=== PATIENT | female | born 1975 | race Caucasian/White ===

== ENCOUNTER 2016-11-06 20:19 | Emergency (ER) | payer OTHER ==
[~2016-11-06] VITALS: Ht 142.2 cm; Wt 77.1 kg
[~2016-11-06 20:19] MED LIST: ACETAMINOPHEN-H1 TA2 PO; ALBUTEROL0.09 MG/A2 IH; AMBIEN5 MG PO; ASPIRIN ADULT L81 M1 PO; ATIVAN1 MG PO; AUGMENTIN 875 M1 TAB PO; B12,B-12,B 12500 MC1 PO; BUPROPION HCL100 MG PO; BUSPIRONE15 MG PO; CARAFATE1 G1 PO; CELEBREX100 MG PO; CIPROFLOXACIN500 MG PO; COLCHICINE0.6 M1 PO; COMBIVENT1 ARO IH; COMPAZINE10 MG PO; COMPAZINE5 M3 PO; CYMBALTA20 M1 PO; CYMBALTA60 MG PO; DOCUSATE SOD100 MG PO; DOXYCYCLINE100 M3 PO; FLAGYL500 MG PO; GEMFIBROZIL600 MG PO; HYDROCODONE BIT1 T11 PO; IMDUR SA60 M1 PO; ISOSORBIDE MONO30 MG PO; LEVAQUIN750 M1 PO; LOMOTIL 0.025 M1 TA1 PO; LOPRESSOR25 MG PO; MOTRIN800 MG PO; NAPROSYN500 MG PO; OMNICEF300 MG PO; PREDNICOT20 MG PO; PRILOSEC20 M1 PO; PROTONIX40 MG PO; PROVERA5 MG PO; PROZAC20 MG PO; RANEXA500 M1 PO; ROBITUSSIN AC 110 ML PO; SEROQUEL25 MG PO; SINGULAIR10 M1 PO; VIBRAMYCIN100 MG PO; ZITHROMAX Z PA250 MG PO; ZOFRAN4 MG PO
[2016-11-06 20:56] LABS: BASO # 0.1 10*3/uL (0.0-0.1); EOS # 0.4 10*3/uL (0.0-0.4); EOS % 3.6 % (1.0-4.0); HEMATOCRIT 40.3 % (37.0-47.0); HEMOGLOBIN 13.4 g/dl (12.0-16.0); IG # 0.1 10*3/uL (0.0-0.1); LYMPH # 4.7 10*3/uL (1.3-4.4); LYMPH % 39.1 % (27.0-41.0); MEAN CELL VOLUME 99.3 fl (81.0-99.0); MEAN CORPUSCULAR HGB CONC 33.3 g/dl (33.0-37.0); MEAN PLATELET VOLUME 9.1 fl (9.6-12.3); MONO # 1.1 10*3/uL (0.1-1.0); MONO % 9.4 % (3.0-9.0); NEUT # 5.6 10*3/uL (2.3-7.9); NEUT % 46.4 % (47.0-73.0); PLATELET COUNT AUTOMATED 374 10*3/uL (130-400); RED BLOOD COUNT 4.06 10*6/uL (4.10-5.10); RED CELL DISTRI WIDTH 13.2 % (0-14.5); WHITE BLOOD COUNT 12.1 10*3/uL (4.8-10.8)
[2016-11-06 21:10] LABS: ALBUMIN 3.5 gm/dl (3.1-4.5); ALKALINE PHOSPHATASE 75 U/L (45-117); BILIRUBIN, TOTAL 0.2 mg/dl (0.2-1.0); BUN 7 mg/dl (7-24); CARBON DIOXIDE 26 mmol/L (21-32); CHLORIDE 107 mmol/L (98-107); EST GLOM FILT AFRICAN AMERICAN > 60 ml/min; GLUCOSE 122 mg/dL (65-99); POTASSIUM 3.8 mmol/L (3.5-5.1); SGOT/AST 10 IU/L (3-35); SGPT/ALT 21 U/L (12-78); SODIUM 143 mmol/L (136-145); TOTAL PROTEIN 6.9 gm/dL (6.4-8.2)
[2016-11-06 21:10] LABS: BILIRUBIN NEGATIVE (NEGATIVE); BLOOD 2+ (NEGATIVE); CLARITY SL CLOUDY (CLEAR); COLOR YELLOW (YELLOW); GLUCOSE NEGATIVE (NEGATIVE); KETONE TRACE (NEGATIVE); LEUKO ESTERASE NEGATIVE (NEGATIVE); NITRITE NEGATIVE (NEGATIVE); PH 6.5 (5.0-9.0); PROTEIN NEGATIVE (NEGATIVE); SPECIFIC GRAVITY 1.015 (1.005-1.030)
[2016-11-06 21:28] LABS: BACTERIA 4+; RBC 21-30 rbc/hpf (0-2); URINE REFLEX COMMENT YES (NO)
[2016-11-06] MEDS ORDERED: ANUSOL-HC25 MG R (21:36)
[2016-11-11] MEDS ORDERED: ATIVAN1 MG PO (01:11)
[2016-12-15] MEDS ORDERED: PANTOPRAZOLE SO40 MG PO (16:05)
[2016-12-15] MEDS ORDERED: PROZAC20 MG PO (16:05)
[2016-12-15] MEDS ORDERED: METOPROLOL SUCC50 M2 PO (16:05)
[2016-12-15] MEDS ORDERED: ATIVAN1 MG PO (16:06)
[2016-12-15] MEDS ORDERED: AMBIEN5 MG PO (16:06)
== END 2016-11-06 21:48 | disposition home or self-care (01) ==
LOC: ED 20:19
PROVIDERS: Nurse Practitioner Family
DX: K64.9 Unspecified hemorrhoids (principal); F17.200 Nicotine dependence, unspecified, uncomplicated; Z98.51 Tubal ligation status; Z79.82 Long term (current) use of aspirin; Z88.6 Allergy status to analgesic agent; Z87.19 Personal history of other diseases of the digestive system

== ENCOUNTER 2016-11-18 17:35 | Emergency (ER) | payer OTHER ==
[~2016-11-18] VITALS: Ht 142.2 cm; Wt 77.1 kg
[~2016-11-18 17:35] MED LIST changes: +ANUSOL-HC25 MG R
[2016-11-18] MEDS ORDERED: ISOSORBIDE MONO30 MG PO (18:00)
[2016-11-18] MEDS ORDERED: Carafate1 GM/10 ML PO (18:01)
[2016-11-18] MEDS ORDERED: MOVANTIK25 MG PO (18:01)
[2016-11-18 18:19] LABS: BASO # 0.1 10*3/uL (0.0-0.1); BASO % 1.1 % (0.0-1.0); EOS # 0.3 10*3/uL (0.0-0.4); HEMATOCRIT 41.6 % (37.0-47.0); HEMOGLOBIN 13.8 g/dl (12.0-16.0); LYMPH # 3.6 10*3/uL (1.3-4.4); LYMPH % 34.3 % (27.0-41.0); MEAN CELL VOLUME 98.1 fl (81.0-99.0); MEAN CORPUSCULAR HGB 32.5 pg (27.0-31.0); MEAN CORPUSCULAR HGB CONC 33.2 g/dl (33.0-37.0); MONO # 1.1 10*3/uL (0.1-1.0); MONO % 10.4 % (3.0-9.0); NEUT # 5.3 10*3/uL (2.3-7.9); NEUT % 50.8 % (47.0-73.0); PLATELET COUNT AUTOMATED 318 10*3/uL (130-400); RED BLOOD COUNT 4.24 10*6/uL (4.10-5.10); RED CELL DISTRI WIDTH 12.7 % (0-14.5); WHITE BLOOD COUNT 10.5 10*3/uL (4.8-10.8)
[2016-11-18 18:30] LABS: INTERNATIONAL NORM RATIO 0.9 (2.0-3.5); PROTHROMBIN TIME 9.9 SECONDS (9.0-12.4)
[2016-11-18 18:44] LABS: ALBUMIN 3.6 gm/dl (3.1-4.5); ALKALINE PHOSPHATASE 73 U/L (45-117); BILIRUBIN, TOTAL 0.2 mg/dl (0.2-1.0); BUN 8 mg/dl (7-24); CARBON DIOXIDE 28 mmol/L (21-32); CHLORIDE 106 mmol/L (98-107); EST GLOM FILT AFRICAN AMERICAN > 60 ml/min; GLUCOSE 81 mg/dL (65-99); LDH 171 U/L (84-246); MAGNESIUM 2.2 mg/dL (1.5-2.1); POTASSIUM 3.8 mmol/L (3.5-5.1); SGOT/AST 8 IU/L (3-35); SGPT/ALT 13 U/L (12-78); SODIUM 141 mmol/L (136-145); TOTAL PROTEIN 6.9 gm/dL (6.4-8.2); TROPONIN I < 0.015 ng/ml (<0.5)
[2016-12-15] MEDS ORDERED: PANTOPRAZOLE SO40 MG PO (16:05)
[2016-12-15] MEDS ORDERED: PROZAC20 MG PO (16:05)
[2016-12-15] MEDS ORDERED: METOPROLOL SUCC50 M2 PO (16:05)
[2016-12-15] MEDS ORDERED: AMBIEN5 MG PO (16:06)
[2016-12-15] MEDS ORDERED: ATIVAN1 MG PO (16:06)
== END 2016-11-18 19:37 | disposition home or self-care (01) ==
LOC: ED 17:35
PROVIDERS: Registered Nurse
DX: R07.9 Chest pain, unspecified (principal); F17.200 Nicotine dependence, unspecified, uncomplicated; F41.9 Anxiety disorder, unspecified; I25.10 Atherosclerotic heart disease of native coronary artery without angina pectoris; Z79.82 Long term (current) use of aspirin; Z88.5 Allergy status to narcotic agent; Z88.6 Allergy status to analgesic agent

== ENCOUNTER 2017-02-28 19:20 | Emergency (ER) | payer OTHER ==
[~2017-02-28] VITALS: Ht 142.2 cm; Wt 75.3 kg
[~2017-02-28 19:20] MED LIST changes: +Carafate1 GM/10 ML PO; +METOPROLOL SUCC50 M2 PO; +MOVANTIK25 MG PO; +PANTOPRAZOLE SO40 MG PO
[2017-02-28] MEDS ORDERED: ATIVAN0.5 MG PO (19:30)
[2017-02-28] MEDS ORDERED: TOPROL XL50 M1 PO (19:30)
[2017-02-28] MEDS ORDERED: PROTONIX40 MG PO (19:30)
[2017-02-28] MEDS ORDERED: CITALOPRAM HYDR20 MG PO (19:31)
[2017-02-28] MEDS ORDERED: DICLOFENAC SOD75 MG PO (19:31)
[2017-02-28] MEDS ORDERED: PROVENTIL0.09 MG/A1 INH (19:31)
[2017-02-28 20:31] LABS: BASO # 0.1 10*3/uL (0.0-0.1); BASO % 1.2 % (0.0-1.0); EOS # 0.7 10*3/uL (0.0-0.4); EOS % 6.1 % (1.0-4.0); HEMATOCRIT 38.2 % (37.0-47.0); HEMOGLOBIN 12.6 g/dl (12.0-16.0); IG # 0.1 10*3/uL (0.0-0.1); LYMPH # 2.6 10*3/uL (1.3-4.4); LYMPH % 22.6 % (27.0-41.0); MEAN CELL VOLUME 100.3 fl (81.0-99.0); MEAN CORPUSCULAR HGB 33.1 pg (27.0-31.0); MEAN PLATELET VOLUME 8.5 fl (9.6-12.3); MONO # 1.1 10*3/uL (0.1-1.0); MONO % 9.9 % (3.0-9.0); NEUT # 6.8 10*3/uL (2.3-7.9); PLATELET COUNT AUTOMATED 313 10*3/uL (130-400); RED BLOOD COUNT 3.81 10*6/uL (4.10-5.10); WHITE BLOOD COUNT 11.5 10*3/uL (4.8-10.8)
[2017-02-28 20:47] LABS: ALBUMIN 3.2 gm/dl (3.1-4.5); ALKALINE PHOSPHATASE 75 U/L (45-117); BILIRUBIN, TOTAL 0.2 mg/dl (0.2-1.0); BUN 11 mg/dl (7-24); CARBON DIOXIDE 31 mmol/L (21-32); CHLORIDE 104 mmol/L (98-107); EST GLOM FILT AFRICAN AMERICAN > 60 ml/min; GLUCOSE 96 mg/dL (65-99); POTASSIUM 3.8 mmol/L (3.5-5.1); SGOT/AST 27 IU/L (3-35); SGPT/ALT 15 U/L (12-78); SODIUM 143 mmol/L (136-145); TOTAL PROTEIN 6.4 gm/dL (6.4-8.2)
[2017-02-28] MEDS ORDERED: ROBITUSSIN AC 110 ML PO (20:57)
[2017-02-28] MEDS ORDERED: PREDNISONE20 M1 PO (20:57)
[2017-02-28] MEDS ORDERED: OMNICEF300 MG PO (20:57)
== END 2017-02-28 21:00 | disposition home or self-care (01) ==
LOC: ED 19:20
PROVIDERS: Nurse Practitioner Family
DX: J20.9 Acute bronchitis, unspecified (principal); F41.9 Anxiety disorder, unspecified; F17.200 Nicotine dependence, unspecified, uncomplicated; F32.9 Major depressive disorder, single episode, unspecified; E78.5 Hyperlipidemia, unspecified; M79.7 Fibromyalgia; K21.9 Gastro-esophageal reflux disease without esophagitis; Z95.5 Presence of coronary angioplasty implant and graft; I25.10 Atherosclerotic heart disease of native coronary artery without angina pectoris; Z88.5 Allergy status to narcotic agent; Z88.6 Allergy status to analgesic agent

== ENCOUNTER 2017-03-05 13:55 | Inpatient (IN) | payer OTHER ==
[~2017-03-05] VITALS: Ht 142.2 cm; Wt 78.1 kg
[~2017-03-05 13:55] MED LIST changes: +ATIVAN0.5 MG PO; +CITALOPRAM HYDR20 MG PO; +DICLOFENAC SOD75 MG PO; +PREDNISONE20 M1 PO; +PROVENTIL0.09 MG/A1 INH; +TOPROL XL50 M1 PO
[2017-03-05 14:01] VITALS: BP 105/66
[2017-03-05 14:41] LABS: HEMATOCRIT 42.8 % (37.0-47.0); HEMOGLOBIN 14.6 g/dl (12.0-16.0); MEAN CELL VOLUME 98.2 fl (81.0-99.0); MEAN CORPUSCULAR HGB 33.5 pg (27.0-31.0); MEAN CORPUSCULAR HGB CONC 34.1 g/dl (33.0-37.0); MEAN PLATELET VOLUME 8.7 fl (9.6-12.3); PLATELET COUNT AUTOMATED 435 10*3/uL (130-400); RED BLOOD COUNT 4.36 10*6/uL (4.10-5.10); RED CELL DISTRI WIDTH 14.1 % (0-14.5)
[2017-03-05 14:44] LABS: BILIRUBIN 1+ (NEGATIVE); BLOOD 2+ (NEGATIVE); CLARITY SL CLOUDY (CLEAR); COLOR YELLOW (YELLOW); GLUCOSE NEGATIVE (NEGATIVE); KETONE TRACE (NEGATIVE); LEUKO ESTERASE TRACE (NEGATIVE); NITRITE NEGATIVE (NEGATIVE); PH 6.5 (5.0-9.0); PROTEIN TRACE (NEGATIVE); SPECIFIC GRAVITY 1.015 (1.005-1.030)
[2017-03-05 14:51] LABS: BACTERIA 1+; EPITHELIAL CELLS 16-20; RBC 16-20 rbc/hpf (0-2); URINE REFLEX COMMENT YES (NO)
[2017-03-05 14:55] LABS: ALBUMIN 3.4 gm/dl (3.1-4.5); ALKALINE PHOSPHATASE 67 U/L (45-117); BILIRUBIN, TOTAL 0.3 mg/dl (0.2-1.0); BUN 18 mg/dl (7-24); CARBON DIOXIDE 26 mmol/L (21-32); CHLORIDE 104 mmol/L (98-107); EST GLOM FILT AFRICAN AMERICAN > 60 ml/min; GLUCOSE 113 mg/dL (65-99); POTASSIUM 4.2 mmol/L (3.5-5.1); SGOT/AST 25 IU/L (3-35); SGPT/ALT 19 U/L (12-78); SODIUM 139 mmol/L (136-145)
[2017-03-05 14:57] LABS: C-REACTIVE PROTEIN < 0.29 MG/DL (0-0.3)
[2017-03-05 14:59] LABS: BASOPHIL # 0.2 10*3/uL (0-0.1); BASOPHILS 1 % (0-1); EOSINOPHIL # 0.2 10*3/uL (0-0.4); EOSINOPHILS 1 % (1-4); LYMPHOCYTE # 3.2 10*3/uL (1.3-4.4); METAMYELOCYTES 2 % (0-0); MONOCYTE # 1.7 10*3/uL (0.1-1.0); NEUTROPHIL # 15.3 10*3/uL (2.3-7.9); NEUTROPHILS 73 % (47-73); TOTAL CELLS COUNTED 100 #CELLS
[2017-03-05 15:00] LABS: PLATELET SUFFICIENCY NORMAL (NORMAL)
[2017-03-05] MEDS ORDERED: CIPRO250 MG PO (16:38)
[2017-03-05] MEDS ORDERED: FLAGYL500 MG PO (16:38)
[2017-03-05] MEDS ORDERED: NORCO 5-325 TA1 EACH PO (16:38)
[2017-03-06] VITALS (7 sets, daily range): BP systolic 112–130; BP diastolic 58–88
[2017-03-06 06:29] LABS: HEMATOCRIT 38.9 % (37.0-47.0); HEMOGLOBIN 12.8 g/dl (12.0-16.0); MEAN CORPUSCULAR HGB 33.6 pg (27.0-31.0); MEAN CORPUSCULAR HGB CONC 32.9 g/dl (33.0-37.0); MEAN PLATELET VOLUME 8.7 fl (9.6-12.3); PLATELET COUNT AUTOMATED 383 10*3/uL (130-400); RED BLOOD COUNT 3.81 10*6/uL (4.10-5.10); RED CELL DISTRI WIDTH 14.4 % (0-14.5); WHITE BLOOD COUNT 18.9 10*3/uL (4.8-10.8)
[2017-03-06 06:31] LABS: MEAN CELL VOLUME 102.1 fl (81.0-99.0)
[2017-03-06 06:33] LABS: BUN 18 mg/dl (7-24); CARBON DIOXIDE 28 mmol/L (21-32); CHLORIDE 107 mmol/L (98-107); EST GLOM FILT AFRICAN AMERICAN > 60 ml/min; GLUCOSE 97 mg/dL (65-99); POTASSIUM 3.5 mmol/L (3.5-5.1); SODIUM 141 mmol/L (136-145)
[2017-03-06 07:11] LABS: EOSINOPHIL # 0.4 10*3/uL (0-0.4); EOSINOPHILS 2 % (1-4); LYMPHOCYTE # 5.3 10*3/uL (1.3-4.4); METAMYELOCYTES 2 % (0-0); MONOCYTE # 1.7 10*3/uL (0.1-1.0); NEUTROPHIL # 11.2 10*3/uL (2.3-7.9); NEUTROPHILS 59 % (47-73); PLATELET SUFFICIENCY NORMAL (NORMAL); POLYCHROMASIA SLIGHT; TOTAL CELLS COUNTED 100 #CELLS
[2017-03-07] VITALS: BP 122/53
[2017-03-07 06:37] LABS: HEMATOCRIT 35.9 % (37.0-47.0); HEMOGLOBIN 11.9 g/dl (12.0-16.0); MEAN CELL VOLUME 100.3 fl (81.0-99.0); MEAN CORPUSCULAR HGB 33.2 pg (27.0-31.0); MEAN CORPUSCULAR HGB CONC 33.1 g/dl (33.0-37.0); MEAN PLATELET VOLUME 8.9 fl (9.6-12.3); PLATELET COUNT AUTOMATED 351 10*3/uL (130-400); RED BLOOD COUNT 3.58 10*6/uL (4.10-5.10); RED CELL DISTRI WIDTH 14.5 % (0-14.5); WHITE BLOOD COUNT 18.8 10*3/uL (4.8-10.8)
[2017-03-07 07:35] LABS: ATYPICAL LYMPHS 1 % (0-0); LYMPHOCYTE # 1.9 10*3/uL (1.3-4.4); MYELOCYTES 1 % (0-0); NEUTROPHIL # 16.7 10*3/uL (2.3-7.9); NEUTROPHILS 89 % (47-73); PLATELET SUFFICIENCY NORMAL (NORMAL); TOTAL CELLS COUNTED 100 #CELLS
[2017-03-07 08:00] VITALS: BP 114/50
[2017-03-07 12:00] VITALS: BP 144/78
[2017-03-07 16:00] VITALS: BP 126/68
[2017-03-07 20:00] VITALS: BP 121/56
[2017-03-08] VITALS: BP 133/71
[2017-03-08 06:30] LABS: HEMATOCRIT 36.6 % (37.0-47.0); HEMOGLOBIN 11.9 g/dl (12.0-16.0); MEAN CORPUSCULAR HGB 32.5 pg (27.0-31.0); MEAN CORPUSCULAR HGB CONC 32.5 g/dl (33.0-37.0); MEAN PLATELET VOLUME 8.8 fl (9.6-12.3); PLATELET COUNT AUTOMATED 358 10*3/uL (130-400); RED BLOOD COUNT 3.66 10*6/uL (4.10-5.10); RED CELL DISTRI WIDTH 15.2 % (0-14.5); WHITE BLOOD COUNT 15.1 10*3/uL (4.8-10.8)
[2017-03-08 07:29] LABS: LYMPHOCYTE # 2.1 10*3/uL (1.3-4.4); METAMYELOCYTES 1 % (0-0); MONOCYTE # 0.6 10*3/uL (0.1-1.0); NEUTROPHIL # 12.2 10*3/uL (2.3-7.9); NEUTROPHILS 81 % (47-73); PLATELET SUFFICIENCY NORMAL (NORMAL); TOTAL CELLS COUNTED 100 #CELLS
[2017-03-08 08:00] VITALS: BP 114/53
[2017-03-08] MEDS ORDERED: PREDNISONE10 MG PO (11:19)
[2017-03-08] MEDS ORDERED: LEVAQUIN500 M2 PO (11:19)
== END 2017-03-08 12:01 | disposition home or self-care (01) | DRG 872 ==
LOC: ED 13:55 → EDHOLD 03-06 00:22 → 5E 03-06 00:22
PROVIDERS: Family Medicine; Internal Medicine; Internal Medicine Hospice and Palliative Medicine; Nurse Practitioner Family
DX: A41.9 Sepsis, unspecified organism (principal); E44.0 Moderate protein-calorie malnutrition; J44.0 Chronic obstructive pulmonary disease with (acute) lower respiratory infection; K57.92 Diverticulitis of intestine, part unspecified, without perforation or abscess without bleeding; J44.1 Chronic obstructive pulmonary disease with (acute) exacerbation; E66.01 Morbid (severe) obesity due to excess calories; D47.3 Essential (hemorrhagic) thrombocythemia; Z71.6 Tobacco abuse counseling; R31.9 Hematuria, unspecified; D35.00 Benign neoplasm of unspecified adrenal gland; F41.9 Anxiety disorder, unspecified; F32.9 Major depressive disorder, single episode, unspecified; E78.5 Hyperlipidemia, unspecified; K21.9 Gastro-esophageal reflux disease without esophagitis; M79.7 Fibromyalgia; D75.89 Other specified diseases of blood and blood-forming organs; I10 Essential (primary) hypertension; F17.210 Nicotine dependence, cigarettes, uncomplicated; Z82.49 Family history of ischemic heart disease and other diseases of the circulatory system; Z79.899 Other long term (current) drug therapy; Z68.38 Body mass index [BMI] 38.0-38.9, adult; J20.9 Acute bronchitis, unspecified

== ENCOUNTER 2017-03-11 16:24 | Emergency (ER) | payer OTHER ==
[~2017-03-11] VITALS: Ht 142.2 cm; Wt 74.8 kg
--- NOTE | ~2017-03-11 | EKG ---
[place], [place] ELECTROCARDIOGRAM REPORT NAME: DANIEL EVANGELISTA UNIT #: [id number] ROOM: DOCTOR: PAOLA GALLARDO MD BIRTHDATE: [birth year] DOS: 03/11/2017 TIME: 19:08 p.m. Sinus tachycardia at rate 138. Left atrial enlargement. Nonspecific ST and T-wave changes. Abnormal electrocardiogram. PAOLA GALLARDO MD CM:EKGRPT:ELECTROCARDIOGRAM REPORT 13 00 PAOLA GALLARDO MD
[~2017-03-11 16:24] MED LIST changes: +CIPRO250 MG PO; +LEVAQUIN500 M2 PO; +NORCO 5-325 TA1 EACH PO; +PREDNISONE10 MG PO
[2017-03-11 17:25] LABS: HEMATOCRIT 41.2 % (37.0-47.0); HEMOGLOBIN 13.8 g/dl (12.0-16.0); MEAN CELL VOLUME 101.2 fl (81.0-99.0); MEAN CORPUSCULAR HGB 33.9 pg (27.0-31.0); MEAN CORPUSCULAR HGB CONC 33.5 g/dl (33.0-37.0); MEAN PLATELET VOLUME 8.8 fl (9.6-12.3); PLATELET COUNT AUTOMATED 471 10*3/uL (130-400); RED BLOOD COUNT 4.07 10*6/uL (4.10-5.10); WHITE BLOOD COUNT 22.5 10*3/uL (4.8-10.8)
[2017-03-11 17:42] LABS: ALKALINE PHOSPHATASE 64 U/L (45-117); BILIRUBIN, TOTAL 0.2 mg/dl (0.2-1.0); BUN 15 mg/dl (7-24); CARBON DIOXIDE 28 mmol/L (21-32); CHLORIDE 104 mmol/L (98-107); EST GLOM FILT AFRICAN AMERICAN > 60 ml/min; GLUCOSE 109 mg/dL (65-99); SGOT/AST 10 IU/L (3-35); SGPT/ALT 23 U/L (12-78); SODIUM 137 mmol/L (136-145); TOTAL PROTEIN 6.6 gm/dL (6.4-8.2)
[2017-03-11 17:43] LABS: EOSINOPHIL # 0.2 10*3/uL (0-0.4); EOSINOPHILS 1 % (1-4); LYMPHOCYTE # 3.6 10*3/uL (1.3-4.4); MONOCYTE # 0.7 10*3/uL (0.1-1.0); NEUTROPHILS 80 % (47-73); TOTAL CELLS COUNTED 100 #CELLS
[2017-03-11 17:44] LABS: PLATELET SUFFICIENCY HIGH (NORMAL)
[2017-03-11 19:02] LABS: BILIRUBIN NEGATIVE (NEGATIVE); BLOOD TRACE-INTACT (NEGATIVE); CLARITY CLEAR (CLEAR); COLOR YELLOW (YELLOW); GLUCOSE NEGATIVE (NEGATIVE); KETONE NEGATIVE (NEGATIVE); LEUKO ESTERASE NEGATIVE (NEGATIVE); NITRITE NEGATIVE (NEGATIVE); PH 6.5 (5.0-9.0); PROTEIN NEGATIVE (NEGATIVE); SPECIFIC GRAVITY <= 1.005 (1.005-1.030); UROBILINOGEN 0.2 E.U./dl (0.2-1.0)
[2017-03-11 19:34] LABS: BACTERIA TRACE; EPITHELIAL CELLS 25-30; URINE REFLEX COMMENT NO (NO); WBC 0-2 wbc/hpf (0-5)
== END 2017-03-11 22:53 | disposition short-term general hospital (02) ==
LOC: ED 16:24
PROVIDERS: Nurse Practitioner Family
DX: R56.9 Unspecified convulsions (principal); R10.9 Unspecified abdominal pain; D72.829 Elevated white blood cell count, unspecified; I10 Essential (primary) hypertension; F41.9 Anxiety disorder, unspecified; F32.9 Major depressive disorder, single episode, unspecified; J44.9 Chronic obstructive pulmonary disease, unspecified; K21.9 Gastro-esophageal reflux disease without esophagitis; F17.200 Nicotine dependence, unspecified, uncomplicated; Z88.6 Allergy status to analgesic agent; Z79.899 Other long term (current) drug therapy

== ENCOUNTER 2017-03-20 16:54 | Emergency (ER) | payer OTHER ==
[~2017-03-20] VITALS: Ht 142.2 cm; Wt 74.8 kg
[2017-03-20 17:43] LABS: BASO # 0.1 10*3/uL (0.0-0.1); BASO % 0.9 % (0.0-1.0); EOS # 0.6 10*3/uL (0.0-0.4); EOS % 4.3 % (1.0-4.0); HEMATOCRIT 41.8 % (37.0-47.0); IG # 0.1 10*3/uL (0.0-0.1); LYMPH # 4.1 10*3/uL (1.3-4.4); LYMPH % 31.9 % (27.0-41.0); MEAN CELL VOLUME 100.7 fl (81.0-99.0); MEAN CORPUSCULAR HGB 33.7 pg (27.0-31.0); MEAN CORPUSCULAR HGB CONC 33.5 g/dl (33.0-37.0); MEAN PLATELET VOLUME 8.9 fl (9.6-12.3); MONO # 1.2 10*3/uL (0.1-1.0); MONO % 9.6 % (3.0-9.0); NEUT # 6.8 10*3/uL (2.3-7.9); NEUT % 52.6 % (47.0-73.0); PLATELET COUNT AUTOMATED 372 10*3/uL (130-400); RED BLOOD COUNT 4.15 10*6/uL (4.10-5.10); WHITE BLOOD COUNT 12.9 10*3/uL (4.8-10.8)
[2017-03-20 17:49] LABS: BILIRUBIN NEGATIVE (NEGATIVE); BLOOD 1+ (NEGATIVE); CLARITY SL CLOUDY (CLEAR); COLOR YELLOW (YELLOW); GLUCOSE NEGATIVE (NEGATIVE); KETONE NEGATIVE (NEGATIVE); LEUKO ESTERASE NEGATIVE (NEGATIVE); NITRITE NEGATIVE (NEGATIVE); PH 6.5 (5.0-9.0); PROTEIN NEGATIVE (NEGATIVE); SPECIFIC GRAVITY <= 1.005 (1.005-1.030); UROBILINOGEN 0.2 E.U./dl (0.2-1.0)
[2017-03-20 17:56] LABS: BACTERIA TRACE; EPITHELIAL CELLS 55-60; URINE REFLEX COMMENT YES (NO); WBC 0-2 wbc/hpf (0-5)
[2017-03-20 17:58] LABS: URINE AMPHETAMINES < 1000 (1000ng/ml); URINE BARBITURATES < 200 (200ng/ml); URINE COCAINE < 300 (300ng/ml)
[2017-03-20 18:04] LABS: ALBUMIN 3.3 gm/dl (3.1-4.5); ALKALINE PHOSPHATASE 68 U/L (45-117); BILIRUBIN, TOTAL 0.3 mg/dl (0.2-1.0); BUN 12 mg/dl (7-24); CARBON DIOXIDE 27 mmol/L (21-32); CHLORIDE 106 mmol/L (98-107); EST GLOM FILT AFRICAN AMERICAN > 60 ml/min; GLUCOSE 84 mg/dL (65-99); MAGNESIUM 1.9 mg/dL (1.5-2.1); POTASSIUM 4.2 mmol/L (3.5-5.1); SGOT/AST 12 IU/L (3-35); SGPT/ALT 18 U/L (12-78); SODIUM 137 mmol/L (136-145); TOTAL PROTEIN 7.2 gm/dL (6.4-8.2)
[2017-03-20 18:06] LABS: TROPONIN I < 0.015 ng/ml (<0.045)
[2017-03-20] MEDS ORDERED: KEPPRA500 MG PO (18:41)
[2017-03-21] MEDS ORDERED: MAPAP500 MG PO (21:42)
== END 2017-03-20 19:05 | disposition home or self-care (01) ==
LOC: ED 16:54
PROVIDERS: Nurse Practitioner Family
DX: R56.9 Unspecified convulsions (principal); R03.0 Elevated blood-pressure reading, without diagnosis of hypertension; F17.200 Nicotine dependence, unspecified, uncomplicated; I10 Essential (primary) hypertension; M79.7 Fibromyalgia; E78.5 Hyperlipidemia, unspecified; K21.9 Gastro-esophageal reflux disease without esophagitis; F41.9 Anxiety disorder, unspecified; F32.9 Major depressive disorder, single episode, unspecified; Z88.6 Allergy status to analgesic agent; Z88.5 Allergy status to narcotic agent; Z91.041 Radiographic dye allergy status; Z79.899 Other long term (current) drug therapy

== ENCOUNTER 2017-03-21 19:14 | Emergency (ER) | payer OTHER ==
[~2017-03-21] VITALS: Ht 142.2 cm; Wt 77.1 kg
[~2017-03-21 19:14] MED LIST changes: +KEPPRA500 MG PO
[2017-03-21 20:05] LABS: BASO # 0.1 10*3/uL (0.0-0.1); EOS # 0.6 10*3/uL (0.0-0.4); EOS % 5.1 % (1.0-4.0); HEMATOCRIT 42.7 % (37.0-47.0); HEMOGLOBIN 14.3 g/dl (12.0-16.0); IG # 0.1 10*3/uL (0.0-0.1); LYMPH # 3.9 10*3/uL (1.3-4.4); LYMPH % 32.8 % (27.0-41.0); MEAN CELL VOLUME 100.5 fl (81.0-99.0); MEAN CORPUSCULAR HGB 33.6 pg (27.0-31.0); MEAN CORPUSCULAR HGB CONC 33.5 g/dl (33.0-37.0); MEAN PLATELET VOLUME 8.8 fl (9.6-12.3); MONO # 0.9 10*3/uL (0.1-1.0); MONO % 7.4 % (3.0-9.0); NEUT # 6.3 10*3/uL (2.3-7.9); NEUT % 52.9 % (47.0-73.0); PLATELET COUNT AUTOMATED 361 10*3/uL (130-400); RED BLOOD COUNT 4.25 10*6/uL (4.10-5.10); WHITE BLOOD COUNT 11.9 10*3/uL (4.8-10.8)
[2017-03-21 20:18] LABS: BUN 10 mg/dl (7-24); CARBON DIOXIDE 26 mmol/L (21-32); CHLORIDE 105 mmol/L (98-107); EST GLOM FILT AFRICAN AMERICAN > 60 ml/min; GLUCOSE 93 mg/dL (65-99); POTASSIUM 4.1 mmol/L (3.5-5.1); SODIUM 139 mmol/L (136-145)
[2017-03-21 21:09] LABS: BILIRUBIN NEGATIVE (NEGATIVE); BLOOD TRACE-INTACT (NEGATIVE); CLARITY SL CLOUDY (CLEAR); COLOR YELLOW (YELLOW); GLUCOSE NEGATIVE (NEGATIVE); KETONE NEGATIVE (NEGATIVE); LEUKO ESTERASE NEGATIVE (NEGATIVE); NITRITE NEGATIVE (NEGATIVE); PROTEIN NEGATIVE (NEGATIVE); SPECIFIC GRAVITY <= 1.005 (1.005-1.030); UROBILINOGEN 0.2 E.U./dl (0.2-1.0)
[2017-03-21 21:15] LABS: URINE AMPHETAMINES < 1000 (1000ng/ml); URINE BARBITURATES > 200 (200ng/ml); URINE COCAINE < 300 (300ng/ml)
[2017-03-21 21:19] LABS: BACTERIA 2+; URINE REFLEX COMMENT YES (NO); WBC 0-2 wbc/hpf (0-5)
[2017-03-21] MEDS ORDERED: MAPAP500 MG PO (21:42)
== END 2017-03-21 21:40 | disposition home or self-care (01) ==
LOC: ED 19:14
PROVIDERS: Emergency Medicine Emergency Medical Services
DX: G40.909 Epilepsy, unspecified, not intractable, without status epilepticus (principal); F17.200 Nicotine dependence, unspecified, uncomplicated; F41.9 Anxiety disorder, unspecified; F32.9 Major depressive disorder, single episode, unspecified; E78.5 Hyperlipidemia, unspecified; M79.7 Fibromyalgia; K21.9 Gastro-esophageal reflux disease without esophagitis; Z88.5 Allergy status to narcotic agent; Z88.6 Allergy status to analgesic agent; Z91.041 Radiographic dye allergy status; Z79.899 Other long term (current) drug therapy; Z95.5 Presence of coronary angioplasty implant and graft

== ENCOUNTER 2017-05-30 20:14 | Inpatient (IN) | payer OTHER ==
[~2017-05-30] VITALS: Ht 142.2 cm; Wt 78.1 kg
--- NOTE | ~2017-05-30 | CON ---
[place], [place] REPORT OF CONSULTATION NAME: DANIEL EVANGELISTA UNIT #: [id number] ROOM: 515 DOCTOR: DEMETRIS MYERS MD BIRTHDATE: [birth year] DOS: 05/31/2017 HISTORY OF PRESENT ILLNESS: A 41-year-old female well known to me with a history of heavy tobacco abuse who had a heart catheterization by me before, had mild disease of the proximal LAD, had a repeat cardiac catheterization, showed complete patency of the vessel. The patient got admitted with midsternal chest discomfort. The patient denied taking any medication for her symptoms. No acute EKG changes, suggestion of myocardial injury or infarction. The patient reports that 1 month ago she was sent to [place], [place] after having a series of seizures. She was told that the seizures were due to stress. The patient had an IV contrast CT scan and from the contrast problem, she had an allergic reaction. As mentioned in September, I did a heart catheterization, basically showed spasm without any significant coronary artery disease. 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 PAST SURGICAL HISTORY: EGD, cardiac catheterization. SOCIAL HISTORY: Denies any alcohol, but heavy tobacco abuse for about 20 years. FAMILY HISTORY: Positive for coronary artery disease. ALLERGIES: TO IVP DYE AND NONSTEROIDALS. HOME MEDICATIONS: Metoprolol, pantoprazole, and lorazepam. REVIEW OF SYSTEMS: CONSTITUTIONAL: No fever, no chills. HEENT: No visual disturbances or hearing problems. CARDIOVASCULAR: As described in the HPI. GASTROINTESTINAL: No nausea, no vomiting. GENITOURINARY: No dysuria. NEUROLOGIC: Stable. All other review of systems are negative. PHYSICAL EXAMINATION: GENERAL: The patient is alert and oriented x 3. HEENT: Unremarkable. NECK: Supple, no JVD, no thyromegaly, no lymphadenopathy. LUNGS: Clear. HEART: Heart sounds are regular. No murmur, no rub. ABDOMEN: Soft, nontender. NEUROLOGICAL: Stable. LABORATORY DATA: Electrolytes are normal. CBC normal. Troponins are all negative. Hemoglobin and hematocrit within normal limits. EKG sinus rhythm with nonspecific ST-T changes. CT scan of the abdomen showed no acute process. [place], [place] REPORT OF CONSULTATION NAME: DANIEL EVANGELISTA UNIT #: [id number] ROOM: [facility] DOCTOR: DEMETRIS MYERS MD BIRTHDATE: [birth year] IMPRESSION: Atypical chest discomfort, leukocytosis, tobacco abuse, dyslipidemia, fibromyalgia, depression. RECOMMENDATIONS: Continue with the present care. Agree with getting cardiac enzymes and serial enzymes. As I did a heart catheterization twice already and have no reason to do any cardiac workup, if needed, I add a very small dose of isosorbide 15 mg daily for the coronary spasm because of heavy tobacco abuse and small vessel disease and I will follow up. Thank you for this interesting consultation. DEMETRIS MYERS MD CM:CONSTR:REPORT OF CONSULTATION 0711 05/31/17 0751 interface
--- NOTE | ~2017-05-30 | EKG ---
[place], [place] ELECTROCARDIOGRAM REPORT NAME: DANIEL EVANGELISTA UNIT #: [id number] ROOM: [facility] DOCTOR: DEMETRIS MYERS MD BIRTHDATE: [birth year] DOS: 05/30/2017 TIME: 20:24:53 Normal sinus rhythm, normal axis, normal intervals with nonspecific ST-T changes. DEMETRIS MYERS MD CM:EKGRPT:ELECTROCARDIOGRAM REPORT 1427 1455 DEMETRIS MYERS MD
[~2017-05-30 20:14] MED LIST changes: +MAPAP500 MG PO
[2017-05-30 20:20] VITALS: BP 141/77
[2017-05-30 20:28] LABS: BASO # 0.1 10*3/uL (0.0-0.1); BASO % 0.6 % (0.0-1.0); EOS # 0.4 10*3/uL (0.0-0.4); EOS % 2.5 % (1.0-4.0); HEMATOCRIT 41.9 % (37.0-47.0); IG # 0.1 10*3/uL (0.0-0.1); LYMPH # 4.8 10*3/uL (1.3-4.4); LYMPH % 29.1 % (27.0-41.0); MEAN CORPUSCULAR HGB 33.4 pg (27.0-31.0); MEAN CORPUSCULAR HGB CONC 33.4 g/dl (33.0-37.0); MEAN PLATELET VOLUME 8.9 fl (9.6-12.3); MONO # 1.2 10*3/uL (0.1-1.0); MONO % 7.5 % (3.0-9.0); NEUT # 9.8 10*3/uL (2.3-7.9); NEUT % 59.5 % (47.0-73.0); PLATELET COUNT AUTOMATED 347 10*3/uL (130-400); RED BLOOD COUNT 4.19 10*6/uL (4.10-5.10); RED CELL DISTRI WIDTH 12.7 % (0-14.5); WHITE BLOOD COUNT 16.5 10*3/uL (4.8-10.8)
[2017-05-30 20:39] LABS: INTERNATIONAL NORM RATIO 0.9 (2.0-3.5); PROTHROMBIN TIME 9.7 SECONDS (9.0-12.4)
[2017-05-30 20:47] LABS: ALBUMIN 3.1 gm/dl (3.1-4.5); ALKALINE PHOSPHATASE 66 U/L (45-117); BILIRUBIN, TOTAL 0.2 mg/dl (0.2-1.0); BUN 15 mg/dl (7-24); CARBON DIOXIDE 24 mmol/L (21-32); CHLORIDE 107 mmol/L (98-107); EST GLOM FILT AFRICAN AMERICAN > 60 ml/min; GLUCOSE 91 mg/dL (65-99); POTASSIUM 3.8 mmol/L (3.5-5.1); SGOT/AST 11 IU/L (3-35); SGPT/ALT 14 U/L (12-78); SODIUM 137 mmol/L (136-145); TOTAL PROTEIN 6.8 gm/dL (6.4-8.2)
[2017-05-30 20:51] LABS: TROPONIN I < 0.015 ng/ml (<0.045)
[2017-05-30 23:43] LABS: BILIRUBIN NEGATIVE (NEGATIVE); BLOOD 1+ (NEGATIVE); CLARITY SL CLOUDY (CLEAR); COLOR YELLOW (YELLOW); GLUCOSE NEGATIVE (NEGATIVE); KETONE NEGATIVE (NEGATIVE); LEUKO ESTERASE NEGATIVE (NEGATIVE); NITRITE NEGATIVE (NEGATIVE); PH 5.5 (5.0-9.0); PROTEIN NEGATIVE (NEGATIVE); SPECIFIC GRAVITY <= 1.005 (1.005-1.030); UROBILINOGEN 0.2 E.U./dl (0.2-1.0)
[2017-05-30 23:51] LABS: BACTERIA 2+; RBC 0-2 rbc/hpf (0-2); WBC 0-2 wbc/hpf (0-5)
[2017-05-30 23:53] LABS: URINE AMPHETAMINES < 1000 (1000ng/ml); URINE BARBITURATES < 200 (200ng/ml); URINE COCAINE < 300 (300ng/ml)
[2017-05-31 00:10] VITALS: BP 108/52
[2017-05-31 00:15] VITALS: BP 108/52
[2017-05-31 07:27] LABS: BASO # 0.1 10*3/uL (0.0-0.1); EOS # 0.3 10*3/uL (0.0-0.4); EOS % 3.1 % (1.0-4.0); HEMATOCRIT 38.4 % (37.0-47.0); HEMOGLOBIN 12.4 g/dl (12.0-16.0); IG # 0.1 10*3/uL (0.0-0.1); LYMPH # 3.7 10*3/uL (1.3-4.4); LYMPH % 35.3 % (27.0-41.0); MEAN CELL VOLUME 101.3 fl (81.0-99.0); MEAN CORPUSCULAR HGB 32.7 pg (27.0-31.0); MEAN CORPUSCULAR HGB CONC 32.3 g/dl (33.0-37.0); MEAN PLATELET VOLUME 9.4 fl (9.6-12.3); MONO # 0.9 10*3/uL (0.1-1.0); MONO % 8.3 % (3.0-9.0); NEUT # 5.3 10*3/uL (2.3-7.9); NEUT % 51.5 % (47.0-73.0); PLATELET COUNT AUTOMATED 297 10*3/uL (130-400); RED BLOOD COUNT 3.79 10*6/uL (4.10-5.10); RED CELL DISTRI WIDTH 12.7 % (0-14.5); WHITE BLOOD COUNT 10.4 10*3/uL (4.8-10.8)
[2017-05-31 08:00] VITALS: BP 92/44
[2017-05-31 08:05] LABS: BUN 12 mg/dl (7-24); CARBON DIOXIDE 27 mmol/L (21-32); CHLORIDE 109 mmol/L (98-107); CHOLESTEROL 179 mg/dL (<200); EST GLOM FILT AFRICAN AMERICAN > 60 ml/min; FREE T4 0.98 ng/dl (0.76-1.46); GLUCOSE 93 mg/dL (65-99); HDL CHOLESTEROL 29 mg/dl (40-60); PHOSPHOROUS 3.2 mg/dL (2.5-4.9); POTASSIUM 3.7 mmol/L (3.5-5.1); SODIUM 142 mmol/L (136-145); TRIGLYCERIDES 465 mg/dl (<150)
[2017-05-31 08:28] LABS: FOLIC ACID 9.67 ng/mL (>5.38); VITAMIN D, 25-HYDROXY 12.6 ng/mL (30-100)
[2017-05-31 08:44] LABS: HEMOGLOBIN A1c 5.6 % (4.8-5.6)
[2017-05-31] MEDS ORDERED: IMDUR SA30 MG PO (15:09)
== END 2017-05-31 15:51 | disposition home or self-care (01) | DRG 313 ==
LOC: ED 20:14 → EDHOLD 23:13 → 5E 23:13
PROVIDERS: Emergency Medicine Emergency Medical Services; Internal Medicine Hospice and Palliative Medicine
DX: R07.89 Other chest pain (principal); E44.0 Moderate protein-calorie malnutrition; R65.10 Systemic inflammatory response syndrome (SIRS) of non-infectious origin without acute organ dysfunction; E66.09 Other obesity due to excess calories; F32.9 Major depressive disorder, single episode, unspecified; G40.909 Epilepsy, unspecified, not intractable, without status epilepticus; K21.9 Gastro-esophageal reflux disease without esophagitis; F17.210 Nicotine dependence, cigarettes, uncomplicated; D72.829 Elevated white blood cell count, unspecified; R31.29 Other microscopic hematuria; E78.5 Hyperlipidemia, unspecified; M79.7 Fibromyalgia; D75.89 Other specified diseases of blood and blood-forming organs; F41.1 Generalized anxiety disorder; J44.9 Chronic obstructive pulmonary disease, unspecified; Z88.8 Allergy status to other drugs, medicaments and biological substances; Z88.6 Allergy status to analgesic agent; Z91.041 Radiographic dye allergy status; Z79.899 Other long term (current) drug therapy; Z79.51 Long term (current) use of inhaled steroids; Z98.51 Tubal ligation status; Z71.6 Tobacco abuse counseling; Z82.49 Family history of ischemic heart disease and other diseases of the circulatory system; Z68.32 Body mass index [BMI] 32.0-32.9, adult

== ENCOUNTER 2017-07-06 16:28 | Emergency (ER) | payer OTHER ==
[~2017-07-06] VITALS: Ht 142.2 cm; Wt 78.0 kg
[~2017-07-06 16:28] MED LIST changes: +IMDUR SA30 MG PO
[2017-07-06 16:46] LABS: BASO # 0.1 10*3/uL (0.0-0.1); BASO % 1.1 % (0.0-1.0); EOS # 0.4 10*3/uL (0.0-0.4); EOS % 2.8 % (1.0-4.0); HEMATOCRIT 42.8 % (37.0-47.0); HEMOGLOBIN 14.7 g/dl (12.0-16.0); LYMPH # 4.2 10*3/uL (1.3-4.4); LYMPH % 32.9 % (27.0-41.0); MEAN CELL VOLUME 97.9 fl (81.0-99.0); MEAN CORPUSCULAR HGB 33.6 pg (27.0-31.0); MEAN CORPUSCULAR HGB CONC 34.3 g/dl (33.0-37.0); MEAN PLATELET VOLUME 9.3 fl (9.6-12.3); MONO # 1.1 10*3/uL (0.1-1.0); MONO % 8.5 % (3.0-9.0); NEUT # 6.9 10*3/uL (2.3-7.9); PLATELET COUNT AUTOMATED 332 10*3/uL (130-400); RED BLOOD COUNT 4.37 10*6/uL (4.10-5.10); RED CELL DISTRI WIDTH 12.5 % (0-14.5); WHITE BLOOD COUNT 12.8 10*3/uL (4.8-10.8)
[2017-07-06 16:54] LABS: ACT PARTIAL THROMBO TIME 26.6 SECONDS (20.8-31.5)
[2017-07-06 17:02] LABS: ALBUMIN 3.3 gm/dl (3.1-4.5); ALKALINE PHOSPHATASE 77 U/L (45-117); BUN 10 mg/dl (7-24); CHLORIDE 104 mmol/L (98-107); CREATININE 0.91 mg/dL (0.55-1.02); POTASSIUM 3.9 mmol/L (3.5-5.1); SGOT/AST 12 IU/L (3-35); SGPT/ALT 14 U/L (12-78); SODIUM 136 mmol/L (136-145); TOTAL PROTEIN 6.9 gm/dL (6.4-8.2)
[2017-07-06 17:04] LABS: TROPONIN I < 0.015 ng/ml (<0.045)
== END 2017-07-06 19:26 | disposition home or self-care (01) ==
LOC: ED 16:28
PROVIDERS: Emergency Medicine
DX: R07.89 Other chest pain (principal); F17.200 Nicotine dependence, unspecified, uncomplicated; Z88.6 Allergy status to analgesic agent; Z91.041 Radiographic dye allergy status; Z79.899 Other long term (current) drug therapy

== ENCOUNTER 2017-07-21 18:42 | Inpatient (IN) | payer OTHER ==
[~2017-07-21] VITALS: Ht 142.2 cm; Wt 78.7 kg
[2017-07-21 19:21] VITALS: BP 110/57
[2017-07-21 19:23] LABS: BASO # 0.2 10*3/uL (0.0-0.1); BASO % 1.3 % (0.0-1.0); EOS # 0.4 10*3/uL (0.0-0.4); EOS % 3.2 % (1.0-4.0); HEMATOCRIT 40.7 % (37.0-47.0); HEMOGLOBIN 13.8 g/dl (12.0-16.0); LYMPH # 4.4 10*3/uL (1.3-4.4); LYMPH % 36.2 % (27.0-41.0); MEAN CELL VOLUME 97.8 fl (81.0-99.0); MEAN CORPUSCULAR HGB 33.2 pg (27.0-31.0); MEAN CORPUSCULAR HGB CONC 33.9 g/dl (33.0-37.0); MONO # 0.9 10*3/uL (0.1-1.0); MONO % 7.6 % (3.0-9.0); NEUT # 6.2 10*3/uL (2.3-7.9); PLATELET COUNT AUTOMATED 323 10*3/uL (130-400); RED BLOOD COUNT 4.16 10*6/uL (4.10-5.10); RED CELL DISTRI WIDTH 12.4 % (0-14.5); WHITE BLOOD COUNT 12.2 10*3/uL (4.8-10.8)
[2017-07-21 19:33] LABS: ACT PARTIAL THROMBO TIME 26.1 SECONDS (20.8-31.5); INTERNATIONAL NORM RATIO 0.9 (2.0-3.5)
[2017-07-21 19:40] LABS: ALBUMIN 3.1 gm/dl (3.1-4.5); ALKALINE PHOSPHATASE 77 U/L (45-117); BUN 15 mg/dl (7-24); CHLORIDE 106 mmol/L (98-107); CREATININE 0.96 mg/dL (0.55-1.02); POTASSIUM 3.6 mmol/L (3.5-5.1); SGOT/AST 10 IU/L (3-35); SGPT/ALT 15 U/L (12-78); SODIUM 138 mmol/L (136-145); TOTAL PROTEIN 6.6 gm/dL (6.4-8.2)
[2017-07-21 19:45] LABS: TROPONIN I < 0.015 ng/ml (<0.045)
[2017-07-21 20:09] VITALS: BP 110/60
[2017-07-21 20:26] VITALS: BP 116/49
--- NOTE | 2017-07-21 21:16 | NUR ---
NO RELIEF FROM PAIN AFTER NITRO ADMIN. PT REQUESING ADDITIONAL PAIN MED. DR. CARDENAS AWARE.
[2017-07-21 22:12] VITALS: BP 115/54
--- NOTE | 2017-07-21 22:22 | NUR ---
PATIENT REQUESTING PAIN MEDS RATES PAIN AT 10/10 PT GIVEN 2MG OF MORPHINE SULFATE IV SLOW PUSH, PT ALERT AND ORIENTED X 3, VITALS STABLE PULSE OX 96% RA
[2017-07-21 22:37] VITALS: BP 118/55
[2017-07-22] VITALS (9 sets, daily range): BP systolic 75–107; BP diastolic 32–70
--- NOTE | 2017-07-22 01:07 | NUR ---
PATIENT SLEEPING IN BED NO SIGNS OF DISTRESS, RESP EASY, RAILS UP X 2 CALL TEMPLE IN REACH, BED IN LOWEST POSITION
--- NOTE | 2017-07-22 02:28 | NUR ---
PATIENT REQUESTED PAIN MED PT WITH PRN EVERY 4HOURS MORPHINE SULFATE / MEDICATION WITHHELD DUE TO LOW B/P
--- NOTE | 2017-07-22 04:07 | NUR ---
PATIENT SLEEPING, RESP EASY, NSR ON MONITOR
[2017-07-22 04:18] LABS: BASO # 0.1 10*3/uL (0.0-0.1); BASO % 1.4 % (0.0-1.0); EOS # 0.4 10*3/uL (0.0-0.4); EOS % 4.1 % (1.0-4.0); HEMATOCRIT 39.5 % (37.0-47.0); HEMOGLOBIN 13.3 g/dl (12.0-16.0); LYMPH # 4.3 10*3/uL (1.3-4.4); LYMPH % 42.6 % (27.0-41.0); MEAN CORPUSCULAR HGB CONC 33.7 g/dl (33.0-37.0); MEAN PLATELET VOLUME 8.9 fl (9.6-12.3); MONO # 0.8 10*3/uL (0.1-1.0); MONO % 8.3 % (3.0-9.0); NEUT # 4.4 10*3/uL (2.3-7.9); NEUT % 42.9 % (47.0-73.0); PLATELET COUNT AUTOMATED 284 10*3/uL (130-400); RED BLOOD COUNT 4.03 10*6/uL (4.10-5.10); RED CELL DISTRI WIDTH 12.4 % (0-14.5); WHITE BLOOD COUNT 10.2 10*3/uL (4.8-10.8)
[2017-07-22 04:33] LABS: ALBUMIN 2.9 gm/dl (3.1-4.5); ALKALINE PHOSPHATASE 65 U/L (45-117); BUN 11 mg/dl (7-24); CHLORIDE 107 mmol/L (98-107); CHOLESTEROL 246 mg/dL (<200); CREATININE 0.88 mg/dL (0.55-1.02); HDL CHOLESTEROL 30 mg/dl (40-60); MAGNESIUM 2.1 mg/dL (1.5-2.1); PHOSPHOROUS 3.1 mg/dL (2.5-4.9); POTASSIUM 3.6 mmol/L (3.5-5.1); SGOT/AST 5 IU/L (3-35); SGPT/ALT 13 U/L (12-78); SODIUM 140 mmol/L (136-145); TRIGLYCERIDES 403 mg/dl (<150)
[2017-07-22 04:34] LABS: FREE T4 1.14 ng/dl (0.76-1.46)
--- NOTE | 2017-07-22 05:01 | NUR ---
DR. MONDRAGON, RESIDENT ON NOTIFIED OF BLOOD PRESSURE 78/32. HE WILL PUT ORDERS IN.
--- NOTE | 2017-07-22 05:27 | NUR ---
DR. MONDRAGON CALLED REGARDING BLOOD PRESSURE BEING LOW CURRENT PRESSURE 75/34. HE SPOKE WITH DR. RUSHING AND WANTS TO CONTINUE TO MONITOR PATIENT. NO NEW ORDERS.
--- NOTE | 2017-07-22 05:42 | NUR ---
PT RESTING COMFORTABLY IN BED.PT EASILY AROUSED.PT DENIES ANY DIZZINESS,SOB OR CHEST PAIN AT THIS TIME.PT REPORTS HER BLOOD PRESSURE TYPICALLY IS SYSTOLIC 80'S WITH DIASTOLIC 40-30'S.PT DENIES ANY NEEDS AT THIS TIME.
--- NOTE | 2017-07-22 06:05 | NUR ---
DR. CARDENAS NOTIFIED OF MANUAL BLOOD PRESSURE. NEW ORDER RECEIVED FOR NORMAL SALINE IV BOLUS AND TO REMOVE HER NITRO PATCH.
--- NOTE | 2017-07-22 07:49 | NUR ---
PATIENT REPORT TAKEN. PATIENT COMPLAINS OF CHEST PAIN DESPITE MEDICATIONS EARLIER. PATIENT DENIES SOB, DIZZINESS, AND IS ALERT AND ORIENTED. VITALS STABLE. NO NEEDS AT THIS TIME
--- NOTE | 2017-07-22 09:00 | NUR ---
Tennis Net Maker in to talk to patient. Patient states lives at home with boyfriend. There are few steps in the home. Physician: simón garsia Pharmacy: [facility] Home health services: none Patient's level of ADLs: INDEPENDENT Patient has working utilities: all working DME: none Follow-up physician's appointment after d/c: will be made by hospitalist nurse director upon discharge Does patient want to access PORTAL?: no Discharge plan discussed with patient, patient lives at home with boyfriend, she is independent in adls and ambulation, patient states she will be going back home with able and denies any home needs. ADRIANA VILLALOBOS
--- NOTE | 2017-07-22 09:12 | NUR ---
A 41, admitted to , under the services of MIKAYLA Silva DO with a diagnosis of CHEST PAIN. Chief complaint is CHEST PAIN. Patient arrived via stretcher from ER. Monitor applied. Initial assessment completed. Vital signs taken and recorded. MIKAYLA SILVA DO notified of admission to the unit. Orders received. See assessment for past medical history, medications and allergies. Patient and/or family oriented to unit. [address] visitation policy reviewed. Clothing/patient valuable form completed. NATHAN RILEY
--- NOTE | 2017-07-22 09:45 | NUR ---
SPOKE WITH DR MYERS.
[2017-07-22] MEDS ORDERED: ABILIFY5 MG PO (09:47)
[2017-07-22] MEDS ORDERED: VISTARIL25 MG PO (09:48)
[2017-07-22] MEDS ORDERED: ISOSORBIDE MONO10 MG PO (09:48)
--- NOTE | 2017-07-22 10:17 | NUR ---
MEDS VERIFIED WITH PHARMACY
--- NOTE | 2017-07-22 10:25 | NUR ---
PATIENT MEDICATED WITH PO NORCO FOR PAIN IN HER CHEST RATED 10/10
[2017-07-22] MEDS ORDERED: LIPITOR40 MG PO (10:55)
[2017-07-22] MEDS ORDERED: VITAMIN D5000 UNIT PO (10:56)
--- NOTE | 2017-07-22 11:38 | NUR ---
WENT OVER D/C INSTRUCTIONS. REMOVED IV WITH CATHETER INTACT AND BLEEDING CONTROLLED. PATIENT AMBULATED TO THE EXIT WITHOUT DIFFICULTY. PATIENT IS D/C HOME.
== END 2017-07-22 11:38 | disposition home or self-care (01) | DRG 391 ==
LOC: ED 18:42 → 4E 20:13 → EDHOLD 20:13 → 4E 07-22 08:09
PROVIDERS: Hospitalist; Student in an Organized Health Care Education/Training Program; ADMIT Internal Medicine
DX: K21.9 Gastro-esophageal reflux disease without esophagitis (principal); J18.9 Pneumonia, unspecified organism; E44.0 Moderate protein-calorie malnutrition; F33.9 Major depressive disorder, recurrent, unspecified; J44.9 Chronic obstructive pulmonary disease, unspecified; I25.10 Atherosclerotic heart disease of native coronary artery without angina pectoris; I10 Essential (primary) hypertension; E66.09 Other obesity due to excess calories; M79.7 Fibromyalgia; F41.1 Generalized anxiety disorder; D72.829 Elevated white blood cell count, unspecified; R74.8 Abnormal levels of other serum enzymes; E78.2 Mixed hyperlipidemia; R07.89 Other chest pain; G40.909 Epilepsy, unspecified, not intractable, without status epilepticus; F17.210 Nicotine dependence, cigarettes, uncomplicated; Z88.8 Allergy status to other drugs, medicaments and biological substances; Z98.51 Tubal ligation status; Z91.041 Radiographic dye allergy status; Z79.899 Other long term (current) drug therapy; Z82.49 Family history of ischemic heart disease and other diseases of the circulatory system; Z81.8 Family history of other mental and behavioral disorders; Z83.6 Family history of other diseases of the respiratory system; Z68.38 Body mass index [BMI] 38.0-38.9, adult

== ENCOUNTER 2017-07-30 18:13 | Emergency (ER) | payer OTHER ==
[~2017-07-30] VITALS: Ht 142.2 cm; Wt 77.1 kg
[~2017-07-30 18:13] MED LIST changes: +ABILIFY5 MG PO; +ISOSORBIDE MONO10 MG PO; +LIPITOR40 MG PO; +VISTARIL25 MG PO; +VITAMIN D5000 UNIT PO
[2017-07-30 18:34] LABS: HEMATOCRIT 42.8 % (37.0-47.0); HEMOGLOBIN 14.5 g/dl (12.0-16.0); MEAN CELL VOLUME 96.8 fl (81.0-99.0); MEAN CORPUSCULAR HGB 32.8 pg (27.0-31.0); MEAN CORPUSCULAR HGB CONC 33.9 g/dl (33.0-37.0); MEAN PLATELET VOLUME 9.1 fl (9.6-12.3); PLATELET COUNT AUTOMATED 309 10*3/uL (130-400); RED BLOOD COUNT 4.42 10*6/uL (4.10-5.10); RED CELL DISTRI WIDTH 12.5 % (0-14.5); WHITE BLOOD COUNT 15.5 10*3/uL (4.8-10.8)
[2017-07-30 18:42] LABS: ACT PARTIAL THROMBO TIME 25.5 SECONDS (20.8-31.5); INTERNATIONAL NORM RATIO 0.9 (2.0-3.5)
[2017-07-30 18:49] LABS: ALBUMIN 3.2 gm/dl (3.1-4.5); ALKALINE PHOSPHATASE 80 U/L (45-117); BUN 11 mg/dl (7-24); CHLORIDE 105 mmol/L (98-107); CREATININE 1.03 mg/dL (0.55-1.02); POTASSIUM 4.1 mmol/L (3.5-5.1); SGOT/AST 11 IU/L (3-35); SGPT/ALT 14 U/L (12-78); SODIUM 136 mmol/L (136-145); TOTAL PROTEIN 7.1 gm/dL (6.4-8.2)
[2017-07-30 18:52] LABS: TROPONIN I < 0.015 ng/ml (<0.045)
[2017-07-30 18:54] LABS: TOTAL CELLS COUNTED 100 #CELLS
[2017-07-30 18:55] LABS: PLATELET SUFFICIENCY NORMAL (NORMAL); POLYCHROMASIA SLIGHT
== END 2017-07-30 22:49 | disposition home or self-care (01) ==
LOC: ED 18:13
PROVIDERS: Emergency Medicine
DX: R07.89 Other chest pain (principal); F17.200 Nicotine dependence, unspecified, uncomplicated; Z98.51 Tubal ligation status; Z79.899 Other long term (current) drug therapy; Z91.041 Radiographic dye allergy status; Z88.6 Allergy status to analgesic agent

== ENCOUNTER 2017-08-03 09:52 | Inpatient (IN) | payer OTHER ==
[2017-08-03] VITALS (8 sets, daily range): BP systolic 91–134; BP diastolic 51–85
[~2017-08-03] VITALS: Ht 142.2 cm; Wt 78.0 kg
--- NOTE | ~2017-08-03 | CON ---
[place], [place] REPORT OF CONSULTATION NAME: DANIEL EVANGELISTA UNIT #: [id number] ROOM: 511 DOCTOR: DEMETRIS MYERS MD BIRTHDATE: [birth year] DOS: HISTORY OF PRESENT ILLNESS: The patient is a 41-year-old female who appears to have significant depression and anxiety problems with multiple admissions in the hospital. The patient already had 2 heart catheterizations. The initial catheterization showed mild disease of the ostial LAD. She was readmitted. We repeated cardiac catheterization. This was completely normal. The proximal spasm was completely gone. The patient has been admitted multiple times, appears to have pain medication dependent habits. She did have left-sided precordial chest discomfort. The patient was supposed to follow up as an outpatient, but she got re-admitted. EKG showed no acute abnormality. PAST MEDICAL HISTORY: Significant for atypical chest discomfort, depression, coronary spasm, fibromyalgia, hyperlipidemia, heavy tobacco abuse and noncompliance. PAST SURGICAL HISTORY: History of EGD and colonoscopy and GI problems. SOCIAL HISTORY: Continues to smoke. Denies any alcohol abuse. FAMILY HISTORY: Positive for coronary artery disease. ALLERGIES: IVP DYE AND NONSTEROIDALS. HOME MEDICATIONS: Include Protonix, metoprolol, atorvastatin, Abilify and Lipitor. REVIEW OF SYSTEMS: CONSTITUTIONAL: No fever, no chills. HEENT: No visual disturbances or hearing problems. CARDIOVASCULAR: As per HPI. GASTROINTESTINAL: No nausea, no vomiting. GENITOURINARY: No dysuria. NEUROLOGIC: No syncope. PHYSICAL EXAMINATION: GENERAL: The patient is alert, oriented x 3. HEENT: Unremarkable. VITAL SIGNS: Blood pressure today is 120/60. NECK: Supple. No JVD. LUNGS: Clear. HEART: Sounds are regular. NEUROLOGIC: Stable. LABORATORY DATA: Sodium 138, potassium 3.8, BUN and creatinine within normal limits. Liver functions normal. Troponins are negative. Chest x-ray is normal. EKG, sinus rhythm. IMPRESSION: Atypical chest discomfort, fibromyalgia, dyslipidemia, history of coronary spasm, essential hypertension, tobacco abuse, COPD and depression. [place], [place] REPORT OF CONSULTATION NAME: DANIEL EVANGELISTA UNIT #: [id number] ROOM: 511 DOCTOR: DEMETRIS MYERS MD BIRTHDATE: [birth year] RECOMMENDATIONS: Continue the present medications. No history of myocardial infarction in the past and multiple hospital admissions. Add nitrates to the current regimen to relieve the spasm. Monitor the heart rate and blood pressure and we will follow up. DEMETRIS MYERS MD CM:CONSTR:REPORT OF CONSULTATION 0619 08/04/17 2140 interface
[2017-08-03 10:25] LABS: BASO # 0.1 10*3/uL (0.0-0.1); BASO % 0.8 % (0.0-1.0); EOS # 0.4 10*3/uL (0.0-0.4); EOS % 2.5 % (1.0-4.0); HEMATOCRIT 42.5 % (37.0-47.0); HEMOGLOBIN 14.6 g/dl (12.0-16.0); LYMPH # 4.3 10*3/uL (1.3-4.4); LYMPH % 29.7 % (27.0-41.0); MEAN CELL VOLUME 96.4 fl (81.0-99.0); MEAN CORPUSCULAR HGB 33.1 pg (27.0-31.0); MEAN CORPUSCULAR HGB CONC 34.4 g/dl (33.0-37.0); MONO % 7.1 % (3.0-9.0); NEUT # 8.5 10*3/uL (2.3-7.9); PLATELET COUNT AUTOMATED 319 10*3/uL (130-400); RED BLOOD COUNT 4.41 10*6/uL (4.10-5.10); RED CELL DISTRI WIDTH 12.4 % (0-14.5); WHITE BLOOD COUNT 14.4 10*3/uL (4.8-10.8)
[2017-08-03 10:33] LABS: ACT PARTIAL THROMBO TIME 25.5 SECONDS (20.8-31.5)
[2017-08-03 10:40] LABS: ALBUMIN 3.3 gm/dl (3.1-4.5); ALKALINE PHOSPHATASE 81 U/L (45-117); BUN 9 mg/dl (7-24); CHLORIDE 105 mmol/L (98-107); CREATININE 0.93 mg/dL (0.55-1.02); LIPASE 376 U/L (73-393); POTASSIUM 3.8 mmol/L (3.5-5.1); SGOT/AST 10 IU/L (3-35); SGPT/ALT 14 U/L (12-78); SODIUM 138 mmol/L (136-145); TOTAL PROTEIN 7.1 gm/dL (6.4-8.2)
[2017-08-03 10:52] LABS: BETA-HCG, QUANT < 1.0 mIU/mL (1-3); TROPONIN I < 0.015 ng/ml (<0.045)
--- NOTE | 2017-08-03 11:01 | NUR ---
PATIENT REQUESTING MEDICATION FOR PAIN AT THIS TIME. DR DAVILA NOTIFIED.
--- NOTE | 2017-08-03 11:20 | NUR ---
DR DAVILA NOTIFIED OF PATIENTS BP MORPHINE HELD.
--- NOTE | 2017-08-03 11:32 | NUR ---
PATIENT MEDICATED FOR PAIN AT THIS TIME; PATIENT HAS CP 06/09. NON RADIATING. SIDE RAILS UP X2, CALL LIGHT IN PLACE. PT INSTRUCTED NOT TO GET UP WITHOUT ASSISTANCE.
--- NOTE | 2017-08-03 11:58 | NUR ---
THE MED REC WAS GONE OVER AT THIS TIME WITH THE PATIENT.
--- NOTE | 2017-08-03 12:25 | NUR ---
A 41, admitted to , under the services of MIKAYLA Silva DO with a diagnosis of CHEST PAIN TO R/O MS. Chief complaint is CHEST PAIN. Patient arrived via cart with RN from ER. Monitor applied. Initial assessment completed. Vital signs taken and recorded. MIKAYLA SILVA DO notified of admission to the unit. Orders received. See assessment for past medical history, medications and allergies. Patient and/or family oriented to unit. [facility] visitation policy reviewed. Clothing/patient valuable form completed. RITA GONZALEZ
[2017-08-03] MEDS ORDERED: METOPROLOL TART50 M1 PO (12:33)
--- NOTE | 2017-08-03 12:40 | NUR ---
MED REC COMPLETED WITH PT AND HOME MEDS AT BEDSIDE. PT TOOK MEDS HOME.
--- NOTE | 2017-08-03 14:13 | NUR ---
NORCO 5/325 MG GIVEN FOR C/O GENERALIZED PAIN, 04/09.
--- NOTE | 2017-08-03 14:52 | NUR ---
SPOKE TO Marline ESPITIA CNP.ASKED FOR ORDER FOR FLU VACCINE.
--- NOTE | 2017-08-03 15:42 | NUR ---
MORPHINE 1 MG GIVEN FOR C/O GENERALIZED PAIN,08/09. PT ALSO STATES AT THIS TIME THAT NORCO IS INEFFECTIVE FOR HER.
--- NOTE | 2017-08-03 20:18 | NUR ---
PT. RESTING IN BED; APPEARS TO BE IN NO DISTRESS. C/O CHEST PAIN & PAIN IN LEFT ARM RATING IT A 10/10. MEDICATED WITH MS SLOW IV PUSH PER M.D. ORDERS & PT'S REQUEST.
[2017-08-04] VITALS: BP 104/57
--- NOTE | 2017-08-04 | NUR ---
APPEARS TO BE SLEEPING; MS GIVEN EARLIER APPARENTLY EFFECTIVE. CALL LIGHT WITHIN REACH.
[2017-08-04 06:46] LABS: BASO # 0.1 10*3/uL (0.0-0.1); EOS # 0.4 10*3/uL (0.0-0.4); EOS % 3.7 % (1.0-4.0); HEMATOCRIT 39.7 % (37.0-47.0); HEMOGLOBIN 13.6 g/dl (12.0-16.0); LYMPH # 3.6 10*3/uL (1.3-4.4); LYMPH % 33.6 % (27.0-41.0); MEAN CELL VOLUME 98.8 fl (81.0-99.0); MEAN CORPUSCULAR HGB 33.8 pg (27.0-31.0); MEAN CORPUSCULAR HGB CONC 34.3 g/dl (33.0-37.0); MONO # 0.9 10*3/uL (0.1-1.0); MONO % 8.5 % (3.0-9.0); NEUT # 5.7 10*3/uL (2.3-7.9); NEUT % 52.5 % (47.0-73.0); PLATELET COUNT AUTOMATED 282 10*3/uL (130-400); RED BLOOD COUNT 4.02 10*6/uL (4.10-5.10); RED CELL DISTRI WIDTH 12.6 % (0-14.5); WHITE BLOOD COUNT 10.8 10*3/uL (4.8-10.8)
[2017-08-04 07:28] LABS: BUN 14 mg/dl (7-24); CHLORIDE 107 mmol/L (98-107); HDL CHOLESTEROL 32 mg/dl (40-60); MAGNESIUM 1.8 mg/dL (1.5-2.1); POTASSIUM 3.7 mmol/L (3.5-5.1); SODIUM 141 mmol/L (136-145)
[2017-08-04 07:36] LABS: ALKALINE PHOSPHATASE 67 U/L (45-117); CHOLESTEROL 101 mg/dL (<200); CREATININE 0.85 mg/dL (0.55-1.02); FREE T4 1.06 ng/dl (0.76-1.46); LDL CHOLESTEROL 31 mg/dL (9-159); PHOSPHOROUS 3.4 mg/dL (2.5-4.9); SGOT/AST 10 IU/L (3-35); SGPT/ALT 12 U/L (12-78); TOTAL PROTEIN 6.1 gm/dL (6.4-8.2); TRIGLYCERIDES 192 mg/dl (<150); VLDL CHOLESTEROL 38 mg/dL (6-40)
[2017-08-04 08:00] VITALS: BP 97/52
--- NOTE | 2017-08-04 08:09 | NUR ---
GIVEN NORCO FOR COMPLAINTS OF 10/10 SHARP BACK AND CHEST PAIN WILL REASSESS IN 30 MIN.
[2017-08-04 08:42] LABS: VITAMIN D, 25-HYDROXY 25.7 ng/mL (30-100)
[2017-08-04] MEDS ORDERED: LOPRESSOR25 MG PO (10:07)
[2017-08-04] MEDS ORDERED: IMDUR SA30 MG PO (10:08)
--- NOTE | 2017-08-04 11:20 | NUR ---
Discharge instructions reviewed with patient/family. Patient receptive and verbalizes understanding. Follow-up care arranged. Written instructions given to patient/family. EMILY CHUN
--- NOTE | 2017-08-04 11:25 | NUR ---
PT LEFT VIA AMBULATORY IN CARE OF HER . LEFT WITH BELONGINGS, DC INSTRUCTIONS AND PRESCRIPTIONS.
== END 2017-08-04 11:32 | disposition home or self-care (01) | DRG 281 ==
LOC: ED 09:52 → 5E 11:48 → EDHOLD 11:48 → 5E 12:09
PROVIDERS: Emergency Medicine; Registered Nurse; ADMIT Internal Medicine
DX: I21.9 Acute myocardial infarction, unspecified (principal); R65.10 Systemic inflammatory response syndrome (SIRS) of non-infectious origin without acute organ dysfunction; M79.7 Fibromyalgia; E78.5 Hyperlipidemia, unspecified; K21.9 Gastro-esophageal reflux disease without esophagitis; D75.89 Other specified diseases of blood and blood-forming organs; I10 Essential (primary) hypertension; E66.09 Other obesity due to excess calories; J44.9 Chronic obstructive pulmonary disease, unspecified; R07.89 Other chest pain; F17.210 Nicotine dependence, cigarettes, uncomplicated; F32.9 Major depressive disorder, single episode, unspecified; F41.9 Anxiety disorder, unspecified; I48.91 Unspecified atrial fibrillation; Z91.14 Patient's other noncompliance with medication regimen; Z91.041 Radiographic dye allergy status; Z88.6 Allergy status to analgesic agent; Z88.8 Allergy status to other drugs, medicaments and biological substances; Z79.899 Other long term (current) drug therapy; Z98.51 Tubal ligation status; Z82.0 Family history of epilepsy and other diseases of the nervous system; Z83.6 Family history of other diseases of the respiratory system; Z82.49 Family history of ischemic heart disease and other diseases of the circulatory system; Z71.6 Tobacco abuse counseling; Z68.38 Body mass index [BMI] 38.0-38.9, adult

== ENCOUNTER 2017-08-31 18:14 | Emergency (ER) | payer OTHER ==
[~2017-08-31 18:14] MED LIST changes: +METOPROLOL TART50 M1 PO
[2017-08-31 18:33] LABS: BASO # 0.1 10*3/uL (0.0-0.1); EOS # 0.7 10*3/uL (0.0-0.4); EOS % 5.5 % (1.0-4.0); HEMATOCRIT 40.7 % (37.0-47.0); HEMOGLOBIN 13.9 g/dl (12.0-16.0); LYMPH # 4.6 10*3/uL (1.3-4.4); LYMPH % 36.1 % (27.0-41.0); MEAN CELL VOLUME 96.9 fl (81.0-99.0); MEAN CORPUSCULAR HGB 33.1 pg (27.0-31.0); MEAN CORPUSCULAR HGB CONC 34.2 g/dl (33.0-37.0); MEAN PLATELET VOLUME 8.9 fl (9.6-12.3); MONO # 1.1 10*3/uL (0.1-1.0); MONO % 8.3 % (3.0-9.0); NEUT # 6.2 10*3/uL (2.3-7.9); NEUT % 48.6 % (47.0-73.0); PLATELET COUNT AUTOMATED 330 10*3/uL (130-400); RED CELL DISTRI WIDTH 12.3 % (0-14.5); WHITE BLOOD COUNT 12.8 10*3/uL (4.8-10.8)
[2017-08-31 18:51] LABS: ACT PARTIAL THROMBO TIME 24.3 SECONDS (20.8-31.5); INTERNATIONAL NORM RATIO 0.9 (2.0-3.5)
[2017-08-31 18:57] LABS: ALBUMIN 3.2 gm/dl (3.1-4.5); ALKALINE PHOSPHATASE 88 U/L (45-117); BUN 13 mg/dl (7-24); CHLORIDE 108 mmol/L (98-107); CREATININE 0.87 mg/dL (0.55-1.02); POTASSIUM 3.8 mmol/L (3.5-5.1); SGOT/AST 11 IU/L (3-35); SGPT/ALT 23 U/L (12-78); SODIUM 141 mmol/L (136-145); TOTAL PROTEIN 6.7 gm/dL (6.4-8.2)
[2017-08-31 18:59] LABS: TROPONIN I < 0.015 ng/ml (<0.045)
== END 2017-08-31 20:15 | disposition home or self-care (01) ==
LOC: ED 18:14
PROVIDERS: Emergency Medicine
DX: R07.9 Chest pain, unspecified (principal); J44.9 Chronic obstructive pulmonary disease, unspecified; I10 Essential (primary) hypertension; M79.7 Fibromyalgia; K21.9 Gastro-esophageal reflux disease without esophagitis; E66.9 Obesity, unspecified; G40.909 Epilepsy, unspecified, not intractable, without status epilepticus; E78.2 Mixed hyperlipidemia; F17.210 Nicotine dependence, cigarettes, uncomplicated; Z98.51 Tubal ligation status; Z91.041 Radiographic dye allergy status; Z88.6 Allergy status to analgesic agent

== ENCOUNTER 2017-09-09 18:04 | Emergency (ER) | payer OTHER ==
[~2017-09-09] VITALS: Ht 142.2 cm; Wt 79.8 kg
[2017-09-09 18:27] LABS: BASO # 0.1 10*3/uL (0.0-0.1); BASO % 0.8 % (0.0-1.0); EOS # 0.5 10*3/uL (0.0-0.4); EOS % 3.5 % (1.0-4.0); HEMOGLOBIN 14.3 g/dl (12.0-16.0); LYMPH # 4.6 10*3/uL (1.3-4.4); LYMPH % 31.1 % (27.0-41.0); MEAN CELL VOLUME 96.3 fl (81.0-99.0); MEAN CORPUSCULAR HGB 32.8 pg (27.0-31.0); MEAN PLATELET VOLUME 8.8 fl (9.6-12.3); MONO % 6.8 % (3.0-9.0); NEUT # 8.4 10*3/uL (2.3-7.9); NEUT % 57.3 % (47.0-73.0); PLATELET COUNT AUTOMATED 346 10*3/uL (130-400); RED BLOOD COUNT 4.36 10*6/uL (4.10-5.10); WHITE BLOOD COUNT 14.7 10*3/uL (4.8-10.8)
[2017-09-09 18:38] LABS: ACT PARTIAL THROMBO TIME 25.3 SECONDS (20.8-31.5); INTERNATIONAL NORM RATIO 0.9 (2.0-3.5)
[2017-09-09 18:43] LABS: ALBUMIN 3.3 gm/dl (3.1-4.5); ALKALINE PHOSPHATASE 85 U/L (45-117); BUN 8 mg/dl (7-24); CHLORIDE 105 mmol/L (98-107); CREATININE 0.94 mg/dL (0.55-1.02); POTASSIUM 3.7 mmol/L (3.5-5.1); SGOT/AST 12 IU/L (3-35); SGPT/ALT 22 U/L (12-78); SODIUM 138 mmol/L (136-145); TOTAL PROTEIN 6.8 gm/dL (6.4-8.2); TROPONIN I < 0.015 ng/ml (<0.045)
== END 2017-09-09 20:17 | disposition home or self-care (01) ==
LOC: ED 18:04
PROVIDERS: Emergency Medicine
DX: R07.89 Other chest pain (principal); J44.9 Chronic obstructive pulmonary disease, unspecified; K21.9 Gastro-esophageal reflux disease without esophagitis; I10 Essential (primary) hypertension

== ENCOUNTER 2017-09-12 12:19 | Emergency (ER) | payer OTHER ==
[~2017-09-12] VITALS: Wt 79.8 kg
[2017-09-12 12:39] LABS: BASO # 0.1 10*3/uL (0.0-0.1); BASO % 1.1 % (0.0-1.0); EOS # 0.5 10*3/uL (0.0-0.4); EOS % 3.6 % (1.0-4.0); HEMATOCRIT 41.1 % (37.0-47.0); HEMOGLOBIN 13.9 g/dl (12.0-16.0); LYMPH # 4.3 10*3/uL (1.3-4.4); LYMPH % 33.1 % (27.0-41.0); MEAN CELL VOLUME 96.9 fl (81.0-99.0); MEAN CORPUSCULAR HGB 32.8 pg (27.0-31.0); MEAN CORPUSCULAR HGB CONC 33.8 g/dl (33.0-37.0); MEAN PLATELET VOLUME 8.9 fl (9.6-12.3); MONO # 0.9 10*3/uL (0.1-1.0); MONO % 6.7 % (3.0-9.0); NEUT # 7.1 10*3/uL (2.3-7.9); NEUT % 54.7 % (47.0-73.0); PLATELET COUNT AUTOMATED 335 10*3/uL (130-400); RED BLOOD COUNT 4.24 10*6/uL (4.10-5.10); RED CELL DISTRI WIDTH 12.3 % (0-14.5)
[2017-09-12 12:47] LABS: ACT PARTIAL THROMBO TIME 24.7 SECONDS (20.8-31.5); INTERNATIONAL NORM RATIO 0.9 (2.0-3.5)
[2017-09-12 12:58] LABS: ALBUMIN 3.4 gm/dl (3.1-4.5); ALKALINE PHOSPHATASE 91 U/L (45-117); BUN 6 mg/dl (7-24); CHLORIDE 106 mmol/L (98-107); SGOT/AST 13 IU/L (3-35); SGPT/ALT 22 U/L (12-78); SODIUM 139 mmol/L (136-145)
[2017-09-12 13:01] LABS: TROPONIN I < 0.015 ng/ml (<0.045)
== END 2017-09-12 16:06 | disposition home or self-care (01) ==
LOC: ED 12:19
PROVIDERS: Emergency Medicine
DX: R07.89 Other chest pain (principal); F32.9 Major depressive disorder, single episode, unspecified; J44.9 Chronic obstructive pulmonary disease, unspecified; I10 Essential (primary) hypertension; F17.200 Nicotine dependence, unspecified, uncomplicated; M79.7 Fibromyalgia; K21.9 Gastro-esophageal reflux disease without esophagitis; F41.1 Generalized anxiety disorder; E78.2 Mixed hyperlipidemia; G40.909 Epilepsy, unspecified, not intractable, without status epilepticus; Z98.51 Tubal ligation status; Z90.89 Acquired absence of other organs; Z91.041 Radiographic dye allergy status; Z88.8 Allergy status to other drugs, medicaments and biological substances; Z79.899 Other long term (current) drug therapy

== ENCOUNTER 2017-09-19 18:00 | Emergency (ER) | payer OTHER ==
[~2017-09-19] VITALS: Ht 142.2 cm; Wt 79.8 kg
[2017-09-19 19:07] LABS: BASO # 0.1 10*3/uL (0.0-0.1); BASO % 0.9 % (0.0-1.0); EOS # 0.5 10*3/uL (0.0-0.4); EOS % 3.3 % (1.0-4.0); HEMATOCRIT 41.8 % (37.0-47.0); HEMOGLOBIN 14.2 g/dl (12.0-16.0); MEAN CELL VOLUME 95.4 fl (81.0-99.0); MEAN CORPUSCULAR HGB 32.4 pg (27.0-31.0); MEAN PLATELET VOLUME 8.8 fl (9.6-12.3); MONO % 7.2 % (3.0-9.0); NEUT # 7.8 10*3/uL (2.3-7.9); NEUT % 57.8 % (47.0-73.0); PLATELET COUNT AUTOMATED 309 10*3/uL (130-400); RED BLOOD COUNT 4.38 10*6/uL (4.10-5.10); RED CELL DISTRI WIDTH 12.3 % (0-14.5); WHITE BLOOD COUNT 13.5 10*3/uL (4.8-10.8)
[2017-09-19 19:24] LABS: ALBUMIN 3.7 gm/dl (3.1-4.5); ALKALINE PHOSPHATASE 76 U/L (45-117); BUN 7 mg/dl (7-24); CHLORIDE 104 mmol/L (98-107); CREATININE 0.91 mg/dL (0.55-1.02); POTASSIUM 3.7 mmol/L (3.5-5.1); SGOT/AST 9 IU/L (3-35); SGPT/ALT 18 U/L (12-78); SODIUM 139 mmol/L (136-145); TOTAL PROTEIN 7.2 gm/dL (6.4-8.2)
[2017-09-19 19:26] LABS: TROPONIN I < 0.015 ng/ml (<0.045)
[2017-09-19 19:42] LABS: BILIRUBIN NEGATIVE (NEGATIVE); BLOOD 1+ (NEGATIVE); CLARITY CLEAR (CLEAR); COLOR YELLOW (YELLOW); GLUCOSE NEGATIVE (NEGATIVE); KETONE NEGATIVE (NEGATIVE); LEUKO ESTERASE NEGATIVE (NEGATIVE); NITRITE NEGATIVE (NEGATIVE); UROBILINOGEN 0.2 E.U./dl (0.2-1.0)
[2017-09-19 19:54] LABS: BACTERIA 2+; WBC 0-2 wbc/hpf (0-5)
== END 2017-09-19 20:05 | disposition home or self-care (01) ==
LOC: ED 18:00
PROVIDERS: Nurse Practitioner Family
DX: F41.9 Anxiety disorder, unspecified (principal); F17.200 Nicotine dependence, unspecified, uncomplicated; M79.7 Fibromyalgia; K21.9 Gastro-esophageal reflux disease without esophagitis; E78.00 Pure hypercholesterolemia, unspecified; E66.9 Obesity, unspecified; G40.909 Epilepsy, unspecified, not intractable, without status epilepticus; I10 Essential (primary) hypertension; J44.9 Chronic obstructive pulmonary disease, unspecified; Z98.51 Tubal ligation status; Z98.890 Other specified postprocedural states; Z79.899 Other long term (current) drug therapy; Z91.041 Radiographic dye allergy status; Z88.6 Allergy status to analgesic agent

== ENCOUNTER 2017-11-07 15:53 | Emergency (ER) | payer OTHER ==
[~2017-11-07] VITALS: Ht 142.2 cm; Wt 79.8 kg
[2017-11-07] MEDS ORDERED: TOPROL XL25 MG PO (16:07)
[2017-11-07 16:15] LABS: BASO # 0.1 10*3/uL (0.0-0.1); BASO % 0.8 % (0.0-1.0); EOS # 0.4 10*3/uL (0.0-0.4); EOS % 2.4 % (1.0-4.0); HEMATOCRIT 39.8 % (37.0-47.0); HEMOGLOBIN 14.1 g/dl (12.0-16.0); MEAN CELL VOLUME 92.8 fl (81.0-99.0); MEAN CORPUSCULAR HGB 32.9 pg (27.0-31.0); MEAN CORPUSCULAR HGB CONC 35.4 g/dl (33.0-37.0); MEAN PLATELET VOLUME 10.1 fl (9.6-12.3); MONO # 1.2 10*3/uL (0.1-1.0); MONO % 8.4 % (3.0-9.0); NEUT # 7.8 10*3/uL (2.3-7.9); NEUT % 53.5 % (47.0-73.0); PLATELET COUNT AUTOMATED 368 10*3/uL (130-400); RED BLOOD COUNT 4.29 10*6/uL (4.10-5.10); RED CELL DISTRI WIDTH 13.3 % (0-14.5); WHITE BLOOD COUNT 14.6 10*3/uL (4.8-10.8)
[2017-11-07 17:09] LABS: ACT PARTIAL THROMBO TIME 24.9 SECONDS (20.8-31.5); INTERNATIONAL NORM RATIO 0.9 (2.0-3.5)
[2017-11-07 17:11] LABS: ALBUMIN 3.3 gm/dl (3.1-4.5); BUN 9 mg/dl (7-24); CHLORIDE 101 mmol/L (98-107); CREATININE 0.97 mg/dL (0.55-1.02); POTASSIUM 4.1 mmol/L (3.5-5.1); SGOT/AST 18 IU/L (3-35); SGPT/ALT 26 U/L (12-78); SODIUM 137 mmol/L (136-145); TOTAL PROTEIN 6.8 gm/dL (6.4-8.2)
[2017-11-07 17:14] LABS: ALKALINE PHOSPHATASE 85 U/L (45-117); TROPONIN I < 0.015 ng/ml (<0.045)
== END 2017-11-07 19:26 | disposition home or self-care (01) ==
LOC: ED 15:53
PROVIDERS: Emergency Medicine
DX: R07.9 Chest pain, unspecified (principal); F17.200 Nicotine dependence, unspecified, uncomplicated; Z98.51 Tubal ligation status; Z79.899 Other long term (current) drug therapy; Z91.041 Radiographic dye allergy status; Z88.6 Allergy status to analgesic agent

== ENCOUNTER 2017-11-10 10:27 | Emergency (ER) | payer OTHER ==
[~2017-11-10] VITALS: Ht 152.4 cm; Wt 60.3 kg
[~2017-11-10 10:27] MED LIST changes: +TOPROL XL25 MG PO
[2017-11-10 11:44] LABS: BASO # 0.2 10*3/uL (0.0-0.1); BASO % 1.5 % (0.0-1.0); EOS # 0.4 10*3/uL (0.0-0.4); EOS % 3.1 % (1.0-4.0); HEMATOCRIT 42.1 % (37.0-47.0); HEMOGLOBIN 14.5 g/dl (12.0-16.0); LYMPH # 3.5 10*3/uL (1.3-4.4); LYMPH % 30.5 % (27.0-41.0); MEAN CELL VOLUME 95.7 fl (81.0-99.0); MEAN CORPUSCULAR HGB CONC 34.4 g/dl (33.0-37.0); MEAN PLATELET VOLUME 9.2 fl (9.6-12.3); MONO # 0.9 10*3/uL (0.1-1.0); MONO % 7.7 % (3.0-9.0); NEUT # 6.5 10*3/uL (2.3-7.9); NEUT % 56.1 % (47.0-73.0); PLATELET COUNT AUTOMATED 341 10*3/uL (130-400); RED CELL DISTRI WIDTH 13.1 % (0-14.5); WHITE BLOOD COUNT 11.6 10*3/uL (4.8-10.8)
[2017-11-10 12:00] LABS: ALBUMIN 3.2 gm/dl (3.1-4.5); ALKALINE PHOSPHATASE 85 U/L (45-117); BUN 10 mg/dl (7-24); CHLORIDE 103 mmol/L (98-107); POTASSIUM 4.5 mmol/L (3.5-5.1); SGOT/AST 16 IU/L (3-35); SGPT/ALT 21 U/L (12-78); SODIUM 138 mmol/L (136-145)
[2017-11-10 12:14] LABS: TROPONIN I < 0.015 ng/ml (<0.045)
== END 2017-11-10 13:29 | disposition home or self-care (01) ==
LOC: ED 10:27
PROVIDERS: Emergency Medicine
DX: R07.9 Chest pain, unspecified (principal); R11.0 Nausea; F41.9 Anxiety disorder, unspecified; J44.9 Chronic obstructive pulmonary disease, unspecified; I10 Essential (primary) hypertension; K21.9 Gastro-esophageal reflux disease without esophagitis; E78.2 Mixed hyperlipidemia; G40.909 Epilepsy, unspecified, not intractable, without status epilepticus; Z91.041 Radiographic dye allergy status; Z88.6 Allergy status to analgesic agent; Z79.899 Other long term (current) drug therapy

== ENCOUNTER 2017-11-14 23:33 | Inpatient (IN) | payer OTHER ==
[~2017-11-14] VITALS: Ht 142.2 cm; Wt 85.8 kg
--- NOTE | ~2017-11-14 | CON ---
[place], [place] REPORT OF CONSULTATION NAME: DANIEL EVANGELISTA UNIT #: [id number] ROOM: 532 DOCTOR: DEMETRIS MYERS MD BIRTHDATE: [birth year] DOS: 11/15/2017 HISTORY OF PRESENT ILLNESS: The patient is very well known to me, who had heart catheterization at least twice. She had mild disease of the LAD, but the repeat catheterization was normal. The patient has been admitted multiple times with chest discomfort. History of pain medication seeking habits and also has psychiatric problems. No acute EKG changes suggestion of myocardial injury or infarction. The patient apparently has a seizure problem. The patient continues to smoke and has psych problems also. No acute EKG changes suggestion of myocardial injury or infarction. PAST MEDICAL HISTORY: Dyslipidemia, hypertension, fibromyalgia, and mild coronary artery disease PSYCHIATRIC: Nonepileptic seizures. PAST SURGICAL HISTORY: Cardiac catheterization, colonoscopy, and EGD. SOCIAL HISTORY: She does not use any drugs. She is smoking for 20 years. FAMILY HISTORY: Positive for coronary artery. ALLERGIES: IVP DYE. HOME MEDICATIONS: Metoprolol, pantoprazole, and Abilify. REVIEW OF SYSTEMS: Per HPI. CONSTITUTIONAL: No fever, no chills. HEENT: No visual disturbance or hearing problems. CARDIOVASCULAR: As per HPI. RESPIRATORY: Does have some Nausea. GENITOURINARY: No dysuria. NEUROLOGICAL: Stable. PHYSICAL EXAMINATION: VITAL SIGNS: Blood pressure is 116/70. She is in sinus rhythm. HEENT: Unremarkable. NECK: Supple, no JVD, no thyromegaly, no lymphadenopathy. LUNGS: Clear. HEART: Sounds are regular. NEUROLOGIC: Stable. Appears to be anxious. LABORATORY DATA: EKG sinus with nonspecific ST-T changes. Electrolytes are normal. Troponins have been negative. Hemoglobin and hematocrit within normal limits. EKG sinus rhythm with nonspecific ST-T changes. IMPRESSION: Atypical chest discomfort, possible gastroesophageal reflux disease, anxiety, musculoskeletal pain, leukocytosis, tachycardia, and anxiety. RECOMMENDATIONS: Start the patient on isosorbide mononitrate 30 mg daily, [place], [place] REPORT OF CONSULTATION NAME: DANIEL EVANGELISTA UNIT #: [id number] ROOM: 532 DOCTOR: DEMETRIS MYERS MD BIRTHDATE: [birth year] probable coronary spasm. Continue the other medications. Importance of tobacco cessation should discussed with the patient ____ psychiatric problems also and we will follow up. DEMETRIS MYERS MD CM:CONSTR:REPORT OF CONSULTATION 0749 11/15/17 0818 interface
[2017-11-14 23:42] VITALS: BP 130/76
[2017-11-14 23:48] LABS: HEMATOCRIT 40.7 % (37.0-47.0); MEAN CELL VOLUME 94.2 fl (81.0-99.0); MEAN CORPUSCULAR HGB 32.4 pg (27.0-31.0); MEAN CORPUSCULAR HGB CONC 34.4 g/dl (33.0-37.0); MEAN PLATELET VOLUME 9.2 fl (9.6-12.3); PLATELET COUNT AUTOMATED 323 10*3/uL (130-400); RED BLOOD COUNT 4.32 10*6/uL (4.10-5.10); RED CELL DISTRI WIDTH 13.2 % (0-14.5); WHITE BLOOD COUNT 15.1 10*3/uL (4.8-10.8)
[2017-11-15] LABS: ACT PARTIAL THROMBO TIME 25.5 SECONDS (20.8-31.5); INTERNATIONAL NORM RATIO 0.9 (2.0-3.5)
[2017-11-15 00:07] LABS: ATYPICAL LYMPHS 4 % (0-0); BASOPHILS 1 % (0-1); PLATELET SUFFICIENCY NORMAL (NORMAL); TOTAL CELLS COUNTED 100 #CELLS
[2017-11-15 00:08] LABS: ALBUMIN 3.3 gm/dl (3.1-4.5); ALKALINE PHOSPHATASE 88 U/L (45-117); BUN 10 mg/dl (7-24); CHLORIDE 104 mmol/L (98-107); CREATININE 0.93 mg/dL (0.55-1.02); POTASSIUM 3.7 mmol/L (3.5-5.1); SGOT/AST 16 IU/L (3-35); SGPT/ALT 20 U/L (12-78); SODIUM 138 mmol/L (136-145); TOTAL PROTEIN 6.9 gm/dL (6.4-8.2)
[2017-11-15 00:14] LABS: TROPONIN I < 0.015 ng/ml (<0.045)
[2017-11-15 00:42] VITALS: BP 108/47
[2017-11-15 01:00] VITALS: BP 114/74
[2017-11-15 01:15] VITALS: BP 116/74
[2017-11-15 06:26] LABS: BASO # 0.1 10*3/uL (0.0-0.1); EOS # 0.3 10*3/uL (0.0-0.4); EOS % 2.8 % (1.0-4.0); HEMATOCRIT 38.2 % (37.0-47.0); LYMPH % 35.7 % (27.0-41.0); MEAN CORPUSCULAR HGB 32.3 pg (27.0-31.0); MONO # 0.8 10*3/uL (0.1-1.0); MONO % 6.7 % (3.0-9.0); PLATELET COUNT AUTOMATED 296 10*3/uL (130-400); RED BLOOD COUNT 4.02 10*6/uL (4.10-5.10); RED CELL DISTRI WIDTH 13.2 % (0-14.5); WHITE BLOOD COUNT 11.2 10*3/uL (4.8-10.8)
[2017-11-15 06:53] LABS: BUN 8 mg/dl (7-24); CHLORIDE 107 mmol/L (98-107); CHOLESTEROL 218 mg/dL (<200); CREATININE 0.85 mg/dL (0.55-1.02); PHOSPHOROUS 2.7 mg/dL (2.5-4.9); POTASSIUM 3.8 mmol/L (3.5-5.1); SGOT/AST 12 IU/L (3-35); SGPT/ALT 19 U/L (12-78); SODIUM 140 mmol/L (136-145); TOTAL PROTEIN 6.2 gm/dL (6.4-8.2); TRIGLYCERIDES 413 mg/dl (<150)
[2017-11-15 06:55] LABS: INTERNATIONAL NORM RATIO 0.9 (2.0-3.5)
[2017-11-15 07:00] LABS: ALKALINE PHOSPHATASE 73 U/L (45-117); HDL CHOLESTEROL 38 mg/dl (40-60)
[2017-11-15 08:00] VITALS: BP 104/60
[2017-11-15 08:16] LABS: VITAMIN D, 25-HYDROXY 11.9 ng/mL (30-100)
[2017-11-15 12:00] VITALS: BP 112/48
[2017-11-15] MEDS ORDERED: SIMVASTATIN40 MG PO (12:46)
[2017-11-15] MEDS ORDERED: PREDNISONE50 MG PO (12:46)
[2017-11-15] MEDS ORDERED: AVPAK AZITHROM250 MG PO (12:46)
[2017-11-15] MEDS ORDERED: VITAMIN D31000 UNIT PO (12:46)
== END 2017-11-15 14:13 | disposition home or self-care (01) | DRG 191 ==
LOC: ED 23:33 → EDHOLD 11-15 00:29 → 5E 11-15 00:49
PROVIDERS: Emergency Medicine Emergency Medical Services; Hospitalist
DX: J44.0 Chronic obstructive pulmonary disease with (acute) lower respiratory infection (principal); R65.10 Systemic inflammatory response syndrome (SIRS) of non-infectious origin without acute organ dysfunction; E66.01 Morbid (severe) obesity due to excess calories; Z68.41 Body mass index [BMI] 40.0-44.9, adult; E78.00 Pure hypercholesterolemia, unspecified; R07.89 Other chest pain; I25.10 Atherosclerotic heart disease of native coronary artery without angina pectoris; J20.9 Acute bronchitis, unspecified; I10 Essential (primary) hypertension; E78.5 Hyperlipidemia, unspecified; F41.1 Generalized anxiety disorder; K44.9 Diaphragmatic hernia without obstruction or gangrene; K21.9 Gastro-esophageal reflux disease without esophagitis; F32.9 Major depressive disorder, single episode, unspecified; M79.7 Fibromyalgia; G40.909 Epilepsy, unspecified, not intractable, without status epilepticus; Z87.11 Personal history of peptic ulcer disease; Z98.51 Tubal ligation status; Z82.49 Family history of ischemic heart disease and other diseases of the circulatory system; Z72.0 Tobacco use; Z81.8 Family history of other mental and behavioral disorders; Z88.8 Allergy status to other drugs, medicaments and biological substances; Z71.6 Tobacco abuse counseling; Z91.041 Radiographic dye allergy status

== ENCOUNTER 2017-11-22 16:54 | Emergency (ER) | payer OTHER ==
[~2017-11-22] VITALS: Ht 142.2 cm; Wt 86.2 kg
[~2017-11-22 16:54] MED LIST changes: +AVPAK AZITHROM250 MG PO; +PREDNISONE50 MG PO; +SIMVASTATIN40 MG PO; +VITAMIN D31000 UNIT PO
== END 2017-11-22 17:57 | disposition home or self-care (01) ==
LOC: ED 16:54
DX: A08.4 Viral intestinal infection, unspecified (principal); F17.210 Nicotine dependence, cigarettes, uncomplicated; Z91.041 Radiographic dye allergy status; Z88.8 Allergy status to other drugs, medicaments and biological substances; Z79.899 Other long term (current) drug therapy; Z98.51 Tubal ligation status

== ENCOUNTER 2018-02-15 11:04 | Emergency (ER) | payer OTHER ==
[~2018-02-15] VITALS: Ht 142.2 cm; Wt 88.0 kg
[2018-02-15] MEDS ORDERED: AUGMENTIN 875875 MG PO (12:20)
== END 2018-02-15 12:24 | disposition home or self-care (01) ==
LOC: ED 11:04
DX: K08.89 Other specified disorders of teeth and supporting structures (principal); Z91.041 Radiographic dye allergy status; Z88.6 Allergy status to analgesic agent; Z79.899 Other long term (current) drug therapy

== ENCOUNTER 2018-02-27 18:18 | Inpatient (IN) | payer OTHER ==
[~2018-02-27] VITALS: Ht 142.2 cm; Wt 95.9 kg
--- NOTE | ~2018-02-27 | CON ---
[place], [place] REPORT OF CONSULTATION NAME: DANIEL EVANGELISTA UNIT #: [id number] ROOM: 503 DOCTOR: DEMETRIS MYERS MD BIRTHDATE: [birth year] DOS: 02/28/2018 HISTORY OF PRESENT ILLNESS: The patient is a 42-year-old female with history of heavy tobacco abuse. Previous cardiac catheterization revealed minimal proximal LAD stenosis, multiple admissions to the hospital, and has psychiatric problems. The patient is admitted with again chest discomfort. No acute EKG changes suggestion of myocardial ischemia or infarction. No shortness of breath. The patient did have some diarrhea. No neurological issues. The patient was given nitroglycerine and Lopressor in the Emergency Room. PAST MEDICAL HISTORY: Significant for anxiety, bronchitis, COPD, dyslipidemia, hepatic steatosis, hiatal hernia, hypercholesterolemia, obesity. PAST SURGICAL PROBLEMS: History of bronchoscopy, cardiac catheterization, colonoscopy, and tubal ligation. SOCIAL HISTORY: Continues to smoke, 20 years of smoking, 1 pack per day. FAMILY HISTORY: Positive for coronary artery disease. ALLERGIES: IVP DYE. HOME MEDICATIONS: Metoprolol, pantoprazole, hydroxyzine, and simvastatin. The patient is noncompliant. REVIEW OF SYSTEMS: CONSTITUTIONAL: No fever, no chills. HEENT: No visual disturbances, hearing problems. CARDIOVASCULAR: Positive for chest pain. GASTROINTESTINAL: Positive for diarrhea. GENITOURINARY: No dysuria. NEUROLOGICAL stable. VITAL SIGNS: Blood pressure is 130/60. HEENT: Unremarkable. NECK: Supple, no JVD. LUNGS: Clear. HEART: Sounds are regular. ABDOMEN: Soft, nontender. NEUROLOGICAL: Stable. LABORATORY DATA: Electrolytes are normal. Troponin is negative. Hemoglobin, hematocrit within normal limits. CPK-MB, troponins have been negative. CT scan is negative. EKG sinus with nonspecific ST-T changes. IMPRESSION: The patient with mild coronary artery disease, tobacco abuse, hypertension, hyperlipidemia, tachycardia, and leukocytosis. RECOMMENDATIONS: Continue the present care. Scheduled for a Lexiscan Cardiolite SPECT imaging study and we will follow up. [place], [place] REPORT OF CONSULTATION NAME: DANIEL EVANGELISTA UNIT #: [id number] ROOM: 503 DOCTOR: DEMETRIS MYERS MD BIRTHDATE: [birth year] DEMETRIS MYERS MD CM:CONSTR:REPORT OF CONSULTATION 02/28/18 0923 interface
--- NOTE | ~2018-02-27 | ST ---
[place], [place] EXERCISE STRESS TEST REPORT NAME: DANIEL EVANGELISTA UNIT #: [id number] ROOM: 503 DOCTOR: DEMETRIS MYERS MD BIRTHDATE: [birth year] DOS: 02/28/2018 The patent with mild coronary artery disease per Lexiscan Cardiolite SPECT imaging study. Baseline cardiogram, sinus with Q-waves in the inferior leads 0.4 mg Lexiscan, duration of 10 seconds. Lexiscan, no new EKG changes. No chest pain. Blood pressure and heart rate response was normal. Nuclear images will be reported separately. DEMETRIS MYERS MD CM:STRESS:EXERCISE STRESS TEST REPORT [id number] 0914 DEMETRIS MYERS MD
[~2018-02-27 18:18] MED LIST changes: +AUGMENTIN 875875 MG PO
[2018-02-27 18:41] LABS: HEMATOCRIT 39.3 % (37.0-47.0); HEMOGLOBIN 13.5 g/dl (12.0-16.0); MEAN CELL VOLUME 93.6 fl (81.0-99.0); MEAN CORPUSCULAR HGB 32.1 pg (27.0-31.0); MEAN CORPUSCULAR HGB CONC 34.4 g/dl (33.0-37.0); MEAN PLATELET VOLUME 9.6 fl (9.6-12.3); PLATELET COUNT AUTOMATED 428 10*3/uL (130-400); RED CELL DISTRI WIDTH 13.1 % (0-14.5); WHITE BLOOD COUNT 16.7 10*3/uL (4.8-10.8)
[2018-02-27 19:02] VITALS: BP 143/55
[2018-02-27 19:13] LABS: ACT PARTIAL THROMBO TIME 23.7 SECONDS (20.8-31.5); INTERNATIONAL NORM RATIO 0.9 (2.0-3.5)
[2018-02-27 19:14] LABS: ATYPICAL LYMPHS 2 % (0-0); BASOPHILS 1 % (0-1); TOTAL CELLS COUNTED 100 #CELLS
[2018-02-27 19:15] LABS: PLATELET SUFFICIENCY HIGH (NORMAL)
[2018-02-27 19:17] VITALS: BP 117/44
[2018-02-27 19:21] LABS: ALBUMIN 3.6 gm/dl (3.1-4.5); ALKALINE PHOSPHATASE 75 U/L (45-117); BUN 11 mg/dl (7-24); CHLORIDE 101 mmol/L (98-107); CREATININE 1.11 mg/dL (0.55-1.02); SGOT/AST 29 IU/L (3-35); SGPT/ALT 37 U/L (12-78); SODIUM 136 mmol/L (136-145); TOTAL PROTEIN 7.3 gm/dL (6.4-8.2)
[2018-02-27 19:22] LABS: TROPONIN I < 0.015 ng/ml (<0.045)
[2018-02-27 19:35] LABS: BILIRUBIN NEGATIVE (NEGATIVE); BLOOD 1+ (NEGATIVE); CLARITY CLEAR (CLEAR); COLOR YELLOW (YELLOW); GLUCOSE NEGATIVE (NEGATIVE); KETONE NEGATIVE (NEGATIVE); LEUKO ESTERASE TRACE (NEGATIVE); NITRITE NEGATIVE (NEGATIVE); PH 6.5 (5.0-9.0); UROBILINOGEN 0.2 E.U./dl (0.2-1.0)
[2018-02-27 19:44] LABS: BACTERIA 2+
[2018-02-27 20:51] VITALS: BP 133/60
[2018-02-28] VITALS: BP 110/60
[2018-02-28 06:48] LABS: BASO # 0.1 10*3/uL (0.0-0.1); BASO % 1.1 % (0.0-1.0); EOS # 0.5 10*3/uL (0.0-0.4); EOS % 4.2 % (1.0-4.0); HEMATOCRIT 39.5 % (37.0-47.0); HEMOGLOBIN 12.9 g/dl (12.0-16.0); LYMPH # 4.3 10*3/uL (1.3-4.4); LYMPH % 33.2 % (27.0-41.0); MEAN CELL VOLUME 95.9 fl (81.0-99.0); MEAN CORPUSCULAR HGB 31.3 pg (27.0-31.0); MEAN CORPUSCULAR HGB CONC 32.7 g/dl (33.0-37.0); MEAN PLATELET VOLUME 8.9 fl (9.6-12.3); MONO # 1.1 10*3/uL (0.1-1.0); MONO % 8.2 % (3.0-9.0); NEUT # 6.7 10*3/uL (2.3-7.9); NEUT % 52.1 % (47.0-73.0); PLATELET COUNT AUTOMATED 358 10*3/uL (130-400); RED BLOOD COUNT 4.12 10*6/uL (4.10-5.10); RED CELL DISTRI WIDTH 13.2 % (0-14.5); WHITE BLOOD COUNT 12.8 10*3/uL (4.8-10.8)
[2018-02-28 06:57] LABS: ACT PARTIAL THROMBO TIME 24.9 SECONDS (20.8-31.5); ALBUMIN 3.1 gm/dl (3.1-4.5); BUN 10 mg/dl (7-24); CHLORIDE 105 mmol/L (98-107); CREATININE 0.94 mg/dL (0.55-1.02); LIPASE 305 U/L (73-393); PHOSPHOROUS 3.5 mg/dL (2.5-4.9); POTASSIUM 3.9 mmol/L (3.5-5.1); SGOT/AST 24 IU/L (3-35); SGPT/ALT 37 U/L (12-78); SODIUM 139 mmol/L (136-145); TOTAL PROTEIN 6.3 gm/dL (6.4-8.2)
[2018-02-28 07:08] LABS: ALKALINE PHOSPHATASE 62 U/L (45-117)
[2018-02-28 08:00] VITALS: BP 112/64
[2018-02-28 08:55] LABS: VITAMIN D, 25-HYDROXY 14.2 ng/mL (30-100)
[2018-02-28 12:00] VITALS: BP 109/66
[2018-02-28] MEDS ORDERED: IMDUR SA30 MG PO (15:42)
[2018-02-28 16:00] VITALS: BP 96/50
== END 2018-02-28 16:55 | disposition home or self-care (01) | DRG 313 ==
LOC: ED 18:18 → EDHOLD 19:45 → 5E 19:45
PROVIDERS: Emergency Medicine; Internal Medicine; Nurse Practitioner Family
PROC: 4A02XM4 Measurement of Cardiac Total Activity, External Approach (ICD-10-PCS; principal; 2018-02-28)
PROC: 3E073KZ Introduction of Other Diagnostic Substance into Coronary Artery, Percutaneous Approach (ICD-10-PCS; 2018-02-28)
DX: R07.9 Chest pain, unspecified (principal); I25.10 Atherosclerotic heart disease of native coronary artery without angina pectoris; R65.10 Systemic inflammatory response syndrome (SIRS) of non-infectious origin without acute organ dysfunction; E66.01 Morbid (severe) obesity due to excess calories; K76.0 Fatty (change of) liver, not elsewhere classified; F44.5 Conversion disorder with seizures or convulsions; Z68.42 Body mass index [BMI] 45.0-49.9, adult; K21.9 Gastro-esophageal reflux disease without esophagitis; E86.0 Dehydration; D47.3 Essential (hemorrhagic) thrombocythemia; I10 Essential (primary) hypertension; E78.5 Hyperlipidemia, unspecified; M79.7 Fibromyalgia; E78.00 Pure hypercholesterolemia, unspecified; R73.03 Prediabetes; E78.2 Mixed hyperlipidemia; K44.9 Diaphragmatic hernia without obstruction or gangrene; D35.01 Benign neoplasm of right adrenal gland; F41.1 Generalized anxiety disorder; E55.9 Vitamin D deficiency, unspecified; R00.0 Tachycardia, unspecified; R74.8 Abnormal levels of other serum enzymes; D72.829 Elevated white blood cell count, unspecified; R82.71 Bacteriuria; R31.29 Other microscopic hematuria; J44.9 Chronic obstructive pulmonary disease, unspecified; F32.9 Major depressive disorder, single episode, unspecified; K25.9 Gastric ulcer, unspecified as acute or chronic, without hemorrhage or perforation; Z88.8 Allergy status to other drugs, medicaments and biological substances; Z91.041 Radiographic dye allergy status; Z79.899 Other long term (current) drug therapy; Z98.51 Tubal ligation status; Z82.49 Family history of ischemic heart disease and other diseases of the circulatory system; Z83.6 Family history of other diseases of the respiratory system; Z72.0 Tobacco use; Z71.6 Tobacco abuse counseling

== ENCOUNTER 2018-03-04 18:57 | Emergency (ER) | payer OTHER ==
[~2018-03-04] VITALS: Ht 142.2 cm; Wt 88.0 kg
[2018-03-04 19:24] LABS: HEMATOCRIT 38.4 % (37.0-47.0); HEMOGLOBIN 12.9 g/dl (12.0-16.0); MEAN CORPUSCULAR HGB 31.9 pg (27.0-31.0); MEAN CORPUSCULAR HGB CONC 33.6 g/dl (33.0-37.0); MEAN PLATELET VOLUME 8.9 fl (9.6-12.3); PLATELET COUNT AUTOMATED 294 10*3/uL (130-400); RED BLOOD COUNT 4.04 10*6/uL (4.10-5.10); RED CELL DISTRI WIDTH 13.3 % (0-14.5); WHITE BLOOD COUNT 16.3 10*3/uL (4.8-10.8)
[2018-03-04 19:32] LABS: INTERNATIONAL NORM RATIO 0.9 (2.0-3.5)
[2018-03-04 19:40] LABS: ALBUMIN 3.2 gm/dl (3.1-4.5); ALKALINE PHOSPHATASE 70 U/L (45-117); BUN 16 mg/dl (7-24); CHLORIDE 107 mmol/L (98-107); CREATININE 1.08 mg/dL (0.55-1.02); POTASSIUM 3.9 mmol/L (3.5-5.1); SGOT/AST 23 IU/L (3-35); SGPT/ALT 39 U/L (12-78); SODIUM 140 mmol/L (136-145); TOTAL PROTEIN 6.5 gm/dL (6.4-8.2)
[2018-03-04 19:42] LABS: ATYPICAL LYMPHS 4 % (0-0); BASOPHILS 3 % (0-1); TOTAL CELLS COUNTED 100 #CELLS
[2018-03-04 19:43] LABS: PLATELET SUFFICIENCY NORMAL (NORMAL); POLYCHROMASIA SLIGHT; TROPONIN I < 0.015 ng/ml (<0.045)
== END 2018-03-04 22:13 | disposition home or self-care (01) ==
LOC: ED 18:57
PROVIDERS: Emergency Medicine
DX: R07.89 Other chest pain (principal); F17.200 Nicotine dependence, unspecified, uncomplicated; J44.9 Chronic obstructive pulmonary disease, unspecified; E78.5 Hyperlipidemia, unspecified; I10 Essential (primary) hypertension; M79.7 Fibromyalgia; K21.9 Gastro-esophageal reflux disease without esophagitis; E78.00 Pure hypercholesterolemia, unspecified; Z79.899 Other long term (current) drug therapy; Z98.51 Tubal ligation status; Z91.041 Radiographic dye allergy status; Z88.6 Allergy status to analgesic agent

== ENCOUNTER 2018-03-09 17:26 | Emergency (ER) | payer OTHER ==
[~2018-03-09] VITALS: Ht 142.2 cm; Wt 88.0 kg
[2018-03-09 18:00] LABS: BASO # 0.2 10*3/uL (0.0-0.1); BASO % 1.2 % (0.0-1.0); EOS # 0.7 10*3/uL (0.0-0.4); EOS % 5.5 % (1.0-4.0); HEMATOCRIT 40.1 % (37.0-47.0); HEMOGLOBIN 13.9 g/dl (12.0-16.0); LYMPH # 4.1 10*3/uL (1.3-4.4); LYMPH % 32.3 % (27.0-41.0); MEAN CELL VOLUME 93.3 fl (81.0-99.0); MEAN CORPUSCULAR HGB 32.3 pg (27.0-31.0); MEAN CORPUSCULAR HGB CONC 34.7 g/dl (33.0-37.0); MEAN PLATELET VOLUME 8.6 fl (9.6-12.3); MONO # 1.1 10*3/uL (0.1-1.0); MONO % 8.7 % (3.0-9.0); NEUT # 6.6 10*3/uL (2.3-7.9); NEUT % 51.4 % (47.0-73.0); PLATELET COUNT AUTOMATED 350 10*3/uL (130-400); RED CELL DISTRI WIDTH 13.4 % (0-14.5); WHITE BLOOD COUNT 12.8 10*3/uL (4.8-10.8)
[2018-03-09 18:17] LABS: ALBUMIN 3.4 gm/dl (3.1-4.5); BUN 10 mg/dl (7-24); CHLORIDE 106 mmol/L (98-107); CREATININE 0.91 mg/dL (0.55-1.02); POTASSIUM 4.2 mmol/L (3.5-5.1); SGOT/AST 23 IU/L (3-35); SGPT/ALT 30 U/L (12-78); SODIUM 140 mmol/L (136-145); TOTAL PROTEIN 6.6 gm/dL (6.4-8.2)
[2018-03-09 18:18] LABS: ALKALINE PHOSPHATASE 66 U/L (45-117)
== END 2018-03-09 18:27 | disposition home or self-care (01) ==
LOC: ED 17:26
PROVIDERS: Emergency Medicine
DX: F41.9 Anxiety disorder, unspecified (principal); R07.9 Chest pain, unspecified; F17.200 Nicotine dependence, unspecified, uncomplicated; Z91.041 Radiographic dye allergy status; Z88.6 Allergy status to analgesic agent; Z79.899 Other long term (current) drug therapy

== ENCOUNTER 2018-03-17 22:07 | Emergency (ER) | payer OTHER ==
[~2018-03-17] VITALS: Ht 160 cm; Wt 77.1 kg
[2018-03-17 22:30] LABS: HEMOGLOBIN 13.5 g/dl (12.0-16.0); MEAN CELL VOLUME 93.8 fl (81.0-99.0); MEAN CORPUSCULAR HGB 30.9 pg (27.0-31.0); MEAN CORPUSCULAR HGB CONC 32.9 g/dl (33.0-37.0); MEAN PLATELET VOLUME 8.9 fl (9.6-12.3); PLATELET COUNT AUTOMATED 319 10*3/uL (130-400); RED BLOOD COUNT 4.37 10*6/uL (4.10-5.10); RED CELL DISTRI WIDTH 13.2 % (0-14.5); WHITE BLOOD COUNT 12.2 10*3/uL (4.8-10.8)
[2018-03-17 22:43] LABS: ACT PARTIAL THROMBO TIME 25.1 SECONDS (20.8-31.5); INTERNATIONAL NORM RATIO 0.9 (2.0-3.5)
[2018-03-17 22:47] LABS: ALBUMIN 3.5 gm/dl (3.1-4.5); ALKALINE PHOSPHATASE 66 U/L (45-117); BUN 10 mg/dl (7-24); CHLORIDE 104 mmol/L (98-107); POTASSIUM 3.9 mmol/L (3.5-5.1); SGOT/AST 28 IU/L (3-35); SGPT/ALT 37 U/L (12-78); SODIUM 140 mmol/L (136-145); TOTAL PROTEIN 6.7 gm/dL (6.4-8.2)
[2018-03-17 22:48] LABS: TROPONIN I < 0.015 ng/ml (<0.045)
[2018-03-17 23:07] LABS: PLATELET SUFFICIENCY NORMAL (NORMAL); TOTAL CELLS COUNTED 100 #CELLS
[2018-03-17 23:45] LABS: BILIRUBIN NEGATIVE (NEGATIVE); BLOOD 1+ (NEGATIVE); CLARITY SL CLOUDY (CLEAR); COLOR YELLOW (YELLOW); GLUCOSE NEGATIVE (NEGATIVE); KETONE NEGATIVE (NEGATIVE); LEUKO ESTERASE NEGATIVE (NEGATIVE); NITRITE NEGATIVE (NEGATIVE); SPECIFIC GRAVITY <= 1.005 (1.005-1.030); UROBILINOGEN 0.2 E.U./dl (0.2-1.0)
[2018-03-18 00:01] LABS: EPITHELIAL CELLS 15-20
== END 2018-03-18 01:38 | disposition home or self-care (01) ==
LOC: ED 22:07
PROVIDERS: Emergency Medicine Emergency Medical Services; Nurse Practitioner Family
DX: R07.9 Chest pain, unspecified (principal); F43.0 Acute stress reaction; F17.200 Nicotine dependence, unspecified, uncomplicated; J44.9 Chronic obstructive pulmonary disease, unspecified; E78.5 Hyperlipidemia, unspecified; F41.9 Anxiety disorder, unspecified; F32.9 Major depressive disorder, single episode, unspecified; K21.9 Gastro-esophageal reflux disease without esophagitis; E78.00 Pure hypercholesterolemia, unspecified; I10 Essential (primary) hypertension; E66.01 Morbid (severe) obesity due to excess calories; E11.9 Type 2 diabetes mellitus without complications; M79.7 Fibromyalgia; Z98.51 Tubal ligation status; Z79.899 Other long term (current) drug therapy; Z88.6 Allergy status to analgesic agent; Z88.8 Allergy status to other drugs, medicaments and biological substances; Z91.041 Radiographic dye allergy status

== ENCOUNTER 2018-03-22 21:32 | Inpatient (IN) | payer OTHER ==
[~2018-03-22] VITALS: Ht 142.2 cm; Wt 90.9 kg
[2018-03-22 21:33] VITALS: BP 145/82
[2018-03-22 22:40] LABS: BILIRUBIN NEGATIVE (NEGATIVE); BLOOD 1+ (NEGATIVE); CLARITY SL CLOUDY (CLEAR); COLOR YELLOW (YELLOW); GLUCOSE NEGATIVE (NEGATIVE); KETONE NEGATIVE (NEGATIVE); LEUKO ESTERASE TRACE (NEGATIVE); NITRITE NEGATIVE (NEGATIVE); SPECIFIC GRAVITY 1.025 (1.005-1.030); UROBILINOGEN 0.2 E.U./dl (0.2-1.0)
[2018-03-22 22:42] LABS: HEMATOCRIT 41.8 % (37.0-47.0); HEMOGLOBIN 13.8 g/dl (12.0-16.0); MEAN CELL VOLUME 94.8 fl (81.0-99.0); MEAN CORPUSCULAR HGB 31.3 pg (27.0-31.0); MEAN PLATELET VOLUME 8.7 fl (9.6-12.3); PLATELET COUNT AUTOMATED 330 10*3/uL (130-400); RED BLOOD COUNT 4.41 10*6/uL (4.10-5.10); RED CELL DISTRI WIDTH 13.5 % (0-14.5); WHITE BLOOD COUNT 13.9 10*3/uL (4.8-10.8)
[2018-03-22 22:52] LABS: EPITHELIAL CELLS 45-50
[2018-03-22 22:54] LABS: BACTERIA 2+
[2018-03-22 22:55] LABS: RBC 16-20 rbc/hpf (0-2)
[2018-03-22 23:01] LABS: ATYPICAL LYMPHS 1 % (0-0); BASOPHILS 2 % (0-1); PLATELET SUFFICIENCY NORMAL (NORMAL); TOTAL CELLS COUNTED 100 #CELLS
[2018-03-22 23:03] LABS: ALBUMIN 3.7 gm/dl (3.1-4.5); ALKALINE PHOSPHATASE 73 U/L (45-117); BUN 12 mg/dl (7-24); CHLORIDE 104 mmol/L (98-107); LIPASE 431 U/L (73-393); POTASSIUM 3.6 mmol/L (3.5-5.1); SGOT/AST 21 IU/L (3-35); SGPT/ALT 33 U/L (12-78); SODIUM 139 mmol/L (136-145); TOTAL PROTEIN 7.2 gm/dL (6.4-8.2)
[2018-03-22 23:22] VITALS: BP 118/61
[2018-03-23 00:17] VITALS: BP 128/61
[2018-03-23 01:45] VITALS: BP 122/53
[2018-03-23 06:03] LABS: ALBUMIN 3.1 gm/dl (3.1-4.5); ALKALINE PHOSPHATASE 55 U/L (45-117); BUN 11 mg/dl (7-24); CHLORIDE 107 mmol/L (98-107); CHOLESTEROL 138 mg/dL (<200); CREATININE 0.86 mg/dL (0.55-1.02); FREE T4 1.01 ng/dl (0.76-1.46); HDL CHOLESTEROL 32 mg/dl (40-60); LDL CHOLESTEROL 39 mg/dL (9-159); PHOSPHOROUS 3.6 mg/dL (2.5-4.9); POTASSIUM 3.6 mmol/L (3.5-5.1); SGOT/AST 14 IU/L (3-35); SGPT/ALT 26 U/L (12-78); SODIUM 142 mmol/L (136-145); TOTAL PROTEIN 5.8 gm/dL (6.4-8.2); TRIGLYCERIDES 334 mg/dl (<150); VLDL CHOLESTEROL 67 mg/dL (6-40)
[2018-03-23 06:20] LABS: BASO # 0.1 10*3/uL (0.0-0.1); EOS # 0.3 10*3/uL (0.0-0.4); EOS % 2.9 % (1.0-4.0); HEMATOCRIT 37.1 % (37.0-47.0); HEMOGLOBIN 12.1 g/dl (12.0-16.0); LYMPH # 4.3 10*3/uL (1.3-4.4); LYMPH % 37.5 % (27.0-41.0); MEAN CELL VOLUME 96.1 fl (81.0-99.0); MEAN CORPUSCULAR HGB 31.3 pg (27.0-31.0); MEAN CORPUSCULAR HGB CONC 32.6 g/dl (33.0-37.0); MEAN PLATELET VOLUME 9.3 fl (9.6-12.3); MONO # 1.1 10*3/uL (0.1-1.0); MONO % 9.7 % (3.0-9.0); NEUT # 5.5 10*3/uL (2.3-7.9); PLATELET COUNT AUTOMATED 292 10*3/uL (130-400); RED BLOOD COUNT 3.86 10*6/uL (4.10-5.10); RED CELL DISTRI WIDTH 13.8 % (0-14.5); WHITE BLOOD COUNT 11.5 10*3/uL (4.8-10.8)
[2018-03-23 08:00] VITALS: BP 101/54
[2018-03-23 12:00] VITALS: BP 109/59
[2018-03-23 16:00] VITALS: BP 110/60
[2018-03-23 20:00] VITALS: BP 115/55
[2018-03-24] VITALS: BP 100/44
[2018-03-24 06:42] LABS: BASO # 0.1 10*3/uL (0.0-0.1); BASO % 1.2 % (0.0-1.0); EOS # 0.5 10*3/uL (0.0-0.4); EOS % 5.7 % (1.0-4.0); HEMATOCRIT 37.3 % (37.0-47.0); HEMOGLOBIN 11.9 g/dl (12.0-16.0); LYMPH # 3.5 10*3/uL (1.3-4.4); LYMPH % 38.7 % (27.0-41.0); MEAN CELL VOLUME 97.1 fl (81.0-99.0); MEAN CORPUSCULAR HGB CONC 31.9 g/dl (33.0-37.0); MEAN PLATELET VOLUME 9.2 fl (9.6-12.3); MONO # 0.8 10*3/uL (0.1-1.0); MONO % 8.8 % (3.0-9.0); NEUT % 44.8 % (47.0-73.0); PLATELET COUNT AUTOMATED 282 10*3/uL (130-400); RED BLOOD COUNT 3.84 10*6/uL (4.10-5.10); RED CELL DISTRI WIDTH 13.7 % (0-14.5)
[2018-03-24 07:07] LABS: BUN 12 mg/dl (7-24); CHLORIDE 108 mmol/L (98-107); CREATININE 0.83 mg/dL (0.55-1.02); POTASSIUM 3.7 mmol/L (3.5-5.1); SODIUM 143 mmol/L (136-145)
[2018-03-24] MEDS ORDERED: AMINOPHYLLIN200 MG PO (12:40)
== END 2018-03-24 13:45 | disposition home or self-care (01) | DRG 872 ==
LOC: ED 21:32 → 5E 03-23 01:07
PROVIDERS: Emergency Medicine; Internal Medicine; Internal Medicine Hospice and Palliative Medicine
DX: A41.9 Sepsis, unspecified organism (principal); E87.2 Acidosis; E66.01 Morbid (severe) obesity due to excess calories; K35.80 Unspecified acute appendicitis; Z68.41 Body mass index [BMI] 40.0-44.9, adult; N39.0 Urinary tract infection, site not specified; R65.20 Severe sepsis without septic shock; K37 Unspecified appendicitis; R31.9 Hematuria, unspecified; K76.0 Fatty (change of) liver, not elsewhere classified; R00.0 Tachycardia, unspecified; R73.9 Hyperglycemia, unspecified; K21.9 Gastro-esophageal reflux disease without esophagitis; E78.5 Hyperlipidemia, unspecified; E78.00 Pure hypercholesterolemia, unspecified; M79.7 Fibromyalgia; I10 Essential (primary) hypertension; J44.9 Chronic obstructive pulmonary disease, unspecified; F32.9 Major depressive disorder, single episode, unspecified; F41.1 Generalized anxiety disorder; E78.2 Mixed hyperlipidemia; K44.9 Diaphragmatic hernia without obstruction or gangrene; E55.9 Vitamin D deficiency, unspecified; R73.03 Prediabetes; B96.89 Other specified bacterial agents as the cause of diseases classified elsewhere; Z79.899 Other long term (current) drug therapy; Z88.5 Allergy status to narcotic agent; Z88.8 Allergy status to other drugs, medicaments and biological substances; Z88.6 Allergy status to analgesic agent; Z71.6 Tobacco abuse counseling; Z91.041 Radiographic dye allergy status; Z98.51 Tubal ligation status; Z82.49 Family history of ischemic heart disease and other diseases of the circulatory system; Z83.6 Family history of other diseases of the respiratory system; Z82.0 Family history of epilepsy and other diseases of the nervous system

== ENCOUNTER 2018-03-25 21:07 | Emergency (ER) | payer OTHER ==
[~2018-03-25] VITALS: Ht 142.2 cm; Wt 88.0 kg
[~2018-03-25 21:07] MED LIST changes: +AMINOPHYLLIN200 MG PO
[2018-03-25 21:52] LABS: BASO # 0.1 10*3/uL (0.0-0.1); BASO % 1.1 % (0.0-1.0); EOS # 0.6 10*3/uL (0.0-0.4); EOS % 5.2 % (1.0-4.0); LYMPH # 3.7 10*3/uL (1.3-4.4); LYMPH % 34.1 % (27.0-41.0); MEAN CELL VOLUME 94.2 fl (81.0-99.0); MEAN CORPUSCULAR HGB 31.4 pg (27.0-31.0); MEAN CORPUSCULAR HGB CONC 33.3 g/dl (33.0-37.0); MEAN PLATELET VOLUME 8.6 fl (9.6-12.3); MONO % 9.3 % (3.0-9.0); NEUT # 5.4 10*3/uL (2.3-7.9); NEUT % 49.3 % (47.0-73.0); PLATELET COUNT AUTOMATED 305 10*3/uL (130-400); RED BLOOD COUNT 4.14 10*6/uL (4.10-5.10); RED CELL DISTRI WIDTH 13.6 % (0-14.5); WHITE BLOOD COUNT 10.9 10*3/uL (4.8-10.8)
[2018-03-25 22:01] LABS: ALBUMIN 3.5 gm/dl (3.1-4.5); ALKALINE PHOSPHATASE 75 U/L (45-117); BUN 7 mg/dl (7-24); CHLORIDE 107 mmol/L (98-107); CREATININE 0.93 mg/dL (0.55-1.02); LIPASE 172 U/L (73-393); POTASSIUM 3.7 mmol/L (3.5-5.1); SGOT/AST 32 IU/L (3-35); SGPT/ALT 57 U/L (12-78); SODIUM 139 mmol/L (136-145); TOTAL PROTEIN 6.8 gm/dL (6.4-8.2)
== END 2018-03-26 00:16 | disposition home or self-care (01) ==
LOC: ED 21:07
PROVIDERS: Nurse Practitioner Family
DX: R10.31 Right lower quadrant pain (principal); R11.2 Nausea with vomiting, unspecified; E78.2 Mixed hyperlipidemia; I10 Essential (primary) hypertension; R73.03 Prediabetes; J44.9 Chronic obstructive pulmonary disease, unspecified; K21.9 Gastro-esophageal reflux disease without esophagitis; Z91.041 Radiographic dye allergy status; Z88.6 Allergy status to analgesic agent; Z79.899 Other long term (current) drug therapy

== ENCOUNTER 2018-04-16 22:09 | Emergency (ER) | payer OTHER ==
[~2018-04-16] VITALS: Ht 142.2 cm; Wt 88.5 kg
[2018-04-16 22:45] LABS: HEMATOCRIT 42.3 % (37.0-47.0); HEMOGLOBIN 13.9 g/dl (12.0-16.0); MEAN CELL VOLUME 93.8 fl (81.0-99.0); MEAN CORPUSCULAR HGB 30.8 pg (27.0-31.0); MEAN CORPUSCULAR HGB CONC 32.9 g/dl (33.0-37.0); MEAN PLATELET VOLUME 8.9 fl (9.6-12.3); PLATELET COUNT AUTOMATED 297 10*3/uL (130-400); RED BLOOD COUNT 4.51 10*6/uL (4.10-5.10); RED CELL DISTRI WIDTH 13.7 % (0-14.5); WHITE BLOOD COUNT 12.6 10*3/uL (4.8-10.8)
[2018-04-16 22:55] LABS: ACT PARTIAL THROMBO TIME 24.6 SECONDS (20.8-31.5); INTERNATIONAL NORM RATIO 0.9 (2.0-3.5)
[2018-04-16 23:03] LABS: ALBUMIN 3.7 gm/dl (3.1-4.5); ALKALINE PHOSPHATASE 77 U/L (45-117); BUN 7 mg/dl (7-24); CHLORIDE 103 mmol/L (98-107); CREATININE 0.97 mg/dL (0.55-1.02); POTASSIUM 3.6 mmol/L (3.5-5.1); SGOT/AST 22 IU/L (3-35); SGPT/ALT 39 U/L (12-78); SODIUM 139 mmol/L (136-145); TOTAL PROTEIN 7.1 gm/dL (6.4-8.2)
[2018-04-16 23:08] LABS: BASOPHILS 1 % (0-1); PLATELET SUFFICIENCY NORMAL (NORMAL); TOTAL CELLS COUNTED 100 #CELLS
[2018-04-16 23:09] LABS: TROPONIN I < 0.015 ng/ml (<0.045)
[2018-04-17] MEDS ORDERED: LEVAQUIN750 M1 PO (01:12)
== END 2018-04-17 02:05 | disposition home or self-care (01) ==
LOC: ED 22:09
PROVIDERS: Student in an Organized Health Care Education/Training Program
DX: J18.9 Pneumonia, unspecified organism (principal); J44.9 Chronic obstructive pulmonary disease, unspecified; I10 Essential (primary) hypertension; K21.9 Gastro-esophageal reflux disease without esophagitis; E78.2 Mixed hyperlipidemia; R73.03 Prediabetes; E66.01 Morbid (severe) obesity due to excess calories; Z91.041 Radiographic dye allergy status; Z88.6 Allergy status to analgesic agent; Z79.899 Other long term (current) drug therapy

== ENCOUNTER 2018-04-19 12:26 | Inpatient (IN) | payer OTHER ==
[~2018-04-19] VITALS: Ht 142.2 cm; Wt 89.5 kg
[2018-04-19 12:30] VITALS: BP 122/53
[2018-04-19 13:01] LABS: BASO # 0.1 10*3/uL (0.0-0.1); BASO % 1.2 % (0.0-1.0); EOS # 0.3 10*3/uL (0.0-0.4); EOS % 2.7 % (1.0-4.0); HEMATOCRIT 41.8 % (37.0-47.0); HEMOGLOBIN 14.1 g/dl (12.0-16.0); LYMPH # 3.6 10*3/uL (1.3-4.4); LYMPH % 32.2 % (27.0-41.0); MEAN CELL VOLUME 92.7 fl (81.0-99.0); MEAN CORPUSCULAR HGB 31.3 pg (27.0-31.0); MEAN CORPUSCULAR HGB CONC 33.7 g/dl (33.0-37.0); MEAN PLATELET VOLUME 8.8 fl (9.6-12.3); MONO % 8.5 % (3.0-9.0); NEUT # 6.1 10*3/uL (2.3-7.9); NEUT % 54.2 % (47.0-73.0); PLATELET COUNT AUTOMATED 282 10*3/uL (130-400); RED BLOOD COUNT 4.51 10*6/uL (4.10-5.10); RED CELL DISTRI WIDTH 13.5 % (0-14.5); WHITE BLOOD COUNT 11.3 10*3/uL (4.8-10.8)
[2018-04-19 13:19] LABS: ALBUMIN 3.5 gm/dl (3.1-4.5); ALKALINE PHOSPHATASE 83 U/L (45-117); BUN 9 mg/dl (7-24); CHLORIDE 106 mmol/L (98-107); CREATININE 0.97 mg/dL (0.55-1.02); SGOT/AST 21 IU/L (3-35); SGPT/ALT 31 U/L (12-78); SODIUM 140 mmol/L (136-145)
[2018-04-19 13:22] LABS: TROPONIN I < 0.015 ng/ml (<0.045)
[2018-04-19 13:45] VITALS: BP 116/54
[2018-04-19 14:45] VITALS: BP 97/48
[2018-04-19 16:00] VITALS: BP 104/54
[2018-04-19] MEDS ORDERED: HYDROXYZINE HCL50 MG PO (16:18)
[2018-04-19] MEDS ORDERED: NICOTROL10 MG INH (19:11)
== END 2018-04-19 20:00 | disposition home or self-care (01) | DRG 280 ==
LOC: ED 12:26 → EDHOLD 14:09 → 4E 14:49
PROVIDERS: Emergency Medicine
DX: I21.9 Acute myocardial infarction, unspecified (principal); J18.1 Lobar pneumonia, unspecified organism; E66.01 Morbid (severe) obesity due to excess calories; F44.5 Conversion disorder with seizures or convulsions; K76.0 Fatty (change of) liver, not elsewhere classified; Z68.41 Body mass index [BMI] 40.0-44.9, adult; K21.9 Gastro-esophageal reflux disease without esophagitis; F32.9 Major depressive disorder, single episode, unspecified; J44.9 Chronic obstructive pulmonary disease, unspecified; M79.7 Fibromyalgia; I10 Essential (primary) hypertension; F17.200 Nicotine dependence, unspecified, uncomplicated; S29.011A Strain of muscle and tendon of front wall of thorax, initial encounter; X58.XXXA Exposure to other specified factors, initial encounter; E78.2 Mixed hyperlipidemia; E55.9 Vitamin D deficiency, unspecified; R73.03 Prediabetes; K44.9 Diaphragmatic hernia without obstruction or gangrene; F41.1 Generalized anxiety disorder; Z98.51 Tubal ligation status; Z82.49 Family history of ischemic heart disease and other diseases of the circulatory system; Z82.0 Family history of epilepsy and other diseases of the nervous system; Z83.6 Family history of other diseases of the respiratory system; Z71.6 Tobacco abuse counseling; Z88.5 Allergy status to narcotic agent; Z88.8 Allergy status to other drugs, medicaments and biological substances; Z88.6 Allergy status to analgesic agent; Z91.041 Radiographic dye allergy status; Y93.89 Activity, other specified; Y92.89 Other specified places as the place of occurrence of the external cause

== ENCOUNTER 2018-05-03 23:35 | Emergency (ER) | payer OTHER ==
[~2018-05-03] VITALS: Ht 142.2 cm; Wt 88.5 kg
--- NOTE | ~2018-05-03 | EKG ---
[place], [place] ELECTROCARDIOGRAM REPORT NAME: DANIEL EVANGELISTA UNIT #: [id number] ROOM: DOCTOR: CLARITA BETTS MD BIRTHDATE: [birth year] DOS: 05/04/2018 TIME: 0212 hours. FINDINGS: 1. Normal sinus rhythm at 86 beats per minute. 2. The tracing is normal. 3. No significant change from the ECG done about 2-1/2 hours earlier. CLARITA BETTS MD CM:EKGRPT:ELECTROCARDIOGRAM REPORT [id number] 1335 CLARITA BETTS MD
--- NOTE | ~2018-05-03 | EKG ---
[place], [place] ELECTROCARDIOGRAM REPORT NAME: DANIEL EVANGELISTA UNIT #: [id number] ROOM: DOCTOR: CLARITA BETTS MD BIRTHDATE: [birth year] DOS: 05/03/2018 TIME: 2342 hours. FINDINGS: 1. Normal sinus rhythm at 91 beats per minute. 2. The tracing is normal. 3. No previous tracing is available for comparison. CLARITA BETTS MD CM:EKGRPT:ELECTROCARDIOGRAM REPORT [id number] 1242 CLARITA BETTS MD
[~2018-05-03 23:35] MED LIST changes: +HYDROXYZINE HCL50 MG PO; +NICOTROL10 MG INH
[2018-05-04 00:33] LABS: HEMATOCRIT 39.3 % (37.0-47.0); HEMOGLOBIN 13.3 g/dl (12.0-16.0); MEAN CELL VOLUME 92.3 fl (81.0-99.0); MEAN CORPUSCULAR HGB 31.2 pg (27.0-31.0); MEAN CORPUSCULAR HGB CONC 33.8 g/dl (33.0-37.0); MEAN PLATELET VOLUME 8.9 fl (9.6-12.3); PLATELET COUNT AUTOMATED 342 10*3/uL (130-400); RED BLOOD COUNT 4.26 10*6/uL (4.10-5.10); RED CELL DISTRI WIDTH 14.4 % (0-14.5); WHITE BLOOD COUNT 18.7 10*3/uL (4.8-10.8)
[2018-05-04 00:43] LABS: ACT PARTIAL THROMBO TIME 20.1 SECONDS (20.8-31.5); INTERNATIONAL NORM RATIO 0.9 (2.0-3.5)
[2018-05-04 00:51] LABS: ALBUMIN 3.4 gm/dl (3.1-4.5); ALKALINE PHOSPHATASE 67 U/L (45-117); BUN 14 mg/dl (7-24); CHLORIDE 107 mmol/L (98-107); CREATININE 1.06 mg/dL (0.55-1.02); POTASSIUM 3.8 mmol/L (3.5-5.1); SGOT/AST 28 IU/L (3-35); SGPT/ALT 55 U/L (12-78); SODIUM 143 mmol/L (136-145); TOTAL PROTEIN 6.5 gm/dL (6.4-8.2)
[2018-05-04 00:52] LABS: TROPONIN I < 0.015 ng/ml (<0.045)
[2018-05-04 00:58] LABS: PLATELET SUFFICIENCY NORMAL (NORMAL); TOTAL CELLS COUNTED 100 #CELLS
== END 2018-05-04 03:00 | disposition home or self-care (01) ==
LOC: ED 23:35
PROVIDERS: Student in an Organized Health Care Education/Training Program
DX: R07.89 Other chest pain (principal); R06.02 Shortness of breath; F17.200 Nicotine dependence, unspecified, uncomplicated; J44.9 Chronic obstructive pulmonary disease, unspecified; I10 Essential (primary) hypertension; K21.9 Gastro-esophageal reflux disease without esophagitis; E11.65 Type 2 diabetes mellitus with hyperglycemia; Z98.51 Tubal ligation status; Z98.890 Other specified postprocedural states; Z88.6 Allergy status to analgesic agent; Z91.041 Radiographic dye allergy status

== ENCOUNTER 2018-07-15 19:50 | Emergency (ER) | payer OTHER ==
[~2018-07-15] VITALS: Ht 142.2 cm; Wt 86.2 kg
--- NOTE | ~2018-07-15 | EKG ---
[place], [place] ELECTROCARDIOGRAM REPORT NAME: DANIEL EVANGELISTA UNIT #: [id number] ROOM: DOCTOR: EPIPHANY DRAFT REPORT BIRTHDATE: [birth year] [facility] Test Date: 2018-07-15 Test Time: 22:43:23 Pat Name: DANIEL EVANGELISTA Department: ER Room: Gender: F Senior Compensation Consultant: Darrius Cerna : 1975 Requested By: DOC CARDENAS Order Number: [id number] Reading MD: Wolf Godoy MD Measurements Intervals [place] Rate: 96 P: 57 [place]: 123 QRS: 47 QRSD: 76 T: 50 QT: 354 QTc: 448 Interpretive Statements Sinus rhythm Baseline wander in lead(s) V1 Electronically Signed On 07-17-2018 8:42:26 PDT by Wolf Godoy MD CM:EKGRPT:ELECTROCARDIOGRAM REPORT [id number] DOC AGUILAR DRAFT REPORT DOC CARDENAS DO
--- NOTE | ~2018-07-15 | EKG ---
[place], [place] ELECTROCARDIOGRAM REPORT NAME: DANIEL EVANGELISTA UNIT #: [id number] ROOM: DOCTOR: EPIPHANY DRAFT REPORT BIRTHDATE: [birth year] [facility] Test Date: 2018-07-15 Test Time: 19:56:00 Pat Name: DANIEL EVANGELISTA Department: ER Room: Gender: F Steamblaster: Paul Dodson : 1975 Requested By: DOC CARDENAS Order Number: [id number] Reading MD: Wolf Godoy MD Measurements Intervals [place] Rate: 113 P: 56 [place]: 118 QRS: 56 QRSD: 81 T: 44 QT: 325 QTc: 446 Interpretive Statements Sinus tachycardia Electronically Signed On 07-17-2018 8:42:04 PDT by Wolf Godoy MD CM:EKGRPT:ELECTROCARDIOGRAM REPORT [id number] DOC AGUILAR DRAFT REPORT DOC CARDENAS DO
[2018-07-15 20:13] LABS: HEMATOCRIT 42.8 % (37.0-47.0); HEMOGLOBIN 14.4 g/dl (12.0-16.0); MEAN CELL VOLUME 92.4 fl (81.0-99.0); MEAN CORPUSCULAR HGB 31.1 pg (27.0-31.0); MEAN CORPUSCULAR HGB CONC 33.6 g/dl (33.0-37.0); MEAN PLATELET VOLUME 8.9 fl (9.6-12.3); PLATELET COUNT AUTOMATED 306 10*3/uL (130-400); RED BLOOD COUNT 4.63 10*6/uL (4.10-5.10); RED CELL DISTRI WIDTH 14.3 % (0-14.5); WHITE BLOOD COUNT 14.3 10*3/uL (4.8-10.8)
[2018-07-15 20:26] LABS: ACT PARTIAL THROMBO TIME 24.8 SECONDS (20.8-31.5); INTERNATIONAL NORM RATIO 0.9 (2.0-3.5)
[2018-07-15 20:29] LABS: ALBUMIN 3.4 gm/dl (3.1-4.5); ALKALINE PHOSPHATASE 84 U/L (45-117); BUN 10 mg/dl (7-24); CHLORIDE 104 mmol/L (98-107); CREATININE 0.99 mg/dL (0.55-1.02); POTASSIUM 3.8 mmol/L (3.5-5.1); SGOT/AST 14 IU/L (3-35); SGPT/ALT 30 U/L (12-78); SODIUM 138 mmol/L (136-145); TOTAL PROTEIN 7.2 gm/dL (6.4-8.2)
[2018-07-15 20:30] LABS: TROPONIN I < 0.015 ng/ml (<0.045)
[2018-07-15 20:41] LABS: BASOPHILS 1 % (0-1); TOTAL CELLS COUNTED 100 #CELLS
[2018-07-15 20:42] LABS: PLATELET SUFFICIENCY NORMAL (NORMAL); POLYCHROMASIA SLIGHT
[2018-07-28] MEDS ORDERED: REMERON15 M2 PO (19:48)
[2018-07-29] MEDS ORDERED: IMDUR SA30 MG PO (09:54)
[2018-07-29] MEDS ORDERED: ATORVASTATIN CA80 M1 PO (09:54)
[2018-07-29] MEDS ORDERED: VITAMIN D5000 UNI1 PO (09:54)
== END 2018-07-16 00:19 | disposition home or self-care (01) ==
LOC: ED 19:50
PROVIDERS: Student in an Organized Health Care Education/Training Program
DX: R07.9 Chest pain, unspecified (principal); J44.9 Chronic obstructive pulmonary disease, unspecified; I10 Essential (primary) hypertension; K21.9 Gastro-esophageal reflux disease without esophagitis; E66.01 Morbid (severe) obesity due to excess calories; F17.210 Nicotine dependence, cigarettes, uncomplicated; Z91.041 Radiographic dye allergy status; Z88.6 Allergy status to analgesic agent; Z79.2 Long term (current) use of antibiotics; Z88.8 Allergy status to other drugs, medicaments and biological substances; Z79.899 Other long term (current) drug therapy; Z98.890 Other specified postprocedural states

== ENCOUNTER 2018-11-24 18:41 | Emergency (ER) | payer OTHER ==
[~2018-11-24] VITALS: Ht 142.2 cm; Wt 95.3 kg
--- NOTE | ~2018-11-24 | EKG ---
[place], [place] ELECTROCARDIOGRAM REPORT NAME: DANIEL EVANGELISTA UNIT #: [id number] ROOM: DOCTOR: EPIPHANY DRAFT REPORT BIRTHDATE: [birth year] [facility] Test Date: 2018-11-24 Test Time: 18:48:57 Pat Name: DANIEL EVANGELISTA Department: Room: Gender: F Stonecutter Assistant: KATIE : 1975 Requested By: MICHAEL HECTOR Order Number: [id number] Reading MD: Wolf Godoy MD Measurements Intervals [place] Rate: 112 P: 45 [place]: 124 QRS: 46 QRSD: 75 T: 39 QT: 331 QTc: 452 Interpretive Statements Sinus tachycardia Compared to ECG 08/09/2018 19:32:06 Sinus rhythm no longer present Electronically Signed On 11-26-2018 4:43:11 PST by Wolf Godoy MD CM:EKGRPT:ELECTROCARDIOGRAM REPORT [id number] MICHAEL FIORE DRAFT REPORT MICHAEL HECTOR M.D.
--- NOTE | ~2018-11-24 | EKG ---
[place], [place] ELECTROCARDIOGRAM REPORT NAME: DANIEL EVANGELISTA UNIT #: [id number] ROOM: DOCTOR: EPIPHANY DRAFT REPORT BIRTHDATE: [birth year] [facility] Test Date: 2018-11-24 Test Time: 21:57:10 Pat Name: DANIEL EVANGELISTA Department: Room: Gender: F Pc Analyst: : 1975 Requested By: MICHAEL HECTOR Order Number: [id number] Reading MD: Wolf Godoy MD Measurements Intervals [place] Rate: 97 P: 43 [place]: 125 QRS: 45 QRSD: 78 T: 51 QT: 352 QTc: 447 Interpretive Statements Sinus rhythm Baseline wander in lead(s) V4,V5,V6 Compared to ECG 08/09/2018 19:32:06 No significant changes Electronically Signed On 11-26-2018 4:43:33 PST by Wolf Godoy MD CM:EKGRPT:ELECTROCARDIOGRAM REPORT [id number] MICHAEL FIORE DRAFT REPORT MICHAEL HECTOR M.D.
[~2018-11-24 18:41] MED LIST changes: +ATORVASTATIN CA80 M1 PO; -CITALOPRAM HYDR20 MG PO; +CITALOPRAM20 MG PO; +REMERON15 M2 PO; +VITAMIN D5000 UNI1 PO
[2018-11-24 19:31] LABS: BASO # 0.2 10*3/uL (0.0-0.1); BASO % 1.2 % (0.0-1.0); EOS # 0.4 10*3/uL (0.0-0.4); EOS % 3.3 % (1.0-4.0); HEMOGLOBIN 13.7 g/dl (12.0-16.0); LYMPH # 4.7 10*3/uL (1.3-4.4); LYMPH % 37.1 % (27.0-41.0); MEAN CELL VOLUME 95.3 fl (81.0-99.0); MEAN CORPUSCULAR HGB 31.9 pg (27.0-31.0); MEAN CORPUSCULAR HGB CONC 33.4 g/dl (33.0-37.0); MEAN PLATELET VOLUME 9.1 fl (9.6-12.3); MONO % 8.2 % (3.0-9.0); NEUT # 6.3 10*3/uL (2.3-7.9); NEUT % 49.1 % (47.0-73.0); PLATELET COUNT AUTOMATED 293 10*3/uL (130-400); RED CELL DISTRI WIDTH 14.9 % (0-14.5); WHITE BLOOD COUNT 12.8 10*3/uL (4.8-10.8)
[2018-11-24 19:41] LABS: ACT PARTIAL THROMBO TIME 23.5 SECONDS (20.8-31.5)
[2018-11-24 19:48] LABS: ALBUMIN 3.3 gm/dl (3.1-4.5); ALKALINE PHOSPHATASE 89 U/L (45-117); BUN 9 mg/dl (7-24); CHLORIDE 105 mmol/L (98-107); CREATININE 0.87 mg/dL (0.55-1.02); POTASSIUM 3.7 mmol/L (3.5-5.1); SGOT/AST 26 IU/L (3-35); SGPT/ALT 37 U/L (12-78); SODIUM 140 mmol/L (136-145); TOTAL PROTEIN 6.7 gm/dL (6.4-8.2)
[2018-11-24 19:49] LABS: TROPONIN I < 0.015 ng/ml (<0.045)
[2019-05-16] MEDS ORDERED: B12,B-12,B 12500 MC1 PO (14:18)
[2019-05-16] MEDS ORDERED: GLUCOPHAGE500 MG PO (14:18)
[2019-05-16] MEDS ORDERED: LISINOPRIL5 MG PO (14:24)
[2019-05-16] MEDS ORDERED: TOPROL XL25 MG PO (14:24)
== END 2018-11-24 22:30 | disposition home or self-care (01) ==
LOC: ED 18:41
PROVIDERS: Emergency Medicine
DX: R07.89 Other chest pain (principal); J44.9 Chronic obstructive pulmonary disease, unspecified; I10 Essential (primary) hypertension; K21.9 Gastro-esophageal reflux disease without esophagitis; E78.5 Hyperlipidemia, unspecified; E66.01 Morbid (severe) obesity due to excess calories; F17.200 Nicotine dependence, unspecified, uncomplicated; Z91.041 Radiographic dye allergy status; Z88.6 Allergy status to analgesic agent; Z88.8 Allergy status to other drugs, medicaments and biological substances; Z79.899 Other long term (current) drug therapy

== ENCOUNTER 2018-12-11 18:36 | Emergency (ER) | payer OTHER ==
[~2018-12-11] VITALS: Ht 142.2 cm; Wt 95.3 kg
[2018-12-11 19:33] LABS: BASO # 0.2 10*3/uL (0.0-0.1); BASO % 1.2 % (0.0-1.0); EOS # 0.3 10*3/uL (0.0-0.4); EOS % 2.4 % (1.0-4.0); HEMATOCRIT 38.6 % (37.0-47.0); HEMOGLOBIN 13.1 g/dl (12.0-16.0); LYMPH % 36.2 % (27.0-41.0); MEAN CELL VOLUME 93.7 fl (81.0-99.0); MEAN CORPUSCULAR HGB 31.8 pg (27.0-31.0); MEAN CORPUSCULAR HGB CONC 33.9 g/dl (33.0-37.0); MEAN PLATELET VOLUME 9.1 fl (9.6-12.3); MONO # 1.3 10*3/uL (0.1-1.0); MONO % 9.3 % (3.0-9.0); NEUT # 6.9 10*3/uL (2.3-7.9); NEUT % 49.8 % (47.0-73.0); PLATELET COUNT AUTOMATED 300 10*3/uL (130-400); RED BLOOD COUNT 4.12 10*6/uL (4.10-5.10); WHITE BLOOD COUNT 13.8 10*3/uL (4.8-10.8)
[2018-12-11 19:50] LABS: ALBUMIN 3.1 gm/dl (3.1-4.5); ALKALINE PHOSPHATASE 90 U/L (45-117); BUN 12 mg/dl (7-24); CHLORIDE 107 mmol/L (98-107); LIPASE 346 U/L (73-393); POTASSIUM 3.7 mmol/L (3.5-5.1); SGOT/AST 28 IU/L (3-35); SGPT/ALT 38 U/L (12-78); SODIUM 139 mmol/L (136-145); TOTAL PROTEIN 6.6 gm/dL (6.4-8.2)
[2018-12-11 20:36] LABS: BILIRUBIN NEGATIVE (NEGATIVE); BLOOD TRACE-INTACT (NEGATIVE); CLARITY SL CLOUDY (CLEAR); COLOR YELLOW (YELLOW); GLUCOSE NEGATIVE (NEGATIVE); KETONE TRACE (NEGATIVE); LEUKO ESTERASE NEGATIVE (NEGATIVE); NITRITE NEGATIVE (NEGATIVE); UROBILINOGEN 0.2 E.U./dl (0.2-1.0)
[2018-12-11 20:56] LABS: BACTERIA 1+; EPITHELIAL CELLS 21-30; MUCOUS 1+; RBC 0-2 rbc/hpf (0-2); WBC 0-2 wbc/hpf (0-5)
[2019-05-16] MEDS ORDERED: GLUCOPHAGE500 MG PO (14:18)
[2019-05-16] MEDS ORDERED: B12,B-12,B 12500 MC1 PO (14:18)
[2019-05-16] MEDS ORDERED: TOPROL XL25 MG PO (14:24)
[2019-05-16] MEDS ORDERED: LISINOPRIL5 MG PO (14:24)
== END 2018-12-11 21:25 | disposition home or self-care (01) ==
LOC: ED 18:36
PROVIDERS: Physician Assistant
DX: R10.31 Right lower quadrant pain (principal); R11.0 Nausea; F17.200 Nicotine dependence, unspecified, uncomplicated; Z87.442 Personal history of urinary calculi; Z91.041 Radiographic dye allergy status; Z88.6 Allergy status to analgesic agent; Z79.899 Other long term (current) drug therapy

== ENCOUNTER 2019-05-11 22:12 | Emergency (ER) | payer OTHER ==
[~2019-05-11] VITALS: Ht 142.2 cm; Wt 106.6 kg
--- NOTE | ~2019-05-11 | EKG ---
[place], [place] ELECTROCARDIOGRAM REPORT NAME: DANIEL EVANGELISTA UNIT #: [id number] ROOM: DOCTOR: EPIPHANY DRAFT REPORT BIRTHDATE: [birth year] [facility] Test Date: 2019-05-11 Test Time: 22:15:17 Pat Name: DANIEL EVANGELISTA Department: er Room: 17 Gender: F Hair Weaver: Cassie Franklin : 1975 Requested By: LEILANI JOHNSON Order Number: [id number] Reading MD: Wolf Godoy MD Measurements Intervals [place] Rate: 128 P: 57 [place]: 139 QRS: 44 QRSD: 78 T: 35 QT: 324 QTc: 473 Interpretive Statements Sinus tachycardia Ventricular premature complex Minimal ST depression, inferior leads Baseline wander in lead(s) V4 Compared to ECG 11/24/2018 21:57:10 Ventricular premature complex(es) now present ST (T wave) deviation now present Sinus rhythm no longer present Electronically Signed On 05-15-2019 4:08:02 PDT by Wolf Godoy MD CM:EKGRPT:ELECTROCARDIOGRAM REPORT [id number] LEILANI JOHNSON MD EPIPHANY DRAFT REPORT LEILANI JOHNSON MD
--- NOTE | ~2019-05-11 | EKG ---
[place], [place] ELECTROCARDIOGRAM REPORT NAME: DANIEL EVANGELISTA UNIT #: [id number] ROOM: DOCTOR: EPIPHANY DRAFT REPORT BIRTHDATE: [address] [facility] Test Date: 2019-05-12 Test Time: 00:44:20 Pat Name: DANIEL EVANGELISTA Department: er Room: 17 Gender: F Erp Implementation Consultant: Cassie Franklin : 1975 Requested By: LEILANI JOHNSON Order Number: [id number] Reading MD: Wolf Godoy MD Measurements Intervals [place] Rate: 113 P: 50 [place]: 120 QRS: 36 QRSD: 75 T: 46 QT: 363 QTc: 498 Interpretive Statements Sinus tachycardia Minimal ST depression, anterolateral leads Borderline prolonged QT interval Baseline wander in lead(s) V1,V2,V3,V4,V5,V6 Compared to ECG 11/24/2018 21:57:10 ST (T wave) deviation now present Sinus rhythm no longer present Electronically Signed On 05-15-2019 4:08:18 PDT by Wolf Godoy MD CM:EKGRPT:ELECTROCARDIOGRAM REPORT [id number] LEILANI JOHNSON MD EPIPHANY DRAFT REPORT LEILANI JOHNSON MD
[2019-05-11 22:27] LABS: HEMOGLOBIN 14.6 g/dl (12.0-16.0); MEAN CELL VOLUME 94.6 fl (81.0-99.0); MEAN CORPUSCULAR HGB 31.4 pg (27.0-31.0); MEAN CORPUSCULAR HGB CONC 33.2 g/dl (33.0-37.0); MEAN PLATELET VOLUME 9.7 fl (9.6-12.3); PLATELET COUNT AUTOMATED 267 10*3/uL (130-400); RED BLOOD COUNT 4.65 10*6/uL (4.10-5.10); RED CELL DISTRI WIDTH 14.5 % (0-14.5); WHITE BLOOD COUNT 17.4 10*3/uL (4.8-10.8)
[2019-05-11 22:37] LABS: ACT PARTIAL THROMBO TIME 24.8 SECONDS (20.0-32.1); INTERNATIONAL NORM RATIO 0.9 (2.0-3.5)
[2019-05-11 22:44] LABS: ALBUMIN 3.4 gm/dl (3.1-4.5); ALKALINE PHOSPHATASE 97 U/L (45-117); BUN 12 mg/dl (7-24); CHLORIDE 104 mmol/L (98-107); POTASSIUM 4.1 mmol/L (3.5-5.1); SGOT/AST 53 IU/L (3-35); SGPT/ALT 52 U/L (12-78); SODIUM 138 mmol/L (136-145); TOTAL PROTEIN 7.1 gm/dL (6.4-8.2)
[2019-05-11 22:47] LABS: TROPONIN I < 0.015 ng/ml (<0.045)
[2019-05-11 22:50] LABS: PLATELET SUFFICIENCY NORMAL (NORMAL); TOTAL CELLS COUNTED 100 #CELLS
[2019-05-16] MEDS ORDERED: GLUCOPHAGE500 MG PO (14:18)
[2019-05-16] MEDS ORDERED: B12,B-12,B 12500 MC1 PO (14:18)
[2019-05-16] MEDS ORDERED: LISINOPRIL5 MG PO (14:24)
[2019-05-16] MEDS ORDERED: TOPROL XL25 MG PO (14:24)
== END 2019-05-12 01:25 | disposition home or self-care (01) ==
LOC: ED 22:12
PROVIDERS: Emergency Medicine Emergency Medical Services
DX: R07.89 Other chest pain (principal); F17.200 Nicotine dependence, unspecified, uncomplicated; Z91.041 Radiographic dye allergy status; Z88.6 Allergy status to analgesic agent; Z88.8 Allergy status to other drugs, medicaments and biological substances; Z79.899 Other long term (current) drug therapy; Z98.51 Tubal ligation status

== ENCOUNTER 2019-05-26 20:35 | Emergency (ER) | payer OTHER ==
[~2019-05-26] VITALS: Ht 142.2 cm; Wt 98.0 kg
--- NOTE | ~2019-05-26 | EKG ---
[place], [place] ELECTROCARDIOGRAM REPORT NAME: DANIEL EVANGELISTA UNIT #: [id number] ROOM: DOCTOR: EPIPHANY DRAFT REPORT BIRTHDATE: [birth year] [facility] Test Date: 2019-05-26 Test Time: 20:37:21 Pat Name: DANIEL EVANGELISTA Department: Room: Gender: F Equipment Operating Engineer: Olena Young : 1975 Requested By: LEILANI JOHNSON Order Number: [id number] Reading MD: Wolf Godoy MD Measurements Intervals [place] Rate: 129 P: 56 WI: 109 QRS: 44 QRSD: 74 T: 19 QT: 365 QTc: 535 Interpretive Statements Sinus tachycardia Ventricular premature complex Aberrant complex Borderline T abnormalities, anterior leads Prolonged QT interval Baseline wander in lead(s) V1,V3,V4,V5,V6 Compared to ECG 05/16/2019 00:27:29 Ventricular premature complex(es) now present Aberrant conduction of supraventricular beat(s) now present T-wave abnormality now present Prolonged QT interval now present Electronically Signed On 05-29-2019 4:07:18 PDT by Wolf Godoy MD CM:EKGRPT:ELECTROCARDIOGRAM REPORT [id number] LEILANI JOHNSON MD EPIPHANY DRAFT REPORT LEILANI JOHNSON MD
[~2019-05-26 20:35] MED LIST changes: +GLUCOPHAGE500 MG PO; +LISINOPRIL5 MG PO
[2019-05-26 20:54] LABS: HEMATOCRIT 40.9 % (37.0-47.0); HEMOGLOBIN 13.6 g/dl (12.0-16.0); MEAN CELL VOLUME 94.5 fl (81.0-99.0); MEAN CORPUSCULAR HGB 31.4 pg (27.0-31.0); MEAN CORPUSCULAR HGB CONC 33.3 g/dl (33.0-37.0); MEAN PLATELET VOLUME 8.9 fl (9.6-12.3); PLATELET COUNT AUTOMATED 350 10*3/uL (130-400); RED BLOOD COUNT 4.33 10*6/uL (4.10-5.10); RED CELL DISTRI WIDTH 14.4 % (0-14.5); WHITE BLOOD COUNT 14.9 10*3/uL (4.8-10.8)
[2019-05-26 21:04] LABS: ACT PARTIAL THROMBO TIME 24.2 SECONDS (20.0-32.1); INTERNATIONAL NORM RATIO 0.9 (2.0-3.5)
[2019-05-26 21:10] LABS: ALBUMIN 3.5 gm/dl (3.1-4.5); ALKALINE PHOSPHATASE 94 U/L (45-117); BUN 12 mg/dl (7-24); CHLORIDE 101 mmol/L (98-107); CREATININE 1.04 mg/dL (0.55-1.02); POTASSIUM 3.5 mmol/L (3.5-5.1); SGOT/AST 43 IU/L (3-35); SGPT/ALT 50 U/L (12-78); SODIUM 136 mmol/L (136-145)
[2019-05-26 21:11] LABS: TROPONIN I < 0.015 ng/ml (<0.045)
[2019-05-26 21:17] LABS: ATYPICAL LYMPHS 2 % (0-0); TOTAL CELLS COUNTED 100 #CELLS
[2019-05-26 21:18] LABS: PLATELET SUFFICIENCY NORMAL (NORMAL)
== END 2019-05-26 23:42 | disposition home or self-care (01) ==
LOC: ED 20:35
PROVIDERS: Emergency Medicine Emergency Medical Services
DX: F41.9 Anxiety disorder, unspecified (principal); R07.89 Other chest pain; J44.9 Chronic obstructive pulmonary disease, unspecified; I10 Essential (primary) hypertension; K21.9 Gastro-esophageal reflux disease without esophagitis; E78.5 Hyperlipidemia, unspecified; E66.01 Morbid (severe) obesity due to excess calories; F17.210 Nicotine dependence, cigarettes, uncomplicated; Z79.899 Other long term (current) drug therapy; Z91.041 Radiographic dye allergy status; Z88.6 Allergy status to analgesic agent

== ENCOUNTER 2019-09-08 19:17 | Inpatient (IN) | payer OTHER ==
[2019-09-08] VITALS (8 sets, daily range): BP systolic 106–129; BP diastolic 51–73
[~2019-09-08] VITALS: Ht 142.2 cm; Wt 92.1 kg
--- NOTE | ~2019-09-08 | EKG ---
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
--- NOTE | ~2019-09-08 | EKG ---
[place], [place] ELECTROCARDIOGRAM REPORT NAME: DANIEL EVANGELISTA UNIT #: [id number] ROOM: 412 DOCTOR: EPIPHANY DRAFT REPORT BIRTHDATE: [birth year] [facility] Test Date: 2019-09-09 Test Time: 00:41:24 Pat Name: DANIEL EVANGELISTA Department: Room: 412 Gender: F Clinical Biostatistics Director: : 1975 Requested By: LEILANI JOHNSON Order Number: [id number] Reading MD: Constantin Carrion MD Measurements Intervals [place] Rate: 107 P: 63 GA: 129 QRS: 64 QRSD: 77 T: 72 QT: 351 QTc: 469 Interpretive Statements Sinus tachycardia Electronically Signed On 09-09-2019 8:41:13 PST by Constantin Carrion MD CM:EKGRPT:ELECTROCARDIOGRAM REPORT [id number] LEILANI JOHNSON MD EPIPHANY DRAFT REPORT LEILANI JOHNSON MD
--- NOTE | ~2019-09-08 | EKG ---
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
--- NOTE | ~2019-09-08 | CON ---
[place], [place] REPORT OF CONSULTATION NAME: DANIEL EVANGELISTA UNIT #: [id number] ROOM: 412 DOCTOR: CLARITA BETTS MD BIRTHDATE: [birth year] DOS: 09/09/[address] Godoy. HISTORY OF PRESENT ILLNESS: The patient is a 43-year-old -Nigerien woman with a history of morbid obesity, anxiety, depression, COPD and recently diagnosed type 2 diabetes mellitus, essential hypertension, gastric ulcer, GERD, fatty liver, hyperlipidemia who has had sinus tachycardia for quite some time. She has anxiety and adrenal adenoma. She carries a diagnosis of COPD. PAST SURGICAL HISTORY: Includes tubal ligation. She has had EGDs done. She had two heart catheterizations by Dr. Godoy. The first one showed minimal abnormality in the LAD and the second one I believe done in the early part of 2016 showed normal coronary arteries and normal LV systolic function. She came to the Emergency Department yesterday and was admitted for further workup because of chest pain, which started around 5:30 yesterday evening. The pain was quite severe and was over the left anterior chest. It went to the neck and to the left arm. It lasted for over 12 hours and when she was given pain relief, it eased up. At this time, she does not have any pain, but did receive IV narcotic. She does not recall any exertional chest pain or dyspnea recently. She has not had any palpitations, dizziness or loss of consciousness. She gets mild swelling of the legs. She did have mild nausea with this pain. She has not any PND, orthopnea, but she snores at night and her fiance complains about it. She smokes about half-pack of cigarettes per day. FAMILY HISTORY: Positive for coronary artery disease. Mother had coronary stent done some 15 years ago. HOME MEDICATIONS: Abilify 20 mg daily, citalopram 40 mg daily, hydroxyzine 50 mg t.i.d., metformin 500 mg b.i.d., lisinopril 5 mg daily, metoprolol succinate 25 mg daily, Protonix 40 mg daily, atorvastatin 80 mg daily and vitamin D 5000 units daily. PHYSICAL EXAMINATION: GENERAL: This reveals a patient who is short. She is morbidly obese. She is alert, oriented, but rather quiet. There is no thyromegaly or finger clubbing. She is not cyanotic not jaundiced. VITAL SIGNS: Pulse is 108 beats per minute, blood pressure 124/64. JVP is normal. AJR is negative. There is no carotid bruit. There is no cardiomegaly, no murmurs are present. She has good pedal pulses and legs are rather large and no pitting edema is present. RESPIRATORY: She is not tachypneic. Percussion note is normal. Auscultation reveals mild reduced breath sounds, but no adventitious sounds are present. There is no chest wall tenderness. EXTREMITIES: Left shoulder is not tender either. ABDOMEN: Large, difficult to examine, but no tenderness is present. She has had two ECGs done both show sinus tachycardia in a normal pattern. [place], [place] REPORT OF CONSULTATION NAME: DANIEL EVANGELISTA UNIT #: [id number] ROOM: 412 DOCTOR: CLARITA BETTS MD BIRTHDATE: [birth year] LABORATORY DATA: Troponin I levels have been less than 0.015. Glucose 140 mg/dL. Normal renal function, potassium 3.7, sodium 138. Normal liver enzymes. Hemoglobin 13.9 g/dL, WBC is 16.9. IMPRESSION: This patient with normal coronary arteries 2-1/2 years ago, has many risk factors for coronary artery disease. She had over 12 hours of chest pain with normal ECG and normal troponin levels. I do not suspect any significant coronary artery disease in this patient. From cardiac standpoint, she can be discharged and she should call Dr. Godoy's office tomorrow to set up an appointment to see him within the next week or so. She has significant snoring and obstructive sleep apnea and daytime somnolence may be related to this and I think one should give consideration to sleep studies. Morbid obesity is always a problem, particularly in relation to diabetes and this has been discussed with her. I thank you on behalf of Dr. Godoy for this consult. CLARITA BETTS MD CM:CONSTR:REPORT OF CONSULTATION 0948 09/09/19 1244 interface
[2019-09-08 19:33] LABS: HEMATOCRIT 41.7 % (37.0-47.0); HEMOGLOBIN 13.9 g/dl (12.0-16.0); MEAN CELL VOLUME 93.1 fl (81.0-99.0); MEAN CORPUSCULAR HGB CONC 33.3 g/dl (33.0-37.0); MEAN PLATELET VOLUME 8.9 fl (9.6-12.3); PLATELET COUNT AUTOMATED 367 10*3/uL (130-400); RED BLOOD COUNT 4.48 10*6/uL (4.10-5.10); RED CELL DISTRI WIDTH 14.2 % (0-14.5); WHITE BLOOD COUNT 16.9 10*3/uL (4.8-10.8)
[2019-09-08 19:45] LABS: ACT PARTIAL THROMBO TIME 25.9 SECONDS (20.0-32.1); INTERNATIONAL NORM RATIO 0.9 (2.0-3.5)
[2019-09-08 19:52] LABS: ALBUMIN 3.3 gm/dl (3.1-4.5); ALKALINE PHOSPHATASE 81 U/L (45-117); BUN 12 mg/dl (7-24); CHLORIDE 105 mmol/L (98-107); CREATININE 0.98 mg/dL (0.55-1.02); POTASSIUM 3.7 mmol/L (3.5-5.1); SGOT/AST 23 IU/L (3-35); SGPT/ALT 33 U/L (12-78); SODIUM 138 mmol/L (136-145); TOTAL PROTEIN 6.8 gm/dL (6.4-8.2)
[2019-09-08 19:54] LABS: BASOPHILS 1 % (0-1); TOTAL CELLS COUNTED 100 #CELLS
[2019-09-08 19:55] LABS: PLATELET SUFFICIENCY NORMAL (NORMAL); TROPONIN I < 0.015 ng/ml (<0.045)
--- NOTE | 2019-09-08 19:55 | NUR ---
CRITICAL MAGNESIUM LEVEL OF 0.[address] MONHAAN AT THIS TIME
--- NOTE | 2019-09-08 21:33 | NUR ---
PATIENT PROVIDED WITH SPECIMEN CUP. STATES UNABLE TO PROVIDE URINE SAMPLE AT THIS TIME.
--- NOTE | 2019-09-08 23:10 | NUR ---
A 43, admitted to , under the services of BROOK Calero DO with a diagnosis of CHEST PAIN. Chief complaint is CHEST PAIN. Patient arrived via BED from ER. Monitor applied. Initial assessment completed. Vital signs taken and recorded. BROOK CALERO DO notified of admission to the unit. Orders received. See assessment for past medical history, medications and allergies. Patient and/or family oriented to unit. [facility] visitation policy reviewed. Clothing/patient valuable form completed. EVGENY HARRELL
[2019-09-08] MEDS ORDERED: TOPROL XL25 MG PO (23:32)
[2019-09-08] MEDS ORDERED: GLUCOPHAGE500 M1 PO (23:33)
--- NOTE | 2019-09-08 23:39 | NUR ---
DR. WOO NOTIFIED OF PT HOME MEDICATIONS VERIFIED.
[2019-09-09 06:09] LABS: ALBUMIN 2.8 gm/dl (3.1-4.5); ALKALINE PHOSPHATASE 69 U/L (45-117); BASO # 0.1 10*3/uL (0.0-0.1); BUN 10 mg/dl (7-24); CHLORIDE 108 mmol/L (98-107); CHOLESTEROL 80 mg/dL (<200); CREATININE 0.83 mg/dL (0.55-1.02); EOS # 0.6 10*3/uL (0.0-0.4); FREE T4 0.97 ng/dl (0.76-1.46); HDL CHOLESTEROL 32 mg/dl (40-60); HEMOGLOBIN 12.5 g/dl (12.0-16.0); LDL CHOLESTEROL 5 mg/dL (9-159); LYMPH # 4.1 10*3/uL (1.3-4.4); LYMPH % 36.5 % (27.0-41.0); MEAN CELL VOLUME 94.4 fl (81.0-99.0); MEAN CORPUSCULAR HGB 30.3 pg (27.0-31.0); MEAN CORPUSCULAR HGB CONC 32.1 g/dl (33.0-37.0); MEAN PLATELET VOLUME 9.3 fl (9.6-12.3); MONO % 8.5 % (3.0-9.0); NEUT # 5.5 10*3/uL (2.3-7.9); NEUT % 48.3 % (47.0-73.0); PHOSPHOROUS 2.9 mg/dL (2.5-4.9); PLATELET COUNT AUTOMATED 339 10*3/uL (130-400); POTASSIUM 3.7 mmol/L (3.5-5.1); RED BLOOD COUNT 4.13 10*6/uL (4.10-5.10); RED CELL DISTRI WIDTH 14.3 % (0-14.5); SGOT/AST 18 IU/L (3-35); SGPT/ALT 26 U/L (12-78); SODIUM 141 mmol/L (136-145); TOTAL PROTEIN 5.7 gm/dL (6.4-8.2); TRIGLYCERIDES 213 mg/dl (<150); VLDL CHOLESTEROL 43 mg/dL (6-40); WHITE BLOOD COUNT 11.3 10*3/uL (4.8-10.8)
--- NOTE | 2019-09-09 06:37 | NUR ---
CONSULT LEFT WITH DR BETTS WHO IS COVERING FOR DR. MYERS. NO ORDERS AT THIS TIME.
[2019-09-09 08:00] VITALS: BP 124/64
[2019-09-09 08:18] LABS: VITAMIN D, 25-HYDROXY 88.2 ng/mL (30-100)
--- NOTE | 2019-09-09 08:30 | NUR ---
PRN MORPHINE GIVEN FOR PT COMPLAINTRS OF CHEST PAIN 08/09. CALL LIGHT WITHIN REACH, WILL MONITOR
--- NOTE | 2019-09-09 09:49 | NUR ---
DR. BETTS IN TO SEE PATIENT. STATED THAT SHE MAY GO HOME AND CALL DR. MYERS'S OFFICE TOMORROW
--- NOTE | 2019-09-09 09:49 | NUR ---
PRN MEDICATION APEARS EFFECTIVE, PT SLEPING
[2019-09-09] MEDS ORDERED: VITAMIN B121000 MC1 PO (10:12)
--- NOTE | 2019-09-09 11:08 | NUR ---
PATIENT DISCHARGED AT THIS TIME. [facility]IDENT [facility] NUMBER PROVIDED. EXPLAINED TO PATIENT TO CALL [facility] TO SET UP APPOINTMENT AND TO CALL DR. MYERS'S OFFICE IN AM TO SET UP FOLLOW UP WITH CHEST PAIN. TOLD PATIENT THAT HER NEW PRESCRIPTION WAS SENT TO HER PHARMACY. IV SITE AND PHARMACY STOCK CLERK REMOVED
[2019-09-09 12:00] VITALS: BP 97/85
== END 2019-09-09 15:25 | disposition home or self-care (01) | DRG 313 ==
LOC: ED 19:17 → EDHOLD 22:08 → 4E 22:31
PROVIDERS: Emergency Medicine Emergency Medical Services; Internal Medicine; ADMIT Internal Medicine
DX: R07.89 Other chest pain (principal); R65.10 Systemic inflammatory response syndrome (SIRS) of non-infectious origin without acute organ dysfunction; E44.0 Moderate protein-calorie malnutrition; Z68.42 Body mass index [BMI] 45.0-49.9, adult; E83.42 Hypomagnesemia; E83.51 Hypocalcemia; K21.9 Gastro-esophageal reflux disease without esophagitis; M79.7 Fibromyalgia; I10 Essential (primary) hypertension; D35.00 Benign neoplasm of unspecified adrenal gland; J44.9 Chronic obstructive pulmonary disease, unspecified; F32.9 Major depressive disorder, single episode, unspecified; F41.1 Generalized anxiety disorder; K44.9 Diaphragmatic hernia without obstruction or gangrene; G47.33 Obstructive sleep apnea (adult) (pediatric); K76.0 Fatty (change of) liver, not elsewhere classified; E66.01 Morbid (severe) obesity due to excess calories; E78.5 Hyperlipidemia, unspecified; E11.65 Type 2 diabetes mellitus with hyperglycemia; F17.210 Nicotine dependence, cigarettes, uncomplicated; Z71.6 Tobacco abuse counseling; Z88.8 Allergy status to other drugs, medicaments and biological substances; Z88.6 Allergy status to analgesic agent; Z91.041 Radiographic dye allergy status; Z98.51 Tubal ligation status; Z82.49 Family history of ischemic heart disease and other diseases of the circulatory system; Z82.0 Family history of epilepsy and other diseases of the nervous system; Z83.49 Family history of other endocrine, nutritional and metabolic diseases; Z82.5 Family history of asthma and other chronic lower respiratory diseases; Z79.899 Other long term (current) drug therapy

== ENCOUNTER 2019-09-17 15:39 | Inpatient (IN) | payer OTHER ==
[~2019-09-17] VITALS: Ht 142.2 cm; Wt 91.3 kg
[~2019-09-17 15:39] MED LIST changes: +GLUCOPHAGE500 M1 PO; +VITAMIN B121000 MC1 PO
[2019-09-17 15:42] VITALS: BP 102/56
[2019-09-17 17:00] VITALS: BP 100/46
[2019-09-17 17:01] LABS: BASO # 0.1 10*3/uL (0.0-0.1); BASO % 0.8 % (0.0-1.0); EOS # 0.3 10*3/uL (0.0-0.4); EOS % 1.6 % (1.0-4.0); HEMOGLOBIN 13.5 g/dl (12.0-16.0); LYMPH # 4.2 10*3/uL (1.3-4.4); LYMPH % 23.6 % (27.0-41.0); MEAN CELL VOLUME 94.5 fl (81.0-99.0); MEAN CORPUSCULAR HGB 31.1 pg (27.0-31.0); MEAN CORPUSCULAR HGB CONC 32.9 g/dl (33.0-37.0); MEAN PLATELET VOLUME 9.2 fl (9.6-12.3); MONO # 1.5 10*3/uL (0.1-1.0); MONO % 8.3 % (3.0-9.0); NEUT # 11.4 10*3/uL (2.3-7.9); NEUT % 64.8 % (47.0-73.0); PLATELET COUNT AUTOMATED 309 10*3/uL (130-400); RED BLOOD COUNT 4.34 10*6/uL (4.10-5.10); RED CELL DISTRI WIDTH 14.6 % (0-14.5); WHITE BLOOD COUNT 17.6 10*3/uL (4.8-10.8)
[2019-09-17 17:17] LABS: ALBUMIN 3.2 gm/dl (3.1-4.5); ALKALINE PHOSPHATASE 85 U/L (45-117); BUN 8 mg/dl (7-24); CHLORIDE 103 mmol/L (98-107); CREATININE 0.99 mg/dL (0.55-1.02); LIPASE 375 U/L (73-393); POTASSIUM 3.6 mmol/L (3.5-5.1); SGOT/AST 25 IU/L (3-35); SGPT/ALT 33 U/L (12-78); SODIUM 139 mmol/L (136-145); TOTAL PROTEIN 6.7 gm/dL (6.4-8.2)
[2019-09-17 18:10] VITALS: BP 100/52
[2019-09-17] MEDS ORDERED: AMITRIPTYLINE25 MG PO (18:37)
[2019-09-17 19:28] VITALS: BP 107/48
[2019-09-17 19:57] VITALS: BP 107/50
[2019-09-17 20:00] VITALS: BP 100/55
[2019-09-17] MEDS ORDERED: VITAMIN D50000 UNIT PO (20:17)
[2019-09-17] MEDS ORDERED: PROAIR HFA8.5 GM INH (20:20)
[2019-09-18] VITALS: BP 134/77
[2019-09-18 06:44] LABS: BASO # 0.1 10*3/uL (0.0-0.1); BASO % 0.4 % (0.0-1.0); HEMATOCRIT 40.6 % (37.0-47.0); HEMOGLOBIN 12.9 g/dl (12.0-16.0); LYMPH # 1.2 10*3/uL (1.3-4.4); LYMPH % 10.3 % (27.0-41.0); MEAN CELL VOLUME 95.5 fl (81.0-99.0); MEAN CORPUSCULAR HGB 30.4 pg (27.0-31.0); MEAN CORPUSCULAR HGB CONC 31.8 g/dl (33.0-37.0); MEAN PLATELET VOLUME 10.1 fl (9.6-12.3); MONO # 0.3 10*3/uL (0.1-1.0); MONO % 2.2 % (3.0-9.0); NEUT # 10.3 10*3/uL (2.3-7.9); NEUT % 85.3 % (47.0-73.0); PLATELET COUNT AUTOMATED 301 10*3/uL (130-400); RED BLOOD COUNT 4.25 10*6/uL (4.10-5.10); RED CELL DISTRI WIDTH 14.6 % (0-14.5); WHITE BLOOD COUNT 12.1 10*3/uL (4.8-10.8)
[2019-09-18 07:06] LABS: ALBUMIN 2.9 gm/dl (3.1-4.5); BUN 8 mg/dl (7-24); CHLORIDE 109 mmol/L (98-107); POTASSIUM 3.9 mmol/L (3.5-5.1); SODIUM 140 mmol/L (136-145)
[2019-09-18 07:11] LABS: ALKALINE PHOSPHATASE 73 U/L (45-117); CHOLESTEROL 87 mg/dL (<200); CREATININE 0.78 mg/dL (0.55-1.02); HDL CHOLESTEROL 37 mg/dl (40-60); LDL CHOLESTEROL 27 mg/dL (9-159); PHOSPHOROUS 2.7 mg/dL (2.5-4.9); SGOT/AST 18 IU/L (3-35); SGPT/ALT 29 U/L (12-78); TOTAL PROTEIN 6.1 gm/dL (6.4-8.2); TRIGLYCERIDES 117 mg/dl (<150); VLDL CHOLESTEROL 23 mg/dL (6-40)
[2019-09-18 07:51] LABS: VITAMIN D, 25-HYDROXY 101.5 ng/mL (30-100)
[2019-09-18 08:00] VITALS: BP 125/69
[2019-09-18 08:02] LABS: THYROID STIM HORMONE (HS) 0.779 uIU/ml (0.358-4.75)
[2019-09-18 12:00] VITALS: BP 131/73
[2019-09-18 16:00] VITALS: BP 121/71
[2019-09-18 20:00] VITALS: BP 112/70
[2019-09-19] VITALS: BP 126/82
[2019-09-19 04:00] VITALS: BP 138/65
[2019-09-19 06:24] LABS: BUN 12 mg/dl (7-24); CHLORIDE 108 mmol/L (98-107); CREATININE 0.75 mg/dL (0.55-1.02); POTASSIUM 4.1 mmol/L (3.5-5.1); SODIUM 141 mmol/L (136-145)
[2019-09-19 06:39] LABS: HEMOGLOBIN 12.2 g/dl (12.0-16.0); MEAN CELL VOLUME 96.4 fl (81.0-99.0); MEAN CORPUSCULAR HGB CONC 32.1 g/dl (33.0-37.0); MEAN PLATELET VOLUME 10.2 fl (9.6-12.3); PLATELET COUNT AUTOMATED 290 10*3/uL (130-400); RED BLOOD COUNT 3.94 10*6/uL (4.10-5.10); RED CELL DISTRI WIDTH 14.8 % (0-14.5); WHITE BLOOD COUNT 18.9 10*3/uL (4.8-10.8)
[2019-09-19 07:30] VITALS: BP 122/64
[2019-09-19 07:31] LABS: PLATELET SUFFICIENCY NORMAL (NORMAL); TOTAL CELLS COUNTED 100 #CELLS
[2019-09-19 12:00] VITALS: BP 130/72
[2019-09-19 16:00] VITALS: BP 124/57
[2019-09-19 20:00] VITALS: BP 106/64
[2019-09-20] VITALS: BP 135/65; BP 136/80
[2019-09-20 06:40] LABS: HEMATOCRIT 38.7 % (37.0-47.0); HEMOGLOBIN 12.4 g/dl (12.0-16.0); MEAN CELL VOLUME 95.6 fl (81.0-99.0); MEAN CORPUSCULAR HGB 30.6 pg (27.0-31.0); MEAN PLATELET VOLUME 10.1 fl (9.6-12.3); NUCLEATED RED BLOOD CELL 0.1 % (0.0-0.0); PLATELET COUNT AUTOMATED 306 10*3/uL (130-400); RED BLOOD COUNT 4.05 10*6/uL (4.10-5.10); RED CELL DISTRI WIDTH 14.8 % (0-14.5); WHITE BLOOD COUNT 19.4 10*3/uL (4.8-10.8)
[2019-09-20 06:46] LABS: BUN 16 mg/dl (7-24); CHLORIDE 105 mmol/L (98-107); POTASSIUM 4.2 mmol/L (3.5-5.1); SODIUM 139 mmol/L (136-145)
[2019-09-20 07:28] VITALS: BP 122/80
[2019-09-20 07:30] LABS: PLATELET SUFFICIENCY NORMAL (NORMAL); TOTAL CELLS COUNTED 100 #CELLS
[2019-09-20] MEDS ORDERED: BENZONATATE100 M1 PO (10:39)
[2019-09-20] MEDS ORDERED: PREDNISONE10 MG PO (10:39)
[2019-09-20] MEDS ORDERED: MUCINEX ER600 MG PO (10:39)
[2019-09-20] MEDS ORDERED: LEVAQUIN500 M2 PO (10:39)
== END 2019-09-20 11:39 | disposition home or self-care (01) | DRG 871 ==
LOC: ED 15:39 → 4E 18:34 → EDHOLD 18:34 → 4E 19:41
PROVIDERS: Internal Medicine; Physician Assistant; ADMIT Family Medicine
DX: A41.9 Sepsis, unspecified organism (principal); J18.9 Pneumonia, unspecified organism; E44.0 Moderate protein-calorie malnutrition; J44.1 Chronic obstructive pulmonary disease with (acute) exacerbation; E87.2 Acidosis; J44.0 Chronic obstructive pulmonary disease with (acute) lower respiratory infection; Z68.41 Body mass index [BMI] 40.0-44.9, adult; R65.20 Severe sepsis without septic shock; E66.01 Morbid (severe) obesity due to excess calories; I10 Essential (primary) hypertension; F41.1 Generalized anxiety disorder; M79.7 Fibromyalgia; K21.9 Gastro-esophageal reflux disease without esophagitis; E78.5 Hyperlipidemia, unspecified; F17.210 Nicotine dependence, cigarettes, uncomplicated; F32.9 Major depressive disorder, single episode, unspecified; E55.9 Vitamin D deficiency, unspecified; E11.65 Type 2 diabetes mellitus with hyperglycemia; E83.42 Hypomagnesemia; E87.8 Other disorders of electrolyte and fluid balance, not elsewhere classified; Z88.6 Allergy status to analgesic agent; Z88.8 Allergy status to other drugs, medicaments and biological substances; Z91.041 Radiographic dye allergy status; Z79.899 Other long term (current) drug therapy; Z79.84 Long term (current) use of oral hypoglycemic drugs; Z98.51 Tubal ligation status; Z82.49 Family history of ischemic heart disease and other diseases of the circulatory system; Z83.6 Family history of other diseases of the respiratory system; Z83.49 Family history of other endocrine, nutritional and metabolic diseases; Z71.6 Tobacco abuse counseling

== ENCOUNTER 2019-09-23 18:56 | Inpatient (IN) | payer OTHER ==
[~2019-09-23] VITALS: Ht 142.2 cm; Wt 88.6 kg
--- NOTE | ~2019-09-23 | EKG ---
[place], [place] ELECTROCARDIOGRAM REPORT NAME: DANIEL EVANGELISTA UNIT #: [id number] ROOM: 412 DOCTOR: MACARENA DRAFT REPORT BIRTHDATE: [birth year] [facility] [place] Test Date: 2019-09-23 Test Time: 23:14:57 Pat Name: DANIEL EVANGELISTA Department: Room: 412 Gender: F Speeder Operator: : 1975 Requested By: NAA GARLAND Order Number: [id number] Reading MD: Rey Oconnell Measurements Intervals [place] Rate: 91 P: 47 WI: 113 QRS: 33 QRSD: 74 T: 49 QT: 367 QTc: 452 Interpretive Statements Sinus rhythm Borderline short [place] interval Baseline wander in lead(s) V1,V2,V3,V4 Compared to ECG 09/09/2019 00:41:24 Sinus tachycardia no longer present Electronically Signed On 09-26-2019 11:56:42 PST by Rey Oconnell CM:EKGRPT:ELECTROCARDIOGRAM REPORT [id number] NAA FIORE DRAFT REPORT NAA GARLAND MD
--- NOTE | ~2019-09-23 | CON ---
[place], [place] REPORT OF CONSULTATION NAME: DANIEL EVANGELISTA UNIT #: [id number] ROOM: 412 DOCTOR: CLARITA EBTTS MD BIRTHDATE: [birth year] DOS: 09/24/[address] Chinchilla. HISTORY OF PRESENT ILLNESS: This is a 43-year-old -[place] woman, who was in this hospital on 09/09/2019 with the acute chest pain. She had pain for many hours and was noncardiac and she was ruled out for acute myocardial infarction. She now came back again with the anterior chest pain that is rated as 10/10 and that started 1 o'clock on yesterday afternoon and has persisted for the next 24 hours with the same intensity ____ but she is lying comfortably without any wincing or any signs of pain and she had no nausea or vomiting and was mildly short of breath. She has had a mild cough. She has not had any PND, orthopnea, or any swelling of the legs. No leg pains when she walks. PAST MEDICAL HISTORY: Includes COPD, depression, type 2 diabetes mellitus, essential hypertension, gastric ulcer, GERD, adrenal adenoma. SOCIAL HISTORY: She does not drink, but still smokes half a pack of cigarettes per day. HOME MEDICATIONS: Include bronchodilators, amitriptyline, Abilify, atorvastatin, vitamin D3, citalopram, Mucinex, hydroxyzine, levofloxacin p.o., lisinopril, metformin, metoprolol succinate, pantoprazole, and prednisone. PHYSICAL EXAMINATION: GENERAL: The patient is moderately obese, looks much older than her age. She is lying comfortably in bed. No thyromegaly or finger clubbing. VITAL SIGNS: Pulse is 100 and regular and blood pressure 92/66. NECK: Normal JVP, no bruit in the neck. HEART: There is no cardiomegaly. No murmurs are present. EXTREMITIES: She has good pedal pulses. RESPIRATORY SYSTEM: She has some rhonchi, but breath sounds are fairly decent bilaterally. LABORATORY DATA: ECG is unremarkable. Troponin I level was also normal. IMPRESSION: This patient is with risk factors for coronary artery disease and has symptoms that are atypical. She rated the pain at 10/10 in the last 24 hours without any EKG changes and change in the troponin level. A Lexiscan Cardiolite study has been scheduled for tomorrow and Dr. Godoy will do that. I thank you on behalf of Dr. Godoy for this consult. [place], [place] REPORT OF CONSULTATION NAME: DANIEL EVANGELISTA UNIT #: [id number] ROOM: 412 DOCTOR: CLARITA BETTS MD BIRTHDATE: [birth year] CLARITA BETTS MD CM:CONSTR:REPORT OF CONSULTATION 1730 09/25/19 1440 interface
--- NOTE | ~2019-09-23 | EKG ---
[place], [place] ELECTROCARDIOGRAM REPORT NAME: DANIEL EVANGELISTA UNIT #: [id number] ROOM: 412 DOCTOR: MACARENA DRAFT REPORT BIRTHDATE: [birth year] 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
--- NOTE | ~2019-09-23 | EKG ---
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
--- NOTE | ~2019-09-23 | ST ---
[place], [place] EXERCISE STRESS TEST REPORT NAME: DANIEL EVANGELISTA UNIT #: [id number] ROOM: 412 DOCTOR: DEMETRIS MYERS MD BIRTHDATE: [birth year] DOS: 09/25/2019 LEXISCAN PORTION OF THE LEXISCAN CARDIOLITE Baseline cardiogram, sinus rhythm with small Q-waves in the inferior leads. The patient had 0.4 mg of Lexiscan, duration of 10 seconds. Did have some shortness of breath. No chest discomfort, no new EKG changes. Blood pressure and heart rate normal. Nuclear images will be reported separately. DEMETRIS MYERS MD CM:STRESS:EXERCISE STRESS TEST REPORT [id number] DEMETRIS MYERS MD
[~2019-09-23 18:56] MED LIST changes: +AMITRIPTYLINE25 MG PO; +BENZONATATE100 M1 PO; +MUCINEX ER600 MG PO; +PROAIR HFA8.5 GM INH; +VITAMIN D50000 UNIT PO
[2019-09-23 18:59] VITALS: BP 128/70
[2019-09-23 19:17] LABS: HEMOGLOBIN 14.7 g/dl (12.0-16.0); MEAN CELL VOLUME 94.7 fl (81.0-99.0); MEAN CORPUSCULAR HGB 30.9 pg (27.0-31.0); MEAN CORPUSCULAR HGB CONC 32.7 g/dl (33.0-37.0); MEAN PLATELET VOLUME 9.6 fl (9.6-12.3); NUCLEATED RED BLOOD CELL 0.1 % (0.0-0.0); PLATELET COUNT AUTOMATED 391 10*3/uL (130-400); RED BLOOD COUNT 4.75 10*6/uL (4.10-5.10); RED CELL DISTRI WIDTH 14.9 % (0-14.5); WHITE BLOOD COUNT 26.6 10*3/uL (4.8-10.8)
[2019-09-23 19:28] LABS: ACT PARTIAL THROMBO TIME 22.4 SECONDS (20.0-32.1); INTERNATIONAL NORM RATIO 0.9 (2.0-3.5)
[2019-09-23 19:30] VITALS: BP 122/60
[2019-09-23 19:35] LABS: ALBUMIN 3.2 gm/dl (3.1-4.5); ALKALINE PHOSPHATASE 92 U/L (45-117); BUN 16 mg/dl (7-24); CHLORIDE 102 mmol/L (98-107); CREATININE 1.03 mg/dL (0.55-1.02); POTASSIUM 4.2 mmol/L (3.5-5.1); SGOT/AST 19 IU/L (3-35); SGPT/ALT 43 U/L (12-78); SODIUM 136 mmol/L (136-145); TOTAL PROTEIN 6.5 gm/dL (6.4-8.2)
[2019-09-23 19:38] LABS: PLATELET SUFFICIENCY NORMAL (NORMAL); TOTAL CELLS COUNTED 100 #CELLS
[2019-09-23 19:41] LABS: TROPONIN I < 0.015 ng/ml (<0.045)
--- NOTE | 2019-09-23 19:50 | NUR ---
PT REMAINS W/O ACUTE DISTRESS NOTED AWAITING ALL RESULTS,SAFETY PRECAUTIONS INTACT AND CALL LIGHT WITHIN REACH.
[2019-09-23 20:51] VITALS: BP 129/81
[2019-09-23 22:02] VITALS: BP 132/80
--- NOTE | 2019-09-23 22:20 | NUR ---
A 43, admitted to , under the services of BROOK Calero DO with a diagnosis of CHEST PAIN, LEUKOCYTOSIS, LACTIC ACID INCREASED. Chief complaint is CHEST PAIN. Patient arrived via ambulatory from ER. Monitor applied. Initial assessment completed. Vital signs taken and recorded. BROOK CALERO DO notified of admission to the unit. Orders received. See assessment for past medical history, medications and allergies. Patient and/or family oriented to unit. [facility] visitation policy reviewed. Clothing/patient valuable form completed. PATRICIA VACA
--- NOTE | 2019-09-23 23:10 | NUR ---
DR. HAIDER NOTIFIED OF PT'S ADMISSION. T.O. RCVD FOR ADMIT TO SERVICE, RECONCILE HOME MEDS, 1800 ADA DIET, CYCLE TROPONINS AND EKG'S, NORCO 325MG EVERY 6 HRS PRN PAIN.
--- NOTE | 2019-09-23 23:40 | NUR ---
DR. HAIDER NOTIFIED OF CRITICAL LACTIC ACID LEVEL OF 2.9. NO N.O. RCVD AT THIS TIME.
[2019-09-24] VITALS: BP 125/82
--- NOTE | 2019-09-24 01:23 | NUR ---
pt medicated w/norco for c/o lt side chest pain 07/10. pt resting quietly in bed. heart monitor reading nsr w/rate of 90. will continue to monitor.
--- NOTE | 2019-09-24 01:45 | NUR ---
DR. HAIDER PHONED RE PT'S CRITICAL LACTIC ACID LEVEL OF 4.2. REPEAT LACTIC ACID IN 3 HRS AND NS @ 150ML/HR [id number].
--- NOTE | 2019-09-24 02:53 | NUR ---
24 HR chart check completed.
[2019-09-24 07:30] VITALS: BP 120/68
--- NOTE | 2019-09-24 07:30 | NUR ---
VITALS AND ASSESSMENT COMPLETED AND DOCUMENTED. PATIENT IN BED WATCHING TV. COMPLAINS OF LEFT SIDE CHEST PAIN. SAVAGE ODONNELL SP[facility]
--- NOTE | 2019-09-24 07:30 | NUR ---
REPORT RECIEVED. ASSESSMENT COMPLETED. HANDED PT CARE TO [facility] DATA TYPIST FRANCIS LEON AND .
--- NOTE | 2019-09-24 07:40 | NUR ---
PATIENT MEDICATED FOR PAIN. CONTINUES TO COMPLAIN OF LEFT SIDE CHEST PAIN. SAVAGE ODONNELL ALICIA
--- NOTE | 2019-09-24 08:45 | NUR ---
PATIENTS VITALS AND ASSESSMENT COMPLETED AND DOCUMENTED. PATIENT WAS MEDICATED FOR PAIN. CONTINUES TO COMPLAIN OF LEFT SIDE CHEST PAIN AT THIS TIME. [facility]
--- NOTE | 2019-09-24 09:00 | NUR ---
Haul Truck Driver in to talk to patient. Patient states lives at home with family. There are few steps in the home. Physician: wanted appointment with Judy luciano doctor Pharmacy: [facility] Home health services: none Patient's level of ADLs: INDEPENDENT Patient has working utilities: all working DME: none Follow-up physician's appointment after d/c: will be made by hospitalist nurse director upon discharge Does patient want to access PORTAL?: no Discharge plan discussed with patient, she lives at home with family, she is independent in adls and ambulation she was recently in the hospital and discharged home, she states she will return home when medically stable and denies any home needs, case management will follow. ADRIANA VILLALOBOS
--- NOTE | 2019-09-24 10:40 | NUR ---
PATIENT COMFORTABLE ASLEEP IN BED [facility]
--- NOTE | 2019-09-24 10:59 | NUR ---
Dr Olson notified of new consult for chest pain while he rounded.
--- NOTE | 2019-09-24 11:41 | NUR ---
DR BETTS ROUNDED AND SEEN PT.
[2019-09-24 12:00] VITALS: BP 136/76
--- NOTE | 2019-09-24 12:15 | NUR ---
REASSESSMENT COMPLETED AND DOCUMENTED. PT RESTING QUIETLY IN BED WITH NO VOICED C/O AT THIS TIME. DENIES WORSENING CHEST PAIN OR PRESSURE. DENIES SOB. RESPIRATIONS EASY. NO S/S OF DISTRESS AT THIS TIME.
[2019-09-24 16:00] VITALS: BP 93/66
--- NOTE | 2019-09-24 16:44 | NUR ---
NORCO 5/325 MG GIVEN FOR C/O GENERALIZED PAIN,07/10.
--- NOTE | 2019-09-24 19:00 | NUR ---
ASSUMED CARE FOR THIS PT AT THIS TIME. PT AWAKE IN BED WATCHING TV. PT CONTINUES TO C/O LT SIDE CHEST PAIN. PT PREVIOUSLY MEDICATED FOR PAIN. WILL CONTINUE TO MONITOR. CALL LIGHT IN REACH.
[2019-09-24 20:00] VITALS: BP 119/66
--- NOTE | 2019-09-24 21:50 | NUR ---
PT MEDICATED W/FLEXERIL FOR C/O LT SIDE CP. PT TEACHING PROVIDED RE PAIN IS MOST LIKELY D/T COUGHING. WILL MONITOR FOR EFFECTIVENESS. CALL LIGHT IN REACH.
--- NOTE | 2019-09-24 23:10 | NUR ---
PT MEDICATED W/NORCO FOR C/O LT SIDE CHEST PAIN. PT STATES FLEXERIL DIDN'T REALLY HELP MUCH. WILL CONTINUE TO MONITOR.
[2019-09-25] VITALS: BP 127/67
--- NOTE | 2019-09-25 06:24 | NUR ---
PT LEAVING FLOOR VIA W/C TO CARDIAC REHAB FOR STRESS TEST.
--- NOTE | 2019-09-25 07:00 | NUR ---
INFORMED CONSENT OBTAINED FOR LEXISCAN NUCLEAR STRESS TEST WITH DR. MYERS. RESTING EKG NSR WITH A RESTING HR OF 76 WITH BP OF 110/60. LUNGS WITH DIMINISHED BS WITH SPO2 OF 100% ON ROOM AIR. PT COMPLETED A 1:00 LEXISCAN PROTOCOL RECEIVING LEXISCAN 0.4 MG IV OVER 10 SECONDS. HAD NO CHEST PAIN OR ANY EKG CHANGES. HAD C/O "ODD FEELING" THAT SUBSIDED IN RECOVERY. HAD A PEAK HR OF 126 WITH BP OF 108/54. LAST RECOVERY HR OF 105 WITH BP OF 112/70. AWAITING SCANNING IN STABLE CONDITION.
[2019-09-25 08:00] VITALS: BP 122/66
--- NOTE | 2019-09-25 09:00 | NUR ---
case management visits with patient, she will be discharged to home today, patient denies any home needs
[2019-09-25 10:00] VITALS: BP 122/66
[2019-09-25] MEDS ORDERED: CYCLOBENZAPRINE10 MG PO (10:19)
--- NOTE | 2019-09-25 11:30 | NUR ---
Discharge instructions reviewed with patient/family. Patient receptive and verbalizes understanding. Follow-up care arranged. Written instructions given to patient/family. RITA GONZALEZ
== END 2019-09-25 11:30 | disposition home or self-care (01) | DRG 205 ==
LOC: ED 18:56 → EDHOLD 21:25 → 4E 21:25
PROVIDERS: Emergency Medicine; ADMIT Internal Medicine
PROC: 3E073KZ Introduction of Other Diagnostic Substance into Coronary Artery, Percutaneous Approach (ICD-10-PCS; principal; 2019-09-25)
PROC: 4A02XM4 Measurement of Cardiac Total Activity, External Approach (ICD-10-PCS; principal; 2019-09-25)
DX: M94.0 Chondrocostal junction syndrome [Tietze] (principal); J18.9 Pneumonia, unspecified organism; N17.0 Acute kidney failure with tubular necrosis; E87.2 Acidosis; E44.0 Moderate protein-calorie malnutrition; Z68.42 Body mass index [BMI] 45.0-49.9, adult; J44.0 Chronic obstructive pulmonary disease with (acute) lower respiratory infection; I10 Essential (primary) hypertension; K21.9 Gastro-esophageal reflux disease without esophagitis; F32.9 Major depressive disorder, single episode, unspecified; F41.1 Generalized anxiety disorder; M79.7 Fibromyalgia; E55.9 Vitamin D deficiency, unspecified; K76.0 Fatty (change of) liver, not elsewhere classified; E66.01 Morbid (severe) obesity due to excess calories; E11.65 Type 2 diabetes mellitus with hyperglycemia; E78.2 Mixed hyperlipidemia; F17.210 Nicotine dependence, cigarettes, uncomplicated; I25.10 Atherosclerotic heart disease of native coronary artery without angina pectoris; Z88.8 Allergy status to other drugs, medicaments and biological substances; Z88.6 Allergy status to analgesic agent; Z91.041 Radiographic dye allergy status; Z98.51 Tubal ligation status; Z82.0 Family history of epilepsy and other diseases of the nervous system; Z82.49 Family history of ischemic heart disease and other diseases of the circulatory system; Z83.49 Family history of other endocrine, nutritional and metabolic diseases; Z82.5 Family history of asthma and other chronic lower respiratory diseases; Z79.899 Other long term (current) drug therapy

== ENCOUNTER 2019-10-25 18:41 | Inpatient (IN) | payer OTHER ==
[~2019-10-25] VITALS: Ht 142.2 cm; Wt 89.4 kg
[~2019-10-25 18:41] MED LIST changes: +CYCLOBENZAPRINE10 MG PO
[2019-10-25 18:42] VITALS: BP 118/69
[2019-10-25 18:57] LABS: HEMATOCRIT 40.9 % (37.0-47.0); HEMOGLOBIN 13.4 g/dl (12.0-16.0); MEAN CELL VOLUME 96.2 fl (81.0-99.0); MEAN CORPUSCULAR HGB 31.5 pg (27.0-31.0); MEAN CORPUSCULAR HGB CONC 32.8 g/dl (33.0-37.0); MEAN PLATELET VOLUME 9.2 fl (9.6-12.3); PLATELET COUNT AUTOMATED 345 10*3/uL (130-400); RED BLOOD COUNT 4.25 10*6/uL (4.10-5.10); RED CELL DISTRI WIDTH 15.6 % (0-14.5); WHITE BLOOD COUNT 16.5 10*3/uL (4.8-10.8)
[2019-10-25 19:08] LABS: ACT PARTIAL THROMBO TIME 25.6 SECONDS (20.0-32.1)
[2019-10-25 19:23] LABS: BASOPHILS 1 % (0-1); TOTAL CELLS COUNTED 100 #CELLS
[2019-10-25 19:27] LABS: PLATELET SUFFICIENCY NORMAL (NORMAL)
[2019-10-25 19:28] LABS: ALKALINE PHOSPHATASE 88 U/L (45-117); BUN 14 mg/dl (7-24); CHLORIDE 107 mmol/L (98-107); CREATININE 1.02 mg/dL (0.55-1.02); POTASSIUM 4.1 mmol/L (3.5-5.1); SGOT/AST 30 IU/L (3-35); SGPT/ALT 31 U/L (12-78); SODIUM 141 mmol/L (136-145); TOTAL PROTEIN 6.7 gm/dL (6.4-8.2)
[2019-10-25 19:32] LABS: TROPONIN I < 0.015 ng/ml (<0.045)
--- NOTE | 2019-10-25 19:40 | NUR ---
1930 NOTIFICATION FROM LAB PT HAS A MAG OF 0.8 MD MADE AWARE. JESUS REECE RN.
[2019-10-25 20:08] VITALS: BP 111/76
[2019-10-25 21:50] VITALS: BP 106/47
[2019-10-25 22:00] VITALS: BP 90/50
--- NOTE | 2019-10-25 22:00 | NUR ---
A 43, admitted to , under the services of ADRIAN Grewal DO with a diagnosis of CHEST PAIN, COPD, HYPOMAGNESIUM. Chief complaint is CHEST PAIN. Patient arrived via bed from ER. Monitor applied. Initial assessment completed. Vital signs taken and recorded. ADRIAN GREWAL DO notified of admission to the unit. Orders received. See assessment for past medical history, medications and allergies. Patient oriented to unit. Clothing/patient valuable form completed. EILEEN HARP
--- NOTE | 2019-10-25 22:35 | NUR ---
AWARE THAT HOME NICO ARE VERIFIED. INFORMED THAT ALINA BP IS 90/50. PATIENT IS STILL COMPLAINING OF CP TO LEFT ARM 08/09, STATED NORCO INEFFECTIVE. STATED TO ONLY GIVE 1MG OF MORPHINE INSTEAD OF THAT 2MG THAT WAS ORDERED. ALSO STATED TO PLACE NICOTINE PATCH 21MG.
--- NOTE | 2019-10-25 22:51 | NUR ---
PATIENT MEDICATED WITH MORPHINE IV FOR C/O CHEST PAIN 08/09. WILL MONITOR
--- NOTE | 2019-10-25 23:51 | NUR ---
MORPHINE EFFECTIVE FOR CHEST PAIN
[2019-10-26 03:20] VITALS: BP 125/68
--- NOTE | 2019-10-26 03:22 | NUR ---
MADEAWARE THAT PATIENT IS REQUESTING CEPACOL. STATED TO PLACE ORDER.
--- NOTE | 2019-10-26 03:25 | NUR ---
PT MEDICATED WITH PO NORCO FOR C/O PAIN IN CHEST RATED 8/10. WILL MONITOR EFFECTIVENESS. CALL LIGHT IN REACH.
--- NOTE | 2019-10-26 04:25 | NUR ---
NORCO EFFECTIVE FOR CHEST PAIN
--- NOTE | 2019-10-26 06:15 | NUR ---
ANSWERING SERVICES CALLED. MESSAGE WILL BE SENT.
[2019-10-26 06:28] LABS: HEMATOCRIT 37.9 % (37.0-47.0); HEMOGLOBIN 12.2 g/dl (12.0-16.0); MEAN CELL VOLUME 95.7 fl (81.0-99.0); MEAN CORPUSCULAR HGB 30.8 pg (27.0-31.0); MEAN CORPUSCULAR HGB CONC 32.2 g/dl (33.0-37.0); MEAN PLATELET VOLUME 9.4 fl (9.6-12.3); PLATELET COUNT AUTOMATED 298 10*3/uL (130-400); RED BLOOD COUNT 3.96 10*6/uL (4.10-5.10); RED CELL DISTRI WIDTH 15.4 % (0-14.5); WHITE BLOOD COUNT 10.3 10*3/uL (4.8-10.8)
[2019-10-26 06:48] LABS: BUN 10 mg/dl (7-24); CHLORIDE 112 mmol/L (98-107); CREATININE 0.87 mg/dL (0.55-1.02); PHOSPHOROUS 1.6 mg/dL (2.5-4.9); POTASSIUM 4.7 mmol/L (3.5-5.1); SODIUM 142 mmol/L (136-145)
--- NOTE | 2019-10-26 07:13 | NUR ---
RECEIVED CALL FROM LAB, ADVISED OF CALCIUM 6.8, CALL PLACED TO HOSPITALIST LINE, SPOKE WITH DR. BOBO TO ADVISE OF RESULT.
[2019-10-26 07:15] LABS: PLATELET SUFFICIENCY NORMAL (NORMAL); TOTAL CELLS COUNTED 100 #CELLS
--- NOTE | 2019-10-26 07:25 | NUR ---
ARRIVED ON SHIFT INTRODUCED TO PATIENT, NO NEEDS VOICED AT THIS TIME, WHITE BOARD UPDATED.
[2019-10-26 08:00] VITALS: BP 134/68
--- NOTE | 2019-10-26 09:00 | NUR ---
Wire Coiler Machine Operator in to talk to patient. Patient states lives at home with family. There are few steps in the home. Physician: doctor tee Change ankita from [facility] Pharmacy: [facility] Home health services: none Patient's level of ADLs: INDEPENDENT Patient has working utilities: all working DME: none Follow-up physician's appointment after d/c: will be made by hospitalist nurse director upon discharge Does patient want to access PORTAL?: no Discharge plan discussed with patient, she lives at home with family, she is independent in adls and ambulation, she will return home when medically stable and denies any home needs. ADRIANA VILLALOBOS
--- NOTE | 2019-10-26 09:20 | NUR ---
MEDICATED WITH NORCO FOR C/O CHEST PAIN WITH RATING 9/10
--- NOTE | 2019-10-26 09:45 | NUR ---
24 HR chart check completed.
--- NOTE | 2019-10-26 10:00 | NUR ---
SPOKE WITH DR. DAVILA, ADVISED OF PATIENTS ELEVATED HR OF 140 WITH ACTIVITY, ALSO ADVISED THAT PATIENTS HOME MEDICATIONS HAVE NOT BEEN RESTARTED, AND THAT PATIENT WAS GIVEN NORCO @ 0920 AND THAT SHE STATES DOESNT WORK AND IS REQUESTING SOMETHING STRONGER.
--- NOTE | 2019-10-26 10:20 | NUR ---
PATIENT STATES THAT MEDICATION MINIMALLY EFECTIVE RATES PAIN 06/09 DR. DAVILA AWARE.
[2019-10-26 12:00] VITALS: BP 113/63
--- NOTE | 2019-10-26 13:23 | NUR ---
PATIENT CONTINUES WITH CHEST PAIN RADIATING DOWN LEFT ARM, NORCO (2) GIVEN ORDERED. RATES PAIN 9/10
--- NOTE | 2019-10-26 14:23 | NUR ---
PATIENT REPORTS BETTER RELEIF WITH 2 NORCO, RATES PAIN 4/10, SPOKE WITH DR. BOBO REGARDING ACETAMINOPHEN > RECCOMENDED 3000MG
[2019-10-26 14:38] LABS: ALBUMIN 2.7 gm/dl (3.1-4.5); ALKALINE PHOSPHATASE 78 U/L (45-117); BUN 8 mg/dl (7-24); CHLORIDE 113 mmol/L (98-107); CREATININE 0.86 mg/dL (0.55-1.02); PHOSPHOROUS 1.8 mg/dL (2.5-4.9); POTASSIUM 4.5 mmol/L (3.5-5.1); SGOT/AST 19 IU/L (3-35); SGPT/ALT 24 U/L (12-78); SODIUM 143 mmol/L (136-145)
[2019-10-26 16:00] VITALS: BP 123/84
--- NOTE | 2019-10-26 17:26 | NUR ---
PATIENT C/O CHEST PAIN 06/09 MEDICATED WITH NORCO 10/325 ORDERED PRN.
--- NOTE | 2019-10-26 18:23 | NUR ---
PATIENT STATES SHE IS HAVING GOOD RELIEF FROM NORCO GIVEN X 1 HOUR AGO, RATES PAIN 4/10, AND ACCEPTABLE.
[2019-10-26 20:00] VITALS: BP 104/58
--- NOTE | 2019-10-26 21:26 | NUR ---
PATIENT C/O CHEST AND ARM PAIN, MEDICATED WITH NORCO 10/325 ORDERED PRN WHITE BOARD UPDATED.
--- NOTE | 2019-10-26 22:26 | NUR ---
PATIENT OBTAINED GOOD RELIEF FROM NORCO GIVEN X 1 HOUR AGO, PER PATIENT PAIN NOW 3/10 AND TOLERABLE.
[2019-10-27] VITALS: BP 107/55
--- NOTE | 2019-10-27 01:39 | NUR ---
[place] given per patient request for c/o chest pain rated 9/10. Will monitor. Patient did not exhibit physical signs of pain rated 9/10. Patient was resting comfortabley w/no signs of distress.
--- NOTE | 2019-10-27 02:10 | NUR ---
[place] effective. Patient asleep with respirations >12.
--- NOTE | 2019-10-27 05:40 | NUR ---
[place] given per patient request for c/o chest pain rated 9/10. Will monitor.
[2019-10-27 06:02] LABS: HEMOGLOBIN 11.6 g/dl (12.0-16.0); MEAN CELL VOLUME 98.1 fl (81.0-99.0); MEAN CORPUSCULAR HGB 30.8 pg (27.0-31.0); MEAN CORPUSCULAR HGB CONC 31.4 g/dl (33.0-37.0); MEAN PLATELET VOLUME 9.4 fl (9.6-12.3); PLATELET COUNT AUTOMATED 312 10*3/uL (130-400); RED BLOOD COUNT 3.77 10*6/uL (4.10-5.10); RED CELL DISTRI WIDTH 15.7 % (0-14.5); WHITE BLOOD COUNT 15.2 10*3/uL (4.8-10.8)
[2019-10-27 06:14] LABS: ALBUMIN 2.6 gm/dl (3.1-4.5); ALKALINE PHOSPHATASE 74 U/L (45-117); BUN 11 mg/dl (7-24); CHLORIDE 116 mmol/L (98-107); CREATININE 0.81 mg/dL (0.55-1.02); POTASSIUM 4.7 mmol/L (3.5-5.1); SGOT/AST 15 IU/L (3-35); SGPT/ALT 24 U/L (12-78); SODIUM 146 mmol/L (136-145); TOTAL PROTEIN 5.8 gm/dL (6.4-8.2)
--- NOTE | 2019-10-27 06:15 | NUR ---
[place] effective. Patient satisfied.
[2019-10-27 07:43] LABS: PLATELET SUFFICIENCY NORMAL (NORMAL); TARGET CELLS FEW; TOTAL CELLS COUNTED 100 #CELLS
[2019-10-27 08:00] VITALS: BP 122/64
[2019-10-27] MEDS ORDERED: NORCO 5-325 TA1 EACH PO (10:28)
[2019-10-27] MEDS ORDERED: LEVAQUIN500 M2 PO (10:28)
[2019-10-27] MEDS ORDERED: MUCINEX ER600 MG PO (10:28)
[2019-10-27] MEDS ORDERED: VERAPAMIL HCL120 M2 PO (10:28)
[2019-10-27] MEDS ORDERED: PREDNISONE10 MG PO (10:28)
[2019-10-27] MEDS ORDERED: CEPACOL SORE T1 EACH PO (10:28)
--- NOTE | 2019-10-27 11:37 | NUR ---
PATIENT DISCHARGED TO HOME. ALL PERSONAL BELONGINGS SENT WITH PATIENT. IV AND PROCESSING SUPERVISOR DISCONTINUED. DISCHARGE INSTRUCTIONS AND PRESCRIPTIONS GIVEN AND REVIEWED WITH PATIENT. PATIENT INSTURCTED TO FOLLOW UP WITH HER PCP AND .
== END 2019-10-27 11:37 | disposition home or self-care (01) | DRG 871 ==
LOC: ED 18:41 → EDHOLD 21:05 → 4E 21:05
PROVIDERS: Emergency Medicine; Internal Medicine; Student in an Organized Health Care Education/Training Program; ADMIT Internal Medicine
DX: A41.9 Sepsis, unspecified organism (principal); J18.9 Pneumonia, unspecified organism; J44.1 Chronic obstructive pulmonary disease with (acute) exacerbation; J44.0 Chronic obstructive pulmonary disease with (acute) lower respiratory infection; Z68.41 Body mass index [BMI] 40.0-44.9, adult; R65.20 Severe sepsis without septic shock; K21.9 Gastro-esophageal reflux disease without esophagitis; M94.0 Chondrocostal junction syndrome [Tietze]; E11.65 Type 2 diabetes mellitus with hyperglycemia; E83.42 Hypomagnesemia; I10 Essential (primary) hypertension; E78.5 Hyperlipidemia, unspecified; I25.10 Atherosclerotic heart disease of native coronary artery without angina pectoris; F32.9 Major depressive disorder, single episode, unspecified; F41.1 Generalized anxiety disorder; K25.9 Gastric ulcer, unspecified as acute or chronic, without hemorrhage or perforation; F17.210 Nicotine dependence, cigarettes, uncomplicated; E66.01 Morbid (severe) obesity due to excess calories; Z98.51 Tubal ligation status; Z82.49 Family history of ischemic heart disease and other diseases of the circulatory system; Z82.0 Family history of epilepsy and other diseases of the nervous system; Z83.49 Family history of other endocrine, nutritional and metabolic diseases; Z88.6 Allergy status to analgesic agent; Z88.8 Allergy status to other drugs, medicaments and biological substances; Z79.899 Other long term (current) drug therapy

== ENCOUNTER 2019-11-05 10:46 | Inpatient (IN) | payer OTHER ==
[~2019-11-05] VITALS: Ht 142.2 cm; Wt 88.1 kg
[~2019-11-05 10:46] MED LIST changes: +CEPACOL SORE T1 EACH PO; +VERAPAMIL HCL120 M2 PO
[2019-11-05 11:17] VITALS: BP 116/56
[2019-11-05 11:25] LABS: HEMATOCRIT 42.5 % (37.0-47.0); MEAN CELL VOLUME 96.6 fl (81.0-99.0); MEAN CORPUSCULAR HGB 31.8 pg (27.0-31.0); MEAN CORPUSCULAR HGB CONC 32.9 g/dl (33.0-37.0); MEAN PLATELET VOLUME 8.9 fl (9.6-12.3); NUCLEATED RED BLOOD CELL 0.1 % (0.0-0.0); PLATELET COUNT AUTOMATED 341 10*3/uL (130-400); RED CELL DISTRI WIDTH 16.1 % (0-14.5); WHITE BLOOD COUNT 28.5 10*3/uL (4.8-10.8)
[2019-11-05 11:38] LABS: ACT PARTIAL THROMBO TIME 22.3 SECONDS (20.0-32.1); INTERNATIONAL NORM RATIO 0.9 (2.0-3.5)
[2019-11-05 11:40] LABS: LIPASE 307 U/L (73-393)
[2019-11-05 11:41] LABS: ALBUMIN 3.4 gm/dl (3.1-4.5); ALKALINE PHOSPHATASE 86 U/L (45-117); BUN 19 mg/dl (7-24); CHLORIDE 100 mmol/L (98-107); CREATININE 0.96 mg/dL (0.55-1.02); SGOT/AST 10 IU/L (3-35); SGPT/ALT 41 U/L (12-78); SODIUM 136 mmol/L (136-145); TOTAL PROTEIN 6.6 gm/dL (6.4-8.2)
[2019-11-05 11:44] LABS: TROPONIN I < 0.015 ng/ml (<0.045)
[2019-11-05 11:57] LABS: ATYPICAL LYMPHS 2 % (0-0); PLATELET SUFFICIENCY NORMAL (NORMAL); POLYCHROMASIA SLIGHT; TOTAL CELLS COUNTED 100 #CELLS
[2019-11-05 15:55] VITALS: BP 103/56
[2019-11-05] MEDS ORDERED: ADVAIR HFA 115-12 GM INH (16:48)
[2019-11-05 20:00] VITALS: BP 119/70
[2019-11-05 23:22] LABS: BILIRUBIN NEGATIVE (NEGATIVE); BLOOD NEGATIVE (NEGATIVE); CLARITY CLEAR (CLEAR); COLOR YELLOW (YELLOW); GLUCOSE NEGATIVE (NEGATIVE); KETONE NEGATIVE (NEGATIVE); LEUKO ESTERASE NEGATIVE (NEGATIVE); NITRITE NEGATIVE (NEGATIVE); PH 6.5 (5.0-9.0); UROBILINOGEN 0.2 E.U./dl (0.2-1.0)
[2019-11-06] VITALS: BP 109/60
[2019-11-06 00:02] LABS: RBC 0-2 rbc/hpf (0-2); WBC 0-2 wbc/hpf (0-5)
[2019-11-06 07:35] LABS: HEMATOCRIT 39.9 % (37.0-47.0); HEMOGLOBIN 12.8 g/dl (12.0-16.0); MEAN CELL VOLUME 96.6 fl (81.0-99.0); MEAN CORPUSCULAR HGB CONC 32.1 g/dl (33.0-37.0); NUCLEATED RED BLOOD CELL 0.1 % (0.0-0.0); PLATELET COUNT AUTOMATED 312 10*3/uL (130-400); RED BLOOD COUNT 4.13 10*6/uL (4.10-5.10); RED CELL DISTRI WIDTH 16.2 % (0-14.5)
[2019-11-06 07:57] LABS: ALKALINE PHOSPHATASE 69 U/L (45-117); BUN 20 mg/dl (7-24); CHLORIDE 103 mmol/L (98-107); CHOLESTEROL 100 mg/dL (<200); CREATININE 0.94 mg/dL (0.55-1.02); HDL CHOLESTEROL 55 mg/dl (40-60); LDL CHOLESTEROL 21 mg/dL (9-159); PHOSPHOROUS 4.2 mg/dL (2.5-4.9); POTASSIUM 3.9 mmol/L (3.5-5.1); SGOT/AST 15 IU/L (3-35); SGPT/ALT 36 U/L (12-78); SODIUM 139 mmol/L (136-145); TRIGLYCERIDES 118 mg/dl (<150); VLDL CHOLESTEROL 24 mg/dL (6-40)
[2019-11-06 08:00] VITALS: BP 121/51; BP 130/68
[2019-11-06 09:03] LABS: PLATELET SUFFICIENCY NORMAL (NORMAL); POLYCHROMASIA SLIGHT; TOTAL CELLS COUNTED 100 #CELLS
[2019-11-06] MEDS ORDERED: IMDUR SA30 MG PO (10:29)
[2019-11-06] MEDS ORDERED: CARVEDILOL6.25 MG PO (10:29)
== END 2019-11-06 11:23 | disposition home or self-care (01) | DRG 206 ==
LOC: ED 10:46 → 4E 14:10 → EDHOLD 14:10 → 4E 15:24
PROVIDERS: Emergency Medicine; Internal Medicine; ADMIT Internal Medicine
DX: M94.0 Chondrocostal junction syndrome [Tietze] (principal); R65.10 Systemic inflammatory response syndrome (SIRS) of non-infectious origin without acute organ dysfunction; Z68.43 Body mass index [BMI] 50.0-59.9, adult; J44.9 Chronic obstructive pulmonary disease, unspecified; K25.9 Gastric ulcer, unspecified as acute or chronic, without hemorrhage or perforation; I10 Essential (primary) hypertension; F32.9 Major depressive disorder, single episode, unspecified; F41.1 Generalized anxiety disorder; K21.9 Gastro-esophageal reflux disease without esophagitis; F17.210 Nicotine dependence, cigarettes, uncomplicated; E55.9 Vitamin D deficiency, unspecified; E11.65 Type 2 diabetes mellitus with hyperglycemia; E78.5 Hyperlipidemia, unspecified; I25.10 Atherosclerotic heart disease of native coronary artery without angina pectoris; Z98.51 Tubal ligation status; E66.01 Morbid (severe) obesity due to excess calories; Z82.49 Family history of ischemic heart disease and other diseases of the circulatory system; Z83.49 Family history of other endocrine, nutritional and metabolic diseases; Z82.0 Family history of epilepsy and other diseases of the nervous system; Z88.2 Allergy status to sulfonamides; Z88.8 Allergy status to other drugs, medicaments and biological substances; Z91.041 Radiographic dye allergy status; Z79.899 Other long term (current) drug therapy; Z71.6 Tobacco abuse counseling; Z91.14 Patient's other noncompliance with medication regimen; F44.5 Conversion disorder with seizures or convulsions; D72.829 Elevated white blood cell count, unspecified

== ENCOUNTER 2019-12-02 20:29 | Emergency (ER) | payer OTHER ==
[~2019-12-02] VITALS: Ht 142.2 cm; Wt 88.5 kg
[~2019-12-02 20:29] MED LIST changes: +ADVAIR HFA 115-12 GM INH; +CARVEDILOL6.25 MG PO
[2019-12-02 20:45] LABS: HEMATOCRIT 40.3 % (37.0-47.0); HEMOGLOBIN 13.2 g/dl (12.0-16.0); MEAN CELL VOLUME 97.1 fl (81.0-99.0); MEAN CORPUSCULAR HGB 31.8 pg (27.0-31.0); MEAN CORPUSCULAR HGB CONC 32.8 g/dl (33.0-37.0); MEAN PLATELET VOLUME 9.3 fl (9.6-12.3); PLATELET COUNT AUTOMATED 327 10*3/uL (130-400); RED BLOOD COUNT 4.15 10*6/uL (4.10-5.10); RED CELL DISTRI WIDTH 15.3 % (0-14.5); WHITE BLOOD COUNT 17.2 10*3/uL (4.8-10.8)
[2019-12-02 20:58] LABS: ACT PARTIAL THROMBO TIME 25.8 SECONDS (20.0-32.1); INTERNATIONAL NORM RATIO 0.9 (2.0-3.5)
[2019-12-02 21:02] LABS: ALBUMIN 3.5 gm/dl (3.1-4.5); ALKALINE PHOSPHATASE 72 U/L (45-117); BUN 12 mg/dl (7-24); CHLORIDE 104 mmol/L (98-107); CREATININE 1.07 mg/dL (0.55-1.02); POTASSIUM 3.9 mmol/L (3.5-5.1); SGOT/AST 16 IU/L (3-35); SGPT/ALT 28 U/L (12-78); SODIUM 137 mmol/L (136-145); TOTAL PROTEIN 6.9 gm/dL (6.4-8.2)
[2019-12-02 21:04] LABS: TROPONIN I < 0.015 ng/ml (<0.045)
[2019-12-02 21:05] LABS: ATYPICAL LYMPHS 3 % (0-0); BASOPHILS 3 % (0-1); TOTAL CELLS COUNTED 100 #CELLS
[2019-12-02 21:06] LABS: PLATELET SUFFICIENCY NORMAL (NORMAL)
== END 2019-12-03 01:01 | disposition home or self-care (01) ==
LOC: ED 20:29
PROVIDERS: Emergency Medicine
DX: E83.42 Hypomagnesemia (principal); R07.9 Chest pain, unspecified; I25.10 Atherosclerotic heart disease of native coronary artery without angina pectoris; J44.9 Chronic obstructive pulmonary disease, unspecified; E11.9 Type 2 diabetes mellitus without complications; I10 Essential (primary) hypertension; M79.7 Fibromyalgia; K21.9 Gastro-esophageal reflux disease without esophagitis; E78.5 Hyperlipidemia, unspecified; E66.01 Morbid (severe) obesity due to excess calories; F17.200 Nicotine dependence, unspecified, uncomplicated; Z98.61 Coronary angioplasty status; Z91.041 Radiographic dye allergy status; Z88.6 Allergy status to analgesic agent; Z88.8 Allergy status to other drugs, medicaments and biological substances; Z79.899 Other long term (current) drug therapy; Z79.2 Long term (current) use of antibiotics

== ENCOUNTER 2020-02-15 15:53 | Observation (INO) | payer OTHER ==
[2020-02-15] VITALS (8 sets, daily range): BP systolic 104–136; BP diastolic 45–69
[~2020-02-15] VITALS: Ht 142.2 cm; Wt 89.9 kg
[2020-02-15 16:12] LABS: HEMATOCRIT 42.3 % (37.0-47.0); MEAN CELL VOLUME 95.7 fl (81.0-99.0); MEAN CORPUSCULAR HGB 31.7 pg (27.0-31.0); MEAN CORPUSCULAR HGB CONC 33.1 g/dl (33.0-37.0); PLATELET COUNT AUTOMATED 322 10*3/uL (130-400); RED BLOOD COUNT 4.42 10*6/uL (4.10-5.10); RED CELL DISTRI WIDTH 13.2 % (0-14.5)
[2020-02-15 16:23] LABS: ACT PARTIAL THROMBO TIME 26.2 SECONDS (20.0-32.1)
[2020-02-15 16:29] LABS: ALBUMIN 3.3 gm/dl (3.1-4.5); ALKALINE PHOSPHATASE 92 U/L (45-117); BUN 8 mg/dl (7-24); CHLORIDE 105 mmol/L (98-107); CREATININE 0.91 mg/dL (0.55-1.02); POTASSIUM 4.1 mmol/L (3.5-5.1); SGOT/AST 23 IU/L (3-35); SGPT/ALT 39 U/L (12-78); SODIUM 137 mmol/L (136-145); TOTAL PROTEIN 6.7 gm/dL (6.4-8.2)
[2020-02-15 16:31] LABS: TROPONIN I < 0.015 ng/ml (<0.045)
[2020-02-15 16:36] LABS: PLATELET SUFFICIENCY NORMAL (NORMAL); TOTAL CELLS COUNTED 100 #CELLS
[2020-02-15 19:51] LABS: BILIRUBIN NEGATIVE (NEGATIVE); BLOOD 2+ (NEGATIVE); CLARITY CLEAR (CLEAR); COLOR YELLOW (YELLOW); EPITHELIAL CELLS 21-30; GLUCOSE NEGATIVE (NEGATIVE); KETONE NEGATIVE (NEGATIVE); LEUKO ESTERASE NEGATIVE (NEGATIVE); NITRITE NEGATIVE (NEGATIVE); RBC 51-100 rbc/hpf (0-2); SPECIFIC GRAVITY 1.015 (1.005-1.030); URINE AMPHETAMINES < 1000 (1000ng/ml); URINE BARBITURATES < 200 (200ng/ml); URINE BENZODIAZEPINES < 200 (200ng/ml); URINE CANNABINOIDS (THC) < 50 (50ng/ml); URINE COCAINE < 300 (300ng/ml); URINE METHADONE < 300 (300ng/ml); URINE OPIATES < 300 (300ng/ml); UROBILINOGEN 0.2 E.U./dl (0.2-1.0); WBC 0-2 wbc/hpf (0-5)
[2020-02-15 19:52] LABS: BACTERIA TRACE
[2020-02-15 19:56] LABS: URINE PHENCYCLIDINE < 25 (25ng/ml)
[2020-02-16] VITALS: BP 110/60
[2020-02-16 06:41] LABS: BASO # 0.1 10*3/uL (0.0-0.1); EOS # 0.4 10*3/uL (0.0-0.4); EOS % 3.4 % (1.0-4.0); HEMATOCRIT 41.2 % (37.0-47.0); LYMPH # 4.6 10*3/uL (1.3-4.4); LYMPH % 41.4 % (27.0-41.0); MEAN CELL VOLUME 97.4 fl (81.0-99.0); MEAN CORPUSCULAR HGB 31.2 pg (27.0-31.0); MEAN PLATELET VOLUME 9.8 fl (9.6-12.3); MONO % 9.3 % (3.0-9.0); NEUT # 4.8 10*3/uL (2.3-7.9); PLATELET COUNT AUTOMATED 289 10*3/uL (130-400); RED BLOOD COUNT 4.23 10*6/uL (4.10-5.10); RED CELL DISTRI WIDTH 13.2 % (0-14.5); WHITE BLOOD COUNT 11.1 10*3/uL (4.8-10.8)
[2020-02-16 06:59] LABS: BUN 11 mg/dl (7-24); CHLORIDE 106 mmol/L (98-107); CREATININE 0.85 mg/dL (0.55-1.02); PHOSPHOROUS 3.4 mg/dL (2.5-4.9); POTASSIUM 3.7 mmol/L (3.5-5.1); SODIUM 140 mmol/L (136-145)
[2020-02-16] MEDS ORDERED: COREG12.5 M1 PO (07:51)
== END 2020-02-16 10:34 | disposition home or self-care (01) ==
LOC: ED 15:53 → EDHOLD 16:58 → 4E 18:16
PROVIDERS: Emergency Medicine; Student in an Organized Health Care Education/Training Program; ADMIT Internal Medicine
DX: R07.89 Other chest pain (principal); R65.10 Systemic inflammatory response syndrome (SIRS) of non-infectious origin without acute organ dysfunction; D72.829 Elevated white blood cell count, unspecified; R00.0 Tachycardia, unspecified; E11.65 Type 2 diabetes mellitus with hyperglycemia; M79.7 Fibromyalgia; K21.9 Gastro-esophageal reflux disease without esophagitis; J44.9 Chronic obstructive pulmonary disease, unspecified; F41.1 Generalized anxiety disorder; E55.9 Vitamin D deficiency, unspecified; E66.01 Morbid (severe) obesity due to excess calories; I10 Essential (primary) hypertension; F32.9 Major depressive disorder, single episode, unspecified; E78.5 Hyperlipidemia, unspecified; I25.10 Atherosclerotic heart disease of native coronary artery without angina pectoris

== ENCOUNTER 2020-02-21 18:44 | Emergency (ER) | payer OTHER ==
[~2020-02-21] VITALS: Ht 142.2 cm; Wt 90.7 kg
[~2020-02-21 18:44] MED LIST changes: +COREG12.5 M1 PO
[2020-02-21 19:13] LABS: HEMATOCRIT 44.2 % (37.0-47.0); MEAN CELL VOLUME 94.6 fl (81.0-99.0); MEAN CORPUSCULAR HGB 31.7 pg (27.0-31.0); MEAN CORPUSCULAR HGB CONC 33.5 g/dl (33.0-37.0); MEAN PLATELET VOLUME 9.7 fl (9.6-12.3); PLATELET COUNT AUTOMATED 296 10*3/uL (130-400); RED BLOOD COUNT 4.67 10*6/uL (4.10-5.10); RED CELL DISTRI WIDTH 13.3 % (0-14.5); WHITE BLOOD COUNT 20.4 10*3/uL (4.8-10.8)
[2020-02-21 19:26] LABS: ACT PARTIAL THROMBO TIME 27.6 SECONDS (20.0-32.1); INTERNATIONAL NORM RATIO 0.9 (2.0-3.5)
[2020-02-21 19:31] LABS: ALBUMIN 3.6 gm/dl (3.1-4.5); ALKALINE PHOSPHATASE 96 U/L (45-117); BUN 13 mg/dl (7-24); CHLORIDE 103 mmol/L (98-107); CREATININE 1.09 mg/dL (0.55-1.02); POTASSIUM 4.1 mmol/L (3.5-5.1); SGOT/AST 23 IU/L (3-35); SGPT/ALT 37 U/L (12-78); SODIUM 136 mmol/L (136-145); TOTAL PROTEIN 7.1 gm/dL (6.4-8.2)
[2020-02-21 19:32] LABS: TROPONIN I < 0.015 ng/ml (<0.045)
[2020-02-21 19:39] LABS: PLATELET SUFFICIENCY NORMAL (NORMAL); TOTAL CELLS COUNTED 100 #CELLS
== END 2020-02-22 02:10 | disposition home or self-care (01) ==
LOC: ED 18:44
PROVIDERS: Emergency Medicine
DX: R07.9 Chest pain, unspecified (principal); I25.10 Atherosclerotic heart disease of native coronary artery without angina pectoris; J44.9 Chronic obstructive pulmonary disease, unspecified; F32.9 Major depressive disorder, single episode, unspecified; E11.9 Type 2 diabetes mellitus without complications; I10 Essential (primary) hypertension; F41.9 Anxiety disorder, unspecified; K21.9 Gastro-esophageal reflux disease without esophagitis; R56.9 Unspecified convulsions; F17.200 Nicotine dependence, unspecified, uncomplicated; Z91.041 Radiographic dye allergy status; Z79.82 Long term (current) use of aspirin; Z79.899 Other long term (current) drug therapy

== ENCOUNTER 2020-03-05 13:01 | Emergency (ER) | payer OTHER ==
[~2020-03-05] VITALS: Ht 142.2 cm; Wt 88.5 kg
[2020-03-05] MEDS ORDERED: OSTERA TABLET1 EACH PO (13:09)
[2020-03-05 14:11] LABS: BASO # 0.1 10*3/uL (0.0-0.1); EOS # 0.3 10*3/uL (0.0-0.4); EOS % 2.5 % (1.0-4.0); LYMPH # 4.6 10*3/uL (1.3-4.4); LYMPH % 34.2 % (27.0-41.0); MEAN CELL VOLUME 95.7 fl (81.0-99.0); MEAN CORPUSCULAR HGB 31.7 pg (27.0-31.0); MEAN CORPUSCULAR HGB CONC 33.1 g/dl (33.0-37.0); MEAN PLATELET VOLUME 9.1 fl (9.6-12.3); MONO # 1.2 10*3/uL (0.1-1.0); MONO % 8.6 % (3.0-9.0); NEUT % 52.4 % (47.0-73.0); PLATELET COUNT AUTOMATED 340 10*3/uL (130-400); RED BLOOD COUNT 4.39 10*6/uL (4.10-5.10); RED CELL DISTRI WIDTH 13.1 % (0-14.5); WHITE BLOOD COUNT 13.4 10*3/uL (4.8-10.8)
[2020-03-05 14:21] LABS: BACTERIA 1+; BILIRUBIN NEGATIVE (NEGATIVE); BLOOD NEGATIVE (NEGATIVE); CLARITY CLEAR (CLEAR); COLOR YELLOW (YELLOW); GLUCOSE NEGATIVE (NEGATIVE); KETONE NEGATIVE (NEGATIVE); LEUKO ESTERASE NEGATIVE (NEGATIVE); NITRITE NEGATIVE (NEGATIVE); RBC 0-2 rbc/hpf (0-2); UROBILINOGEN 0.2 E.U./dl (0.2-1.0)
[2020-03-05 14:27] LABS: ALBUMIN 3.4 gm/dl (3.1-4.5); ALKALINE PHOSPHATASE 97 U/L (45-117); BUN 5 mg/dl (7-24); CHLORIDE 105 mmol/L (98-107); CREATININE 0.83 mg/dL (0.55-1.02); LIPASE 226 U/L (73-393); SGOT/AST 29 IU/L (3-35); SGPT/ALT 49 U/L (12-78); SODIUM 141 mmol/L (136-145)
[2020-03-05 14:31] LABS: BETA-HCG, QUANT < 1.0 mIU/mL (1-3)
== END 2020-03-05 17:06 | disposition home or self-care (01) ==
LOC: ED 13:01
PROVIDERS: Emergency Medicine
DX: R10.31 Right lower quadrant pain (principal); F32.9 Major depressive disorder, single episode, unspecified; F41.9 Anxiety disorder, unspecified; K21.9 Gastro-esophageal reflux disease without esophagitis; R56.9 Unspecified convulsions; I25.2 Old myocardial infarction; Z88.8 Allergy status to other drugs, medicaments and biological substances; Z88.5 Allergy status to narcotic agent; Z91.041 Radiographic dye allergy status; Z79.899 Other long term (current) drug therapy; Z79.2 Long term (current) use of antibiotics; Z87.891 Personal history of nicotine dependence

== ENCOUNTER 2020-03-15 13:37 | Observation (INO) | payer OTHER ==
[~2020-03-15] VITALS: Ht 142.2 cm; Wt 91.8 kg
[2020-03-15] VITALS (7 sets, daily range): BP systolic 100–119; BP diastolic 43–60
[~2020-03-15 13:37] MED LIST changes: +OSTERA TABLET1 EACH PO
[2020-03-15 14:06] LABS: HEMATOCRIT 40.8 % (37.0-47.0); MEAN CELL VOLUME 92.5 fl (81.0-99.0); MEAN CORPUSCULAR HGB 31.5 pg (27.0-31.0); MEAN CORPUSCULAR HGB CONC 34.1 g/dl (33.0-37.0); MEAN PLATELET VOLUME 9.5 fl (9.6-12.3); PLATELET COUNT AUTOMATED 354 10*3/uL (130-400); RED BLOOD COUNT 4.41 10*6/uL (4.10-5.10); WHITE BLOOD COUNT 22.5 10*3/uL (4.8-10.8)
[2020-03-15 14:15] LABS: ACT PARTIAL THROMBO TIME 24.7 SECONDS (20.0-32.1); INTERNATIONAL NORM RATIO 0.9 (2.0-3.5)
[2020-03-15 14:23] LABS: ALBUMIN 3.5 gm/dl (3.1-4.5); ALKALINE PHOSPHATASE 91 U/L (45-117); BUN 8 mg/dl (7-24); CHLORIDE 105 mmol/L (98-107); POTASSIUM 4.1 mmol/L (3.5-5.1); SGOT/AST 21 IU/L (3-35); SGPT/ALT 45 U/L (12-78); SODIUM 140 mmol/L (136-145); TOTAL PROTEIN 6.9 gm/dL (6.4-8.2)
[2020-03-15 14:25] LABS: TROPONIN I < 0.015 ng/ml (<0.045)
[2020-03-15 14:33] LABS: PLATELET SUFFICIENCY NORMAL (NORMAL); TOTAL CELLS COUNTED 100 #CELLS
--- NOTE | 2020-03-15 15:10 | NUR ---
NURSE REPORT TO NINA CORBETT RN, FOR CONTINUATION OF CARE. ALL TESTING EXCEPT SECOND AND THIRD EKG AND TROPONINS HAVE RETURNED, PROVIDER IS AWARE.
--- NOTE | 2020-03-15 16:35 | NUR ---
NITRO APPLIED AT 1600. PATIENT STATING THAT SHE IS GETTING A HEADACHE FROM IT AND THAT HER CHEST PAIN IS A 10/10.
--- NOTE | 2020-03-15 17:57 | NUR ---
A 44, admitted to , under the services of ADRIAN Grewal DO with a diagnosis of CHEST PAIN. Chief complaint is CHEST PAIN. Patient arrived via bed from ER. Monitor applied. Initial assessment completed. Vital signs taken and recorded. ADRIAN GRWEAL DO notified of admission to the unit. Orders received. See assessment for past medical history, medications and allergies. Patient and/or family oriented to unit. [facility]. Clothing/patient valuable form completed. VALENTIN GREEN
[2020-03-15] MEDS ORDERED: VERAPAMIL HCL240 MG PO (18:17)
--- NOTE | 2020-03-15 18:25 | NUR ---
DR BLANK CALLED AND NOTIFIED OF PATIENT MED LIST UP TO DATE. REGULAR DIET WAS ORDERED AND PT IS DIABETIC SO DR BLANK MADE AWARE OF THIS
--- NOTE | 2020-03-15 20:30 | NUR ---
SLEEPING; CALL LIGHT WITHIN REACH.
--- NOTE | 2020-03-15 21:35 | NUR ---
PT. C/O CHEST PAIN; STATES TO LEFT SIDE OF CHEST & IT FEELS LIKE PRESSURE. VS TAKEN & RECORDED; SEE FLOW SHEET. PT. STATES THAT SHE DID NOT SLEEP LAST NIGHT.
--- NOTE | 2020-03-15 21:40 | NUR ---
MEDICATED [facility] FOR C/O LEFT SIDED CHEST PRESSURE TATED A 08/09.
--- NOTE | 2020-03-15 21:45 | NUR ---
PT. C/O THAT THE BOTTOM OF HER BED DOESN'T WORK. REPLACED BED. TOOK PATIENT ANOTHER PILLOW.
--- NOTE | 2020-03-15 21:57 | NUR ---
MEDICATED WITH RESTORIL FOR C/O INSOMNIA.
--- NOTE | 2020-03-15 22:00 | NUR ---
BLOOD SUGAR 211; COVERAGE GIVEN PER EMAR.
--- NOTE | 2020-03-15 22:46 | NUR ---
RESTING IN BED WITH EYES CLOSED. NORCO/RESTORIL APPARENTLY EFFFECTIVE.
[2020-03-16] VITALS: BP 101/46
--- NOTE | 2020-03-16 05:08 | NUR ---
NORCO GIVEN PER PATIENT REQUEST FOR CHEST PAIN RATED A 6/10. PATIENT DESCRIBES PAIN A SHARP ACHE THAT GOES DOWN LEFT ARM. PATIENT STATES NORCO GIVEN PREVIOUSLY WAS INNEFFECTIVE.WILL CONTINUE TO MONITOR
--- NOTE | 2020-03-16 05:48 | NUR ---
ELIJ[place] EFFECTIVE. PATIENT SLEEPING AT THIS TIME. WILL CONTINUE TO MONITOR, CALL LIGHT WITHIN REACH.
[2020-03-16 06:21] LABS: HEMATOCRIT 40.5 % (37.0-47.0); MEAN CELL VOLUME 94.8 fl (81.0-99.0); MEAN CORPUSCULAR HGB 30.9 pg (27.0-31.0); MEAN CORPUSCULAR HGB CONC 32.6 g/dl (33.0-37.0); MEAN PLATELET VOLUME 9.7 fl (9.6-12.3); PLATELET COUNT AUTOMATED 310 10*3/uL (130-400); RED BLOOD COUNT 4.27 10*6/uL (4.10-5.10); RED CELL DISTRI WIDTH 13.6 % (0-14.5); WHITE BLOOD COUNT 18.1 10*3/uL (4.8-10.8)
[2020-03-16 06:53] LABS: ALBUMIN 3.2 gm/dl (3.1-4.5); BUN 13 mg/dl (7-24); CHLORIDE 108 mmol/L (98-107); POTASSIUM 3.9 mmol/L (3.5-5.1); SODIUM 143 mmol/L (136-145)
[2020-03-16 07:01] LABS: PLATELET SUFFICIENCY NORMAL (NORMAL); POLYCHROMASIA SLIGHT; TOTAL CELLS COUNTED 100 #CELLS
[2020-03-16 07:03] LABS: ALKALINE PHOSPHATASE 80 U/L (45-117); CREATININE 0.81 mg/dL (0.55-1.02); FREE T4 1.05 ng/dl (0.76-1.46); SGOT/AST 15 IU/L (3-35); SGPT/ALT 39 U/L (12-78); TOTAL PROTEIN 6.3 gm/dL (6.4-8.2)
[2020-03-16 08:00] VITALS: BP 100/46
--- NOTE | 2020-03-16 09:42 | NUR ---
PT REQUESTED AND GIVEN TYLENOL FOR C/O GEN PAIN PT RATES PAIN 5/10 WILL MONITOR
--- NOTE | 2020-03-16 10:30 | NUR ---
TYLENOL HELPED PER PT WILL MONITOR
--- NOTE | 2020-03-16 12:40 | NUR ---
Discharge instructions reviewed with patient/family. Patient receptive and verbalizes understanding. Follow-up care arranged. Written instructions given to patient/family. OLI PEREZ
== END 2020-03-16 12:40 | disposition home or self-care (01) ==
LOC: ED 13:37 → EDHOLD 16:50 → 4E 16:50 → EDHOLD 16:50 → 4E 17:23
PROVIDERS: Emergency Medicine; Internal Medicine; ADMIT Internal Medicine
DX: R07.89 Other chest pain (principal); R65.10 Systemic inflammatory response syndrome (SIRS) of non-infectious origin without acute organ dysfunction; R00.0 Tachycardia, unspecified; D72.829 Elevated white blood cell count, unspecified; K21.9 Gastro-esophageal reflux disease without esophagitis; I10 Essential (primary) hypertension; J44.9 Chronic obstructive pulmonary disease, unspecified; F32.9 Major depressive disorder, single episode, unspecified; F41.1 Generalized anxiety disorder; E55.9 Vitamin D deficiency, unspecified; E78.5 Hyperlipidemia, unspecified; E11.65 Type 2 diabetes mellitus with hyperglycemia; I25.10 Atherosclerotic heart disease of native coronary artery without angina pectoris; F44.5 Conversion disorder with seizures or convulsions; M79.7 Fibromyalgia

== ENCOUNTER 2020-05-06 15:58 | Emergency (ER) | payer OTHER ==
[~2020-05-06] VITALS: Ht 142.2 cm; Wt 92.5 kg
[~2020-05-06 15:58] MED LIST changes: +VERAPAMIL HCL240 MG PO
[2020-05-06 16:27] LABS: HEMATOCRIT 40.4 % (37.0-47.0); MEAN CELL VOLUME 95.1 fl (81.0-99.0); MEAN CORPUSCULAR HGB 30.8 pg (27.0-31.0); MEAN CORPUSCULAR HGB CONC 32.4 g/dl (33.0-37.0); MEAN PLATELET VOLUME 9.4 fl (9.6-12.3); PLATELET COUNT AUTOMATED 311 10*3/uL (130-400); RED BLOOD COUNT 4.25 10*6/uL (4.10-5.10); RED CELL DISTRI WIDTH 13.6 % (0-14.5); WHITE BLOOD COUNT 15.3 10*3/uL (4.8-10.8)
[2020-05-06 16:39] LABS: ACT PARTIAL THROMBO TIME 20.9 SECONDS (20.0-32.1); INTERNATIONAL NORM RATIO 0.9 (2.0-3.5)
[2020-05-06 16:44] LABS: BASOPHILS 1 % (0-1); TOTAL CELLS COUNTED 100 #CELLS
[2020-05-06 16:45] LABS: ALBUMIN 3.4 gm/dl (3.1-4.5); ALKALINE PHOSPHATASE 91 U/L (45-117); BUN 9 mg/dl (7-24); BURR CELLS FEW; CHLORIDE 108 mmol/L (98-107); CREATININE 1.08 mg/dL (0.55-1.02); PLATELET SUFFICIENCY NORMAL (NORMAL); POTASSIUM 3.9 mmol/L (3.5-5.1); SGOT/AST 20 IU/L (3-35); SGPT/ALT 37 U/L (12-78); SODIUM 140 mmol/L (136-145); TOTAL PROTEIN 6.7 gm/dL (6.4-8.2)
[2020-05-06 16:47] LABS: TROPONIN I < 0.015 ng/ml (<0.045)
== END 2020-05-06 19:35 | disposition home or self-care (01) ==
LOC: ED 15:58
PROVIDERS: Emergency Medicine
DX: I20.9 Angina pectoris, unspecified (principal); E11.9 Type 2 diabetes mellitus without complications; I25.10 Atherosclerotic heart disease of native coronary artery without angina pectoris; J44.9 Chronic obstructive pulmonary disease, unspecified; K21.9 Gastro-esophageal reflux disease without esophagitis; E78.5 Hyperlipidemia, unspecified; I10 Essential (primary) hypertension; E66.01 Morbid (severe) obesity due to excess calories; F17.200 Nicotine dependence, unspecified, uncomplicated; Z88.6 Allergy status to analgesic agent; Z91.041 Radiographic dye allergy status; Z79.899 Other long term (current) drug therapy

== ENCOUNTER 2020-06-21 18:04 | Emergency (ER) | payer OTHER ==
[~2020-06-21] VITALS: Ht 142.2 cm; Wt 93.9 kg
[~2020-06-21 18:04] MED LIST changes: +ACID REDUCER10 MG PO
[2020-06-21 18:23] LABS: HEMATOCRIT 40.5 % (37.0-47.0); MEAN CELL VOLUME 93.3 fl (81.0-99.0); MEAN CORPUSCULAR HGB 30.9 pg (27.0-31.0); MEAN CORPUSCULAR HGB CONC 33.1 g/dl (33.0-37.0); PLATELET COUNT AUTOMATED 328 10*3/uL (130-400); RED BLOOD COUNT 4.34 10*6/uL (4.10-5.10); RED CELL DISTRI WIDTH 13.6 % (0-14.5); WHITE BLOOD COUNT 19.2 10*3/uL (4.8-10.8)
[2020-06-21 18:40] LABS: ALBUMIN 3.3 gm/dl (3.1-4.5); ALKALINE PHOSPHATASE 102 U/L (45-117); BUN 14 mg/dl (7-24); CHLORIDE 101 mmol/L (98-107); POTASSIUM 4.3 mmol/L (3.5-5.1); SGOT/AST 19 IU/L (3-35); SGPT/ALT 36 U/L (12-78); SODIUM 137 mmol/L (136-145); TOTAL PROTEIN 6.7 gm/dL (6.4-8.2)
[2020-06-21 18:43] LABS: TROPONIN I < 0.015 ng/ml (<0.045)
[2020-06-21 18:47] LABS: ACT PARTIAL THROMBO TIME 23.8 SECONDS (20.0-32.1); INTERNATIONAL NORM RATIO 0.9 (2.0-3.5)
[2020-06-21 18:48] LABS: PLATELET SUFFICIENCY NORMAL (NORMAL); TOTAL CELLS COUNTED 100 #CELLS
[2020-06-21 18:49] LABS: BURR CELLS FEW; POLYCHROMASIA SLIGHT
[2020-06-21 20:11] LABS: CLARITY SL CLOUDY (CLEAR); COLOR YELLOW (YELLOW)
[2020-06-21 20:12] LABS: BILIRUBIN NEGATIVE; BLOOD 3+ (NEGATIVE); GLUCOSE NEGATIVE; KETONE NEGATIVE; LEUKO ESTERASE NEGATIVE (NEGATIVE); NITRITE NEGATIVE (NEGATIVE); UROBILINOGEN 0.2 E.U./dl (0.2-1.0)
[2020-06-21 20:24] LABS: BACTERIA 4+; MUCOUS 1+; RBC 51-100 rbc/hpf (0-2)
[2020-06-21] MEDS ORDERED: MACROBID100 M1 PO ×2 (22:23)
== END 2020-06-21 22:20 | disposition home or self-care (01) ==
LOC: ED 18:04
PROVIDERS: Emergency Medicine; Emergency Medicine Emergency Medical Services
DX: F41.1 Generalized anxiety disorder (principal); K21.9 Gastro-esophageal reflux disease without esophagitis; N39.0 Urinary tract infection, site not specified; R07.89 Other chest pain; F32.9 Major depressive disorder, single episode, unspecified; F41.9 Anxiety disorder, unspecified; J44.9 Chronic obstructive pulmonary disease, unspecified; Z88.8 Allergy status to other drugs, medicaments and biological substances; Z88.5 Allergy status to narcotic agent; Z79.899 Other long term (current) drug therapy

== ENCOUNTER 2020-06-23 14:35 | Observation (INO) | payer OTHER ==
[~2020-06-23] VITALS: Ht 142.2 cm; Wt 96.2 kg
[2020-06-23 14:35] VITALS: BP 104/58
[~2020-06-23 14:35] MED LIST changes: +MACROBID100 M1 PO
[2020-06-23 15:07] LABS: HEMATOCRIT 42.8 % (37.0-47.0); MEAN CELL VOLUME 93.4 fl (81.0-99.0); MEAN CORPUSCULAR HGB 30.3 pg (27.0-31.0); MEAN CORPUSCULAR HGB CONC 32.5 g/dl (33.0-37.0); MEAN PLATELET VOLUME 9.8 fl (9.6-12.3); PLATELET COUNT AUTOMATED 317 10*3/uL (130-400); RED BLOOD COUNT 4.58 10*6/uL (4.10-5.10); WHITE BLOOD COUNT 17.6 10*3/uL (4.8-10.8)
[2020-06-23 15:24] LABS: ACT PARTIAL THROMBO TIME 25.6 SECONDS (20.0-32.1); INTERNATIONAL NORM RATIO 0.9 (2.0-3.5)
[2020-06-23 15:36] LABS: BASOPHILS 1 % (0-1); TOTAL CELLS COUNTED 100 #CELLS
[2020-06-23 15:37] LABS: PLATELET SUFFICIENCY NORMAL (NORMAL)
[2020-06-23 15:51] VITALS: BP 110/65
[2020-06-23 15:59] LABS: ALBUMIN 3.1 gm/dl (3.1-4.5); ALKALINE PHOSPHATASE 100 U/L (45-117); BUN 7 mg/dl (7-24); CHLORIDE 103 mmol/L (98-107); CREATININE 0.99 mg/dL (0.55-1.02); POTASSIUM 4.4 mmol/L (3.5-5.1); SGOT/AST 20 IU/L (3-35); SGPT/ALT 38 U/L (12-78); SODIUM 138 mmol/L (136-145); TOTAL PROTEIN 6.5 gm/dL (6.4-8.2)
[2020-06-23 16:09] LABS: TROPONIN I < 0.015 ng/ml (<0.045)
[2020-06-23 16:47] LABS: BILIRUBIN NEGATIVE; BLOOD 3+ (NEGATIVE); CLARITY CLEAR (CLEAR); COLOR YELLOW (YELLOW); GLUCOSE NEGATIVE; KETONE NEGATIVE; PH 6.5 (5.0-9.0); SPECIFIC GRAVITY 1.015 (1.005-1.030); UROBILINOGEN 0.2 E.U./dl (0.2-1.0)
[2020-06-23 16:48] LABS: LEUKO ESTERASE NEGATIVE (NEGATIVE); NITRITE NEGATIVE (NEGATIVE)
[2020-06-23 16:52] LABS: BACTERIA 2+; RBC 51-100 rbc/hpf (0-2)
[2020-06-23 18:00] VITALS: BP 154/94
[2020-06-23 18:21] VITALS: BP 154/94
[2020-06-23 20:00] VITALS: BP 109/71
[2020-06-24] VITALS: BP 124/66
[2020-06-24 06:44] LABS: HEMATOCRIT 37.8 % (37.0-47.0); MEAN CELL VOLUME 96.4 fl (81.0-99.0); MEAN CORPUSCULAR HGB 29.8 pg (27.0-31.0); MEAN PLATELET VOLUME 9.6 fl (9.6-12.3); PLATELET COUNT AUTOMATED 257 10*3/uL (130-400); RED BLOOD COUNT 3.92 10*6/uL (4.10-5.10); RED CELL DISTRI WIDTH 14.1 % (0-14.5); WHITE BLOOD COUNT 10.7 10*3/uL (4.8-10.8)
[2020-06-24 07:09] LABS: ALBUMIN 2.7 gm/dl (3.1-4.5); ALKALINE PHOSPHATASE 78 U/L (45-117); BUN 8 mg/dl (7-24); CHLORIDE 110 mmol/L (98-107); SGOT/AST 19 IU/L (3-35); SGPT/ALT 31 U/L (12-78); SODIUM 141 mmol/L (136-145); TOTAL PROTEIN 5.6 gm/dL (6.4-8.2)
[2020-06-24 07:27] LABS: BASOPHILS 1 % (0-1); BURR CELLS FEW; PLATELET SUFFICIENCY NORMAL (NORMAL); TOTAL CELLS COUNTED 100 #CELLS
[2020-06-24 08:00] VITALS: BP 126/79
[2020-06-24 12:17] VITALS: BP 115/74
[2020-06-24] MEDS ORDERED: IMDUR SA60 M1 PO (14:48)
== END 2020-06-24 15:29 | disposition home or self-care (01) ==
LOC: ED 14:35 → EDHOLD 17:35 → 4E 17:35 → EDHOLD 17:35 → 4E 18:18
PROVIDERS: Emergency Medicine; Internal Medicine; Nurse Practitioner Family; ADMIT Internal Medicine; ATTEND Internal Medicine
DX: R07.89 Other chest pain (principal); R00.0 Tachycardia, unspecified; E87.2 Acidosis; D72.829 Elevated white blood cell count, unspecified; R65.10 Systemic inflammatory response syndrome (SIRS) of non-infectious origin without acute organ dysfunction; I25.10 Atherosclerotic heart disease of native coronary artery without angina pectoris; E11.65 Type 2 diabetes mellitus with hyperglycemia; E78.5 Hyperlipidemia, unspecified; I31.9 Disease of pericardium, unspecified

== ENCOUNTER 2020-07-18 15:38 | Emergency (ER) | payer OTHER ==
[~2020-07-18] VITALS: Wt 97.1 kg
[2020-07-18 16:27] LABS: BASO # 0.2 10*3/uL (0.0-0.1); BASO % 1.3 % (0.0-1.0); EOS # 0.3 10*3/uL (0.0-0.4); EOS % 2.4 % (1.0-4.0); HEMATOCRIT 38.5 % (37.0-47.0); LYMPH # 4.1 10*3/uL (1.3-4.4); LYMPH % 31.3 % (27.0-41.0); MEAN CELL VOLUME 92.3 fl (81.0-99.0); MEAN CORPUSCULAR HGB 29.5 pg (27.0-31.0); MEAN CORPUSCULAR HGB CONC 31.9 g/dl (33.0-37.0); MONO % 7.6 % (3.0-9.0); NEUT # 7.4 10*3/uL (2.3-7.9); NEUT % 55.8 % (47.0-73.0); NUCLEATED RED BLOOD CELL 0.2 % (0.0-0.0); PLATELET COUNT AUTOMATED 328 10*3/uL (130-400); RED BLOOD COUNT 4.17 10*6/uL (4.10-5.10); RED CELL DISTRI WIDTH 13.6 % (0-14.5); WHITE BLOOD COUNT 13.2 10*3/uL (4.8-10.8)
[2020-07-18 16:28] LABS: ACT PARTIAL THROMBO TIME 25.1 SECONDS (20.0-32.1)
[2020-07-18 16:36] LABS: ALBUMIN 3.3 gm/dl (3.1-4.5); ALKALINE PHOSPHATASE 89 U/L (45-117); BUN 9 mg/dl (7-24); CHLORIDE 104 mmol/L (98-107); CREATININE 1.02 mg/dL (0.55-1.02); LIPASE 197 U/L (73-393); POTASSIUM 4.2 mmol/L (3.5-5.1); SGOT/AST 27 IU/L (3-35); SGPT/ALT 36 U/L (12-78); SODIUM 140 mmol/L (136-145); TOTAL PROTEIN 6.7 gm/dL (6.4-8.2)
[2020-07-18 17:21] LABS: BILIRUBIN NEGATIVE; BLOOD NEGATIVE (NEGATIVE); CLARITY CLEAR (CLEAR); COLOR YELLOW (YELLOW); GLUCOSE NEGATIVE; KETONE NEGATIVE; LEUKO ESTERASE TRACE (NEGATIVE); NITRITE NEGATIVE (NEGATIVE); PH 8.5 (4.5-8.0); UROBILINOGEN 0.2 E.U./dl (0.0-1.0)
[2020-07-18 17:25] LABS: BACTERIA 2+
[2020-07-18] MEDS ORDERED: DICYCLOMINE HCL10 MG PO (19:28)
== END 2020-07-18 19:28 ==
LOC: ED 15:38
PROVIDERS: Nurse Practitioner Family
DX: R10.9 Unspecified abdominal pain (principal); Z79.899 Other long term (current) drug therapy

== ENCOUNTER 2020-07-30 12:57 | Observation (INO) | payer OTHER ==
[~2020-07-30] VITALS: Ht 142.2 cm; Wt 97.2 kg
[2020-07-30] VITALS (7 sets, daily range): BP systolic 116–140; BP diastolic 68–81
[~2020-07-30 12:57] MED LIST changes: +DICYCLOMINE HCL10 MG PO
[2020-07-30 13:39] LABS: BASO # 0.2 10*3/uL (0.0-0.1); BASO % 1.1 % (0.0-1.0); EOS # 0.3 10*3/uL (0.0-0.4); LYMPH # 4.4 10*3/uL (1.3-4.4); LYMPH % 31.7 % (27.0-41.0); MEAN CELL VOLUME 93.5 fl (81.0-99.0); MEAN CORPUSCULAR HGB 30.1 pg (27.0-31.0); MEAN CORPUSCULAR HGB CONC 32.3 g/dl (33.0-37.0); MEAN PLATELET VOLUME 9.3 fl (9.6-12.3); MONO % 7.5 % (3.0-9.0); NEUT # 7.7 10*3/uL (2.3-7.9); PLATELET COUNT AUTOMATED 339 10*3/uL (130-400); RED BLOOD COUNT 4.28 10*6/uL (4.10-5.10); RED CELL DISTRI WIDTH 14.1 % (0-14.5); WHITE BLOOD COUNT 13.8 10*3/uL (4.8-10.8)
[2020-07-30 13:50] LABS: ACT PARTIAL THROMBO TIME 25.3 SECONDS (20.0-32.1)
[2020-07-30] MEDS ORDERED: ESTRACE1 M1 PO (13:57)
[2020-07-30 13:58] LABS: ALBUMIN 3.4 gm/dl (3.1-4.5); ALKALINE PHOSPHATASE 83 U/L (45-117); BUN 8 mg/dl (7-24); CHLORIDE 105 mmol/L (98-107); CREATININE 0.91 mg/dL (0.55-1.02); SGOT/AST 21 IU/L (3-35); SGPT/ALT 30 U/L (12-78); SODIUM 137 mmol/L (136-145); TOTAL PROTEIN 6.9 gm/dL (6.4-8.2)
[2020-07-30] MEDS ORDERED: MEDROXYPROGESTER5 M1 PO (13:58)
[2020-07-30 14:07] LABS: TROPONIN I < 0.015 ng/ml (<0.045)
--- NOTE | 2020-07-30 17:15 | NUR ---
A 44, admitted to 5E, under the services of DAVID Perez DO with a diagnosis of SEVERE SEPSIS AND PNEUMONITIS.. Chief complaint is COUGH AND SHORTNESS OF BREATH. Patient arrived via from ER. Monitor applied. Initial assessment completed. Vital signs taken and recorded. DAVID PEREZ DO notified of admission to the unit. Orders received. See assessment for past medical history, medications and allergies. Patient and/or family oriented to unit. [facility] visitation policy reviewed. Clothing/patient valuable form completed. RITA GONZALEZ
--- NOTE | 2020-07-30 17:30 | NUR ---
NOTIFIED DR YIP OF MED RECONCILIATION.
--- NOTE | 2020-07-30 17:37 | NUR ---
DR BISHOP NOTIFIED OF NEW CONSULT FOR PNEUMONITIS.
--- NOTE | 2020-07-30 17:38 | NUR ---
NOTIFIED DR YIP THAT PT STATES SHE IS A PT OF DR MYERS.DR MILLERTED HE WOULD MAKE PROPER CHANGES AND TO NOTIFIY DR MYERS.
--- NOTE | 2020-07-30 17:51 | NUR ---
DR MYERS NOTIFIED OF CONSULT FOR CHEST PAIN OF HIS EXISTING PT.
--- NOTE | 2020-07-30 18:25 | NUR ---
NORCO 5/325 MG GIVEN FOR C/O PAIN FROM COUGHING TO ACCESSORIES,06/09.
--- NOTE | 2020-07-30 19:04 | NUR ---
NOTIFIED DR MCKEON OF CRITICAL LACTIC ACID OF 3.4.PT HAS NS INFUSING AT THIS TIME PER PROTOCOL.
--- NOTE | 2020-07-30 21:03 | NUR ---
NOTIFIED DR. ROBISON PATIENTS HOME MEDICATIONS WERE NOT CONTINUED AND THAT PATIENTS HR IS IN THE 120'S AND SHE TAKES COREG AT HOME. DR. ROBISON STATED SHE WOULD TAKE A LOOK AT PATIENTS HOME MEDICATIONS.
--- NOTE | 2020-07-30 21:17 | NUR ---
NOTIFIED DR. ROBISON OF CRITICAL LACTIC ACID, 3.1. NO NEW ORDERS RECEIVED. WILL CONTINUE TO MONITOR.
--- NOTE | 2020-07-30 22:14 | NUR ---
PATIENT REQUESTING A RESTORIL. MEDICATED AT THIS TIME. WILL CHECK EFEECTIVENESS.
--- NOTE | 2020-07-30 22:53 | NUR ---
PATIENT C/O 10 CHEST PAIN. MEDICATED WITH NORCO. WILL CHECK EFFECTIVENESS.
--- NOTE | 2020-07-30 23:53 | NUR ---
PATIENT SLEEPING, NO SIGNS OF DISTRESS. RESTORIL AND NORCO EFFECTIVE. WILL CONTINUE TO MONITOR.
[2020-07-31] VITALS: BP 128/76
--- NOTE | 2020-07-31 04:00 | NUR ---
PATIENT SLEEPING. NO SIGNS OF DISTRESS. WILL CONTINUE TO MONITOR.
[2020-07-31 06:22] LABS: BASO # 0.1 10*3/uL (0.0-0.1); BASO % 0.6 % (0.0-1.0); EOS % 0.1 % (1.0-4.0); LYMPH # 1.4 10*3/uL (1.3-4.4); LYMPH % 11.5 % (27.0-41.0); MEAN CELL VOLUME 94.6 fl (81.0-99.0); MEAN CORPUSCULAR HGB CONC 31.8 g/dl (33.0-37.0); MEAN PLATELET VOLUME 9.4 fl (9.6-12.3); MONO # 0.3 10*3/uL (0.1-1.0); MONO % 2.1 % (3.0-9.0); NEUT # 9.9 10*3/uL (2.3-7.9); NEUT % 83.4 % (47.0-73.0); PLATELET COUNT AUTOMATED 334 10*3/uL (130-400); RED BLOOD COUNT 4.23 10*6/uL (4.10-5.10); RED CELL DISTRI WIDTH 13.9 % (0-14.5); WHITE BLOOD COUNT 11.9 10*3/uL (4.8-10.8)
[2020-07-31 06:51] LABS: ALBUMIN 3.2 gm/dl (3.1-4.5); ALKALINE PHOSPHATASE 76 U/L (45-117); BUN 14 mg/dl (7-24); CHLORIDE 109 mmol/L (98-107); CREATININE 1.14 mg/dL (0.55-1.02); POTASSIUM 4.2 mmol/L (3.5-5.1); SGOT/AST 11 IU/L (3-35); SGPT/ALT 24 U/L (12-78); SODIUM 140 mmol/L (136-145)
[2020-07-31 06:58] LABS: TOTAL PROTEIN 6.7 gm/dL (6.4-8.2)
--- NOTE | 2020-07-31 07:38 | NUR ---
24 HR chart check completed.
[2020-07-31 08:00] VITALS: BP 125/64
--- NOTE | 2020-07-31 08:32 | NUR ---
MEDICATED WITH PO NORCO ORDERED PER PT REQUEST FOR C/O PAIN TO LEFT CHEST THAT RADIATES TO LEFT ARM RATED 10/10. PT DENIES SMOKING YET HAS EXPOSURE TO SECOND HAND SMOKE AT HOME.
--- NOTE | 2020-07-31 09:15 | NUR ---
MEDICATION SOMEWHAT EFFECTIVE FOR PAIN.
--- NOTE | 2020-07-31 11:11 | NUR ---
Base Loader in to talk to patient. Patient states lives at HOME with FIANCE AND CHILDREN. There are NO steps in the home. Physician: Teri SILVEIRA Pharmacy: [facility] health services: NONE Patient's level of ADLs: INDEPENDENT Patient has working utilities: YES DME: [employer] NE[employer] Follow-up physician's appointment after d/c: WILL BE MADE BY HOSPITALIST NURSE DIRECTOR ON DISCHARGE Does patient want to access PORTAL?: NO Discharge plan PT LIVES AT HOME WITH HER FIANCE AND HER CHILDREN. STATES SHE IS INDEPENDENT IN HER CARE. HAS OXYGEN AND A NEBULIZER. DENIES ANY OTHER NEEDS AT THIS TIME. PLAN IS TO RETURN HOME WHEN MEDICALLY STABLE. WILL CONTINUE TO FOLLOW. STATES SHE WILL HAVE A RIDE HOME.. MELBA GARCIA
--- NOTE | 2020-07-31 11:36 | NUR ---
DR MYERS CALLED IN AND UPDATED ON PT'S COMPLAINTS/CONDITION. HE WAS INFORMED THAT DR CHILEL IS ROUNDING ON PT TODAY.
[2020-07-31 12:00] VITALS: BP 101/54
--- NOTE | 2020-07-31 12:00 | NUR ---
Patient resting quietly with no c/o discomfort. Respirations easy and regular. Vital signs stable. No overt distress. ZHANNA GILLIS
--- NOTE | 2020-07-31 15:58 | NUR ---
MEDICATED WITH PO NORCO ORDERED PER PT REQUEST FOR C/O PAIN TO LEFT CHEST/ARM RATED 10/10.
[2020-07-31 16:00] VITALS: BP 113/58
--- NOTE | 2020-07-31 16:45 | NUR ---
MEDICATION SOMEWHAT EFFECTIVE FOR PAIN.
[2020-07-31 20:00] VITALS: BP 127/77
--- NOTE | 2020-07-31 21:28 | NUR ---
[facility] REQUESTING A NORCO AND RESTORIL. PATIENT C/O 10/ CHEST PAIN. MEDICATED WITH BOTH AT THIS TIME. WILL CHECK EFFECTIVENESS.
--- NOTE | 2020-07-31 22:28 | NUR ---
NORCO [place] EFFECTIVE PER PATIENT.
[2020-08-01] VITALS: BP 112/71
--- NOTE | 2020-08-01 04:00 | NUR ---
PATIENT SLEEPING. NO SIGNS OF DISTRESS. RESPIRATIONS EASY NON LABORED. BED IN LOWEST POSITION,CALL LIGHT WITHIN REACH. WILL CONTINUE TO MONITOR.
--- NOTE | 2020-08-01 06:30 | NUR ---
PATIENT C/O 10 CHEST PAIN. MEDICATED WITH NORCO. WILL CHECK EFFECTIVENESS.
[2020-08-01 08:00] VITALS: BP 126/72
--- NOTE | 2020-08-01 10:48 | NUR ---
NORCO 5/325 MG GIVEN FOR C/O GENERALIZED PAIN,08/09.
[2020-08-01] MEDS ORDERED: ZITHROMAX500 MG PO (11:30)
[2020-08-01] MEDS ORDERED: PREDNISONE10 MG PO (11:32)
--- NOTE | 2020-08-01 11:37 | NUR ---
PT DENIED NEEDS ON DISCHARGE. PLAN IS TO RETURN HOME WHEN MEDICALLY STABLE.
--- NOTE | 2020-08-01 12:23 | NUR ---
Discharge instructions reviewed with patient/family. Patient receptive and verbalizes understanding. Follow-up care arranged. Written instructions given to patient/family. RITA GONZALEZ
--- NOTE | 2020-08-04 08:41 | NUR ---
TRAFFIC ENGINEER RECEIVED CALL FROM PATIENT INSURANCE REQUESTING DISCHARGE DATE. TRAFFIC ENGINEER PROVIDED THE DISCHARGE DATE.
[2020-08-06 13:06] LABS: ADENOVIRUS Negative (Negative); INFLUENZA A Negative (Negative); INFLUENZA B Negative (Negative); METAPNEUMOVIRUS Negative (Negative); PARAINFLUENZA 1 Negative (Negative); PARAINFLUENZA 2 Negative (Negative); PARAINFLUENZA 3 Negative (Negative); RHINOVIRUS Negative (Negative); RSV A Negative (Negative); RSV B Negative (Negative)
== END 2020-08-01 12:23 | disposition home or self-care (01) ==
LOC: ED 12:57 → EDHOLD 16:55 → 5E 16:56
PROVIDERS: Emergency Medicine; Internal Medicine; Internal Medicine Critical Care Medicine; ADMIT Family Medicine; ATTEND Family Medicine
DX: R07.89 Other chest pain (principal); R00.0 Tachycardia, unspecified; D72.829 Elevated white blood cell count, unspecified; J18.9 Pneumonia, unspecified organism; E11.65 Type 2 diabetes mellitus with hyperglycemia; E78.5 Hyperlipidemia, unspecified; F41.1 Generalized anxiety disorder; F32.9 Major depressive disorder, single episode, unspecified; J44.9 Chronic obstructive pulmonary disease, unspecified; M79.7 Fibromyalgia; K21.9 Gastro-esophageal reflux disease without esophagitis; E44.0 Moderate protein-calorie malnutrition

== ENCOUNTER 2020-08-10 15:44 | Emergency (ER) | payer OTHER ==
[~2020-08-10] VITALS: Ht 142.2 cm; Wt 97.1 kg
[~2020-08-10 15:44] MED LIST changes: +ESTRACE1 M1 PO; +MEDROXYPROGESTER5 M1 PO; +ZITHROMAX500 MG PO
[2020-08-10 16:05] LABS: HEMATOCRIT 43.2 % (37.0-47.0); MEAN CELL VOLUME 92.9 fl (81.0-99.0); MEAN CORPUSCULAR HGB 30.1 pg (27.0-31.0); MEAN CORPUSCULAR HGB CONC 32.4 g/dl (33.0-37.0); MEAN PLATELET VOLUME 8.8 fl (9.6-12.3); NUCLEATED RED BLOOD CELL 0.1 % (0.0-0.0); PLATELET COUNT AUTOMATED 358 10*3/uL (130-400); RED BLOOD COUNT 4.65 10*6/uL (4.10-5.10); RED CELL DISTRI WIDTH 14.5 % (0-14.5); WHITE BLOOD COUNT 26.8 10*3/uL (4.8-10.8)
[2020-08-10 16:19] LABS: ALBUMIN 3.3 gm/dl (3.1-4.5); ALKALINE PHOSPHATASE 85 U/L (45-117); BUN 14 mg/dl (7-24); CHLORIDE 100 mmol/L (98-107); CREATININE 1.13 mg/dL (0.55-1.02); POTASSIUM 3.9 mmol/L (3.5-5.1); SGOT/AST 24 IU/L (3-35); SGPT/ALT 41 U/L (12-78); SODIUM 136 mmol/L (136-145); TOTAL PROTEIN 6.6 gm/dL (6.4-8.2); TROPONIN I < 0.015 ng/ml (<0.045)
[2020-08-10 16:34] LABS: ATYPICAL LYMPHS 1 % (0-0); TOTAL CELLS COUNTED 100 #CELLS
[2020-08-10 16:35] LABS: BURR CELLS FEW; SCHISTOCYTES FEW
[2020-08-10 16:37] LABS: PLATELET SUFFICIENCY NORMAL (NORMAL)
== END 2020-08-10 19:35 | disposition home or self-care (01) ==
LOC: ED 15:44
PROVIDERS: Emergency Medicine
DX: R07.1 Chest pain on breathing (principal); Z88.6 Allergy status to analgesic agent; Z91.041 Radiographic dye allergy status; Z79.899 Other long term (current) drug therapy; Z87.891 Personal history of nicotine dependence

== ENCOUNTER 2020-08-21 16:54 | Observation (INO) | payer OTHER ==
[~2020-08-21] VITALS: Ht 142.2 cm; Wt 100.3 kg
[2020-08-21 17:01] VITALS: BP 132/68
[2020-08-21 17:20] LABS: BASO # 0.1 10*3/uL (0.0-0.1); BASO % 0.7 % (0.0-1.0); EOS # 0.3 10*3/uL (0.0-0.4); EOS % 2.8 % (1.0-4.0); HEMATOCRIT 38.3 % (37.0-47.0); LYMPH # 3.4 10*3/uL (1.3-4.4); LYMPH % 29.8 % (27.0-41.0); MEAN CELL VOLUME 95.3 fl (81.0-99.0); MEAN CORPUSCULAR HGB 30.1 pg (27.0-31.0); MEAN CORPUSCULAR HGB CONC 31.6 g/dl (33.0-37.0); MEAN PLATELET VOLUME 8.9 fl (9.6-12.3); MONO # 0.9 10*3/uL (0.1-1.0); MONO % 7.9 % (3.0-9.0); NEUT # 6.6 10*3/uL (2.3-7.9); NEUT % 57.7 % (47.0-73.0); PLATELET COUNT AUTOMATED 291 10*3/uL (130-400); RED BLOOD COUNT 4.02 10*6/uL (4.10-5.10); RED CELL DISTRI WIDTH 14.3 % (0-14.5); WHITE BLOOD COUNT 11.4 10*3/uL (4.8-10.8)
[2020-08-21 17:30] LABS: ACT PARTIAL THROMBO TIME 23.9 SECONDS (20.0-32.1)
[2020-08-21 17:40] LABS: ALKALINE PHOSPHATASE 89 U/L (45-117); BUN 10 mg/dl (7-24); CHLORIDE 105 mmol/L (98-107); CREATININE 0.87 mg/dL (0.55-1.02); LIPASE 128 U/L (73-393); POTASSIUM 4.1 mmol/L (3.5-5.1); SGOT/AST 28 IU/L (3-35); SGPT/ALT 46 U/L (12-78); SODIUM 137 mmol/L (136-145); TOTAL PROTEIN 6.6 gm/dL (6.4-8.2)
[2020-08-21 17:41] LABS: TROPONIN I < 0.015 ng/ml (<0.045)
[2020-08-21 17:42] LABS: BETA-HCG, QUANT < 1.0 mIU/mL (1-3)
[2020-08-21 17:47] VITALS: BP 125/53
[2020-08-21 20:59] VITALS: BP 129/71
[2020-08-21 23:24] VITALS: BP 116/55
[2020-08-22 06:32] LABS: BASO # 0.1 10*3/uL (0.0-0.1); BASO % 0.9 % (0.0-1.0); EOS # 0.3 10*3/uL (0.0-0.4); EOS % 3.5 % (1.0-4.0); HEMATOCRIT 38.7 % (37.0-47.0); LYMPH # 2.9 10*3/uL (1.3-4.4); LYMPH % 35.7 % (27.0-41.0); MEAN CELL VOLUME 95.8 fl (81.0-99.0); MEAN CORPUSCULAR HGB 30.2 pg (27.0-31.0); MEAN CORPUSCULAR HGB CONC 31.5 g/dl (33.0-37.0); MONO # 0.6 10*3/uL (0.1-1.0); MONO % 7.7 % (3.0-9.0); NEUT # 4.1 10*3/uL (2.3-7.9); NEUT % 50.6 % (47.0-73.0); PLATELET COUNT AUTOMATED 265 10*3/uL (130-400); RED BLOOD COUNT 4.04 10*6/uL (4.10-5.10); RED CELL DISTRI WIDTH 14.5 % (0-14.5); WHITE BLOOD COUNT 8.2 10*3/uL (4.8-10.8)
[2020-08-22 06:56] LABS: ALBUMIN 2.9 gm/dl (3.1-4.5); ALKALINE PHOSPHATASE 80 U/L (45-117); BUN 9 mg/dl (7-24); CHLORIDE 107 mmol/L (98-107); CHOLESTEROL 93 mg/dL (<200); CREATININE 0.76 mg/dL (0.55-1.02); HDL CHOLESTEROL 37 mg/dl (40-60); POTASSIUM 3.8 mmol/L (3.5-5.1); SGOT/AST 31 IU/L (3-35); SGPT/ALT 44 U/L (12-78); SODIUM 140 mmol/L (136-145); TOTAL PROTEIN 6.3 gm/dL (6.4-8.2); TRIGLYCERIDES 292 mg/dl (<150); VLDL CHOLESTEROL 58 mg/dL (6-40)
[2020-08-22 08:00] VITALS: BP 118/44
== END 2020-08-22 18:10 | disposition home or self-care (01) ==
LOC: ED 16:54 → EDHOLD 18:32 → 5E 22:39
PROVIDERS: Emergency Medicine; Student in an Organized Health Care Education/Training Program; ADMIT Internal Medicine; ATTEND Internal Medicine
DX: R07.89 Other chest pain (principal); D72.829 Elevated white blood cell count, unspecified; E87.2 Acidosis; E44.0 Moderate protein-calorie malnutrition; R00.0 Tachycardia, unspecified; R06.00 Dyspnea, unspecified; K21.9 Gastro-esophageal reflux disease without esophagitis; J44.9 Chronic obstructive pulmonary disease, unspecified; F41.1 Generalized anxiety disorder; F32.9 Major depressive disorder, single episode, unspecified; E11.65 Type 2 diabetes mellitus with hyperglycemia; R79.82 Elevated C-reactive protein (CRP); E44.1 Mild protein-calorie malnutrition

== ENCOUNTER 2020-09-03 13:08 | Emergency (ER) | payer OTHER ==
[~2020-09-03] VITALS: Wt 97.5 kg
[2020-09-03 13:59] LABS: HEMATOCRIT 39.6 % (37.0-47.0); MEAN CELL VOLUME 94.1 fl (81.0-99.0); MEAN CORPUSCULAR HGB 30.2 pg (27.0-31.0); MEAN CORPUSCULAR HGB CONC 32.1 g/dl (33.0-37.0); MEAN PLATELET VOLUME 8.8 fl (9.6-12.3); NUCLEATED RED BLOOD CELL 0.2 % (0.0-0.0); PLATELET COUNT AUTOMATED 327 10*3/uL (130-400); RED BLOOD COUNT 4.21 10*6/uL (4.10-5.10); RED CELL DISTRI WIDTH 14.6 % (0-14.5); WHITE BLOOD COUNT 12.5 10*3/uL (4.8-10.8)
[2020-09-03 14:12] LABS: ACT PARTIAL THROMBO TIME 23.9 SECONDS (20.0-32.1)
[2020-09-03 14:15] LABS: ALBUMIN 3.3 gm/dl (3.1-4.5); ALKALINE PHOSPHATASE 86 U/L (45-117); BUN 6 mg/dl (7-24); CHLORIDE 106 mmol/L (98-107); CREATININE 0.87 mg/dL (0.55-1.02); POTASSIUM 4.1 mmol/L (3.5-5.1); SGOT/AST 17 IU/L (3-35); SGPT/ALT 19 U/L (12-78); SODIUM 138 mmol/L (136-145); TOTAL PROTEIN 6.8 gm/dL (6.4-8.2)
[2020-09-03 14:19] LABS: TROPONIN I < 0.015 ng/ml (<0.045)
[2020-09-03 14:28] LABS: TOTAL CELLS COUNTED 100 #CELLS
[2020-09-03 14:29] LABS: BURR CELLS FEW; PLATELET SUFFICIENCY NORMAL (NORMAL)
[2020-09-03] MEDS ORDERED: DOXYCYCLINE100 MG PO (17:34)
== END 2020-09-03 17:39 | disposition home or self-care (01) ==
LOC: ED 13:08
PROVIDERS: Emergency Medicine
DX: J40 Bronchitis, not specified as acute or chronic (principal); Z88.8 Allergy status to other drugs, medicaments and biological substances; Z91.041 Radiographic dye allergy status; Z79.82 Long term (current) use of aspirin

== ENCOUNTER 2020-09-11 20:16 | Inpatient (IN) | payer OTHER ==
[~2020-09-11] VITALS: Ht 142.2 cm; Wt 98.0 kg
[~2020-09-11 20:16] MED LIST changes: +DOXYCYCLINE100 MG PO
[2020-09-11 20:28] VITALS: BP 135/59
[2020-09-11 21:20] LABS: HEMATOCRIT 41.2 % (37.0-47.0); MEAN CELL VOLUME 93.2 fl (81.0-99.0); MEAN CORPUSCULAR HGB 30.1 pg (27.0-31.0); MEAN CORPUSCULAR HGB CONC 32.3 g/dl (33.0-37.0); MEAN PLATELET VOLUME 8.8 fl (9.6-12.3); NUCLEATED RED BLOOD CELL 0.2 % (0.0-0.0); PLATELET COUNT AUTOMATED 350 10*3/uL (130-400); RED BLOOD COUNT 4.42 10*6/uL (4.10-5.10); RED CELL DISTRI WIDTH 14.3 % (0-14.5); WHITE BLOOD COUNT 18.5 10*3/uL (4.8-10.8)
[2020-09-11 21:37] LABS: ALBUMIN 3.1 gm/dl (3.1-4.5); ALKALINE PHOSPHATASE 91 U/L (45-117); BUN 14 mg/dl (7-24); CHLORIDE 101 mmol/L (98-107); CREATININE 1.15 mg/dL (0.55-1.02); POTASSIUM 4.3 mmol/L (3.5-5.1); SGOT/AST 17 IU/L (3-35); SGPT/ALT 25 U/L (12-78); SODIUM 136 mmol/L (136-145); TOTAL PROTEIN 6.4 gm/dL (6.4-8.2)
[2020-09-11 21:40] LABS: ATYPICAL LYMPHS 1 % (0-0); BASOPHILS 1 % (0-1); PLATELET SUFFICIENCY NORMAL (NORMAL); TOTAL CELLS COUNTED 100 #CELLS
[2020-09-12 03:03] VITALS: BP 140/62
[2020-09-12 07:55] LABS: HEMATOCRIT 40.7 % (37.0-47.0); MEAN CELL VOLUME 94.7 fl (81.0-99.0); MEAN CORPUSCULAR HGB 29.5 pg (27.0-31.0); MEAN CORPUSCULAR HGB CONC 31.2 g/dl (33.0-37.0); MEAN PLATELET VOLUME 9.3 fl (9.6-12.3); NUCLEATED RED BLOOD CELL 0.1 % (0.0-0.0); PLATELET COUNT AUTOMATED 330 10*3/uL (130-400); RED CELL DISTRI WIDTH 14.5 % (0-14.5); WHITE BLOOD COUNT 16.8 10*3/uL (4.8-10.8)
[2020-09-12 08:00] VITALS: BP 130/64
[2020-09-12 08:12] LABS: BUN 16 mg/dl (7-24); CHLORIDE 107 mmol/L (98-107); CREATININE 0.91 mg/dL (0.55-1.02); POTASSIUM 4.1 mmol/L (3.5-5.1); SODIUM 141 mmol/L (136-145)
[2020-09-12 09:16] LABS: PLATELET SUFFICIENCY NORMAL (NORMAL); TOTAL CELLS COUNTED 100 #CELLS
[2020-09-12] MEDS ORDERED: DICYCLOMINE HCL10 MG PO (12:34)
[2020-09-12 19:15] VITALS: BP 128/68
[2020-09-12 21:27] VITALS: BP 128/68
[2020-09-13 06:55] LABS: MEAN CORPUSCULAR HGB 29.7 pg (27.0-31.0); MEAN CORPUSCULAR HGB CONC 31.3 g/dl (33.0-37.0); MEAN PLATELET VOLUME 9.1 fl (9.6-12.3); NUCLEATED RED BLOOD CELL 0.1 % (0.0-0.0); PLATELET COUNT AUTOMATED 296 10*3/uL (130-400); RED BLOOD COUNT 4.21 10*6/uL (4.10-5.10); RED CELL DISTRI WIDTH 14.5 % (0-14.5); WHITE BLOOD COUNT 14.5 10*3/uL (4.8-10.8)
[2020-09-13 07:36] LABS: BASOPHILS 1 % (0-1); PLATELET SUFFICIENCY NORMAL (NORMAL); TOTAL CELLS COUNTED 100 #CELLS
[2020-09-13 08:00] VITALS: BP 121/57
[2020-09-13 12:00] VITALS: BP 97/51
[2020-09-13 16:00] VITALS: BP 100/63
[2020-09-13 20:00] VITALS: BP 105/47
[2020-09-14] VITALS: BP 121/65
[2020-09-14 08:00] VITALS: BP 115/85
[2020-09-14 12:00] VITALS: BP 110/60
[2020-09-14 16:00] VITALS: BP 116/69
[2020-09-14 20:00] VITALS: BP 116/67
[2020-09-15] VITALS: BP 106/53
[2020-09-15 06:28] LABS: HEMATOCRIT 36.2 % (37.0-47.0); MEAN CORPUSCULAR HGB 29.9 pg (27.0-31.0); MEAN CORPUSCULAR HGB CONC 31.8 g/dl (33.0-37.0); PLATELET COUNT AUTOMATED 274 10*3/uL (130-400); RED BLOOD COUNT 3.85 10*6/uL (4.10-5.10); RED CELL DISTRI WIDTH 14.4 % (0-14.5); WHITE BLOOD COUNT 12.6 10*3/uL (4.8-10.8)
[2020-09-15 06:42] LABS: CREATININE 0.86 mg/dL (0.55-1.02)
[2020-09-15 07:19] LABS: ATYPICAL LYMPHS 5 % (0-0); PLATELET SUFFICIENCY NORMAL (NORMAL); POLYCHROMASIA SLIGHT; TOTAL CELLS COUNTED 100 #CELLS
[2020-09-15 08:00] VITALS: BP 129/47
[2020-09-15] MEDS ORDERED: OMNICEF300 MG PO (10:41)
[2020-09-15] MEDS ORDERED: ZITHROMAX500 MG PO (10:41)
== END 2020-09-15 11:21 | disposition home or self-care (01) | DRG 871 ==
LOC: ED 20:16 → 5E 23:27 → EDHOLD 23:27 → 5E 09-12 21:45
PROVIDERS: Internal Medicine; Physician Assistant; Student in an Organized Health Care Education/Training Program; ADMIT Internal Medicine; ATTEND Internal Medicine
DX: A41.9 Sepsis, unspecified organism (principal); J15.6 Pneumonia due to other Gram-negative bacteria; N17.0 Acute kidney failure with tubular necrosis; J44.0 Chronic obstructive pulmonary disease with (acute) lower respiratory infection; E44.0 Moderate protein-calorie malnutrition; Z68.42 Body mass index [BMI] 45.0-49.9, adult; J96.10 Chronic respiratory failure, unspecified whether with hypoxia or hypercapnia; Z79.84 Long term (current) use of oral hypoglycemic drugs; R65.20 Severe sepsis without septic shock; E66.01 Morbid (severe) obesity due to excess calories; K21.9 Gastro-esophageal reflux disease without esophagitis; M79.7 Fibromyalgia; F32.9 Major depressive disorder, single episode, unspecified; F41.1 Generalized anxiety disorder; E11.65 Type 2 diabetes mellitus with hyperglycemia; E78.5 Hyperlipidemia, unspecified; I25.10 Atherosclerotic heart disease of native coronary artery without angina pectoris; R07.9 Chest pain, unspecified; Z88.2 Allergy status to sulfonamides; Z88.8 Allergy status to other drugs, medicaments and biological substances; Z91.041 Radiographic dye allergy status; Z98.51 Tubal ligation status; Z87.891 Personal history of nicotine dependence; Z91.5 Personal history of self-harm; Z82.0 Family history of epilepsy and other diseases of the nervous system; Z82.49 Family history of ischemic heart disease and other diseases of the circulatory system; Z82.5 Family history of asthma and other chronic lower respiratory diseases; Z83.49 Family history of other endocrine, nutritional and metabolic diseases; Z79.899 Other long term (current) drug therapy

== ENCOUNTER 2020-09-28 18:20 | Emergency (ER) | payer OTHER ==
[~2020-09-28] VITALS: Ht 142.2 cm; Wt 98.0 kg
[2020-09-28 19:10] LABS: MEAN CELL VOLUME 92.6 fl (81.0-99.0); MEAN CORPUSCULAR HGB 29.9 pg (27.0-31.0); MEAN CORPUSCULAR HGB CONC 32.3 g/dl (33.0-37.0); MEAN PLATELET VOLUME 8.8 fl (9.6-12.3); PLATELET COUNT AUTOMATED 342 10*3/uL (130-400); RED BLOOD COUNT 4.32 10*6/uL (4.10-5.10); WHITE BLOOD COUNT 17.7 10*3/uL (4.8-10.8)
[2020-09-28 19:21] LABS: ATYPICAL LYMPHS 1 % (0-0); SCHISTOCYTES FEW; TOTAL CELLS COUNTED 100 #CELLS
[2020-09-28 19:22] LABS: BURR CELLS FEW; PLATELET SUFFICIENCY NORMAL (NORMAL)
[2020-09-28 19:41] LABS: ALBUMIN 3.2 gm/dl (3.1-4.5); ALKALINE PHOSPHATASE 82 U/L (45-117); BUN 11 mg/dl (7-24); CHLORIDE 103 mmol/L (98-107); CREATININE 1.22 mg/dL (0.55-1.02); POTASSIUM 3.9 mmol/L (3.5-5.1); SGOT/AST 35 IU/L (3-35); SGPT/ALT 38 U/L (12-78); SODIUM 136 mmol/L (136-145); TOTAL PROTEIN 6.3 gm/dL (6.4-8.2)
[2020-09-28 19:43] LABS: TROPONIN I < 0.015 ng/ml (<0.045)
== END 2020-09-28 20:15 | disposition home or self-care (01) ==
LOC: ED 18:20
PROVIDERS: Internal Medicine
DX: R07.89 Other chest pain (principal); N18.9 Chronic kidney disease, unspecified; D72.829 Elevated white blood cell count, unspecified; R06.02 Shortness of breath; R00.0 Tachycardia, unspecified; F41.9 Anxiety disorder, unspecified; K21.9 Gastro-esophageal reflux disease without esophagitis; J44.9 Chronic obstructive pulmonary disease, unspecified; Z91.041 Radiographic dye allergy status; Z88.6 Allergy status to analgesic agent; Z88.8 Allergy status to other drugs, medicaments and biological substances; Z79.899 Other long term (current) drug therapy; Z79.2 Long term (current) use of antibiotics; Z98.61 Coronary angioplasty status; Z98.51 Tubal ligation status; Z87.891 Personal history of nicotine dependence

== ENCOUNTER 2020-10-12 15:39 | Emergency (ER) | payer OTHER ==
[2020-10-12 16:08] LABS: BASO # 0.1 10*3/uL (0.0-0.1); BASO % 0.7 % (0.0-1.0); EOS # 0.3 10*3/uL (0.0-0.4); EOS % 2.1 % (1.0-4.0); HEMATOCRIT 39.1 % (37.0-47.0); LYMPH # 4.2 10*3/uL (1.3-4.4); LYMPH % 29.1 % (27.0-41.0); MEAN CELL VOLUME 92.7 fl (81.0-99.0); MEAN CORPUSCULAR HGB 29.6 pg (27.0-31.0); MEAN PLATELET VOLUME 9.1 fl (9.6-12.3); MONO % 7.3 % (3.0-9.0); NEUT # 8.5 10*3/uL (2.3-7.9); NEUT % 59.2 % (47.0-73.0); PLATELET COUNT AUTOMATED 270 10*3/uL (130-400); RED BLOOD COUNT 4.22 10*6/uL (4.10-5.10); RED CELL DISTRI WIDTH 14.6 % (0-14.5); WHITE BLOOD COUNT 14.3 10*3/uL (4.8-10.8)
[2020-10-12 16:27] LABS: ACT PARTIAL THROMBO TIME 23.6 SECONDS (20.0-32.1); INTERNATIONAL NORM RATIO 0.9 (2.0-3.5)
[2020-10-12 16:35] LABS: ALKALINE PHOSPHATASE 79 U/L (45-117); BUN 9 mg/dl (7-24); CHLORIDE 106 mmol/L (98-107); CREATININE 1.14 mg/dL (0.55-1.02); POTASSIUM 4.5 mmol/L (3.5-5.1); SGOT/AST 23 IU/L (3-35); SGPT/ALT 26 U/L (12-78); SODIUM 139 mmol/L (136-145); TOTAL PROTEIN 6.3 gm/dL (6.4-8.2)
[2020-10-12 16:39] LABS: TROPONIN I < 0.015 ng/ml (<0.045)
[2020-10-12] MEDS ORDERED: PREDNISONE20 M1 PO (18:10)
== END 2020-10-12 18:17 | disposition home or self-care (01) ==
LOC: ED 15:39
PROVIDERS: Emergency Medicine
DX: J44.1 Chronic obstructive pulmonary disease with (acute) exacerbation (principal); R00.0 Tachycardia, unspecified; E66.01 Morbid (severe) obesity due to excess calories; I12.9 Hypertensive chronic kidney disease with stage 1 through stage 4 chronic kidney disease, or unspecified chronic kidney disease; E11.22 Type 2 diabetes mellitus with diabetic chronic kidney disease; N18.9 Chronic kidney disease, unspecified; I25.10 Atherosclerotic heart disease of native coronary artery without angina pectoris; E78.00 Pure hypercholesterolemia, unspecified; F41.9 Anxiety disorder, unspecified; F32.9 Major depressive disorder, single episode, unspecified; M79.7 Fibromyalgia; K21.9 Gastro-esophageal reflux disease without esophagitis; F17.200 Nicotine dependence, unspecified, uncomplicated; Z88.6 Allergy status to analgesic agent; Z91.041 Radiographic dye allergy status; Z88.8 Allergy status to other drugs, medicaments and biological substances; Z79.2 Long term (current) use of antibiotics; Z79.899 Other long term (current) drug therapy; Z68.42 Body mass index [BMI] 45.0-49.9, adult; Z98.51 Tubal ligation status; Z98.61 Coronary angioplasty status

== ENCOUNTER 2020-10-29 16:30 | Emergency (ER) | payer OTHER ==
[~2020-10-29] VITALS: Ht 370.8 cm; Wt 98.0 kg
[2020-10-29 17:17] LABS: BASO # 0.1 10*3/uL (0.0-0.1); BASO % 0.9 % (0.0-1.0); EOS # 0.3 10*3/uL (0.0-0.4); EOS % 2.1 % (1.0-4.0); HEMATOCRIT 39.3 % (37.0-47.0); LYMPH # 4.1 10*3/uL (1.3-4.4); LYMPH % 26.9 % (27.0-41.0); MEAN CELL VOLUME 94.2 fl (81.0-99.0); MEAN CORPUSCULAR HGB 29.5 pg (27.0-31.0); MEAN CORPUSCULAR HGB CONC 31.3 g/dl (33.0-37.0); MEAN PLATELET VOLUME 9.1 fl (9.6-12.3); MONO # 1.2 10*3/uL (0.1-1.0); MONO % 7.8 % (3.0-9.0); NEUT # 9.1 10*3/uL (2.3-7.9); NEUT % 60.3 % (47.0-73.0); NUCLEATED RED BLOOD CELL 0.1 % (0.0-0.0); PLATELET COUNT AUTOMATED 299 10*3/uL (130-400); RED BLOOD COUNT 4.17 10*6/uL (4.10-5.10); RED CELL DISTRI WIDTH 14.5 % (0-14.5); WHITE BLOOD COUNT 15.1 10*3/uL (4.8-10.8)
[2020-10-29 17:32] LABS: INTERNATIONAL NORM RATIO 0.9 (2.0-3.5)
[2020-10-29 17:38] LABS: ALBUMIN 3.1 gm/dl (3.1-4.5); ALKALINE PHOSPHATASE 87 U/L (45-117); BUN 7 mg/dl (7-24); CHLORIDE 103 mmol/L (98-107); CREATININE 0.98 mg/dL (0.55-1.02); POTASSIUM 3.8 mmol/L (3.5-5.1); SGOT/AST 21 IU/L (3-35); SGPT/ALT 25 U/L (12-78); SODIUM 138 mmol/L (136-145); TOTAL PROTEIN 6.7 gm/dL (6.4-8.2)
[2020-10-29 17:54] LABS: TROPONIN I < 0.015 ng/ml (<0.045)
== END 2020-10-29 20:27 | disposition home or self-care (01) ==
LOC: ED 16:30
PROVIDERS: Emergency Medicine
DX: R07.9 Chest pain, unspecified (principal); Z91.041 Radiographic dye allergy status; Z88.6 Allergy status to analgesic agent; Z79.899 Other long term (current) drug therapy; Z87.891 Personal history of nicotine dependence

== ENCOUNTER 2020-11-04 15:43 | Emergency (ER) | payer OTHER ==
[~2020-11-04] VITALS: Ht 142.2 cm; Wt 100.2 kg
[2020-11-04 16:11] LABS: BASO # 0.1 10*3/uL (0.0-0.1); EOS # 0.3 10*3/uL (0.0-0.4); EOS % 2.4 % (1.0-4.0); HEMATOCRIT 39.6 % (37.0-47.0); LYMPH # 3.6 10*3/uL (1.3-4.4); LYMPH % 26.6 % (27.0-41.0); MEAN CELL VOLUME 93.4 fl (81.0-99.0); MEAN CORPUSCULAR HGB 29.2 pg (27.0-31.0); MEAN CORPUSCULAR HGB CONC 31.3 g/dl (33.0-37.0); MEAN PLATELET VOLUME 8.8 fl (9.6-12.3); MONO # 1.2 10*3/uL (0.1-1.0); MONO % 8.8 % (3.0-9.0); NUCLEATED RED BLOOD CELL 0.1 % (0.0-0.0); PLATELET COUNT AUTOMATED 360 10*3/uL (130-400); RED BLOOD COUNT 4.24 10*6/uL (4.10-5.10); RED CELL DISTRI WIDTH 14.4 % (0-14.5); WHITE BLOOD COUNT 13.6 10*3/uL (4.8-10.8)
[2020-11-04 16:23] LABS: ACT PARTIAL THROMBO TIME 23.7 SECONDS (20.0-32.1)
[2020-11-04 16:27] LABS: ALBUMIN 3.1 gm/dl (3.1-4.5); ALKALINE PHOSPHATASE 94 U/L (45-117); BUN 6 mg/dl (7-24); CHLORIDE 106 mmol/L (98-107); CREATININE 0.92 mg/dL (0.55-1.02); LIPASE 110 U/L (73-393); POTASSIUM 3.9 mmol/L (3.5-5.1); SGOT/AST 34 IU/L (3-35); SGPT/ALT 26 U/L (12-78); SODIUM 137 mmol/L (136-145); TOTAL PROTEIN 6.6 gm/dL (6.4-8.2)
[2020-11-04 16:28] LABS: BETA-HCG, QUANT < 1.0 mIU/mL (1-3); TROPONIN I < 0.015 ng/ml (<0.045)
[2020-11-04] MEDS ORDERED: PREDNISONE20 M1 PO (19:49)
[2020-11-04] MEDS ORDERED: ZITHROMAX250 MG PO (19:49)
[2020-11-05] MEDS ORDERED: Meclizine25 MG PO (22:36)
== END 2020-11-04 20:05 | disposition home or self-care (01) ==
LOC: ED 15:43
PROVIDERS: Emergency Medicine
DX: J44.1 Chronic obstructive pulmonary disease with (acute) exacerbation (principal); Z91.041 Radiographic dye allergy status; Z88.6 Allergy status to analgesic agent; Z79.899 Other long term (current) drug therapy; Z87.891 Personal history of nicotine dependence

== ENCOUNTER 2020-11-05 18:46 | Emergency (ER) | payer OTHER ==
[~2020-11-05] VITALS: Ht 142.2 cm; Wt 97.5 kg
[~2020-11-05 18:46] MED LIST changes: +ZITHROMAX250 MG PO
[2020-11-05 19:50] LABS: HEMATOCRIT 39.9 % (37.0-47.0); MEAN CELL VOLUME 92.8 fl (81.0-99.0); MEAN CORPUSCULAR HGB 29.1 pg (27.0-31.0); MEAN CORPUSCULAR HGB CONC 31.3 g/dl (33.0-37.0); MEAN PLATELET VOLUME 8.9 fl (9.6-12.3); PLATELET COUNT AUTOMATED 384 10*3/uL (130-400); RED CELL DISTRI WIDTH 14.4 % (0-14.5); WHITE BLOOD COUNT 16.6 10*3/uL (4.8-10.8)
[2020-11-05 20:15] LABS: ALBUMIN 3.3 gm/dl (3.1-4.5); ALKALINE PHOSPHATASE 89 U/L (45-117); BUN 10 mg/dl (7-24); CHLORIDE 102 mmol/L (98-107); CREATININE 1.13 mg/dL (0.55-1.02); POTASSIUM 4.2 mmol/L (3.5-5.1); SGOT/AST 24 IU/L (3-35); SGPT/ALT 24 U/L (12-78); SODIUM 138 mmol/L (136-145); TOTAL PROTEIN 6.8 gm/dL (6.4-8.2)
[2020-11-05 20:16] LABS: TROPONIN I < 0.015 ng/ml (<0.045)
[2020-11-05 20:17] LABS: BASOPHILS 2 % (0-1); PLATELET SUFFICIENCY NORMAL (NORMAL); TOTAL CELLS COUNTED 100 #CELLS
[2020-11-05 20:21] LABS: THYROID STIM HORMONE (HS) 0.887 uIU/ml (0.358-4.75)
[2020-11-05 20:47] LABS: BILIRUBIN Negative (Negative); BLOOD 1+ (Negative); CLARITY Clear (Clear); COLOR Yellow (Yellow); GLUCOSE 3+ (Negative); KETONE Negative (Negative); LEUKO ESTERASE Negative (Negative); NITRITE Negative (Negative); PH 6.5 (4.5-8.0); UROBILINOGEN 0.2 E.U./dl (0.0-1.0)
[2020-11-05 21:08] LABS: BACTERIA 1+; EPITHELIAL CELLS 31-40; RBC 16-20 rbc/hpf (0-2)
[2020-11-05] MEDS ORDERED: Meclizine25 MG PO (22:36)
== END 2020-11-05 23:29 | disposition home or self-care (01) ==
LOC: ED 18:46
PROVIDERS: Emergency Medicine
DX: R42 Dizziness and giddiness (principal); E11.65 Type 2 diabetes mellitus with hyperglycemia; K21.9 Gastro-esophageal reflux disease without esophagitis; J44.9 Chronic obstructive pulmonary disease, unspecified; Z91.041 Radiographic dye allergy status; Z88.6 Allergy status to analgesic agent; Z79.899 Other long term (current) drug therapy; Z87.891 Personal history of nicotine dependence

== ENCOUNTER 2020-11-19 23:30 | Inpatient (IN) | payer OTHER ==
[~2020-11-19] VITALS: Ht 142.2 cm; Wt 99.4 kg
[~2020-11-19 23:30] MED LIST changes: +Meclizine25 MG PO
[2020-11-19 23:39] VITALS: BP 116/48
[2020-11-20] LABS: BASO # 0.2 10*3/uL (0.0-0.1); EOS # 0.4 10*3/uL (0.0-0.4); EOS % 2.4 % (1.0-4.0); HEMATOCRIT 38.8 % (37.0-47.0); LYMPH # 4.3 10*3/uL (1.3-4.4); LYMPH % 27.5 % (27.0-41.0); MEAN CELL VOLUME 90.9 fl (81.0-99.0); MEAN CORPUSCULAR HGB 28.6 pg (27.0-31.0); MEAN CORPUSCULAR HGB CONC 31.4 g/dl (33.0-37.0); MEAN PLATELET VOLUME 9.1 fl (9.6-12.3); MONO # 1.3 10*3/uL (0.1-1.0); MONO % 8.1 % (3.0-9.0); NEUT # 9.2 10*3/uL (2.3-7.9); NEUT % 59.4 % (47.0-73.0); PLATELET COUNT AUTOMATED 325 10*3/uL (130-400); RED BLOOD COUNT 4.27 10*6/uL (4.10-5.10); RED CELL DISTRI WIDTH 14.2 % (0-14.5); WHITE BLOOD COUNT 15.5 10*3/uL (4.8-10.8)
[2020-11-20 00:18] LABS: ACT PARTIAL THROMBO TIME 23.7 SECONDS (20.0-32.1); ALBUMIN 3.2 gm/dl (3.1-4.5); ALKALINE PHOSPHATASE 79 U/L (45-117); BUN 15 mg/dl (7-24); CHLORIDE 102 mmol/L (98-107); CREATININE 1.11 mg/dL (0.55-1.02); POTASSIUM 3.8 mmol/L (3.5-5.1); SGOT/AST 25 IU/L (3-35); SGPT/ALT 24 U/L (12-78); SODIUM 137 mmol/L (136-145); TOTAL PROTEIN 6.3 gm/dL (6.4-8.2)
[2020-11-20 00:26] LABS: TROPONIN I < 0.015 ng/ml (<0.045)
[2020-11-20 02:16] LABS: BILIRUBIN Negative (Negative); BLOOD Negative (Negative); CLARITY Clear (Clear); COLOR Yellow (Yellow); GLUCOSE Negative (Negative); KETONE Negative (Negative); LEUKO ESTERASE Trace (Negative); NITRITE Negative (Negative); PH 6.5 (4.5-8.0); UROBILINOGEN 0.2 E.U./dl (0.0-1.0)
[2020-11-20 02:33] LABS: RBC 0-2 rbc/hpf (0-2)
[2020-11-20 02:34] LABS: BACTERIA TRACE
[2020-11-20 05:46] VITALS: BP 120/45
[2020-11-20] MEDS ORDERED: ISORDIL40 MG PO (07:27)
[2020-11-20] MEDS ORDERED: HYDR25T PO (07:28)
[2020-11-20] MEDS ORDERED: JANUVIA100 MG PO (07:28)
[2020-11-20 14:21] VITALS: BP 102/58
[2020-11-20 16:00] VITALS: BP 112/54
[2020-11-20 20:00] VITALS: BP 99/51
[2020-11-21] VITALS: BP 91/52
[2020-11-21 06:57] LABS: BASO % 0.2 % (0.0-1.0); EOS % 0.2 % (1.0-4.0); HEMATOCRIT 35.5 % (37.0-47.0); LYMPH # 1.6 10*3/uL (1.3-4.4); LYMPH % 12.6 % (27.0-41.0); MEAN CELL VOLUME 92.4 fl (81.0-99.0); MEAN CORPUSCULAR HGB 29.4 pg (27.0-31.0); MEAN CORPUSCULAR HGB CONC 31.8 g/dl (33.0-37.0); MEAN PLATELET VOLUME 9.8 fl (9.6-12.3); MONO % 7.5 % (3.0-9.0); NEUT # 9.8 10*3/uL (2.3-7.9); NEUT % 77.1 % (47.0-73.0); PLATELET COUNT AUTOMATED 312 10*3/uL (130-400); RED BLOOD COUNT 3.84 10*6/uL (4.10-5.10); RED CELL DISTRI WIDTH 14.1 % (0-14.5); WHITE BLOOD COUNT 12.6 10*3/uL (4.8-10.8)
[2020-11-21 07:31] LABS: ALBUMIN 3.1 gm/dl (3.1-4.5); ALKALINE PHOSPHATASE 68 U/L (45-117); BUN 16 mg/dl (7-24); CHLORIDE 107 mmol/L (98-107); CHOLESTEROL 91 mg/dL (<200); CREATININE 0.93 mg/dL (0.55-1.02); FREE T4 1.11 ng/dl (0.76-1.46); HDL CHOLESTEROL 35 mg/dl (40-60); LDL CHOLESTEROL 24 mg/dL (9-159); POTASSIUM 3.8 mmol/L (3.5-5.1); SGOT/AST 19 IU/L (3-35); SGPT/ALT 22 U/L (12-78); SODIUM 140 mmol/L (136-145); TOTAL PROTEIN 6.6 gm/dL (6.4-8.2); TRIGLYCERIDES 159 mg/dl (<150); VLDL CHOLESTEROL 32 mg/dL (6-40)
[2020-11-21 07:50] LABS: VITAMIN D, 25-HYDROXY 51.3 ng/mL (30-100)
[2020-11-21 08:00] VITALS: BP 114/62
[2020-11-21 12:00] VITALS: BP 111/54
[2020-11-21 16:00] VITALS: BP 100/52
[2020-11-21 20:00] VITALS: BP 112/49
[2020-11-22] VITALS: BP 119/57
[2020-11-22 06:38] LABS: HEMATOCRIT 37.9 % (37.0-47.0); MEAN CELL VOLUME 92.7 fl (81.0-99.0); MEAN CORPUSCULAR HGB 28.9 pg (27.0-31.0); MEAN CORPUSCULAR HGB CONC 31.1 g/dl (33.0-37.0); MEAN PLATELET VOLUME 9.3 fl (9.6-12.3); PLATELET COUNT AUTOMATED 316 10*3/uL (130-400); RED BLOOD COUNT 4.09 10*6/uL (4.10-5.10); RED CELL DISTRI WIDTH 14.1 % (0-14.5); WHITE BLOOD COUNT 16.8 10*3/uL (4.8-10.8)
[2020-11-22 06:55] LABS: BUN 22 mg/dl (7-24); CHLORIDE 105 mmol/L (98-107); CREATININE 1.05 mg/dL (0.55-1.02); SODIUM 138 mmol/L (136-145)
[2020-11-22 07:05] LABS: PLATELET SUFFICIENCY NORMAL (NORMAL); POLYCHROMASIA SLIGHT; TOTAL CELLS COUNTED 100 #CELLS
[2020-11-22 07:06] LABS: OVALOCYTES FEW
[2020-11-22 08:00] VITALS: BP 104/53
[2020-11-22 12:00] VITALS: BP 98/48
[2020-11-22 16:00] VITALS: BP 101/55
[2020-11-22 20:00] VITALS: BP 109/62
[2020-11-23] VITALS: BP 113/60
[2020-11-23 06:50] LABS: HEMATOCRIT 36.4 % (37.0-47.0); MEAN CELL VOLUME 93.6 fl (81.0-99.0); MEAN CORPUSCULAR HGB 28.8 pg (27.0-31.0); MEAN CORPUSCULAR HGB CONC 30.8 g/dl (33.0-37.0); MEAN PLATELET VOLUME 9.5 fl (9.6-12.3); PLATELET COUNT AUTOMATED 317 10*3/uL (130-400); RED BLOOD COUNT 3.89 10*6/uL (4.10-5.10); WHITE BLOOD COUNT 15.1 10*3/uL (4.8-10.8)
[2020-11-23 07:14] LABS: CHLORIDE 106 mmol/L (98-107); POTASSIUM 3.8 mmol/L (3.5-5.1); SODIUM 138 mmol/L (136-145)
[2020-11-23 07:30] LABS: BUN 23 mg/dl (7-24); CREATININE 1.03 mg/dL (0.55-1.02)
[2020-11-23 07:52] LABS: TOTAL CELLS COUNTED 100 #CELLS
[2020-11-23 07:53] LABS: OVALOCYTES FEW; PLATELET SUFFICIENCY NORMAL (NORMAL); POLYCHROMASIA SLIGHT
[2020-11-23 08:00] VITALS: BP 105/45
[2020-11-23 12:00] VITALS: BP 117/44
[2020-11-23 16:00] VITALS: BP 111/40
[2020-11-23 20:00] VITALS: BP 105/45
[2020-11-24] VITALS: BP 112/59
[2020-11-24 06:32] LABS: HEMATOCRIT 36.9 % (37.0-47.0); MEAN CELL VOLUME 92.3 fl (81.0-99.0); MEAN CORPUSCULAR HGB 29.3 pg (27.0-31.0); MEAN CORPUSCULAR HGB CONC 31.7 g/dl (33.0-37.0); MEAN PLATELET VOLUME 9.6 fl (9.6-12.3); PLATELET COUNT AUTOMATED 339 10*3/uL (130-400); RED CELL DISTRI WIDTH 13.7 % (0-14.5); WHITE BLOOD COUNT 14.9 10*3/uL (4.8-10.8)
[2020-11-24 06:57] LABS: BUN 24 mg/dl (7-24); CHLORIDE 104 mmol/L (98-107); CREATININE 1.18 mg/dL (0.55-1.02); POTASSIUM 3.9 mmol/L (3.5-5.1); SODIUM 139 mmol/L (136-145)
[2020-11-24 07:36] LABS: PLATELET SUFFICIENCY NORMAL (NORMAL); POLYCHROMASIA SLIGHT; TOTAL CELLS COUNTED 100 #CELLS
[2020-11-24 08:00] VITALS: BP 105/43; BP 96/50
[2020-11-24 12:00] VITALS: BP 123/52
[2020-11-24] MEDS ORDERED: AUGMENTIN 875875 MG PO (15:22)
[2020-11-25 16:09] LABS: ORGANISM ID Final report (.); RESULT 1 Moraxella species (.)
[2020-12-21] MEDS ORDERED: MACROBID100 M1 PO (11:08)
== END 2020-11-24 15:00 | disposition home or self-care (01) | DRG 871 ==
LOC: ED 23:30 → EDHOLD 11-20 00:43 → 5E 11-20 00:43 → EDHOLD 11-20 10:56 → 5E 11-20 13:41
PROVIDERS: Emergency Medicine; Hospitalist; Social Worker Clinical; Student in an Organized Health Care Education/Training Program; ADMIT Internal Medicine; ATTEND Internal Medicine
DX: A41.59 Other Gram-negative sepsis (principal); J18.9 Pneumonia, unspecified organism; R65.21 Severe sepsis with septic shock; J44.1 Chronic obstructive pulmonary disease with (acute) exacerbation; J44.0 Chronic obstructive pulmonary disease with (acute) lower respiratory infection; I25.110 Atherosclerotic heart disease of native coronary artery with unstable angina pectoris; I13.0 Hypertensive heart and chronic kidney disease with heart failure and stage 1 through stage 4 chronic kidney disease, or unspecified chronic kidney disease; E83.42 Hypomagnesemia; K21.9 Gastro-esophageal reflux disease without esophagitis; M79.7 Fibromyalgia; F41.1 Generalized anxiety disorder; E78.2 Mixed hyperlipidemia; E11.22 Type 2 diabetes mellitus with diabetic chronic kidney disease; N18.31 Chronic kidney disease, stage 3a; F17.210 Nicotine dependence, cigarettes, uncomplicated; E11.65 Type 2 diabetes mellitus with hyperglycemia; F32.9 Major depressive disorder, single episode, unspecified; M25.512 Pain in left shoulder; Z79.51 Long term (current) use of inhaled steroids; Z79.84 Long term (current) use of oral hypoglycemic drugs; Z79.899 Other long term (current) drug therapy

== ENCOUNTER 2020-12-06 17:27 | Emergency (ER) | payer OTHER ==
[~2020-12-06 17:27] MED LIST changes: +HYDR25T PO; +ISORDIL40 MG PO; +JANUVIA100 MG PO
[2020-12-21] MEDS ORDERED: MACROBID100 M1 PO (11:08)
== END 2020-12-06 22:08 | disposition home or self-care (01) ==
LOC: ED 17:27
DX: R07.89 Other chest pain (principal); F32.9 Major depressive disorder, single episode, unspecified; F41.9 Anxiety disorder, unspecified; K21.9 Gastro-esophageal reflux disease without esophagitis; F17.200 Nicotine dependence, unspecified, uncomplicated; Z91.041 Radiographic dye allergy status; Z88.6 Allergy status to analgesic agent; Z88.8 Allergy status to other drugs, medicaments and biological substances; Z79.899 Other long term (current) drug therapy; Z79.2 Long term (current) use of antibiotics; Z98.51 Tubal ligation status

== ENCOUNTER 2020-12-17 16:47 | Emergency (ER) | payer OTHER ==
[~2020-12-17] VITALS: Ht 142.2 cm; Wt 97.5 kg
[2020-12-17 17:18] LABS: BASO # 0.1 10*3/uL (0.0-0.1); BASO % 0.9 % (0.0-1.0); EOS # 0.5 10*3/uL (0.0-0.4); EOS % 4.1 % (1.0-4.0); HEMATOCRIT 39.4 % (37.0-47.0); LYMPH # 3.8 10*3/uL (1.3-4.4); LYMPH % 30.7 % (27.0-41.0); MEAN CELL VOLUME 90.2 fl (81.0-99.0); MEAN CORPUSCULAR HGB 29.1 pg (27.0-31.0); MEAN CORPUSCULAR HGB CONC 32.2 g/dl (33.0-37.0); MEAN PLATELET VOLUME 8.9 fl (9.6-12.3); MONO # 1.2 10*3/uL (0.1-1.0); MONO % 9.4 % (3.0-9.0); NEUT # 6.6 10*3/uL (2.3-7.9); NEUT % 53.4 % (47.0-73.0); PLATELET COUNT AUTOMATED 365 10*3/uL (130-400); RED BLOOD COUNT 4.37 10*6/uL (4.10-5.10); RED CELL DISTRI WIDTH 14.1 % (0-14.5); WHITE BLOOD COUNT 12.3 10*3/uL (4.8-10.8)
[2020-12-17 17:28] LABS: ACT PARTIAL THROMBO TIME 24.9 SECONDS (20.0-32.1)
[2020-12-17 17:35] LABS: LIPASE 117 U/L (73-393)
[2020-12-17 17:36] LABS: ALBUMIN 3.3 gm/dl (3.1-4.5); ALKALINE PHOSPHATASE 80 U/L (45-117); BUN 12 mg/dl (7-24); CHLORIDE 108 mmol/L (98-107); CREATININE 1.12 mg/dL (0.55-1.02); POTASSIUM 3.9 mmol/L (3.5-5.1); SGOT/AST 12 IU/L (3-35); SGPT/ALT 21 U/L (12-78); SODIUM 139 mmol/L (136-145); TOTAL PROTEIN 6.9 gm/dL (6.4-8.2)
[2020-12-17 17:38] LABS: TROPONIN I < 0.015 ng/ml (<0.045)
[2020-12-17 17:38] LABS: BETA-HCG, QUANT < 1.0 mIU/mL (1-3)
[2020-12-21] MEDS ORDERED: MACROBID100 M1 PO (11:08)
== END 2020-12-17 20:30 | disposition home or self-care (01) ==
LOC: ED 16:47
PROVIDERS: Emergency Medicine
DX: R07.9 Chest pain, unspecified (principal); Z88.5 Allergy status to narcotic agent; Z88.8 Allergy status to other drugs, medicaments and biological substances; Z79.899 Other long term (current) drug therapy; Z91.041 Radiographic dye allergy status; Z79.84 Long term (current) use of oral hypoglycemic drugs; Z98.51 Tubal ligation status; Z98.890 Other specified postprocedural states

== ENCOUNTER 2020-12-20 16:07 | Emergency (ER) | payer OTHER ==
[~2020-12-20] VITALS: Ht 142.2 cm; Wt 97.5 kg
[2020-12-20 17:15] LABS: BASO # 0.1 10*3/uL (0.0-0.1); EOS # 0.4 10*3/uL (0.0-0.4); EOS % 3.2 % (1.0-4.0); HEMATOCRIT 40.3 % (37.0-47.0); LYMPH # 4.1 10*3/uL (1.3-4.4); LYMPH % 33.2 % (27.0-41.0); MEAN CORPUSCULAR HGB 29.2 pg (27.0-31.0); MEAN CORPUSCULAR HGB CONC 32.5 g/dl (33.0-37.0); MEAN PLATELET VOLUME 9.3 fl (9.6-12.3); MONO # 1.1 10*3/uL (0.1-1.0); MONO % 8.6 % (3.0-9.0); NEUT # 6.5 10*3/uL (2.3-7.9); NEUT % 52.2 % (47.0-73.0); PLATELET COUNT AUTOMATED 343 10*3/uL (130-400); RED BLOOD COUNT 4.48 10*6/uL (4.10-5.10); RED CELL DISTRI WIDTH 14.2 % (0-14.5); WHITE BLOOD COUNT 12.5 10*3/uL (4.8-10.8)
[2020-12-20 17:25] LABS: BILIRUBIN Negative (Negative); BLOOD Trace-Lysed (Negative); CLARITY Turbid (Clear); COLOR Yellow (Yellow); GLUCOSE Negative (Negative); KETONE Negative (Negative); LEUKO ESTERASE 2+ (Negative); NITRITE Negative (Negative); PH 7.5 (4.5-8.0); SPECIFIC GRAVITY 1.015 (1.001-1.030)
[2020-12-20 17:33] LABS: ALBUMIN 3.5 gm/dl (3.1-4.5); ALKALINE PHOSPHATASE 78 U/L (45-117); BUN 8 mg/dl (7-24); CHLORIDE 106 mmol/L (98-107); CREATININE 0.98 mg/dL (0.55-1.02); LIPASE 141 U/L (73-393); POTASSIUM 3.4 mmol/L (3.5-5.1); SGOT/AST 15 IU/L (3-35); SGPT/ALT 19 U/L (12-78); SODIUM 142 mmol/L (136-145); TOTAL PROTEIN 7.2 gm/dL (6.4-8.2)
[2020-12-20 17:40] LABS: BACTERIA 3+; EPITHELIAL CELLS TNTC
[2020-12-20] MEDS ORDERED: CIPRO500 MG PO (20:32)
[2020-12-21] MEDS ORDERED: MACROBID100 M1 PO (11:08)
== END 2020-12-20 21:02 | disposition home or self-care (01) ==
LOC: ED 16:07
PROVIDERS: Emergency Medicine
DX: R10.31 Right lower quadrant pain (principal); R74.02 Elevation of levels of lactic acid dehydrogenase [LDH]; E87.6 Hypokalemia; D72.829 Elevated white blood cell count, unspecified; I25.10 Atherosclerotic heart disease of native coronary artery without angina pectoris; E11.22 Type 2 diabetes mellitus with diabetic chronic kidney disease; N18.9 Chronic kidney disease, unspecified; J44.9 Chronic obstructive pulmonary disease, unspecified; K21.9 Gastro-esophageal reflux disease without esophagitis; E78.5 Hyperlipidemia, unspecified; E66.01 Morbid (severe) obesity due to excess calories; F32.9 Major depressive disorder, single episode, unspecified; F41.9 Anxiety disorder, unspecified; F17.200 Nicotine dependence, unspecified, uncomplicated; Z98.51 Tubal ligation status; Z98.890 Other specified postprocedural states

== ENCOUNTER 2021-03-11 17:41 | Emergency (ER) | payer OTHER ==
[~2021-03-11] VITALS: Ht 142.2 cm; Wt 92.1 kg
[~2021-03-11 17:41] MED LIST changes: +CIPRO500 MG PO
[2021-03-11 20:10] LABS: BASO # 0.2 10*3/uL (0.0-0.1); BASO % 1.6 % (0.0-1.0); EOS # 0.4 10*3/uL (0.0-0.4); EOS % 2.6 % (1.0-4.0); LYMPH % 29.2 % (27.0-41.0); MEAN CELL VOLUME 89.9 fl (81.0-99.0); MEAN CORPUSCULAR HGB 28.9 pg (27.0-31.0); MEAN CORPUSCULAR HGB CONC 32.2 g/dl (33.0-37.0); MEAN PLATELET VOLUME 8.7 fl (9.6-12.3); MONO # 1.1 10*3/uL (0.1-1.0); MONO % 7.7 % (3.0-9.0); NEUT # 7.8 10*3/uL (2.3-7.9); NEUT % 57.1 % (47.0-73.0); PLATELET COUNT AUTOMATED 336 10*3/uL (130-400); RED BLOOD COUNT 4.56 10*6/uL (4.10-5.10); RED CELL DISTRI WIDTH 13.8 % (0-14.5); WHITE BLOOD COUNT 13.6 10*3/uL (4.8-10.8)
[2021-03-11 20:28] LABS: ALBUMIN 3.5 gm/dl (3.1-4.5); ALKALINE PHOSPHATASE 81 U/L (45-117); BUN 18 mg/dl (7-24); CHLORIDE 106 mmol/L (98-107); CREATININE 1.47 mg/dL (0.55-1.02); POTASSIUM 4.2 mmol/L (3.5-5.1); SGPT/ALT 22 U/L (12-78); SODIUM 138 mmol/L (136-145); TOTAL PROTEIN 7.3 gm/dL (6.4-8.2)
[2021-03-11 20:30] LABS: TROPONIN I < 0.015 ng/ml (<0.045)
[2021-03-11 20:38] LABS: SGOT/AST 15 IU/L (3-35)
== END 2021-03-11 20:42 | disposition home or self-care (01) ==
LOC: ED 17:41
PROVIDERS: Internal Medicine
DX: R07.89 Other chest pain (principal); E83.42 Hypomagnesemia; N18.32 Chronic kidney disease, stage 3b; Z91.041 Radiographic dye allergy status; Z88.5 Allergy status to narcotic agent; Z88.8 Allergy status to other drugs, medicaments and biological substances; Z79.899 Other long term (current) drug therapy; Z98.890 Other specified postprocedural states; Z98.51 Tubal ligation status; Z87.891 Personal history of nicotine dependence

== ENCOUNTER 2021-05-04 16:49 | Emergency (ER) | payer OTHER ==
[2021-05-04 17:16] LABS: BASO # 0.2 10*3/uL (0.0-0.1); BASO % 1.1 % (0.0-1.0); EOS # 0.3 10*3/uL (0.0-0.4); EOS % 2.2 % (1.0-4.0); HEMATOCRIT 38.4 % (37.0-47.0); LYMPH # 3.8 10*3/uL (1.3-4.4); LYMPH % 25.8 % (27.0-41.0); MEAN CELL VOLUME 91.9 fl (81.0-99.0); MEAN CORPUSCULAR HGB 30.1 pg (27.0-31.0); MEAN CORPUSCULAR HGB CONC 32.8 g/dl (33.0-37.0); MEAN PLATELET VOLUME 9.3 fl (9.6-12.3); MONO # 1.1 10*3/uL (0.1-1.0); MONO % 7.5 % (3.0-9.0); NEUT # 9.2 10*3/uL (2.3-7.9); NEUT % 62.3 % (47.0-73.0); PLATELET COUNT AUTOMATED 334 10*3/uL (130-400); RED BLOOD COUNT 4.18 10*6/uL (4.10-5.10); RED CELL DISTRI WIDTH 14.9 % (0-14.5); WHITE BLOOD COUNT 14.8 10*3/uL (4.8-10.8)
[2021-05-04] MEDS ORDERED: LORAZEPAM0.5 MG PO (17:18)
[2021-05-04] MEDS ORDERED: MAGNESIUM400 M1 PO (17:20)
[2021-05-04 17:35] LABS: ALBUMIN 3.1 gm/dl (3.1-4.5); ALKALINE PHOSPHATASE 74 U/L (45-117); BUN 11 mg/dl (7-24); CHLORIDE 102 mmol/L (98-107); CREATININE 1.15 mg/dL (0.55-1.02); POTASSIUM 4.2 mmol/L (3.5-5.1); SGOT/AST 20 IU/L (3-35); SGPT/ALT 25 U/L (12-78); SODIUM 137 mmol/L (136-145); TOTAL PROTEIN 6.8 gm/dL (6.4-8.2)
[2021-05-04 17:40] LABS: TROPONIN I < 0.015 ng/ml (<0.045)
== END 2021-05-04 21:03 | disposition home or self-care (01) ==
LOC: ED 16:49
PROVIDERS: Emergency Medicine
DX: R07.89 Other chest pain (principal); E11.9 Type 2 diabetes mellitus without complications; J44.9 Chronic obstructive pulmonary disease, unspecified; Z91.041 Radiographic dye allergy status; Z88.6 Allergy status to analgesic agent; Z79.899 Other long term (current) drug therapy; Z98.51 Tubal ligation status; Z98.61 Coronary angioplasty status; Z87.891 Personal history of nicotine dependence

== ENCOUNTER 2021-05-17 18:17 | Emergency (ER) | payer OTHER ==
[~2021-05-17] VITALS: Ht 142.2 cm; Wt 91.6 kg
[~2021-05-17 18:17] MED LIST changes: +LORAZEPAM0.5 MG PO; +MAGNESIUM400 M1 PO
[2021-05-17 20:16] LABS: HEMATOCRIT 38.9 % (37.0-47.0); MEAN CORPUSCULAR HGB 30.7 pg (27.0-31.0); MEAN CORPUSCULAR HGB CONC 32.6 g/dl (33.0-37.0); PLATELET COUNT AUTOMATED 360 10*3/uL (130-400); RED BLOOD COUNT 4.14 10*6/uL (4.10-5.10); RED CELL DISTRI WIDTH 15.9 % (0-14.5); WHITE BLOOD COUNT 14.3 10*3/uL (4.8-10.8)
[2021-05-17 20:31] LABS: ALBUMIN 3.6 gm/dl (3.1-4.5); ALKALINE PHOSPHATASE 77 U/L (45-117); BUN 11 mg/dl (7-24); CHLORIDE 107 mmol/L (98-107); LIPASE 115 U/L (73-393); POTASSIUM 3.8 mmol/L (3.5-5.1); SGOT/AST 14 IU/L (3-35); SGPT/ALT 22 U/L (12-78); SODIUM 137 mmol/L (136-145); TOTAL PROTEIN 7.1 gm/dL (6.4-8.2)
[2021-05-17 20:33] LABS: ATYPICAL LYMPHS 2 % (0-0); PLATELET SUFFICIENCY NORMAL (NORMAL); TOTAL CELLS COUNTED 100 #CELLS
[2021-05-17 20:34] LABS: BILIRUBIN Negative (Negative); BLOOD Trace-Lysed (Negative); CLARITY Clear (Clear); COLOR Yellow (Yellow); GLUCOSE Negative (Negative); KETONE Negative (Negative); LEUKO ESTERASE Negative (Negative); NITRITE Negative (Negative); PH 7.5 (4.5-8.0); SPECIFIC GRAVITY <= 1.005 (1.001-1.030); UROBILINOGEN 0.2 E.U./dl (0.0-1.0)
[2021-05-17 20:49] LABS: BACTERIA 2+; RBC 0-2 rbc/hpf (0-2)
== END 2021-05-18 02:45 | disposition home or self-care (01) ==
LOC: ED 18:17
PROVIDERS: Physician Assistant
DX: R10.2 Pelvic and perineal pain (principal); R11.0 Nausea; R10.31 Right lower quadrant pain; F32.9 Major depressive disorder, single episode, unspecified; F41.9 Anxiety disorder, unspecified; K21.9 Gastro-esophageal reflux disease without esophagitis; J44.9 Chronic obstructive pulmonary disease, unspecified; F17.200 Nicotine dependence, unspecified, uncomplicated; Z91.041 Radiographic dye allergy status; Z88.6 Allergy status to analgesic agent; Z88.8 Allergy status to other drugs, medicaments and biological substances; Z79.899 Other long term (current) drug therapy; Z98.61 Coronary angioplasty status; Z98.51 Tubal ligation status

== ENCOUNTER 2021-05-26 15:44 | Inpatient (IN) | payer OTHER ==
[~2021-05-26] VITALS: Ht 142.2 cm; Wt 92.8 kg
[2021-05-26 15:56] VITALS: BP 118/41
[2021-05-26 16:10] LABS: BASO # 0.1 10*3/uL (0.0-0.1); BASO % 0.8 % (0.0-1.0); EOS # 0.3 10*3/uL (0.0-0.4); EOS % 2.3 % (1.0-4.0); HEMATOCRIT 37.2 % (37.0-47.0); LYMPH # 3.5 10*3/uL (1.3-4.4); LYMPH % 25.9 % (27.0-41.0); MEAN CELL VOLUME 92.3 fl (81.0-99.0); MEAN CORPUSCULAR HGB CONC 32.5 g/dl (33.0-37.0); MEAN PLATELET VOLUME 8.9 fl (9.6-12.3); MONO # 1.1 10*3/uL (0.1-1.0); NEUT # 8.2 10*3/uL (2.3-7.9); NEUT % 61.7 % (47.0-73.0); PLATELET COUNT AUTOMATED 321 10*3/uL (130-400); RED BLOOD COUNT 4.03 10*6/uL (4.10-5.10); RED CELL DISTRI WIDTH 15.9 % (0-14.5); WHITE BLOOD COUNT 13.4 10*3/uL (4.8-10.8)
[2021-05-26 16:34] LABS: ALBUMIN 3.5 gm/dl (3.1-4.5); ALKALINE PHOSPHATASE 73 U/L (45-117); BUN 9 mg/dl (7-24); CHLORIDE 105 mmol/L (98-107); CREATININE 1.01 mg/dL (0.55-1.02); SGOT/AST 14 IU/L (3-35); SGPT/ALT 20 U/L (12-78); SODIUM 132 mmol/L (136-145); TOTAL PROTEIN 6.8 gm/dL (6.4-8.2)
[2021-05-26 16:36] LABS: TROPONIN I < 0.015 ng/ml (<0.045)
[2021-05-26 17:54] VITALS: BP 121/57
[2021-05-26 20:00] VITALS: BP 117/92
[2021-05-27] VITALS: BP 106/43
[2021-05-27 06:32] LABS: BASO # 0.1 10*3/uL (0.0-0.1); BASO % 0.9 % (0.0-1.0); EOS # 0.3 10*3/uL (0.0-0.4); EOS % 3.5 % (1.0-4.0); HEMATOCRIT 37.7 % (37.0-47.0); LYMPH # 3.2 10*3/uL (1.3-4.4); LYMPH % 32.5 % (27.0-41.0); MEAN CORPUSCULAR HGB 30.4 pg (27.0-31.0); MEAN CORPUSCULAR HGB CONC 32.4 g/dl (33.0-37.0); MEAN PLATELET VOLUME 9.4 fl (9.6-12.3); MONO # 0.9 10*3/uL (0.1-1.0); MONO % 8.9 % (3.0-9.0); NEUT # 5.2 10*3/uL (2.3-7.9); PLATELET COUNT AUTOMATED 310 10*3/uL (130-400); RED BLOOD COUNT 4.01 10*6/uL (4.10-5.10); RED CELL DISTRI WIDTH 16.1 % (0-14.5); WHITE BLOOD COUNT 9.8 10*3/uL (4.8-10.8)
[2021-05-27 06:39] LABS: ALBUMIN 3.3 gm/dl (3.1-4.5); BUN 11 mg/dl (7-24); CHLORIDE 109 mmol/L (98-107); POTASSIUM 3.9 mmol/L (3.5-5.1); SODIUM 138 mmol/L (136-145)
[2021-05-27 07:33] LABS: ALKALINE PHOSPHATASE 68 U/L (45-117); CHOLESTEROL 83 mg/dL (<200); CREATININE 0.98 mg/dL (0.55-1.02); FREE T4 1.13 ng/dl (0.76-1.46); LDL CHOLESTEROL 15 mg/dL (9-159); SGOT/AST 10 IU/L (3-35); SGPT/ALT 18 U/L (12-78); TOTAL PROTEIN 6.5 gm/dL (6.4-8.2); TRIGLYCERIDES 182 mg/dl (<150)
[2021-05-27 08:00] VITALS: BP 111/51
[2021-05-27 12:00] VITALS: BP 115/49
== END 2021-05-27 15:41 | disposition home or self-care (01) | DRG 880 ==
LOC: ED 15:44 → EDHOLD 17:08 → 5E 17:08 → EDHOLD 17:30 → 5E 19:31
PROVIDERS: Student in an Organized Health Care Education/Training Program; ADMIT Family Medicine; ATTEND Family Medicine
DX: F41.1 Generalized anxiety disorder (principal); E87.1 Hypo-osmolality and hyponatremia; R65.10 Systemic inflammatory response syndrome (SIRS) of non-infectious origin without acute organ dysfunction; I13.0 Hypertensive heart and chronic kidney disease with heart failure and stage 1 through stage 4 chronic kidney disease, or unspecified chronic kidney disease; Z68.42 Body mass index [BMI] 45.0-49.9, adult; E11.65 Type 2 diabetes mellitus with hyperglycemia; J44.9 Chronic obstructive pulmonary disease, unspecified; K21.9 Gastro-esophageal reflux disease without esophagitis; F32.9 Major depressive disorder, single episode, unspecified; E11.22 Type 2 diabetes mellitus with diabetic chronic kidney disease; N18.31 Chronic kidney disease, stage 3a; I25.10 Atherosclerotic heart disease of native coronary artery without angina pectoris; E66.01 Morbid (severe) obesity due to excess calories; E78.5 Hyperlipidemia, unspecified; E83.41 Hypermagnesemia; I50.9 Heart failure, unspecified; M79.7 Fibromyalgia; Z88.6 Allergy status to analgesic agent; Z88.8 Allergy status to other drugs, medicaments and biological substances; Z91.041 Radiographic dye allergy status; Z98.51 Tubal ligation status; Z87.891 Personal history of nicotine dependence; Z82.49 Family history of ischemic heart disease and other diseases of the circulatory system; Z82.0 Family history of epilepsy and other diseases of the nervous system; Z82.5 Family history of asthma and other chronic lower respiratory diseases; Z83.49 Family history of other endocrine, nutritional and metabolic diseases; Z79.899 Other long term (current) drug therapy

== ENCOUNTER 2021-06-10 15:39 | Inpatient (IN) | payer OTHER ==
[~2021-06-10] VITALS: Ht 142.2 cm; Wt 90.7 kg
[2021-06-10 15:49] VITALS: BP 104/54
[2021-06-10 16:05] LABS: BASO # 0.1 10*3/uL (0.0-0.1); BASO % 0.8 % (0.0-1.0); EOS # 0.4 10*3/uL (0.0-0.4); EOS % 2.5 % (1.0-4.0); HEMATOCRIT 36.1 % (37.0-47.0); LYMPH # 3.6 10*3/uL (1.3-4.4); LYMPH % 24.3 % (27.0-41.0); MEAN CELL VOLUME 94.5 fl (81.0-99.0); MEAN CORPUSCULAR HGB 30.9 pg (27.0-31.0); MEAN CORPUSCULAR HGB CONC 32.7 g/dl (33.0-37.0); MEAN PLATELET VOLUME 8.7 fl (9.6-12.3); MONO # 1.3 10*3/uL (0.1-1.0); MONO % 8.6 % (3.0-9.0); NEUT # 9.3 10*3/uL (2.3-7.9); NEUT % 61.9 % (47.0-73.0); PLATELET COUNT AUTOMATED 333 10*3/uL (130-400); RED BLOOD COUNT 3.82 10*6/uL (4.10-5.10); RED CELL DISTRI WIDTH 15.9 % (0-14.5)
[2021-06-10 16:20] LABS: ALBUMIN 3.4 gm/dl (3.1-4.5); ALKALINE PHOSPHATASE 76 U/L (45-117); BUN 8 mg/dl (7-24); CHLORIDE 105 mmol/L (98-107); CREATININE 0.94 mg/dL (0.55-1.02); POTASSIUM 3.7 mmol/L (3.5-5.1); SGOT/AST 10 IU/L (3-35); SGPT/ALT 17 U/L (12-78); SODIUM 138 mmol/L (136-145); TOTAL PROTEIN 6.7 gm/dL (6.4-8.2)
[2021-06-10 16:21] LABS: LIPASE 115 U/L (73-393)
[2021-06-10 16:24] LABS: BETA-HCG, QUANT < 1.0 mIU/mL (1-3); TROPONIN I < 0.015 ng/ml (<0.045)
[2021-06-10 18:29] VITALS: BP 136/67
[2021-06-11 01:12] VITALS: BP 115/57
[2021-06-11 03:23] VITALS: BP 106/56
[2021-06-11] MEDS ORDERED: FLOVENT HFA12 GM INH (05:10)
[2021-06-11 05:49] VITALS: BP 119/50
[2021-06-11 05:59] LABS: ALBUMIN 3.2 gm/dl (3.1-4.5); BUN 10 mg/dl (7-24); CHLORIDE 108 mmol/L (98-107); CREATININE 0.88 mg/dL (0.55-1.02); POTASSIUM 3.8 mmol/L (3.5-5.1); SGOT/AST 13 IU/L (3-35); SGPT/ALT 17 U/L (12-78); SODIUM 141 mmol/L (136-145)
[2021-06-11 06:05] LABS: ALKALINE PHOSPHATASE 69 U/L (45-117); FREE T4 1.04 ng/dl (0.76-1.46); TOTAL PROTEIN 6.5 gm/dL (6.4-8.2)
[2021-06-11 06:10] LABS: BASO # 0.1 10*3/uL (0.0-0.1); BASO % 1.1 % (0.0-1.0); EOS # 0.3 10*3/uL (0.0-0.4); EOS % 2.8 % (1.0-4.0); HEMATOCRIT 36.9 % (37.0-47.0); LYMPH % 27.7 % (27.0-41.0); MEAN CELL VOLUME 96.6 fl (81.0-99.0); MEAN CORPUSCULAR HGB 30.6 pg (27.0-31.0); MEAN CORPUSCULAR HGB CONC 31.7 g/dl (33.0-37.0); MEAN PLATELET VOLUME 10.1 fl (9.6-12.3); MONO % 9.3 % (3.0-9.0); NEUT # 6.2 10*3/uL (2.3-7.9); PLATELET COUNT AUTOMATED 307 10*3/uL (130-400); RED BLOOD COUNT 3.82 10*6/uL (4.10-5.10); RED CELL DISTRI WIDTH 16.2 % (0-14.5); WHITE BLOOD COUNT 10.9 10*3/uL (4.8-10.8)
[2021-06-11 08:00] VITALS: BP 126/75
[2021-06-11] MEDS ORDERED: IMDUR SA30 MG PO (10:27)
[2021-06-11 13:14] VITALS: BP 97/66
[2021-06-11] MEDS ORDERED: Imdur SA60 MG PO (14:16)
== END 2021-06-11 16:15 | disposition home or self-care (01) | DRG 206 ==
LOC: ED 15:39 → EDHOLD 18:19
PROVIDERS: Emergency Medicine; Internal Medicine; ADMIT Student in an Organized Health Care Education/Training Program; ATTEND Student in an Organized Health Care Education/Training Program
DX: M94.0 Chondrocostal junction syndrome [Tietze] (principal); J98.11 Atelectasis; Z68.42 Body mass index [BMI] 45.0-49.9, adult; R65.10 Systemic inflammatory response syndrome (SIRS) of non-infectious origin without acute organ dysfunction; F41.1 Generalized anxiety disorder; E11.22 Type 2 diabetes mellitus with diabetic chronic kidney disease; E87.8 Other disorders of electrolyte and fluid balance, not elsewhere classified; E83.41 Hypermagnesemia; M79.7 Fibromyalgia; K21.9 Gastro-esophageal reflux disease without esophagitis; N18.9 Chronic kidney disease, unspecified; E78.5 Hyperlipidemia, unspecified; F32.9 Major depressive disorder, single episode, unspecified; J44.9 Chronic obstructive pulmonary disease, unspecified; D35.00 Benign neoplasm of unspecified adrenal gland; I25.10 Atherosclerotic heart disease of native coronary artery without angina pectoris; E11.65 Type 2 diabetes mellitus with hyperglycemia; F17.210 Nicotine dependence, cigarettes, uncomplicated; Z79.899 Other long term (current) drug therapy; Z95.5 Presence of coronary angioplasty implant and graft; Z98.51 Tubal ligation status; Z82.49 Family history of ischemic heart disease and other diseases of the circulatory system; Z79.84 Long term (current) use of oral hypoglycemic drugs; Z88.6 Allergy status to analgesic agent; Z91.041 Radiographic dye allergy status; Z79.51 Long term (current) use of inhaled steroids; Z71.6 Tobacco abuse counseling

== ENCOUNTER 2021-07-07 16:54 | Inpatient (IN) | payer OTHER ==
[~2021-07-07] VITALS: Wt 90.7 kg
[~2021-07-07 16:54] MED LIST changes: +FLOVENT HFA12 GM INH; +Imdur SA60 MG PO
[2021-07-07 17:10] VITALS: BP 115/69
[2021-07-07 17:21] LABS: BASO # 0.1 10*3/uL (0.0-0.1); BASO % 0.8 % (0.0-1.0); EOS # 0.3 10*3/uL (0.0-0.4); EOS % 2.6 % (1.0-4.0); HEMATOCRIT 35.5 % (37.0-47.0); LYMPH # 2.8 10*3/uL (1.3-4.4); LYMPH % 22.5 % (27.0-41.0); MEAN CELL VOLUME 94.4 fl (81.0-99.0); MEAN CORPUSCULAR HGB 30.6 pg (27.0-31.0); MEAN CORPUSCULAR HGB CONC 32.4 g/dl (33.0-37.0); MEAN PLATELET VOLUME 8.8 fl (9.6-12.3); MONO # 1.1 10*3/uL (0.1-1.0); MONO % 8.5 % (3.0-9.0); NEUT # 8.1 10*3/uL (2.3-7.9); PLATELET COUNT AUTOMATED 364 10*3/uL (130-400); RED BLOOD COUNT 3.76 10*6/uL (4.10-5.10); RED CELL DISTRI WIDTH 14.1 % (0-14.5); WHITE BLOOD COUNT 12.6 10*3/uL (4.8-10.8)
[2021-07-07 17:48] LABS: ALBUMIN 2.9 gm/dl (3.1-4.5); ALKALINE PHOSPHATASE 85 U/L (45-117); BUN 9 mg/dl (7-24); CHLORIDE 104 mmol/L (98-107); CREATININE 0.98 mg/dL (0.55-1.02); SGOT/AST 19 IU/L (3-35); SGPT/ALT 22 U/L (12-78); SODIUM 139 mmol/L (136-145); TOTAL PROTEIN 6.5 gm/dL (6.4-8.2)
[2021-07-07 17:50] LABS: TROPONIN I < 0.015 ng/ml (<0.045)
[2021-07-07 19:48] VITALS: BP 119/61
[2021-07-07 21:42] VITALS: BP 124/59
[2021-07-08 00:56] VITALS: BP 119/50
[2021-07-08] MEDS ORDERED: JANUVIA100 MG PO (03:26)
[2021-07-08] MEDS ORDERED: Imdur SA60 MG PO (03:31)
[2021-07-08 05:51] LABS: BUN 9 mg/dl (7-24); CHLORIDE 106 mmol/L (98-107); SODIUM 142 mmol/L (136-145)
[2021-07-08 05:53] LABS: CREATININE 0.91 mg/dL (0.55-1.02)
[2021-07-08 05:57] VITALS: BP 140/50
[2021-07-08 06:18] LABS: BASO # 0.1 10*3/uL (0.0-0.1); EOS # 0.3 10*3/uL (0.0-0.4); HEMATOCRIT 36.5 % (37.0-47.0); LYMPH # 3.2 10*3/uL (1.3-4.4); LYMPH % 31.2 % (27.0-41.0); MEAN CELL VOLUME 96.3 fl (81.0-99.0); MEAN CORPUSCULAR HGB 30.9 pg (27.0-31.0); MEAN CORPUSCULAR HGB CONC 32.1 g/dl (33.0-37.0); MEAN PLATELET VOLUME 9.9 fl (9.6-12.3); MONO % 9.4 % (3.0-9.0); NEUT # 5.5 10*3/uL (2.3-7.9); NEUT % 53.6 % (47.0-73.0); PLATELET COUNT AUTOMATED 333 10*3/uL (130-400); RED BLOOD COUNT 3.79 10*6/uL (4.10-5.10); RED CELL DISTRI WIDTH 14.2 % (0-14.5); WHITE BLOOD COUNT 10.2 10*3/uL (4.8-10.8)
[2021-07-08 08:19] VITALS: BP 138/60
[2021-07-08 10:50] VITALS: BP 126/62
[2021-07-08 13:47] VITALS: BP 115/52
== END 2021-07-08 17:00 | disposition home or self-care (01) | DRG 880 ==
LOC: ED 16:54 → EDHOLD 18:17
PROVIDERS: Emergency Medicine; Internal Medicine; ADMIT Student in an Organized Health Care Education/Training Program; ATTEND Student in an Organized Health Care Education/Training Program
DX: F41.1 Generalized anxiety disorder (principal); R65.10 Systemic inflammatory response syndrome (SIRS) of non-infectious origin without acute organ dysfunction; E44.0 Moderate protein-calorie malnutrition; Z68.41 Body mass index [BMI] 40.0-44.9, adult; M79.7 Fibromyalgia; D35.00 Benign neoplasm of unspecified adrenal gland; E11.22 Type 2 diabetes mellitus with diabetic chronic kidney disease; F17.210 Nicotine dependence, cigarettes, uncomplicated; E78.2 Mixed hyperlipidemia; J41.1 Mucopurulent chronic bronchitis; D64.9 Anemia, unspecified; E11.65 Type 2 diabetes mellitus with hyperglycemia; N18.31 Chronic kidney disease, stage 3a; K21.9 Gastro-esophageal reflux disease without esophagitis; I25.10 Atherosclerotic heart disease of native coronary artery without angina pectoris; F32.9 Major depressive disorder, single episode, unspecified; Z98.51 Tubal ligation status; Z91.041 Radiographic dye allergy status; Z88.6 Allergy status to analgesic agent; Z88.8 Allergy status to other drugs, medicaments and biological substances; Z79.899 Other long term (current) drug therapy; Z82.49 Family history of ischemic heart disease and other diseases of the circulatory system; Z71.6 Tobacco abuse counseling

== ENCOUNTER 2021-07-30 17:19 | Emergency (ER) | payer OTHER ==
[~2021-07-30] VITALS: Ht 142.2 cm; Wt 95.3 kg
[2021-07-30 21:25] LABS: BASO # 0.1 10*3/uL (0.0-0.1); EOS # 0.4 10*3/uL (0.0-0.4); EOS % 3.1 % (1.0-4.0); HEMATOCRIT 40.6 % (37.0-47.0); LYMPH # 3.2 10*3/uL (1.3-4.4); LYMPH % 26.1 % (27.0-41.0); MEAN CELL VOLUME 95.8 fl (81.0-99.0); MEAN CORPUSCULAR HGB 30.4 pg (27.0-31.0); MEAN CORPUSCULAR HGB CONC 31.8 g/dl (33.0-37.0); MONO % 8.5 % (3.0-9.0); NEUT # 7.3 10*3/uL (2.3-7.9); NEUT % 59.5 % (47.0-73.0); PLATELET COUNT AUTOMATED 342 10*3/uL (130-400); RED BLOOD COUNT 4.24 10*6/uL (4.10-5.10); RED CELL DISTRI WIDTH 13.6 % (0-14.5); WHITE BLOOD COUNT 12.2 10*3/uL (4.8-10.8)
[2021-07-30 21:45] LABS: ALBUMIN 3.5 gm/dl (3.1-4.5); ALKALINE PHOSPHATASE 84 U/L (45-117); BUN 8 mg/dl (7-24); CHLORIDE 105 mmol/L (98-107); CREATININE 0.95 mg/dL (0.55-1.02); POTASSIUM 3.9 mmol/L (3.5-5.1); SGOT/AST 23 IU/L (3-35); SGPT/ALT 27 U/L (12-78); SODIUM 138 mmol/L (136-145); TOTAL PROTEIN 7.4 gm/dL (6.4-8.2)
[2021-07-30 21:51] LABS: TROPONIN I < 0.015 ng/ml (<0.045)
== END 2021-07-30 22:20 | disposition home or self-care (01) ==
LOC: ED 17:19
PROVIDERS: Internal Medicine
DX: R07.9 Chest pain, unspecified (principal); M54.2 Cervicalgia; D72.829 Elevated white blood cell count, unspecified; F17.210 Nicotine dependence, cigarettes, uncomplicated; Z91.041 Radiographic dye allergy status; Z88.6 Allergy status to analgesic agent; Z79.899 Other long term (current) drug therapy

== ENCOUNTER 2021-08-24 16:39 | Emergency (ER) | payer OTHER ==
[~2021-08-24] VITALS: Ht 142.2 cm; Wt 95.3 kg
[2021-08-24 20:53] LABS: BASO # 0.1 10*3/uL (0.0-0.1); BASO % 0.8 % (0.0-1.0); EOS # 0.4 10*3/uL (0.0-0.4); EOS % 3.2 % (1.0-4.0); HEMATOCRIT 39.8 % (37.0-47.0); LYMPH % 22.8 % (27.0-41.0); MEAN CORPUSCULAR HGB 29.8 pg (27.0-31.0); MEAN CORPUSCULAR HGB CONC 31.4 g/dl (33.0-37.0); MEAN PLATELET VOLUME 8.9 fl (9.6-12.3); MONO # 0.9 10*3/uL (0.1-1.0); NEUT # 8.3 10*3/uL (2.3-7.9); NEUT % 64.4 % (47.0-73.0); PLATELET COUNT AUTOMATED 306 10*3/uL (130-400); RED BLOOD COUNT 4.19 10*6/uL (4.10-5.10); RED CELL DISTRI WIDTH 14.1 % (0-14.5)
[2021-08-24 21:11] LABS: ALBUMIN 3.3 gm/dl (3.1-4.5); ALKALINE PHOSPHATASE 85 U/L (45-117); BUN 9 mg/dl (7-24); CHLORIDE 105 mmol/L (98-107); CREATININE 0.91 mg/dL (0.55-1.02); LIPASE 82 U/L (73-393); POTASSIUM 3.6 mmol/L (3.5-5.1); SGOT/AST 22 IU/L (3-35); SGPT/ALT 28 U/L (12-78); SODIUM 139 mmol/L (136-145)
[2021-08-24 21:12] LABS: ACT PARTIAL THROMBO TIME 25.4 SECONDS (20.0-32.1)
[2021-08-24 21:18] LABS: TROPONIN I < 0.015 ng/ml (<0.045)
== END 2021-08-25 | disposition home or self-care (01) ==
LOC: ED 16:39
PROVIDERS: Physician Assistant
DX: R07.9 Chest pain, unspecified (principal); F17.210 Nicotine dependence, cigarettes, uncomplicated; Z88.6 Allergy status to analgesic agent; Z91.041 Radiographic dye allergy status; Z79.899 Other long term (current) drug therapy

== ENCOUNTER 2021-09-02 10:30 | Emergency (ER) | payer OTHER ==
[~2021-09-02] VITALS: Wt 95.3 kg
[2021-09-02 11:15] LABS: BASO # 0.1 10*3/uL (0.0-0.1); BASO % 0.9 % (0.0-1.0); EOS # 0.4 10*3/uL (0.0-0.4); EOS % 3.3 % (1.0-4.0); LYMPH # 2.5 10*3/uL (1.3-4.4); LYMPH % 20.2 % (27.0-41.0); MEAN CELL VOLUME 92.5 fl (81.0-99.0); MEAN CORPUSCULAR HGB 29.7 pg (27.0-31.0); MEAN CORPUSCULAR HGB CONC 32.1 g/dl (33.0-37.0); MEAN PLATELET VOLUME 8.9 fl (9.6-12.3); MONO # 0.9 10*3/uL (0.1-1.0); MONO % 7.1 % (3.0-9.0); NEUT # 8.1 10*3/uL (2.3-7.9); NEUT % 66.7 % (47.0-73.0); PLATELET COUNT AUTOMATED 356 10*3/uL (130-400); RED BLOOD COUNT 4.11 10*6/uL (4.10-5.10); RED CELL DISTRI WIDTH 14.2 % (0-14.5); WHITE BLOOD COUNT 12.1 10*3/uL (4.8-10.8)
[2021-09-02 11:26] LABS: ACT PARTIAL THROMBO TIME 25.2 SECONDS (20.0-32.1)
[2021-09-02 11:30] LABS: ALBUMIN 3.2 gm/dl (3.1-4.5); ALKALINE PHOSPHATASE 87 U/L (45-117); BUN 7 mg/dl (7-24); CHLORIDE 104 mmol/L (98-107); POTASSIUM 4.1 mmol/L (3.5-5.1); SGOT/AST 13 IU/L (3-35); SGPT/ALT 25 U/L (12-78); SODIUM 137 mmol/L (136-145); TOTAL PROTEIN 6.9 gm/dL (6.4-8.2)
[2021-09-02 11:31] LABS: TROPONIN I < 0.015 ng/ml (<0.045)
== END 2021-09-02 15:13 | disposition home or self-care (01) ==
LOC: ED 10:30
PROVIDERS: Emergency Medicine
DX: G89.29 Other chronic pain (principal); R07.9 Chest pain, unspecified; F17.210 Nicotine dependence, cigarettes, uncomplicated; Z91.041 Radiographic dye allergy status; Z88.6 Allergy status to analgesic agent; Z79.899 Other long term (current) drug therapy

== ENCOUNTER 2021-09-13 14:58 | Emergency (ER) | payer OTHER ==
[2021-09-13 15:47] LABS: BASO # 0.1 10*3/uL (0.0-0.1); BASO % 0.9 % (0.0-1.0); EOS # 0.3 10*3/uL (0.0-0.4); EOS % 2.4 % (1.0-4.0); HEMATOCRIT 36.6 % (37.0-47.0); LYMPH # 2.7 10*3/uL (1.3-4.4); LYMPH % 21.9 % (27.0-41.0); MEAN CELL VOLUME 91.3 fl (81.0-99.0); MEAN CORPUSCULAR HGB 29.9 pg (27.0-31.0); MEAN CORPUSCULAR HGB CONC 32.8 g/dl (33.0-37.0); MEAN PLATELET VOLUME 8.7 fl (9.6-12.3); MONO # 0.9 10*3/uL (0.1-1.0); MONO % 7.3 % (3.0-9.0); NEUT % 65.1 % (47.0-73.0); PLATELET COUNT AUTOMATED 310 10*3/uL (130-400); RED BLOOD COUNT 4.01 10*6/uL (4.10-5.10); RED CELL DISTRI WIDTH 14.4 % (0-14.5); WHITE BLOOD COUNT 12.3 10*3/uL (4.8-10.8)
[2021-09-13 15:58] LABS: ACT PARTIAL THROMBO TIME 24.6 SECONDS (20.0-32.1)
[2021-09-13 16:03] LABS: ALKALINE PHOSPHATASE 84 U/L (45-117); BUN 6 mg/dl (7-24); CHLORIDE 105 mmol/L (98-107); CREATININE 1.18 mg/dL (0.55-1.02); SGOT/AST 16 IU/L (3-35); SGPT/ALT 21 U/L (12-78); SODIUM 140 mmol/L (136-145); TOTAL PROTEIN 6.5 gm/dL (6.4-8.2)
[2021-09-13 16:06] LABS: TROPONIN I < 0.015 ng/ml (<0.045)
== END 2021-09-13 23:23 | disposition home or self-care (01) ==
LOC: ED 14:58
PROVIDERS: Nurse Practitioner Family
DX: G89.29 Other chronic pain (principal); R07.9 Chest pain, unspecified; Z88.6 Allergy status to analgesic agent; Z91.041 Radiographic dye allergy status; Z79.899 Other long term (current) drug therapy; F17.210 Nicotine dependence, cigarettes, uncomplicated

== ENCOUNTER 2021-11-17 16:36 | Emergency (ER) | payer OTHER ==
[2021-11-17 17:18] LABS: HEMATOCRIT 35.3 % (37.0-47.0); MEAN CELL VOLUME 90.3 fl (81.0-99.0); MEAN CORPUSCULAR HGB 28.9 pg (27.0-31.0); MEAN PLATELET VOLUME 8.9 fl (9.6-12.3); PLATELET COUNT AUTOMATED 309 10*3/uL (130-400); RED BLOOD COUNT 3.91 10*6/uL (4.10-5.10); RED CELL DISTRI WIDTH 15.9 % (0-14.5); WHITE BLOOD COUNT 13.7 10*3/uL (4.8-10.8)
[2021-11-17 17:31] LABS: ACT PARTIAL THROMBO TIME 24.6 SECONDS (20.0-32.1)
[2021-11-17 17:35] LABS: ALBUMIN 2.9 gm/dl (3.1-4.5); ALKALINE PHOSPHATASE 86 U/L (45-117); BUN 10 mg/dl (7-24); CHLORIDE 102 mmol/L (98-107); CREATININE 1.11 mg/dL (0.55-1.02); POTASSIUM 3.9 mmol/L (3.5-5.1); SGOT/AST 14 IU/L (3-35); SGPT/ALT 19 U/L (12-78); SODIUM 138 mmol/L (136-145); TOTAL PROTEIN 6.3 gm/dL (6.4-8.2)
[2021-11-17 17:39] LABS: PLATELET SUFFICIENCY NORMAL (NORMAL); TOTAL CELLS COUNTED 100 #CELLS
[2021-11-17 17:40] LABS: POLYCHROMASIA SLIGHT
[2021-11-17 17:41] LABS: ACANTHOCYTES FEW
== END 2021-11-17 19:35 | disposition home or self-care (01) ==
LOC: ED 16:36
PROVIDERS: Emergency Medicine
DX: R07.89 Other chest pain (principal); R06.02 Shortness of breath; M54.9 Dorsalgia, unspecified; R11.0 Nausea; F32.9 Major depressive disorder, single episode, unspecified; F41.9 Anxiety disorder, unspecified; F17.210 Nicotine dependence, cigarettes, uncomplicated; Z91.041 Radiographic dye allergy status; Z88.6 Allergy status to analgesic agent; Z88.8 Allergy status to other drugs, medicaments and biological substances; Z79.899 Other long term (current) drug therapy; Z98.61 Coronary angioplasty status; Z98.51 Tubal ligation status

== ENCOUNTER 2021-11-30 11:21 | Emergency (ER) | payer OTHER ==
[2021-11-30 11:50] LABS: MEAN CELL VOLUME 91.4 fl (81.0-99.0); MEAN CORPUSCULAR HGB 28.6 pg (27.0-31.0); MEAN CORPUSCULAR HGB CONC 31.4 g/dl (33.0-37.0); MEAN PLATELET VOLUME 8.7 fl (9.6-12.3); PLATELET COUNT AUTOMATED 388 10*3/uL (130-400); RED BLOOD COUNT 4.05 10*6/uL (4.10-5.10); RED CELL DISTRI WIDTH 16.2 % (0-14.5)
[2021-11-30 12:05] LABS: ALBUMIN 3.1 gm/dl (3.1-4.5); ALKALINE PHOSPHATASE 74 U/L (45-117); BUN 11 mg/dl (7-24); CHLORIDE 104 mmol/L (98-107); CREATININE 1.13 mg/dL (0.55-1.02); POTASSIUM 3.9 mmol/L (3.5-5.1); SGOT/AST 16 IU/L (3-35); SGPT/ALT 17 U/L (12-78); SODIUM 139 mmol/L (136-145); TOTAL PROTEIN 6.6 gm/dL (6.4-8.2)
[2021-11-30 12:11] LABS: ATYPICAL LYMPHS 1 % (0-0); BASOPHILS 2 % (0-1); TOTAL CELLS COUNTED 100 #CELLS
[2021-11-30 12:12] LABS: PLATELET SUFFICIENCY NORMAL (NORMAL); POLYCHROMASIA SLIGHT
== END 2021-11-30 15:25 | disposition home or self-care (01) ==
LOC: ED 11:21
PROVIDERS: Physician Assistant
DX: R05.9 Cough, unspecified (principal); R09.89 Other specified symptoms and signs involving the circulatory and respiratory systems; K21.9 Gastro-esophageal reflux disease without esophagitis; E11.9 Type 2 diabetes mellitus without complications; I50.9 Heart failure, unspecified; J44.9 Chronic obstructive pulmonary disease, unspecified; F17.210 Nicotine dependence, cigarettes, uncomplicated; Z91.041 Radiographic dye allergy status; Z88.6 Allergy status to analgesic agent; Z79.899 Other long term (current) drug therapy; Z98.890 Other specified postprocedural states; Z98.51 Tubal ligation status

== ENCOUNTER 2021-12-18 14:37 | Emergency (ER) | payer OTHER ==
[~2021-12-18] VITALS: Wt 98.4 kg
[2021-12-18 16:17] LABS: HEMATOCRIT 36.3 % (37.0-47.0); MEAN CELL VOLUME 92.1 fl (81.0-99.0); MEAN CORPUSCULAR HGB 29.2 pg (27.0-31.0); MEAN CORPUSCULAR HGB CONC 31.7 g/dl (33.0-37.0); NUCLEATED RED BLOOD CELL 0.1 % (0.0-0.0); PLATELET COUNT AUTOMATED 363 10*3/uL (130-400); RED BLOOD COUNT 3.94 10*6/uL (4.10-5.10); WHITE BLOOD COUNT 15.2 10*3/uL (4.8-10.8)
[2021-12-18 16:19] LABS: MANUAL DIFF REFLEX YES
[2021-12-18 16:44] LABS: ALBUMIN 3.4 gm/dl (3.1-4.5); CREATININE 1.23 mg/dL (0.55-1.02); POTASSIUM 4.6 mmol/L (3.5-5.1); TOTAL PROTEIN 6.6 gm/dL (6.4-8.2)
[2021-12-18 16:49] LABS: BASOPHILS 1 % (0-1); PLATELET SUFFICIENCY NORMAL (NORMAL); TOTAL CELLS COUNTED 100 #CELLS
[2021-12-18] MEDS ORDERED: PREDNISONE10 MG PO (17:47)
[2021-12-18] MEDS ORDERED: ZITHROMAX250 MG PO (17:47)
== END 2021-12-18 18:28 | disposition home or self-care (01) ==
LOC: ED 14:37
PROVIDERS: Student in an Organized Health Care Education/Training Program
DX: J44.1 Chronic obstructive pulmonary disease with (acute) exacerbation (principal); R60.0 Localized edema; F17.210 Nicotine dependence, cigarettes, uncomplicated; Z88.6 Allergy status to analgesic agent; Z91.041 Radiographic dye allergy status; Z79.899 Other long term (current) drug therapy; Z98.51 Tubal ligation status; Z98.890 Other specified postprocedural states

== ENCOUNTER 2021-12-26 14:07 | Emergency (ER) | payer OTHER ==
[~2021-12-26] VITALS: Ht 142.2 cm; Wt 94.8 kg
[2021-12-26 14:42] LABS: HEMATOCRIT 42.4 % (37.0-47.0); MEAN CELL VOLUME 90.4 fl (81.0-99.0); MEAN CORPUSCULAR HGB 28.4 pg (27.0-31.0); MEAN CORPUSCULAR HGB CONC 31.4 g/dl (33.0-37.0); MEAN PLATELET VOLUME 9.1 fl (9.6-12.3); PLATELET COUNT AUTOMATED 441 10*3/uL (130-400); RED BLOOD COUNT 4.69 10*6/uL (4.10-5.10); RED CELL DISTRI WIDTH 15.9 % (0-14.5); WHITE BLOOD COUNT 26.8 10*3/uL (4.8-10.8)
[2021-12-26 14:46] LABS: MANUAL DIFF REFLEX YES
[2021-12-26 14:55] LABS: ACT PARTIAL THROMBO TIME 22.2 SECONDS (20.0-32.1)
[2021-12-26 14:59] LABS: ALKALINE PHOSPHATASE 89 U/L (45-117); BUN 21 mg/dl (7-24); CHLORIDE 97 mmol/L (98-107); CREATININE 1.23 mg/dL (0.55-1.02); POTASSIUM 4.1 mmol/L (3.5-5.1); SGOT/AST 12 IU/L (3-35); SGPT/ALT 22 U/L (12-78); SODIUM 131 mmol/L (136-145); TOTAL PROTEIN 6.9 gm/dL (6.4-8.2)
[2021-12-26 15:03] LABS: OVALOCYTES FEW; PLATELET SUFFICIENCY HIGH (NORMAL); POLYCHROMASIA SLIGHT; TOTAL CELLS COUNTED 100 #CELLS; VACUOLATION OF NEUTROPHILS SLIGHT
== END 2021-12-26 17:54 | disposition home or self-care (01) ==
LOC: ED 14:07
PROVIDERS: Student in an Organized Health Care Education/Training Program
DX: R07.9 Chest pain, unspecified (principal); I10 Essential (primary) hypertension; E78.5 Hyperlipidemia, unspecified; I25.10 Atherosclerotic heart disease of native coronary artery without angina pectoris; Z91.041 Radiographic dye allergy status; Z88.6 Allergy status to analgesic agent; Z79.899 Other long term (current) drug therapy; Z98.890 Other specified postprocedural states; Z98.51 Tubal ligation status

== ENCOUNTER 2022-01-09 13:59 | Emergency (ER) | payer OTHER ==
[~2022-01-09] VITALS: Ht 142.2 cm; Wt 98.4 kg
[2022-01-09 15:04] LABS: MEAN CELL VOLUME 90.7 fl (81.0-99.0); MEAN PLATELET VOLUME 9.3 fl (9.6-12.3); NUCLEATED RED BLOOD CELL 0.2 % (0.0-0.0); PLATELET COUNT AUTOMATED 369 10*3/uL (130-400); RED BLOOD COUNT 4.41 10*6/uL (4.10-5.10); RED CELL DISTRI WIDTH 16.7 % (0-14.5); WHITE BLOOD COUNT 12.9 10*3/uL (4.8-10.8)
[2022-01-09 15:09] LABS: MANUAL DIFF REFLEX YES
[2022-01-09 15:21] LABS: ALKALINE PHOSPHATASE 98 U/L (45-117); BUN 11 mg/dl (7-24); CHLORIDE 104 mmol/L (98-107); CREATININE 0.95 mg/dL (0.55-1.02); POTASSIUM 4.1 mmol/L (3.5-5.1); SGOT/AST 12 IU/L (3-35); SGPT/ALT 20 U/L (12-78); SODIUM 138 mmol/L (136-145); TOTAL PROTEIN 6.9 gm/dL (6.4-8.2)
[2022-01-09 15:31] LABS: TOTAL CELLS COUNTED 100 #CELLS
[2022-01-09 15:33] LABS: PLATELET SUFFICIENCY NORMAL (NORMAL); POLYCHROMASIA SLIGHT
[2022-01-09] MEDS ORDERED: PREDNISONE50 MG PO (17:41)
== END 2022-01-09 17:45 | disposition home or self-care (01) ==
LOC: ED 13:59
PROVIDERS: Hospitalist
DX: J44.1 Chronic obstructive pulmonary disease with (acute) exacerbation (principal); I25.10 Atherosclerotic heart disease of native coronary artery without angina pectoris; J44.9 Chronic obstructive pulmonary disease, unspecified; K21.9 Gastro-esophageal reflux disease without esophagitis; E78.5 Hyperlipidemia, unspecified; E11.22 Type 2 diabetes mellitus with diabetic chronic kidney disease; N18.9 Chronic kidney disease, unspecified; Z91.041 Radiographic dye allergy status; Z88.6 Allergy status to analgesic agent; Z79.899 Other long term (current) drug therapy; Z98.51 Tubal ligation status; Z87.891 Personal history of nicotine dependence; Z98.890 Other specified postprocedural states

== ENCOUNTER 2022-01-23 17:22 | Emergency (ER) | payer OTHER ==
[~2022-01-23] VITALS: Ht 142.2 cm; Wt 98.4 kg
[2022-01-23 17:59] LABS: HEMATOCRIT 37.6 % (37.0-47.0); MANUAL DIFF REFLEX YES; MEAN CELL VOLUME 90.6 fl (81.0-99.0); MEAN CORPUSCULAR HGB 28.9 pg (27.0-31.0); MEAN CORPUSCULAR HGB CONC 31.9 g/dl (33.0-37.0); PLATELET COUNT AUTOMATED 310 10*3/uL (130-400); RED BLOOD COUNT 4.15 10*6/uL (4.10-5.10); RED CELL DISTRI WIDTH 16.6 % (0-14.5); WHITE BLOOD COUNT 15.5 10*3/uL (4.8-10.8)
[2022-01-23 18:17] LABS: ALKALINE PHOSPHATASE 85 U/L (45-117); BUN 14 mg/dl (7-24); CHLORIDE 100 mmol/L (98-107); POTASSIUM 4.1 mmol/L (3.5-5.1); SGOT/AST 16 IU/L (3-35); SGPT/ALT 21 U/L (12-78); SODIUM 136 mmol/L (136-145); TOTAL PROTEIN 6.7 gm/dL (6.4-8.2)
[2022-01-23 18:27] LABS: ATYPICAL LYMPHS 2 % (0-0); BASOPHILS 3 % (0-1); TOTAL CELLS COUNTED 100 #CELLS
[2022-01-23 18:28] LABS: BURR CELLS FEW; OVALOCYTES FEW; PLATELET SUFFICIENCY NORMAL (NORMAL)
== END 2022-01-23 20:55 | disposition home or self-care (01) ==
LOC: ED 17:22
PROVIDERS: Nurse Practitioner Family
DX: R07.9 Chest pain, unspecified (principal); F41.9 Anxiety disorder, unspecified; I10 Essential (primary) hypertension; E78.5 Hyperlipidemia, unspecified; Z91.041 Radiographic dye allergy status; Z88.6 Allergy status to analgesic agent; Z79.899 Other long term (current) drug therapy; Z98.51 Tubal ligation status; Z98.890 Other specified postprocedural states; F17.210 Nicotine dependence, cigarettes, uncomplicated

== ENCOUNTER 2022-02-06 16:10 | Emergency (ER) | payer OTHER ==
[~2022-02-06] VITALS: Ht 142.2 cm; Wt 48.3 kg
[2022-02-06 16:36] LABS: HEMATOCRIT 41.4 % (37.0-47.0); MEAN CELL VOLUME 88.7 fl (81.0-99.0); MEAN CORPUSCULAR HGB 28.9 pg (27.0-31.0); MEAN CORPUSCULAR HGB CONC 32.6 g/dl (33.0-37.0); MEAN PLATELET VOLUME 8.8 fl (9.6-12.3); NUCLEATED RED BLOOD CELL 0.1 10*3/uL (0.0-0.0); NUCLEATED RED BLOOD CELL 0.2 % (0.0-0.0); PLATELET COUNT AUTOMATED 439 10*3/uL (130-400); RED BLOOD COUNT 4.67 10*6/uL (4.10-5.10); RED CELL DISTRI WIDTH 16.8 % (0-14.5); WHITE BLOOD COUNT 23.7 10*3/uL (4.8-10.8)
[2022-02-06 16:37] LABS: MANUAL DIFF REFLEX YES
[2022-02-06 16:47] LABS: ACT PARTIAL THROMBO TIME 23.7 SECONDS (20.0-32.1)
[2022-02-06 16:55] LABS: ALKALINE PHOSPHATASE 80 U/L (45-117); BUN 17 mg/dl (7-24); CHLORIDE 96 mmol/L (98-107); CREATININE 1.23 mg/dL (0.55-1.02); POTASSIUM 4.1 mmol/L (3.5-5.1); SGOT/AST 27 IU/L (3-35); SGPT/ALT 26 U/L (12-78); SODIUM 133 mmol/L (136-145); TOTAL PROTEIN 7.1 gm/dL (6.4-8.2)
[2022-02-06 17:00] LABS: PLATELET SUFFICIENCY HIGH (NORMAL); TOTAL CELLS COUNTED 100 #CELLS
== END 2022-02-06 19:30 | disposition home or self-care (01) ==
LOC: ED 16:10
PROVIDERS: Student in an Organized Health Care Education/Training Program
DX: J44.9 Chronic obstructive pulmonary disease, unspecified (principal); Z91.041 Radiographic dye allergy status; Z88.6 Allergy status to analgesic agent; Z79.899 Other long term (current) drug therapy; Z98.51 Tubal ligation status; Z87.891 Personal history of nicotine dependence; Z98.890 Other specified postprocedural states

== ENCOUNTER 2022-02-19 12:21 | Emergency (ER) | payer OTHER ==
[~2022-02-19] VITALS: Ht 152.4 cm; Wt 73.5 kg
[2022-02-19 12:50] LABS: BASO # 0.1 10*3/uL (0.0-0.1); BASO % 0.6 % (0.0-1.0); EOS # 0.5 10*3/uL (0.0-0.4); EOS % 3.4 % (1.0-4.0); HEMATOCRIT 42.5 % (37.0-47.0); LYMPH # 2.8 10*3/uL (1.3-4.4); LYMPH % 19.2 % (27.0-41.0); MEAN CELL VOLUME 89.9 fl (81.0-99.0); MEAN CORPUSCULAR HGB CONC 32.2 g/dl (33.0-37.0); MEAN PLATELET VOLUME 8.9 fl (9.6-12.3); MONO # 1.2 10*3/uL (0.1-1.0); MONO % 7.8 % (3.0-9.0); NEUT % 67.9 % (47.0-73.0); PLATELET COUNT AUTOMATED 381 10*3/uL (130-400); RED BLOOD COUNT 4.73 10*6/uL (4.10-5.10); RED CELL DISTRI WIDTH 16.9 % (0-14.5); WHITE BLOOD COUNT 14.8 10*3/uL (4.8-10.8)
[2022-02-19 13:01] LABS: ACT PARTIAL THROMBO TIME 25.1 SECONDS (20.0-32.1); INTERNATIONAL NORM RATIO 0.9 (2.0-3.5)
[2022-02-19 13:06] LABS: ALKALINE PHOSPHATASE 98 U/L (45-117); BUN 9 mg/dl (7-24); CHLORIDE 103 mmol/L (98-107); CREATININE 1.01 mg/dL (0.55-1.02); POTASSIUM 4.1 mmol/L (3.5-5.1); SGOT/AST 16 IU/L (3-35); SGPT/ALT 26 U/L (12-78); SODIUM 139 mmol/L (136-145); TOTAL PROTEIN 7.3 gm/dL (6.4-8.2)
== END 2022-02-19 15:04 | disposition home or self-care (01) ==
LOC: ED 12:21
PROVIDERS: Nurse Practitioner Family
DX: R07.9 Chest pain, unspecified (principal); J44.9 Chronic obstructive pulmonary disease, unspecified; F17.200 Nicotine dependence, unspecified, uncomplicated; Z91.041 Radiographic dye allergy status; Z88.6 Allergy status to analgesic agent; Z79.899 Other long term (current) drug therapy; Z98.51 Tubal ligation status; Z98.890 Other specified postprocedural states

== ENCOUNTER 2022-03-01 15:56 | Emergency (ER) | payer OTHER ==
[2022-03-01 16:49] LABS: HEMATOCRIT 39.5 % (37.0-47.0); MANUAL DIFF REFLEX YES; MEAN CELL VOLUME 90.8 fl (81.0-99.0); MEAN CORPUSCULAR HGB 28.5 pg (27.0-31.0); MEAN CORPUSCULAR HGB CONC 31.4 g/dl (33.0-37.0); MEAN PLATELET VOLUME 8.5 fl (9.6-12.3); PLATELET COUNT AUTOMATED 418 10*3/uL (130-400); RED BLOOD COUNT 4.35 10*6/uL (4.10-5.10); WHITE BLOOD COUNT 13.4 10*3/uL (4.8-10.8)
[2022-03-01 17:00] LABS: BUN 9 mg/dl (7-24); CHLORIDE 106 mmol/L (98-107); CREATININE 0.96 mg/dL (0.55-1.02); SODIUM 141 mmol/L (136-145)
[2022-03-01 17:25] LABS: BASOPHILS 2 % (0-1); PLATELET SUFFICIENCY HIGH (NORMAL); TOTAL CELLS COUNTED 100 #CELLS
[2022-03-01 17:28] LABS: BURR CELLS FEW; POLYCHROMASIA SLIGHT
== END 2022-03-01 19:06 | disposition home or self-care (01) ==
LOC: ED 15:56
PROVIDERS: Internal Medicine
DX: R07.9 Chest pain, unspecified (principal); Z91.041 Radiographic dye allergy status; Z88.6 Allergy status to analgesic agent; Z79.899 Other long term (current) drug therapy; Z98.51 Tubal ligation status; Z98.890 Other specified postprocedural states; Z87.891 Personal history of nicotine dependence

== ENCOUNTER 2022-03-08 16:20 | Emergency (ER) | payer OTHER ==
[~2022-03-08] VITALS: Ht 142.2 cm; Wt 92.1 kg
[2022-03-08 17:25] LABS: BASO # 0.1 10*3/uL (0.0-0.1); BASO % 0.9 % (0.0-1.0); EOS # 0.4 10*3/uL (0.0-0.4); EOS % 2.6 % (1.0-4.0); HEMATOCRIT 39.3 % (37.0-47.0); LYMPH % 19.6 % (27.0-41.0); MEAN CELL VOLUME 90.6 fl (81.0-99.0); MEAN CORPUSCULAR HGB 28.8 pg (27.0-31.0); MEAN CORPUSCULAR HGB CONC 31.8 g/dl (33.0-37.0); MEAN PLATELET VOLUME 9.3 fl (9.6-12.3); MONO # 1.2 10*3/uL (0.1-1.0); MONO % 8.1 % (3.0-9.0); NEUT # 10.3 10*3/uL (2.3-7.9); PLATELET COUNT AUTOMATED 360 10*3/uL (130-400); RED BLOOD COUNT 4.34 10*6/uL (4.10-5.10); WHITE BLOOD COUNT 15.3 10*3/uL (4.8-10.8)
[2022-03-08 17:36] LABS: ACT PARTIAL THROMBO TIME 25.7 SECONDS (20.0-32.1)
[2022-03-08 17:50] LABS: ALKALINE PHOSPHATASE 83 U/L (45-117); BUN 10 mg/dl (7-24); CHLORIDE 103 mmol/L (98-107); CREATININE 1.15 mg/dL (0.55-1.02); POTASSIUM 3.6 mmol/L (3.5-5.1); SGOT/AST 12 IU/L (3-35); SGPT/ALT 21 U/L (12-78); SODIUM 137 mmol/L (136-145); TOTAL PROTEIN 6.7 gm/dL (6.4-8.2)
== END 2022-03-08 20:27 | disposition home or self-care (01) ==
LOC: ED 16:20
PROVIDERS: Internal Medicine
DX: R07.89 Other chest pain (principal); F41.9 Anxiety disorder, unspecified; Z91.041 Radiographic dye allergy status; Z88.6 Allergy status to analgesic agent; Z79.899 Other long term (current) drug therapy; Z98.51 Tubal ligation status; Z98.890 Other specified postprocedural states; Z87.891 Personal history of nicotine dependence

== ENCOUNTER 2022-03-18 11:23 | Emergency (ER) | payer OTHER ==
[~2022-03-18] VITALS: Ht 142.2 cm; Wt 92.1 kg
[2022-03-18] MEDS ORDERED: KENALOG 0.1%80 GM T (17:26)
== END 2022-03-18 17:56 | disposition home or self-care (01) ==
LOC: ED 11:23
DX: L25.9 Unspecified contact dermatitis, unspecified cause (principal); F41.9 Anxiety disorder, unspecified; F32.9 Major depressive disorder, single episode, unspecified; F17.210 Nicotine dependence, cigarettes, uncomplicated; Z91.041 Radiographic dye allergy status; Z88.6 Allergy status to analgesic agent; Z79.899 Other long term (current) drug therapy; Z79.2 Long term (current) use of antibiotics; Z98.61 Coronary angioplasty status; Z98.51 Tubal ligation status

== ENCOUNTER 2022-05-15 17:21 | Emergency (ER) | payer OTHER ==
[~2022-05-15] VITALS: Ht 142.2 cm; Wt 87.5 kg
[~2022-05-15 17:21] MED LIST changes: +KENALOG 0.1%80 GM T
[2022-05-15 17:56] LABS: HEMATOCRIT 41.8 % (37.0-47.0); MEAN CELL VOLUME 94.1 fl (81.0-99.0); MEAN CORPUSCULAR HGB 30.6 pg (27.0-31.0); MEAN CORPUSCULAR HGB CONC 32.5 g/dl (33.0-37.0); MEAN PLATELET VOLUME 9.4 fl (9.6-12.3); PLATELET COUNT AUTOMATED 374 10*3/uL (130-400); RED BLOOD COUNT 4.44 10*6/uL (4.10-5.10); RED CELL DISTRI WIDTH 15.9 % (0-14.5); WHITE BLOOD COUNT 17.5 10*3/uL (4.8-10.8)
[2022-05-15 18:02] LABS: MANUAL DIFF REFLEX YES
[2022-05-15 18:11] LABS: ACT PARTIAL THROMBO TIME 24.9 SECONDS (20.0-32.1)
[2022-05-15 18:13] LABS: ALKALINE PHOSPHATASE 82 U/L (45-117); BUN 9 mg/dl (7-24); CHLORIDE 102 mmol/L (98-107); CREATININE 1.08 mg/dL (0.55-1.02); POTASSIUM 3.6 mmol/L (3.5-5.1); SGOT/AST 17 IU/L (3-35); SGPT/ALT 22 U/L (12-78); SODIUM 137 mmol/L (136-145); TOTAL PROTEIN 7.1 gm/dL (6.4-8.2)
[2022-05-15 18:22] LABS: TOTAL CELLS COUNTED 100 #CELLS
[2022-05-15 18:23] LABS: PLATELET SUFFICIENCY NORMAL (NORMAL); POLYCHROMASIA SLIGHT
[2022-05-15 20:50] LABS: BILIRUBIN Negative (Negative); BLOOD Negative (Negative); CLARITY Cloudy (Clear); COLOR Yellow (Yellow); GLUCOSE 3+ (Negative); KETONE Negative (Negative); LEUKO ESTERASE 2+ (Negative); NITRITE Negative (Negative); SPECIFIC GRAVITY 1.015 (1.001-1.030); UROBILINOGEN 0.2 E.U./dl (0.0-1.0)
[2022-05-15 21:37] LABS: EPITHELIAL CELLS TNTC
[2022-05-15 21:38] LABS: BACTERIA 1+; WBC TNTC wbc/hpf (0-5)
== END 2022-05-15 22:04 | disposition left against medical advice (07) ==
LOC: ED 17:21
PROVIDERS: Emergency Medicine
DX: R07.9 Chest pain, unspecified (principal); R79.1 Abnormal coagulation profile; J44.9 Chronic obstructive pulmonary disease, unspecified; E66.01 Morbid (severe) obesity due to excess calories; I25.10 Atherosclerotic heart disease of native coronary artery without angina pectoris; F17.210 Nicotine dependence, cigarettes, uncomplicated; K21.9 Gastro-esophageal reflux disease without esophagitis; E78.5 Hyperlipidemia, unspecified; I12.9 Hypertensive chronic kidney disease with stage 1 through stage 4 chronic kidney disease, or unspecified chronic kidney disease; E11.22 Type 2 diabetes mellitus with diabetic chronic kidney disease; N18.9 Chronic kidney disease, unspecified; Z91.041 Radiographic dye allergy status; Z88.6 Allergy status to analgesic agent; Z79.899 Other long term (current) drug therapy; Z98.51 Tubal ligation status; Z98.890 Other specified postprocedural states

== ENCOUNTER 2022-06-14 06:34 | Emergency (ER) | payer OTHER ==
[2022-06-14 07:04] LABS: HEMATOCRIT 40.4 % (37.0-47.0); MEAN CELL VOLUME 90.6 fl (81.0-99.0); MEAN CORPUSCULAR HGB 29.8 pg (27.0-31.0); MEAN CORPUSCULAR HGB CONC 32.9 g/dl (33.0-37.0); MEAN PLATELET VOLUME 8.8 fl (9.6-12.3); PLATELET COUNT AUTOMATED 393 10*3/uL (130-400); RED BLOOD COUNT 4.46 10*6/uL (4.10-5.10); RED CELL DISTRI WIDTH 15.1 % (0-14.5); WHITE BLOOD COUNT 19.9 10*3/uL (4.8-10.8)
[2022-06-14 07:08] LABS: MANUAL DIFF REFLEX YES
[2022-06-14 07:29] LABS: ALKALINE PHOSPHATASE 93 U/L (45-117); BUN 8 mg/dl (7-24); CHLORIDE 100 mmol/L (98-107); CREATININE 1.06 mg/dL (0.55-1.02); POTASSIUM 3.3 mmol/L (3.5-5.1); SGOT/AST 15 IU/L (3-35); SGPT/ALT 17 U/L (12-78); SODIUM 135 mmol/L (136-145); TOTAL PROTEIN 7.5 gm/dL (6.4-8.2)
[2022-06-14 07:37] LABS: PLATELET SUFFICIENCY NORMAL (NORMAL); TOTAL CELLS COUNTED 100 #CELLS
== END 2022-06-14 10:36 | disposition home or self-care (01) ==
LOC: ED 06:34
PROVIDERS: Internal Medicine
DX: R07.89 Other chest pain (principal); R06.02 Shortness of breath; R11.0 Nausea; F41.9 Anxiety disorder, unspecified; F32.A Depression, unspecified; F17.210 Nicotine dependence, cigarettes, uncomplicated; Z79.899 Other long term (current) drug therapy; Z98.51 Tubal ligation status

== ENCOUNTER 2022-09-05 07:48 | Emergency (ER) | payer OTHER ==
[~2022-09-05] VITALS: Ht 142.2 cm; Wt 77.6 kg
[2022-09-05] MEDS ORDERED: PREDNISONE50 MG PO ×2 (08:19)
[2022-09-05] MEDS ORDERED: PROAIR HFA8.5 GM INH (08:19)
[2022-09-05] MEDS ORDERED: METFORMIN HYD1000 MG PO (16:02)
[2022-09-05] MEDS ORDERED: TRULICITY4.5 MG/0.5 SQ (16:03)
[2022-09-05] MEDS ORDERED: JARDIANCE25 MG PO (16:04)
[2022-09-05] MEDS ORDERED: TRAZODONE50 MG PO (16:04)
[2022-09-05] MEDS ORDERED: LATU40TA1 PO (16:05)
[2022-09-05] MEDS ORDERED: MAGNESIUM400 M1 PO (16:06)
== END 2022-09-05 08:56 | disposition home or self-care (01) ==
LOC: ED 07:48
DX: J44.1 Chronic obstructive pulmonary disease with (acute) exacerbation (principal); F41.9 Anxiety disorder, unspecified; I25.10 Atherosclerotic heart disease of native coronary artery without angina pectoris; F32.A Depression, unspecified; E11.9 Type 2 diabetes mellitus without complications; K21.9 Gastro-esophageal reflux disease without esophagitis; E78.5 Hyperlipidemia, unspecified; E44.0 Moderate protein-calorie malnutrition; R00.0 Tachycardia, unspecified; F17.210 Nicotine dependence, cigarettes, uncomplicated; Z91.041 Radiographic dye allergy status; Z88.6 Allergy status to analgesic agent; Z88.8 Allergy status to other drugs, medicaments and biological substances; Z79.899 Other long term (current) drug therapy; Z98.51 Tubal ligation status

== ENCOUNTER 2022-09-05 12:37 | Inpatient (IN) | payer OTHER ==
[~2022-09-05] VITALS: Ht 142.2 cm; Wt 75.3 kg
[2022-09-05 12:45] VITALS: BP 115/68
[2022-09-05 14:58] LABS: MANUAL DIFF REFLEX YES
[2022-09-05 15:01] LABS: ACT PARTIAL THROMBO TIME 27.2 SECONDS (20.0-32.1)
[2022-09-05 15:03] LABS: CREATININE 1.39 mg/dL (0.55-1.02); POTASSIUM 3.4 mmol/L (3.5-5.1)
[2022-09-05 15:15] LABS: BASO # 0.1 10*3/uL (0.0-0.1); BASO % 0.2 % (0.0-1.0); HEMATOCRIT 44.5 % (37.0-47.0); LYMPH # 0.5 10*3/uL (1.3-4.4); LYMPH % 1.9 % (27.0-41.0); MEAN CELL VOLUME 88.1 fl (81.0-99.0); MEAN CORPUSCULAR HGB 29.3 pg (27.0-31.0); MEAN CORPUSCULAR HGB CONC 33.3 g/dl (33.0-37.0); MONO # 0.8 10*3/uL (0.1-1.0); MONO % 2.8 % (3.0-9.0); NEUT # 25.7 10*3/uL (2.3-7.9); NEUT % 93.9 % (47.0-73.0); PLATELET COUNT AUTOMATED 387 10*3/uL (130-400); RED BLOOD COUNT 5.05 10*6/uL (4.10-5.10); RED CELL DISTRI WIDTH 16.1 % (0-14.5); WHITE BLOOD COUNT 27.4 10*3/uL (4.8-10.8)
[2022-09-05 15:19] LABS: ATYPICAL LYMPHS 1 % (0-0); BURR CELLS MODERATE; PLATELET SUFFICIENCY NORMAL (NORMAL); TOTAL CELLS COUNTED 100 #CELLS
[2022-09-05 15:49] LABS: BILIRUBIN Negative (Negative); BLOOD 1+ (Negative); CLARITY Clear (Clear); COLOR Yellow (Yellow); GLUCOSE 3+ (Negative); KETONE Trace (Negative); LEUKO ESTERASE Negative (Negative); NITRITE Negative (Negative); PH 6.5 (4.5-8.0); SPECIFIC GRAVITY >= 1.030 (1.001-1.030); UROBILINOGEN 0.2 E.U./dl (0.0-1.0)
[2022-09-05] MEDS ORDERED: METFORMIN HYD1000 MG PO (16:02)
[2022-09-05] MEDS ORDERED: TRULICITY4.5 MG/0.5 SQ (16:03)
[2022-09-05] MEDS ORDERED: JARDIANCE25 MG PO (16:04)
[2022-09-05] MEDS ORDERED: TRAZODONE50 MG PO (16:04)
[2022-09-05] MEDS ORDERED: LATU40TA1 PO (16:05)
[2022-09-05] MEDS ORDERED: MAGNESIUM400 M1 PO (16:06)
[2022-09-05 16:23] LABS: BACTERIA 2+; EPITHELIAL CELLS TNTC; WBC 0-2 wbc/hpf (0-5)
[2022-09-06 05:02] LABS: BUN 10 mg/dl (7-24); CHLORIDE 105 mmol/L (98-107); CHOLESTEROL 75 mg/dL (<200); CREATININE 0.87 mg/dL (0.55-1.02); SGOT/AST 10 IU/L (3-35); SGPT/ALT 15 U/L (12-78); SODIUM 138 mmol/L (136-145); TOTAL PROTEIN 7.2 gm/dL (6.4-8.2); TRIGLYCERIDES 127 mg/dl (<150)
[2022-09-06 05:06] LABS: ALKALINE PHOSPHATASE 76 U/L (45-117); FREE T4 1.47 ng/dl (0.76-1.46); LDL CHOLESTEROL 6 mg/dL (9-159); THYROID STIM HORMONE (HS) 0.729 uIU/ml (0.358-4.75)
[2022-09-06 06:18] LABS: BASO % 0.3 % (0.0-1.0); HEMATOCRIT 42.4 % (37.0-47.0); LYMPH # 0.9 10*3/uL (1.3-4.4); LYMPH % 5.8 % (27.0-41.0); MEAN CORPUSCULAR HGB 28.9 pg (27.0-31.0); MEAN CORPUSCULAR HGB CONC 32.1 g/dl (33.0-37.0); MEAN PLATELET VOLUME 10.4 fl (9.6-12.3); MONO # 0.5 10*3/uL (0.1-1.0); MONO % 3.3 % (3.0-9.0); NEUT # 13.9 10*3/uL (2.3-7.9); NEUT % 89.4 % (47.0-73.0); PLATELET COUNT AUTOMATED 326 10*3/uL (130-400); RED BLOOD COUNT 4.71 10*6/uL (4.10-5.10); RED CELL DISTRI WIDTH 16.2 % (0-14.5); WHITE BLOOD COUNT 15.5 10*3/uL (4.8-10.8)
[2022-09-06 08:15] VITALS: BP 136/68
[2022-09-06 12:00] VITALS: BP 128/68
[2022-09-06 16:00] VITALS: BP 110/86
[2022-09-06 20:00] VITALS: BP 131/80
[2022-09-07] VITALS: BP 102/60
[2022-09-07 07:18] LABS: BASO # 0.1 10*3/uL (0.0-0.1); BASO % 0.3 % (0.0-1.0); EOS % 0.1 % (1.0-4.0); LYMPH # 1.6 10*3/uL (1.3-4.4); LYMPH % 8.9 % (27.0-41.0); MEAN CELL VOLUME 89.2 fl (81.0-99.0); MEAN CORPUSCULAR HGB 28.2 pg (27.0-31.0); MEAN CORPUSCULAR HGB CONC 31.7 g/dl (33.0-37.0); MEAN PLATELET VOLUME 9.2 fl (9.6-12.3); MONO # 1.5 10*3/uL (0.1-1.0); MONO % 8.5 % (3.0-9.0); NEUT # 14.1 10*3/uL (2.3-7.9); NEUT % 81.1 % (47.0-73.0); PLATELET COUNT AUTOMATED 352 10*3/uL (130-400); RED BLOOD COUNT 4.71 10*6/uL (4.10-5.10); RED CELL DISTRI WIDTH 16.3 % (0-14.5); WHITE BLOOD COUNT 17.4 10*3/uL (4.8-10.8)
[2022-09-07 07:56] LABS: BUN 19 mg/dl (7-24); CHLORIDE 112 mmol/L (98-107); CREATININE 0.83 mg/dL (0.55-1.02); SODIUM 143 mmol/L (136-145); TOTAL PROTEIN 6.9 gm/dL (6.4-8.2)
[2022-09-07 07:57] LABS: ALKALINE PHOSPHATASE 80 U/L (45-117); SGOT/AST 12 IU/L (3-35); SGPT/ALT 15 U/L (12-78)
[2022-09-07 08:00] VITALS: BP 121/58
[2022-09-07 12:00] VITALS: BP 135/86
[2022-09-07 16:00] VITALS: BP 129/78
[2022-09-07 20:00] VITALS: BP 126/71
[2022-09-08] VITALS: BP 126/71
[2022-09-08 07:21] LABS: BASO # 0.1 10*3/uL (0.0-0.1); BASO % 0.4 % (0.0-1.0); EOS % 0.2 % (1.0-4.0); LYMPH % 24.2 % (27.0-41.0); MEAN CELL VOLUME 89.4 fl (81.0-99.0); MEAN CORPUSCULAR HGB 28.9 pg (27.0-31.0); MEAN CORPUSCULAR HGB CONC 32.4 g/dl (33.0-37.0); MEAN PLATELET VOLUME 9.4 fl (9.6-12.3); MONO # 1.2 10*3/uL (0.1-1.0); MONO % 9.9 % (3.0-9.0); NEUT # 7.9 10*3/uL (2.3-7.9); NEUT % 64.2 % (47.0-73.0); PLATELET COUNT AUTOMATED 337 10*3/uL (130-400); WHITE BLOOD COUNT 12.2 10*3/uL (4.8-10.8)
[2022-09-08 07:40] LABS: BUN 19 mg/dl (7-24); CHLORIDE 110 mmol/L (98-107); CREATININE 0.78 mg/dL (0.55-1.02); POTASSIUM 3.4 mmol/L (3.5-5.1); SODIUM 141 mmol/L (136-145)
[2022-09-08 08:00] VITALS: BP 119/71
[2022-09-08 12:00] VITALS: BP 102/60
[2022-09-08 15:06] LABS: MYCOPLASMA PNEUMONIAE IGG <100 U/mL (0-99); MYCOPLASMA PNEUMONIAE IGM <770 U/mL (0-769)
[2022-09-08] MEDS ORDERED: LEVOFLOXACIN750 M2 PO (15:29)
[2022-09-08 16:00] VITALS: BP 114/75
[2022-09-08 20:00] VITALS: BP 116/69
[2022-09-09] VITALS: BP 111/71
[2022-09-09 08:00] VITALS: BP 109/56
[2022-09-09 08:51] LABS: BASO # 0.1 10*3/uL (0.0-0.1); BASO % 0.5 % (0.0-1.0); EOS # 0.1 10*3/uL (0.0-0.4); EOS % 0.4 % (1.0-4.0); HEMATOCRIT 48.4 % (37.0-47.0); LYMPH % 26.1 % (27.0-41.0); MEAN CELL VOLUME 88.2 fl (81.0-99.0); MEAN CORPUSCULAR HGB 28.8 pg (27.0-31.0); MEAN CORPUSCULAR HGB CONC 32.6 g/dl (33.0-37.0); MEAN PLATELET VOLUME 9.1 fl (9.6-12.3); MONO # 1.5 10*3/uL (0.1-1.0); MONO % 9.7 % (3.0-9.0); NEUT # 9.4 10*3/uL (2.3-7.9); NEUT % 61.9 % (47.0-73.0); PLATELET COUNT AUTOMATED 374 10*3/uL (130-400); RED BLOOD COUNT 5.49 10*6/uL (4.10-5.10); RED CELL DISTRI WIDTH 15.8 % (0-14.5); WHITE BLOOD COUNT 15.2 10*3/uL (4.8-10.8)
[2022-09-09 09:09] LABS: ALKALINE PHOSPHATASE 84 U/L (45-117); BUN 21 mg/dl (7-24); CHLORIDE 104 mmol/L (98-107); CREATININE 0.91 mg/dL (0.55-1.02); POTASSIUM 3.7 mmol/L (3.5-5.1); SGOT/AST 19 IU/L (3-35); SGPT/ALT 32 U/L (12-78); SODIUM 136 mmol/L (136-145); TOTAL PROTEIN 7.3 gm/dL (6.4-8.2)
== END 2022-09-09 12:16 | disposition home or self-care (01) | DRG 871 ==
LOC: ED 12:37 → EDHOLD 17:19 → 4E 17:19
PROVIDERS: Emergency Medicine; Family Medicine; Internal Medicine; Internal Medicine Critical Care Medicine; Student in an Organized Health Care Education/Training Program; ADMIT Internal Medicine; ATTEND Internal Medicine
DX: A41.9 Sepsis, unspecified organism (principal); J18.9 Pneumonia, unspecified organism; N17.0 Acute kidney failure with tubular necrosis; E87.20 Acidosis, unspecified; J44.1 Chronic obstructive pulmonary disease with (acute) exacerbation; E87.1 Hypo-osmolality and hyponatremia; J44.0 Chronic obstructive pulmonary disease with (acute) lower respiratory infection; Z20.822 Contact with and (suspected) exposure to COVID-19; F41.9 Anxiety disorder, unspecified; I25.10 Atherosclerotic heart disease of native coronary artery without angina pectoris; F32.9 Major depressive disorder, single episode, unspecified; E11.22 Type 2 diabetes mellitus with diabetic chronic kidney disease; F41.1 Generalized anxiety disorder; K21.9 Gastro-esophageal reflux disease without esophagitis; R65.20 Severe sepsis without septic shock; E78.5 Hyperlipidemia, unspecified; N18.30 Chronic kidney disease, stage 3 unspecified; E87.6 Hypokalemia; E11.65 Type 2 diabetes mellitus with hyperglycemia; E66.9 Obesity, unspecified; Z88.8 Allergy status to other drugs, medicaments and biological substances; Z88.6 Allergy status to analgesic agent; Z91.041 Radiographic dye allergy status; Z98.51 Tubal ligation status; Z82.49 Family history of ischemic heart disease and other diseases of the circulatory system; Z81.8 Family history of other mental and behavioral disorders; Z68.37 Body mass index [BMI] 37.0-37.9, adult

== ENCOUNTER 2022-12-20 18:58 | Emergency (ER) | payer OTHER ==
[~2022-12-20] VITALS: Ht 160 cm; Wt 113.4 kg
[~2022-12-20 18:58] MED LIST changes: +JARDIANCE25 MG PO; +LATU40TA1 PO; +LEVOFLOXACIN750 M2 PO; +METFORMIN HYD1000 MG PO; +TRAZODONE50 MG PO; +TRULICITY4.5 MG/0.5 SQ
[2022-12-20 19:58] LABS: ALKALINE PHOSPHATASE 71 U/L (46-116); BUN 10 mg/dl (9-23); CHLORIDE 97 mmol/L (98-107); POTASSIUM 3.6 mmol/L (3.4-5.1); SGPT/ALT 21 U/L (10-49); TOTAL PROTEIN 7.2 gm/dL (6.0-8.0)
[2022-12-20 20:10] LABS: BASO # 0.1 10*3/uL (0.0-0.1); BASO % 0.6 % (0.0-1.0); EOS # 0.3 10*3/uL (0.0-0.4); EOS % 1.9 % (1.0-4.0); HEMATOCRIT 45.7 % (37.0-47.0); LYMPH # 3.4 10*3/uL (1.3-4.4); LYMPH % 19.6 % (27.0-41.0); MEAN CELL VOLUME 95.6 fl (81.0-99.0); MEAN CORPUSCULAR HGB CONC 32.4 g/dl (33.0-37.0); MEAN PLATELET VOLUME 9.8 fl (9.6-12.3); MONO # 1.3 10*3/uL (0.1-1.0); MONO % 7.5 % (3.0-9.0); NEUT % 69.7 % (47.0-73.0); PLATELET COUNT AUTOMATED 302 10*3/uL (130-400); RED BLOOD COUNT 4.78 10*6/uL (4.10-5.10); RED CELL DISTRI WIDTH 15.4 % (0-14.5); WHITE BLOOD COUNT 17.3 10*3/uL (4.8-10.8)
== END 2022-12-20 22:01 | disposition home or self-care (01) ==
LOC: ED 18:58
PROVIDERS: Internal Medicine
DX: R07.89 Other chest pain (principal); E87.1 Hypo-osmolality and hyponatremia; D72.829 Elevated white blood cell count, unspecified; R00.0 Tachycardia, unspecified; F41.9 Anxiety disorder, unspecified; F32.A Depression, unspecified; K21.9 Gastro-esophageal reflux disease without esophagitis; J44.9 Chronic obstructive pulmonary disease, unspecified; Z91.041 Radiographic dye allergy status; Z88.8 Allergy status to other drugs, medicaments and biological substances; Z98.890 Other specified postprocedural states; Z98.51 Tubal ligation status; F17.210 Nicotine dependence, cigarettes, uncomplicated

== ENCOUNTER 2023-01-02 21:45 | Emergency (ER) | payer OTHER ==
[~2023-01-02] VITALS: Wt 68.5 kg
[2023-01-02 22:05] LABS: HEMATOCRIT 44.2 % (37.0-47.0); MEAN CELL VOLUME 93.6 fl (81.0-99.0); MEAN CORPUSCULAR HGB 31.8 pg (27.0-31.0); MEAN CORPUSCULAR HGB CONC 33.9 g/dl (33.0-37.0); MEAN PLATELET VOLUME 8.7 fl (9.6-12.3); PLATELET COUNT AUTOMATED 467 10*3/uL (130-400); RED BLOOD COUNT 4.72 10*6/uL (4.10-5.10); RED CELL DISTRI WIDTH 14.7 % (0-14.5); WHITE BLOOD COUNT 15.6 10*3/uL (4.8-10.8)
[2023-01-02 22:12] LABS: MANUAL DIFF REFLEX YES
[2023-01-02 22:26] LABS: ALKALINE PHOSPHATASE 71 U/L (46-116); BUN 17 mg/dl (9-23); CHLORIDE 97 mmol/L (98-107); POTASSIUM 3.9 mmol/L (3.4-5.1); SGPT/ALT 15 U/L (10-49); TOTAL PROTEIN 7.3 gm/dL (6.0-8.0)
[2023-01-02 22:39] LABS: PLATELET SUFFICIENCY HIGH (NORMAL); TOTAL CELLS COUNTED 100 #CELLS
[2023-01-02 22:40] LABS: TOXIC GRANULATION SLIGHT
== END 2023-01-02 23:08 | disposition home or self-care (01) ==
LOC: ED 21:45
PROVIDERS: Emergency Medicine
DX: R07.89 Other chest pain (principal); F32.A Depression, unspecified; F41.9 Anxiety disorder, unspecified; J44.9 Chronic obstructive pulmonary disease, unspecified; K21.9 Gastro-esophageal reflux disease without esophagitis; Z91.041 Radiographic dye allergy status; Z88.8 Allergy status to other drugs, medicaments and biological substances; Z98.51 Tubal ligation status; Z98.890 Other specified postprocedural states; F17.210 Nicotine dependence, cigarettes, uncomplicated

== ENCOUNTER 2023-01-11 16:49 | Emergency (ER) | payer OTHER ==
[~2023-01-11] VITALS: Ht 142.2 cm; Wt 66.2 kg
[2023-01-11 17:07] LABS: HEMATOCRIT 48.3 % (37.0-47.0); MEAN CELL VOLUME 94.2 fl (81.0-99.0); MEAN CORPUSCULAR HGB 31.6 pg (27.0-31.0); MEAN CORPUSCULAR HGB CONC 33.5 g/dl (33.0-37.0); MEAN PLATELET VOLUME 8.8 fl (9.6-12.3); PLATELET COUNT AUTOMATED 389 10*3/uL (130-400); RED BLOOD COUNT 5.13 10*6/uL (4.10-5.10); RED CELL DISTRI WIDTH 14.4 % (0-14.5); WHITE BLOOD COUNT 30.8 10*3/uL (4.8-10.8)
[2023-01-11 17:13] LABS: MANUAL DIFF REFLEX YES
[2023-01-11 17:22] LABS: ALKALINE PHOSPHATASE 74 U/L (46-116); BUN 13 mg/dl (9-23); CHLORIDE 100 mmol/L (98-107); POTASSIUM 3.5 mmol/L (3.4-5.1); SGPT/ALT 20 U/L (10-49); TOTAL PROTEIN 6.6 gm/dL (6.0-8.0)
[2023-01-11 17:31] LABS: ACT PARTIAL THROMBO TIME 22.9 SECONDS (20.0-32.1); INTERNATIONAL NORM RATIO 0.9 (2.0-3.5)
[2023-01-11 17:36] LABS: TOTAL CELLS COUNTED 100 #CELLS
[2023-01-11 17:37] LABS: PLATELET SUFFICIENCY NORMAL (NORMAL)
== END 2023-01-11 21:24 | disposition home or self-care (01) ==
LOC: ED 16:49
PROVIDERS: Emergency Medicine
DX: R07.89 Other chest pain (principal); D72.829 Elevated white blood cell count, unspecified; R73.9 Hyperglycemia, unspecified; E87.20 Acidosis, unspecified; F32.A Depression, unspecified; F41.9 Anxiety disorder, unspecified; K21.9 Gastro-esophageal reflux disease without esophagitis; J44.9 Chronic obstructive pulmonary disease, unspecified; Z91.041 Radiographic dye allergy status; Z88.6 Allergy status to analgesic agent; Z88.8 Allergy status to other drugs, medicaments and biological substances; Z98.51 Tubal ligation status; Z98.890 Other specified postprocedural states; F17.210 Nicotine dependence, cigarettes, uncomplicated

== ENCOUNTER 2023-02-15 17:24 | Emergency (ER) | payer OTHER ==
[~2023-02-15] VITALS: Ht 142.2 cm; Wt 65.8 kg
[2023-02-15 19:08] LABS: BASO # 0.2 10*3/uL (0.0-0.1); EOS # 0.4 10*3/uL (0.0-0.4); EOS % 2.7 % (1.0-4.0); HEMATOCRIT 47.2 % (37.0-47.0); LYMPH # 2.7 10*3/uL (1.3-4.4); LYMPH % 17.1 % (27.0-41.0); MEAN CELL VOLUME 95.9 fl (81.0-99.0); MEAN CORPUSCULAR HGB 31.9 pg (27.0-31.0); MEAN CORPUSCULAR HGB CONC 33.3 g/dl (33.0-37.0); MEAN PLATELET VOLUME 8.7 fl (9.6-12.3); MONO # 1.3 10*3/uL (0.1-1.0); MONO % 8.1 % (3.0-9.0); NEUT # 10.9 10*3/uL (2.3-7.9); NEUT % 70.2 % (47.0-73.0); PLATELET COUNT AUTOMATED 394 10*3/uL (130-400); RED BLOOD COUNT 4.92 10*6/uL (4.10-5.10); RED CELL DISTRI WIDTH 13.2 % (0-14.5); WHITE BLOOD COUNT 15.5 10*3/uL (4.8-10.8)
[2023-02-15 19:23] LABS: ALKALINE PHOSPHATASE 70 U/L (46-116); BUN 12 mg/dl (9-23); CHLORIDE 100 mmol/L (98-107); POTASSIUM 4.1 mmol/L (3.4-5.1); SGPT/ALT 12 U/L (10-49); TOTAL PROTEIN 7.4 gm/dL (6.0-8.0)
== END 2023-02-15 22:02 | disposition home or self-care (01) ==
LOC: ED 17:24
PROVIDERS: Internal Medicine
DX: R07.9 Chest pain, unspecified (principal); D72.829 Elevated white blood cell count, unspecified; Z91.041 Radiographic dye allergy status; Z88.6 Allergy status to analgesic agent; Z79.899 Other long term (current) drug therapy; Z98.51 Tubal ligation status; Z98.890 Other specified postprocedural states; F17.210 Nicotine dependence, cigarettes, uncomplicated

== ENCOUNTER 2023-03-14 20:48 | Emergency (ER) | payer OTHER ==
[2023-03-14 22:35] LABS: BASO # 0.1 10*3/uL (0.0-0.1); BASO % 0.8 % (0.0-1.0); EOS # 0.5 10*3/uL (0.0-0.4); EOS % 3.7 % (1.0-4.0); HEMATOCRIT 42.3 % (37.0-47.0); LYMPH # 2.7 10*3/uL (1.3-4.4); LYMPH % 20.8 % (27.0-41.0); MEAN CELL VOLUME 95.7 fl (81.0-99.0); MEAN CORPUSCULAR HGB 31.7 pg (27.0-31.0); MEAN CORPUSCULAR HGB CONC 33.1 g/dl (33.0-37.0); MEAN PLATELET VOLUME 8.5 fl (9.6-12.3); MONO % 7.7 % (3.0-9.0); NEUT # 8.7 10*3/uL (2.3-7.9); NEUT % 66.3 % (47.0-73.0); PLATELET COUNT AUTOMATED 342 10*3/uL (130-400); RED BLOOD COUNT 4.42 10*6/uL (4.10-5.10); RED CELL DISTRI WIDTH 12.8 % (0-14.5); WHITE BLOOD COUNT 13.1 10*3/uL (4.8-10.8)
[2023-03-14 23:01] LABS: ALKALINE PHOSPHATASE 67 U/L (46-116); BUN 10 mg/dl (9-23); CHLORIDE 100 mmol/L (98-107); POTASSIUM 3.7 mmol/L (3.4-5.1); SGPT/ALT 8 U/L (10-49); TOTAL PROTEIN 6.5 gm/dL (6.0-8.0)
== END 2023-03-15 02:13 | disposition home or self-care (01) ==
LOC: ED 20:48
PROVIDERS: Emergency Medicine
DX: R07.9 Chest pain, unspecified (principal); E87.1 Hypo-osmolality and hyponatremia; I13.0 Hypertensive heart and chronic kidney disease with heart failure and stage 1 through stage 4 chronic kidney disease, or unspecified chronic kidney disease; I50.9 Heart failure, unspecified; E11.22 Type 2 diabetes mellitus with diabetic chronic kidney disease; N18.9 Chronic kidney disease, unspecified; I25.10 Atherosclerotic heart disease of native coronary artery without angina pectoris; K21.9 Gastro-esophageal reflux disease without esophagitis; M79.7 Fibromyalgia; J44.9 Chronic obstructive pulmonary disease, unspecified; E78.5 Hyperlipidemia, unspecified; F17.210 Nicotine dependence, cigarettes, uncomplicated; Z91.041 Radiographic dye allergy status; Z88.6 Allergy status to analgesic agent; Z88.8 Allergy status to other drugs, medicaments and biological substances; Z79.899 Other long term (current) drug therapy; Z98.51 Tubal ligation status

== ENCOUNTER 2023-04-19 19:29 | Emergency (ER) | payer OTHER ==
[~2023-04-19] VITALS: Ht 172.7 cm; Wt 69.4 kg
[2023-04-19] MEDS ORDERED: APRESOLINE25 MG PO (19:59)
[2023-04-19 20:07] LABS: BASO # 0.1 10*3/uL (0.0-0.1); BASO % 0.8 % (0.0-1.0); EOS # 0.3 10*3/uL (0.0-0.4); HEMATOCRIT 43.2 % (37.0-47.0); LYMPH # 2.9 10*3/uL (1.3-4.4); LYMPH % 16.9 % (27.0-41.0); MEAN CELL VOLUME 93.9 fl (81.0-99.0); MEAN PLATELET VOLUME 8.5 fl (9.6-12.3); MONO # 1.5 10*3/uL (0.1-1.0); MONO % 8.5 % (3.0-9.0); NEUT # 12.2 10*3/uL (2.3-7.9); PLATELET COUNT AUTOMATED 395 10*3/uL (130-400); RED CELL DISTRI WIDTH 13.1 % (0-14.5); WHITE BLOOD COUNT 17.2 10*3/uL (4.8-10.8)
[2023-04-19] MEDS ORDERED: BUSPIRONE10 MG PO (20:10)
[2023-04-19] MEDS ORDERED: KENALOG 0.1%80 GM T (20:29)
[2023-04-19 20:43] LABS: ALKALINE PHOSPHATASE 74 U/L (46-116); BUN 9 mg/dl (9-23); CHLORIDE 100 mmol/L (98-107); POTASSIUM 3.9 mmol/L (3.4-5.1); SGPT/ALT 12 U/L (10-49); TOTAL PROTEIN 6.9 gm/dL (6.0-8.0)
== END 2023-04-19 22:45 | disposition home or self-care (01) ==
LOC: ED 19:29
PROVIDERS: Internal Medicine
DX: R07.89 Other chest pain (principal); M79.642 Pain in left hand; E87.1 Hypo-osmolality and hyponatremia; D72.829 Elevated white blood cell count, unspecified; R00.0 Tachycardia, unspecified; F32.A Depression, unspecified; F41.9 Anxiety disorder, unspecified; K21.9 Gastro-esophageal reflux disease without esophagitis; J44.9 Chronic obstructive pulmonary disease, unspecified; E11.9 Type 2 diabetes mellitus without complications; Z91.041 Radiographic dye allergy status; Z88.6 Allergy status to analgesic agent; Z88.8 Allergy status to other drugs, medicaments and biological substances; Z98.51 Tubal ligation status; Z98.890 Other specified postprocedural states; F17.210 Nicotine dependence, cigarettes, uncomplicated

== ENCOUNTER 2023-06-30 19:13 | Emergency (ER) | payer OTHER ==
[~2023-06-30] VITALS: Ht 152.4 cm; Wt 72.6 kg
[~2023-06-30 19:13] MED LIST changes: +APRESOLINE25 MG PO; +BUSPIRONE10 MG PO
[2023-06-30 20:20] LABS: BASO % 0.3 % (0.0-1.0); EOS % 0.2 % (1.0-4.0); HEMATOCRIT 41.3 % (37.0-47.0); LYMPH # 1.2 10*3/uL (1.3-4.4); LYMPH % 8.5 % (27.0-41.0); MEAN CELL VOLUME 94.7 fl (81.0-99.0); MEAN CORPUSCULAR HGB 32.3 pg (27.0-31.0); MEAN CORPUSCULAR HGB CONC 34.1 g/dl (33.0-37.0); MEAN PLATELET VOLUME 8.2 fl (9.6-12.3); MONO # 1.1 10*3/uL (0.1-1.0); MONO % 7.2 % (3.0-9.0); PLATELET COUNT AUTOMATED 332 10*3/uL (130-400); RED BLOOD COUNT 4.36 10*6/uL (4.10-5.10); RED CELL DISTRI WIDTH 13.6 % (0-14.5); WHITE BLOOD COUNT 14.7 10*3/uL (4.8-10.8)
[2023-06-30 20:36] LABS: ACT PARTIAL THROMBO TIME 22.2 SECONDS (20.0-32.1)
[2023-06-30 20:42] LABS: ALKALINE PHOSPHATASE 66 U/L (46-116); BUN 11 mg/dl (9-23); CHLORIDE 102 mmol/L (98-107); POTASSIUM 3.8 mmol/L (3.4-5.1); SGPT/ALT 24 U/L (10-49); TOTAL PROTEIN 6.3 gm/dL (6.0-8.0)
== END 2023-06-30 21:55 | disposition home or self-care (01) ==
LOC: ED 19:13
PROVIDERS: Internal Medicine
DX: R07.89 Other chest pain (principal); D72.829 Elevated white blood cell count, unspecified; R00.0 Tachycardia, unspecified; R06.02 Shortness of breath; F41.9 Anxiety disorder, unspecified; F32.A Depression, unspecified; F17.210 Nicotine dependence, cigarettes, uncomplicated; Z91.041 Radiographic dye allergy status; Z88.6 Allergy status to analgesic agent; Z88.8 Allergy status to other drugs, medicaments and biological substances; Z79.899 Other long term (current) drug therapy; Z98.51 Tubal ligation status

== ENCOUNTER 2023-07-07 18:58 | Emergency (ER) | payer OTHER ==
[~2023-07-07] VITALS: Ht 142.2 cm; Wt 62.6 kg
[2023-07-07 19:45] LABS: BASO # 0.1 10*3/uL (0.0-0.1); BASO % 0.6 % (0.0-1.0); EOS # 0.4 10*3/uL (0.0-0.4); EOS % 2.5 % (1.0-4.0); HEMATOCRIT 43.2 % (37.0-47.0); LYMPH # 2.9 10*3/uL (1.3-4.4); LYMPH % 20.2 % (27.0-41.0); MEAN CELL VOLUME 96.4 fl (81.0-99.0); MEAN CORPUSCULAR HGB 32.1 pg (27.0-31.0); MEAN CORPUSCULAR HGB CONC 33.3 g/dl (33.0-37.0); MONO # 1.1 10*3/uL (0.1-1.0); MONO % 7.5 % (3.0-9.0); NEUT # 9.7 10*3/uL (2.3-7.9); NEUT % 68.2 % (47.0-73.0); PLATELET COUNT AUTOMATED 360 10*3/uL (130-400); RED BLOOD COUNT 4.48 10*6/uL (4.10-5.10); RED CELL DISTRI WIDTH 13.9 % (0-14.5); WHITE BLOOD COUNT 14.2 10*3/uL (4.8-10.8)
[2023-07-07 20:19] LABS: ALKALINE PHOSPHATASE 65 U/L (46-116); BUN 12 mg/dl (9-23); CHLORIDE 104 mmol/L (98-107); POTASSIUM 3.4 mmol/L (3.4-5.1); SGPT/ALT 13 U/L (10-49); TOTAL PROTEIN 6.2 gm/dL (6.0-8.0)
== END 2023-07-07 22:07 | disposition home or self-care (01) ==
LOC: ED 18:58
PROVIDERS: Internal Medicine
DX: R07.89 Other chest pain (principal); D72.829 Elevated white blood cell count, unspecified; R00.0 Tachycardia, unspecified; N18.31 Chronic kidney disease, stage 3a; F41.9 Anxiety disorder, unspecified; F32.A Depression, unspecified; E11.22 Type 2 diabetes mellitus with diabetic chronic kidney disease; K21.9 Gastro-esophageal reflux disease without esophagitis; J44.9 Chronic obstructive pulmonary disease, unspecified; Z91.041 Radiographic dye allergy status; Z88.6 Allergy status to analgesic agent; Z88.8 Allergy status to other drugs, medicaments and biological substances; Z98.51 Tubal ligation status; Z95.5 Presence of coronary angioplasty implant and graft; Z98.890 Other specified postprocedural states; F17.210 Nicotine dependence, cigarettes, uncomplicated

== ENCOUNTER 2023-07-31 17:00 | Emergency (ER) | payer OTHER ==
[~2023-07-31] VITALS: Ht 142.2 cm; Wt 62.6 kg
[~2023-07-31 17:00] MED LIST changes: +B12 ACTIVE1000 MCG PO; +HYDROXYZINE HCL25 MG PO; +LISINOPRIL2.5 MG PO
[2023-07-31 18:05] LABS: HEMATOCRIT 45.9 % (37.0-47.0); MEAN CELL VOLUME 94.8 fl (81.0-99.0); MEAN CORPUSCULAR HGB 31.4 pg (27.0-31.0); MEAN CORPUSCULAR HGB CONC 33.1 g/dl (33.0-37.0); MEAN PLATELET VOLUME 8.5 fl (9.6-12.3); PLATELET COUNT AUTOMATED 385 10*3/uL (130-400); RED BLOOD COUNT 4.84 10*6/uL (4.10-5.10); RED CELL DISTRI WIDTH 13.9 % (0-14.5); WHITE BLOOD COUNT 17.8 10*3/uL (4.8-10.8)
[2023-07-31 18:06] LABS: MANUAL DIFF REFLEX YES
[2023-07-31 18:28] LABS: ALKALINE PHOSPHATASE 86 U/L (46-116); BUN 10 mg/dl (9-23); CHLORIDE 105 mmol/L (98-107); POTASSIUM 4.2 mmol/L (3.4-5.1); SGPT/ALT 15 U/L (10-49); TOTAL PROTEIN 6.9 gm/dL (6.0-8.0)
[2023-07-31 18:32] LABS: PLATELET SUFFICIENCY NORMAL (NORMAL); TOTAL CELLS COUNTED 100 #CELLS
[2023-08-04] MEDS ORDERED: ATORVASTATIN CA40 M1 PO (01:12)
[2023-08-04] MEDS ORDERED: HYDROCHLOROTH12.5 M3 PO (01:14)
[2023-08-05] MEDS ORDERED: PREDNISONE50 MG PO ×2 (11:41)
== END 2023-07-31 21:09 | disposition home or self-care (01) ==
LOC: ED 17:00
PROVIDERS: Nurse Practitioner Family
DX: J44.9 Chronic obstructive pulmonary disease, unspecified (principal); F41.9 Anxiety disorder, unspecified; F32.A Depression, unspecified; K21.9 Gastro-esophageal reflux disease without esophagitis; E11.9 Type 2 diabetes mellitus without complications; Z91.041 Radiographic dye allergy status; Z88.6 Allergy status to analgesic agent; Z88.8 Allergy status to other drugs, medicaments and biological substances; Z98.51 Tubal ligation status; Z95.5 Presence of coronary angioplasty implant and graft; Z98.890 Other specified postprocedural states; F17.210 Nicotine dependence, cigarettes, uncomplicated

== ENCOUNTER 2023-08-09 09:56 | Emergency (ER) | payer OTHER ==
[~2023-08-09] VITALS: Wt 61.2 kg
[~2023-08-09 09:56] MED LIST changes: +ATORVASTATIN CA40 M1 PO; +HYDROCHLOROTH12.5 M3 PO
[2023-08-09 11:31] LABS: HEMATOCRIT 45.8 % (37.0-47.0); MANUAL DIFF REFLEX YES; MEAN CELL VOLUME 93.9 fl (81.0-99.0); MEAN CORPUSCULAR HGB 31.4 pg (27.0-31.0); MEAN CORPUSCULAR HGB CONC 33.4 g/dl (33.0-37.0); MEAN PLATELET VOLUME 8.3 fl (9.6-12.3); PLATELET COUNT AUTOMATED 383 10*3/uL (130-400); RED BLOOD COUNT 4.88 10*6/uL (4.10-5.10)
[2023-08-09 11:52] LABS: ALKALINE PHOSPHATASE 78 U/L (46-116); BUN 10 mg/dl (9-23); CHLORIDE 104 mmol/L (98-107); POTASSIUM 3.9 mmol/L (3.4-5.1); SGPT/ALT 26 U/L (10-49); TOTAL PROTEIN 6.6 gm/dL (6.0-8.0)
[2023-08-09 12:00] LABS: TOTAL CELLS COUNTED 100 #CELLS
[2023-08-09 12:01] LABS: PLATELET SUFFICIENCY NORMAL (NORMAL)
[2023-08-09 12:59] LABS: BILIRUBIN Negative (Negative); BLOOD Negative (Negative); CLARITY Clear (Clear); COLOR Yellow (Yellow); GLUCOSE 3+ (Negative); KETONE Negative (Negative); LEUKO ESTERASE Trace (Negative); NITRITE Negative (Negative); SPECIFIC GRAVITY 1.015 (1.001-1.030); UROBILINOGEN 0.2 E.U./dl (0.0-1.0)
[2023-08-09 13:25] LABS: BACTERIA 2+
[2023-08-09] MEDS ORDERED: Imdur SA60 MG PO (14:01)
[2023-08-09] MEDS ORDERED: DIPROSONE 0.05%15 GM T (14:09)
== END 2023-08-09 14:50 | disposition home or self-care (01) ==
LOC: ED 09:56
PROVIDERS: Nurse Practitioner Family
DX: J44.1 Chronic obstructive pulmonary disease with (acute) exacerbation (principal); K21.9 Gastro-esophageal reflux disease without esophagitis; I10 Essential (primary) hypertension; E11.9 Type 2 diabetes mellitus without complications; F32.A Depression, unspecified; F41.9 Anxiety disorder, unspecified; F17.210 Nicotine dependence, cigarettes, uncomplicated; Z91.041 Radiographic dye allergy status; Z88.6 Allergy status to analgesic agent; Z79.899 Other long term (current) drug therapy; Z98.51 Tubal ligation status

== ENCOUNTER 2023-08-09 19:16 | Emergency (ER) | payer OTHER ==
[~2023-08-09] VITALS: Ht 142.2 cm; Wt 61.2 kg
[~2023-08-09 19:16] MED LIST changes: +DIPROSONE 0.05%15 GM T
[2023-08-09 19:42] LABS: HEMATOCRIT 42.6 % (37.0-47.0); MEAN CELL VOLUME 94.9 fl (81.0-99.0); MEAN CORPUSCULAR HGB 32.3 pg (27.0-31.0); MEAN PLATELET VOLUME 8.3 fl (9.6-12.3); PLATELET COUNT AUTOMATED 378 10*3/uL (130-400); RED BLOOD COUNT 4.49 10*6/uL (4.10-5.10); WHITE BLOOD COUNT 17.1 10*3/uL (4.8-10.8)
[2023-08-09 19:47] LABS: MANUAL DIFF REFLEX YES
[2023-08-09 20:04] LABS: ALKALINE PHOSPHATASE 81 U/L (46-116); BUN 10 mg/dl (9-23); CHLORIDE 103 mmol/L (98-107); PLATELET SUFFICIENCY NORMAL (NORMAL); SGPT/ALT 24 U/L (10-49); TOTAL CELLS COUNTED 100 #CELLS; TOTAL PROTEIN 6.2 gm/dL (6.0-8.0)
== END 2023-08-09 23:11 | disposition home or self-care (01) ==
LOC: ED 19:16
PROVIDERS: Nurse Practitioner Family
DX: J44.1 Chronic obstructive pulmonary disease with (acute) exacerbation (principal); R42 Dizziness and giddiness; K21.9 Gastro-esophageal reflux disease without esophagitis; I10 Essential (primary) hypertension; F32.A Depression, unspecified; F41.9 Anxiety disorder, unspecified; I11.9 Hypertensive heart disease without heart failure; Z91.041 Radiographic dye allergy status; Z88.6 Allergy status to analgesic agent; Z88.8 Allergy status to other drugs, medicaments and biological substances; Z98.51 Tubal ligation status; Z95.5 Presence of coronary angioplasty implant and graft; Z98.890 Other specified postprocedural states; F17.210 Nicotine dependence, cigarettes, uncomplicated

== ENCOUNTER 2023-08-25 19:26 | Emergency (ER) | payer OTHER ==
[~2023-08-25] VITALS: Ht 142.2 cm; Wt 61.2 kg
[2023-08-25 20:16] LABS: HEMATOCRIT 37.9 % (37.0-47.0); MEAN CELL VOLUME 95.5 fl (81.0-99.0); MEAN CORPUSCULAR HGB 32.5 pg (27.0-31.0); MEAN PLATELET VOLUME 8.1 fl (9.6-12.3); PLATELET COUNT AUTOMATED 304 10*3/uL (130-400); RED BLOOD COUNT 3.97 10*6/uL (4.10-5.10); RED CELL DISTRI WIDTH 14.2 % (0-14.5); WHITE BLOOD COUNT 10.7 10*3/uL (4.8-10.8)
[2023-08-25 20:18] LABS: MANUAL DIFF REFLEX YES
[2023-08-25 20:38] LABS: ALKALINE PHOSPHATASE 76 U/L (46-116); BUN 11 mg/dl (9-23); CHLORIDE 102 mmol/L (98-107); POTASSIUM 3.7 mmol/L (3.4-5.1); SGPT/ALT 11 U/L (5-49); TOTAL PROTEIN 6.2 gm/dL (6.0-8.0)
[2023-08-25 20:48] LABS: PLATELET SUFFICIENCY NORMAL (NORMAL); TOTAL CELLS COUNTED 100 #CELLS
== END 2023-08-25 23:30 | disposition home or self-care (01) ==
LOC: ED 19:26
PROVIDERS: Internal Medicine
DX: R07.89 Other chest pain (principal); E44.1 Mild protein-calorie malnutrition; Z68.1 Body mass index [BMI] 19.9 or less, adult; R00.0 Tachycardia, unspecified; F32.A Depression, unspecified; F41.9 Anxiety disorder, unspecified; K21.9 Gastro-esophageal reflux disease without esophagitis; J44.9 Chronic obstructive pulmonary disease, unspecified; E11.9 Type 2 diabetes mellitus without complications; Z91.041 Radiographic dye allergy status; Z88.6 Allergy status to analgesic agent; Z88.8 Allergy status to other drugs, medicaments and biological substances; Z98.51 Tubal ligation status; Z95.5 Presence of coronary angioplasty implant and graft; Z98.890 Other specified postprocedural states; F17.210 Nicotine dependence, cigarettes, uncomplicated

== ENCOUNTER 2023-09-02 11:12 | Emergency (ER) | payer OTHER ==
[~2023-09-02] VITALS: Ht 149.8 cm; Wt 65.8 kg
[2023-09-02 11:41] LABS: BASO # 0.1 10*3/uL (0.0-0.1); BASO % 0.9 % (0.0-1.0); EOS # 0.1 10*3/uL (0.0-0.4); EOS % 1.3 % (1.0-4.0); HEMATOCRIT 41.2 % (37.0-47.0); LYMPH # 2.5 10*3/uL (1.3-4.4); LYMPH % 25.1 % (27.0-41.0); MEAN CELL VOLUME 94.9 fl (81.0-99.0); MEAN CORPUSCULAR HGB 31.1 pg (27.0-31.0); MEAN CORPUSCULAR HGB CONC 32.8 g/dl (33.0-37.0); MEAN PLATELET VOLUME 7.9 fl (9.6-12.3); MONO # 0.9 10*3/uL (0.1-1.0); MONO % 9.2 % (3.0-9.0); NEUT # 6.3 10*3/uL (2.3-7.9); NEUT % 61.9 % (47.0-73.0); PLATELET COUNT AUTOMATED 409 10*3/uL (130-400); RED BLOOD COUNT 4.34 10*6/uL (4.10-5.10); RED CELL DISTRI WIDTH 14.5 % (0-14.5); WHITE BLOOD COUNT 10.1 10*3/uL (4.8-10.8)
[2023-09-02 12:08] LABS: ALKALINE PHOSPHATASE 76 U/L (46-116); BUN 5 mg/dl (9-23); CHLORIDE 105 mmol/L (98-107); POTASSIUM 4.1 mmol/L (3.4-5.1); TOTAL PROTEIN 6.1 gm/dL (6.0-8.0)
[2023-09-02 12:09] LABS: SGPT/ALT < 7 U/L (5-49)
[2023-09-02] MEDS ORDERED: TYLE3UD PO (15:55)
== END 2023-09-02 16:20 | disposition home or self-care (01) ==
LOC: ED 11:12
PROVIDERS: Emergency Medicine
DX: R07.89 Other chest pain (principal); F41.9 Anxiety disorder, unspecified; F32.A Depression, unspecified; I25.10 Atherosclerotic heart disease of native coronary artery without angina pectoris; J44.9 Chronic obstructive pulmonary disease, unspecified; E78.5 Hyperlipidemia, unspecified; M79.7 Fibromyalgia; I13.0 Hypertensive heart and chronic kidney disease with heart failure and stage 1 through stage 4 chronic kidney disease, or unspecified chronic kidney disease; E11.22 Type 2 diabetes mellitus with diabetic chronic kidney disease; N18.9 Chronic kidney disease, unspecified; I50.9 Heart failure, unspecified; F17.210 Nicotine dependence, cigarettes, uncomplicated; Z91.041 Radiographic dye allergy status; Z88.6 Allergy status to analgesic agent; Z79.899 Other long term (current) drug therapy; Z98.51 Tubal ligation status; Z98.61 Coronary angioplasty status

== ENCOUNTER 2023-09-10 18:14 | Emergency (ER) | payer OTHER ==
[~2023-09-10] VITALS: Ht 142.2 cm; Wt 61.2 kg
[~2023-09-10 18:14] MED LIST changes: +TYLE3UD PO
[2023-09-10] MEDS ORDERED: CYCLOBENZAPRINE10 MG PO (21:09)
== END 2023-09-10 21:27 | disposition home or self-care (01) ==
LOC: ED 18:14
DX: M54.50 Low back pain, unspecified (principal); F41.9 Anxiety disorder, unspecified; F32.A Depression, unspecified; F17.210 Nicotine dependence, cigarettes, uncomplicated; Z91.041 Radiographic dye allergy status; Z88.6 Allergy status to analgesic agent; Z88.8 Allergy status to other drugs, medicaments and biological substances; Z79.899 Other long term (current) drug therapy; Z98.51 Tubal ligation status

== ENCOUNTER 2023-09-19 16:55 | Emergency (ER) | payer OTHER ==
[~2023-09-19] VITALS: Wt 63.5 kg
[2023-09-19 17:56] LABS: BASO # 0.1 10*3/uL (0.0-0.1); BASO % 0.7 % (0.0-1.0); EOS # 0.2 10*3/uL (0.0-0.4); EOS % 0.9 % (1.0-4.0); HEMATOCRIT 44.4 % (37.0-47.0); LYMPH # 2.7 10*3/uL (1.3-4.4); LYMPH % 15.2 % (27.0-41.0); MEAN CELL VOLUME 94.7 fl (81.0-99.0); MEAN CORPUSCULAR HGB 30.7 pg (27.0-31.0); MEAN CORPUSCULAR HGB CONC 32.4 g/dl (33.0-37.0); MEAN PLATELET VOLUME 8.3 fl (9.6-12.3); MONO # 1.2 10*3/uL (0.1-1.0); MONO % 6.9 % (3.0-9.0); NEUT # 13.5 10*3/uL (2.3-7.9); NEUT % 75.5 % (47.0-73.0); PLATELET COUNT AUTOMATED 408 10*3/uL (130-400); RED BLOOD COUNT 4.69 10*6/uL (4.10-5.10); RED CELL DISTRI WIDTH 14.3 % (0-14.5); WHITE BLOOD COUNT 17.9 10*3/uL (4.8-10.8)
[2023-09-19 18:10] LABS: ACT PARTIAL THROMBO TIME 25.5 SECONDS (20.0-32.1)
[2023-09-19 18:19] LABS: ALKALINE PHOSPHATASE 74 U/L (46-116); BUN 6 mg/dl (9-23); CHLORIDE 106 mmol/L (98-107); POTASSIUM 3.8 mmol/L (3.4-5.1); TOTAL PROTEIN 7.1 gm/dL (6.0-8.0)
[2023-09-19 18:21] LABS: SGPT/ALT < 7 U/L (5-49)
== END 2023-09-19 22:47 | disposition home or self-care (01) ==
LOC: ED 16:55
PROVIDERS: Family Medicine
DX: R07.89 Other chest pain (principal); M54.2 Cervicalgia; M79.602 Pain in left arm; M54.9 Dorsalgia, unspecified; E11.9 Type 2 diabetes mellitus without complications; E78.5 Hyperlipidemia, unspecified; F41.9 Anxiety disorder, unspecified; J44.9 Chronic obstructive pulmonary disease, unspecified; I11.0 Hypertensive heart disease with heart failure; I50.9 Heart failure, unspecified; F32.A Depression, unspecified; K21.9 Gastro-esophageal reflux disease without esophagitis; Z91.041 Radiographic dye allergy status; Z88.6 Allergy status to analgesic agent; Z88.8 Allergy status to other drugs, medicaments and biological substances; Z98.890 Other specified postprocedural states; Z95.5 Presence of coronary angioplasty implant and graft; Z98.51 Tubal ligation status; F17.210 Nicotine dependence, cigarettes, uncomplicated

== ENCOUNTER 2023-11-21 19:45 | Emergency (ER) | payer OTHER ==
[~2023-11-21] VITALS: Ht 142.2 cm; Wt 63.5 kg
[~2023-11-21 19:45] MED LIST changes: +BREYNA 80-4.510.3 GM INH; +DUPIXENT P300 MG/2 M SQ; +VENT7GM INH
[2023-11-21 21:26] LABS: HEMATOCRIT 44.9 % (37.0-47.0); MEAN CELL VOLUME 91.4 fl (81.0-99.0); MEAN CORPUSCULAR HGB 29.3 pg (27.0-31.0); MEAN CORPUSCULAR HGB CONC 32.1 g/dl (33.0-37.0); MEAN PLATELET VOLUME 8.7 fl (9.6-12.3); PLATELET COUNT AUTOMATED 353 10*3/uL (130-400); RED BLOOD COUNT 4.91 10*6/uL (4.10-5.10); RED CELL DISTRI WIDTH 14.3 % (0-14.5); WHITE BLOOD COUNT 12.5 10*3/uL (4.8-10.8)
[2023-11-21 21:31] LABS: MANUAL DIFF REFLEX YES
[2023-11-21 21:37] LABS: ACT PARTIAL THROMBO TIME 20.8 SECONDS (20.0-32.1)
[2023-11-21 21:47] LABS: ATYPICAL LYMPHS 1 % (0-0); BASOPHILS 1 % (0-1); BURR CELLS FEW; PLATELET SUFFICIENCY NORMAL (NORMAL); TOTAL CELLS COUNTED 100 #CELLS
[2023-11-21 21:48] LABS: OVALOCYTES FEW
[2023-11-21 21:57] LABS: ALKALINE PHOSPHATASE 76 U/L (46-116); BUN 11 mg/dl (9-23); CHLORIDE 104 mmol/L (98-107); TOTAL PROTEIN 6.9 gm/dL (6.0-8.0)
[2023-11-21 22:00] LABS: SGPT/ALT < 7 U/L (5-49)
== END 2023-11-22 02:06 | disposition home or self-care (01) ==
LOC: ED 19:45
PROVIDERS: Emergency Medicine
DX: R07.89 Other chest pain (principal); R00.0 Tachycardia, unspecified; J44.9 Chronic obstructive pulmonary disease, unspecified; I25.10 Atherosclerotic heart disease of native coronary artery without angina pectoris; I50.9 Heart failure, unspecified; F32.A Depression, unspecified; E11.9 Type 2 diabetes mellitus without complications; K21.9 Gastro-esophageal reflux disease without esophagitis; M79.7 Fibromyalgia; E78.5 Hyperlipidemia, unspecified; F41.9 Anxiety disorder, unspecified; F17.210 Nicotine dependence, cigarettes, uncomplicated; Z91.041 Radiographic dye allergy status; Z88.6 Allergy status to analgesic agent; Z88.8 Allergy status to other drugs, medicaments and biological substances; Z95.5 Presence of coronary angioplasty implant and graft; Z98.51 Tubal ligation status; Z98.890 Other specified postprocedural states

== ENCOUNTER 2024-01-08 18:10 | Emergency (ER) | payer OTHER ==
[~2024-01-08] VITALS: Ht 142.2 cm; Wt 59.9 kg
[2024-01-08] MEDS ORDERED: methylPREDNISolone sod succ 40 MG VIAL IM ONE (18:25)
[2024-01-08 18:45] LABS: BASO # 0.1 10*3/uL (0.0-0.1); EOS # 0.3 10*3/uL (0.0-0.4); EOS % 3.4 % (1.0-4.0); HEMATOCRIT 45.6 % (37.0-47.0); LYMPH # 2.9 10*3/uL (1.3-4.4); LYMPH % 29.8 % (27.0-41.0); MEAN CELL VOLUME 88.9 fl (81.0-99.0); MEAN CORPUSCULAR HGB 28.7 pg (27.0-31.0); MEAN CORPUSCULAR HGB CONC 32.2 g/dl (33.0-37.0); MEAN PLATELET VOLUME 8.2 fl (9.6-12.3); MONO # 0.7 10*3/uL (0.1-1.0); MONO % 6.9 % (3.0-9.0); NEUT # 5.7 10*3/uL (2.3-7.9); NEUT % 58.3 % (47.0-73.0); PLATELET COUNT AUTOMATED 406 10*3/uL (130-400); RED BLOOD COUNT 5.13 10*6/uL (4.10-5.10); RED CELL DISTRI WIDTH 14.9 % (0-14.5); WHITE BLOOD COUNT 9.7 10*3/uL (4.8-10.8)
[2024-01-08 19:00] LABS: BUN 6 mg/dl (9-23); CHLORIDE 105 mmol/L (98-107); POTASSIUM 3.5 mmol/L (3.4-5.1)
== END 2024-01-08 22:41 | disposition home or self-care (01) ==
LOC: ED 18:10
PROVIDERS: Physician Assistant Medical
DX: R07.89 Other chest pain (principal); R06.02 Shortness of breath; J44.9 Chronic obstructive pulmonary disease, unspecified; F41.9 Anxiety disorder, unspecified; F32.A Depression, unspecified; E11.9 Type 2 diabetes mellitus without complications; I50.9 Heart failure, unspecified; M79.7 Fibromyalgia; E78.5 Hyperlipidemia, unspecified; K21.9 Gastro-esophageal reflux disease without esophagitis; F17.210 Nicotine dependence, cigarettes, uncomplicated; Z91.041 Radiographic dye allergy status; Z88.6 Allergy status to analgesic agent; Z88.8 Allergy status to other drugs, medicaments and biological substances; Z79.899 Other long term (current) drug therapy; Z98.51 Tubal ligation status; I25.10 Atherosclerotic heart disease of native coronary artery without angina pectoris

== ENCOUNTER 2024-01-25 15:23 | Emergency (ER) | payer OTHER ==
[~2024-01-25] VITALS: Ht 142.2 cm; Wt 59.9 kg
[~2024-01-25 15:23] MED LIST changes: +DOXYCYCLINE HY100 M3 PO; +HYDRALAZINE HYD50 MG PO; +KEPPRA1000 MG PO; +LEVETIRACETAM500 MG PO; -LORAZEPAM0.5 MG PO; +TIZANIDINE HCL4 MG PO; +VITAMIN B12500 MC2 PO; +XARELTO1 EACH PO
[2024-01-25] MEDS ORDERED: SODIUM CHLORIDE 0.9% 1,000 ML IV ONE (15:40)
[2024-01-25] MEDS ORDERED: Ondansetron Hydrochloride 4 MG/2 ML VIAL IV ONE (15:40)
[2024-01-25] MEDS ORDERED: MORPHINE Sulfate 2 MG/ML SYR IV ONE (15:40)
[2024-01-25 16:04] LABS: BILIRUBIN Negative (Negative); BLOOD Negative (Negative); CLARITY Clear (Clear); COLOR Yellow (Yellow); GLUCOSE 3+ (Negative); KETONE Negative (Negative); LEUKO ESTERASE Trace (Negative); NITRITE Negative (Negative); PH 6.5 (4.5-8.0); SPECIFIC GRAVITY >= 1.030 (1.001-1.030); UROBILINOGEN 0.2 E.U./dl (0.0-1.0)
[2024-01-25 16:19] LABS: RBC 0-2 rbc/hpf (0-2)
[2024-01-25 16:57] LABS: BASO % 0.2 % (0.0-1.0); EOS % 0.2 % (1.0-4.0); HEMATOCRIT 41.1 % (37.0-47.0); LYMPH # 1.2 10*3/uL (1.3-4.4); LYMPH % 10.1 % (27.0-41.0); MEAN CELL VOLUME 91.3 fl (81.0-99.0); MEAN CORPUSCULAR HGB 28.9 pg (27.0-31.0); MEAN CORPUSCULAR HGB CONC 31.6 g/dl (33.0-37.0); MEAN PLATELET VOLUME 8.4 fl (9.6-12.3); MONO # 0.7 10*3/uL (0.1-1.0); NEUT # 10.1 10*3/uL (2.3-7.9); NEUT % 82.2 % (47.0-73.0); PLATELET COUNT AUTOMATED 365 10*3/uL (130-400); WHITE BLOOD COUNT 12.3 10*3/uL (4.8-10.8)
[2024-01-25 17:17] LABS: ALKALINE PHOSPHATASE 62 U/L (46-116); BUN 10 mg/dl (9-23); CHLORIDE 104 mmol/L (98-107); LIPASE 36 U/L (12-53); POTASSIUM 4.1 mmol/L (3.4-5.1); TOTAL PROTEIN 5.8 gm/dL (6.0-8.0)
[2024-01-25 17:18] LABS: SGPT/ALT < 7 U/L (5-49)
[2024-01-25] MEDS ORDERED: ONDANSETRON4 MG SL (19:51)
[2024-01-25] MEDS ORDERED: Acetaminophen/Hydrocodone 5 MG/325 MG TABLET PO ONE (19:55)
== END 2024-01-25 20:05 | disposition home or self-care (01) ==
LOC: ED 15:23
PROVIDERS: Physician Assistant Medical
DX: R10.31 Right lower quadrant pain (principal); E87.20 Acidosis, unspecified; R11.2 Nausea with vomiting, unspecified; R19.7 Diarrhea, unspecified; F41.9 Anxiety disorder, unspecified; F32.A Depression, unspecified; J44.9 Chronic obstructive pulmonary disease, unspecified; F17.210 Nicotine dependence, cigarettes, uncomplicated; Z87.442 Personal history of urinary calculi; Z91.041 Radiographic dye allergy status; Z88.6 Allergy status to analgesic agent; Z88.8 Allergy status to other drugs, medicaments and biological substances; Z79.2 Long term (current) use of antibiotics; Z79.899 Other long term (current) drug therapy; Z98.51 Tubal ligation status; Z98.890 Other specified postprocedural states

== ENCOUNTER 2024-02-09 17:12 | Emergency (ER) | payer OTHER ==
[~2024-02-09] VITALS: Ht 142.2 cm; Wt 59.4 kg
[~2024-02-09 17:12] MED LIST changes: +ONDANSETRON4 MG SL
[2024-02-09] MEDS ORDERED: Ondansetron Hydrochloride 4 MG/2 ML VIAL IV ONE (17:30)
[2024-02-09] MEDS ORDERED: SODIUM CHLORIDE 0.9% 1,000 ML IV ONE (17:30)
[2024-02-09] MEDS ORDERED: MORPHINE Sulfate 2 MG/ML SYR IV ONE (17:30)
[2024-02-09 17:45] LABS: BASO # 0.1 10*3/uL (0.0-0.1); BASO % 0.7 % (0.0-1.0); EOS # 0.4 10*3/uL (0.0-0.4); EOS % 3.5 % (1.0-4.0); HEMATOCRIT 41.3 % (37.0-47.0); LYMPH # 2.4 10*3/uL (1.3-4.4); LYMPH % 22.2 % (27.0-41.0); MEAN CELL VOLUME 93.9 fl (81.0-99.0); MEAN CORPUSCULAR HGB 28.9 pg (27.0-31.0); MEAN CORPUSCULAR HGB CONC 30.8 g/dl (33.0-37.0); MEAN PLATELET VOLUME 8.3 fl (9.6-12.3); MONO # 0.9 10*3/uL (0.1-1.0); MONO % 8.2 % (3.0-9.0); NEUT # 6.9 10*3/uL (2.3-7.9); NEUT % 64.9 % (47.0-73.0); PLATELET COUNT AUTOMATED 316 10*3/uL (130-400); RED CELL DISTRI WIDTH 14.6 % (0-14.5); WHITE BLOOD COUNT 10.6 10*3/uL (4.8-10.8)
[2024-02-09 18:07] LABS: ALKALINE PHOSPHATASE 60 U/L (46-116); BUN 8 mg/dl (9-23); CHLORIDE 109 mmol/L (98-107); POTASSIUM 3.9 mmol/L (3.4-5.1); TOTAL PROTEIN 5.6 gm/dL (6.0-8.0)
[2024-02-09 18:09] LABS: SGPT/ALT < 7 U/L (5-49)
== END 2024-02-09 18:49 | disposition home or self-care (01) ==
LOC: ED 17:12
PROVIDERS: Emergency Medicine
DX: R07.89 Other chest pain (principal); M79.602 Pain in left arm; I25.10 Atherosclerotic heart disease of native coronary artery without angina pectoris; I10 Essential (primary) hypertension; E11.9 Type 2 diabetes mellitus without complications; M79.7 Fibromyalgia; E78.5 Hyperlipidemia, unspecified; F32.A Depression, unspecified; F41.9 Anxiety disorder, unspecified; K21.9 Gastro-esophageal reflux disease without esophagitis; J44.9 Chronic obstructive pulmonary disease, unspecified; Z91.041 Radiographic dye allergy status; Z88.6 Allergy status to analgesic agent; Z88.8 Allergy status to other drugs, medicaments and biological substances; Z98.890 Other specified postprocedural states; Z95.5 Presence of coronary angioplasty implant and graft; Z98.51 Tubal ligation status; F17.210 Nicotine dependence, cigarettes, uncomplicated

== ENCOUNTER 2024-02-13 17:55 | Emergency (ER) | payer OTHER ==
[~2024-02-13] VITALS: Ht 142.2 cm; Wt 59.0 kg
[2024-02-13 18:22] LABS: BASO # 0.1 10*3/uL (0.0-0.1); BASO % 0.8 % (0.0-1.0); EOS # 0.3 10*3/uL (0.0-0.4); EOS % 3.1 % (1.0-4.0); HEMATOCRIT 44.9 % (37.0-47.0); LYMPH # 2.5 10*3/uL (1.3-4.4); LYMPH % 23.9 % (27.0-41.0); MEAN CELL VOLUME 91.8 fl (81.0-99.0); MEAN CORPUSCULAR HGB 28.8 pg (27.0-31.0); MEAN CORPUSCULAR HGB CONC 31.4 g/dl (33.0-37.0); MEAN PLATELET VOLUME 8.8 fl (9.6-12.3); MONO % 9.4 % (3.0-9.0); NEUT # 6.5 10*3/uL (2.3-7.9); NEUT % 62.2 % (47.0-73.0); PLATELET COUNT AUTOMATED 312 10*3/uL (130-400); RED BLOOD COUNT 4.89 10*6/uL (4.10-5.10); RED CELL DISTRI WIDTH 14.8 % (0-14.5); WHITE BLOOD COUNT 10.5 10*3/uL (4.8-10.8)
[2024-02-13 18:46] LABS: ALKALINE PHOSPHATASE 81 U/L (46-116); BUN 5 mg/dl (9-23); CHLORIDE 104 mmol/L (98-107); LIPASE 47 U/L (12-53); POTASSIUM 4.2 mmol/L (3.4-5.1); SGPT/ALT 10 U/L (5-49); TOTAL PROTEIN 6.6 gm/dL (6.0-8.0)
[2024-02-13] MEDS ORDERED: Ondansetron Hydrochloride 4 MG/2 ML VIAL IV ONE (20:45)
[2024-02-13 20:52] LABS: BILIRUBIN Negative (Negative); BLOOD Negative (Negative); CLARITY Clear (Clear); COLOR Yellow (Yellow); GLUCOSE 3+ (Negative); KETONE Negative (Negative); LEUKO ESTERASE Negative (Negative); NITRITE Negative (Negative); PH 7.5 (4.5-8.0); SPECIFIC GRAVITY 1.015 (1.001-1.030); UROBILINOGEN 0.2 E.U./dl (0.0-1.0)
[2024-02-13 21:17] LABS: RBC 0-2 rbc/hpf (0-2); WBC 0-2 wbc/hpf (0-5)
[2024-02-13] MEDS ORDERED: LEVETIRACETAM 1,000 MG in SODIUM CHLORIDE 0.9% 100 ML IV ONE (21:20)
[2024-02-13] MEDS ORDERED: LEVETIRACETAM IN NACL (ISO-OS) 100 ML IV ONE (21:30)
[2024-02-13] MEDS ORDERED: LEVETIRACETAM 500 MG TAB PO ONE (21:50)
== END 2024-02-13 21:59 | disposition home or self-care (01) ==
LOC: ED 17:55
PROVIDERS: Internal Medicine
DX: R07.89 Other chest pain (principal); R56.9 Unspecified convulsions; R11.2 Nausea with vomiting, unspecified; F17.210 Nicotine dependence, cigarettes, uncomplicated; F41.9 Anxiety disorder, unspecified; F32.A Depression, unspecified; Z91.041 Radiographic dye allergy status; Z88.6 Allergy status to analgesic agent; Z88.8 Allergy status to other drugs, medicaments and biological substances; Z79.899 Other long term (current) drug therapy; Z79.2 Long term (current) use of antibiotics; Z98.51 Tubal ligation status

== ENCOUNTER 2024-02-22 18:30 | Emergency (ER) | payer OTHER ==
[~2024-02-22] VITALS: Ht 142.2 cm; Wt 59.4 kg
[2024-02-22] MEDS ORDERED: Ondansetron Hydrochloride 4 MG TAB SL ONE (19:00)
[2024-02-22 19:21] LABS: BASO # 0.1 10*3/uL (0.0-0.1); BASO % 1.2 % (0.0-1.0); EOS # 0.5 10*3/uL (0.0-0.4); EOS % 5.3 % (1.0-4.0); HEMATOCRIT 44.6 % (37.0-47.0); LYMPH # 2.6 10*3/uL (1.3-4.4); LYMPH % 25.9 % (27.0-41.0); MEAN CELL VOLUME 91.6 fl (81.0-99.0); MEAN CORPUSCULAR HGB 28.7 pg (27.0-31.0); MEAN CORPUSCULAR HGB CONC 31.4 g/dl (33.0-37.0); MEAN PLATELET VOLUME 8.5 fl (9.6-12.3); MONO % 9.8 % (3.0-9.0); NEUT # 5.6 10*3/uL (2.3-7.9); NEUT % 56.9 % (47.0-73.0); PLATELET COUNT AUTOMATED 396 10*3/uL (130-400); RED BLOOD COUNT 4.87 10*6/uL (4.10-5.10); RED CELL DISTRI WIDTH 14.6 % (0-14.5); WHITE BLOOD COUNT 9.9 10*3/uL (4.8-10.8)
[2024-02-22 19:32] LABS: ACT PARTIAL THROMBO TIME 29.1 SECONDS (20.0-32.1)
[2024-02-22] MEDS ORDERED: ATORVASTATIN CA20 M1 PO (19:33)
[2024-02-22 19:39] LABS: BUN 11 mg/dl (9-23); CHLORIDE 103 mmol/L (98-107); POTASSIUM 3.7 mmol/L (3.4-5.1)
== END 2024-02-22 20:00 | disposition home or self-care (01) ==
LOC: ED 18:30
PROVIDERS: Nurse Practitioner Family
DX: R07.89 Other chest pain (principal); I25.10 Atherosclerotic heart disease of native coronary artery without angina pectoris; J44.9 Chronic obstructive pulmonary disease, unspecified; E11.65 Type 2 diabetes mellitus with hyperglycemia; F32.A Depression, unspecified; M79.7 Fibromyalgia; K21.9 Gastro-esophageal reflux disease without esophagitis; E78.5 Hyperlipidemia, unspecified; F41.9 Anxiety disorder, unspecified; Z91.041 Radiographic dye allergy status; Z88.6 Allergy status to analgesic agent; Z88.8 Allergy status to other drugs, medicaments and biological substances; Z95.5 Presence of coronary angioplasty implant and graft; Z98.51 Tubal ligation status; Z98.890 Other specified postprocedural states; F17.210 Nicotine dependence, cigarettes, uncomplicated

== ENCOUNTER 2024-02-28 10:24 | Emergency (ER) | payer OTHER ==
[~2024-02-28] VITALS: Ht 142.2 cm; Wt 59.4 kg
[~2024-02-28 10:24] MED LIST changes: +ATORVASTATIN CA20 M1 PO
[2024-02-28] MEDS ORDERED: VERAPAMIL HCL240 M1 PO (10:50)
[2024-02-28] MEDS ORDERED: LORAZEPAM0.5 M1 PO (10:50)
[2024-02-28] MEDS ORDERED: TRAZODONE100 MG PO (10:52)
[2024-02-28 11:16] LABS: BASO # 0.1 10*3/uL (0.0-0.1); BASO % 1.2 % (0.0-1.0); EOS # 0.2 10*3/uL (0.0-0.4); EOS % 2.3 % (1.0-4.0); HEMATOCRIT 43.6 % (37.0-47.0); LYMPH # 2.1 10*3/uL (1.3-4.4); LYMPH % 20.6 % (27.0-41.0); MEAN CELL VOLUME 90.8 fl (81.0-99.0); MEAN CORPUSCULAR HGB 28.5 pg (27.0-31.0); MEAN CORPUSCULAR HGB CONC 31.4 g/dl (33.0-37.0); MEAN PLATELET VOLUME 8.4 fl (9.6-12.3); MONO # 0.8 10*3/uL (0.1-1.0); MONO % 8.1 % (3.0-9.0); NEUT # 6.8 10*3/uL (2.3-7.9); NEUT % 66.8 % (47.0-73.0); PLATELET COUNT AUTOMATED 362 10*3/uL (130-400); RED CELL DISTRI WIDTH 14.9 % (0-14.5); WHITE BLOOD COUNT 10.1 10*3/uL (4.8-10.8)
[2024-02-28 11:46] LABS: ALKALINE PHOSPHATASE 82 U/L (46-116); BUN 11 mg/dl (9-23); CHLORIDE 103 mmol/L (98-107); POTASSIUM 3.6 mmol/L (3.4-5.1); TOTAL PROTEIN 6.9 gm/dL (6.0-8.0)
[2024-02-28 11:49] LABS: SGPT/ALT < 7 U/L (5-49)
[2024-02-28] MEDS ORDERED: PREDNISONE20 M1 PO (12:14)
[2024-02-28] MEDS ORDERED: ACETAMINOPHEN 325 MG TAB PO ONE (12:15)
== END 2024-02-28 13:04 | disposition home or self-care (01) ==
LOC: ED 10:24
PROVIDERS: Internal Medicine
DX: J44.1 Chronic obstructive pulmonary disease with (acute) exacerbation (principal); F41.9 Anxiety disorder, unspecified; F32.A Depression, unspecified; K21.9 Gastro-esophageal reflux disease without esophagitis; E11.9 Type 2 diabetes mellitus without complications; Z91.041 Radiographic dye allergy status; Z88.6 Allergy status to analgesic agent; Z88.8 Allergy status to other drugs, medicaments and biological substances; Z98.890 Other specified postprocedural states; Z98.51 Tubal ligation status; Z95.5 Presence of coronary angioplasty implant and graft; F17.210 Nicotine dependence, cigarettes, uncomplicated

== ENCOUNTER 2024-03-04 19:52 | Emergency (ER) | payer OTHER ==
[~2024-03-04] VITALS: Ht 142.2 cm; Wt 59.4 kg
[~2024-03-04 19:52] MED LIST changes: +LORAZEPAM0.5 M1 PO; +TRAZODONE100 MG PO; +VERAPAMIL HCL240 M1 PO
[2024-03-04 20:42] LABS: HEMATOCRIT 45.1 % (37.0-47.0); MEAN CELL VOLUME 91.7 fl (81.0-99.0); MEAN CORPUSCULAR HGB 28.7 pg (27.0-31.0); MEAN CORPUSCULAR HGB CONC 31.3 g/dl (33.0-37.0); MEAN PLATELET VOLUME 8.5 fl (9.6-12.3); PLATELET COUNT AUTOMATED 405 10*3/uL (130-400); RED BLOOD COUNT 4.92 10*6/uL (4.10-5.10); RED CELL DISTRI WIDTH 14.6 % (0-14.5); WHITE BLOOD COUNT 20.4 10*3/uL (4.8-10.8)
[2024-03-04 20:49] LABS: MANUAL DIFF REFLEX YES
[2024-03-04 21:03] LABS: ALKALINE PHOSPHATASE 72 U/L (46-116); BUN 16 mg/dl (9-23); CHLORIDE 100 mmol/L (98-107); POTASSIUM 3.5 mmol/L (3.4-5.1); SGPT/ALT 8 U/L (5-49); TOTAL PROTEIN 6.5 gm/dL (6.0-8.0)
[2024-03-04 21:52] LABS: OVALOCYTES FEW; PLATELET SUFFICIENCY HIGH (NORMAL); TOTAL CELLS COUNTED 100 #CELLS
[2024-03-04] MEDS ORDERED: Acetaminophen/Hydrocodone 5 MG/325 MG TABLET PO ONE (22:30)
[2024-03-04] MEDS ORDERED: Ondansetron Hydrochloride 4 MG TAB SL ONE (22:30)
== END 2024-03-05 00:08 | disposition home or self-care (01) ==
LOC: ED 19:52
PROVIDERS: Internal Medicine
DX: B34.9 Viral infection, unspecified (principal); Z20.822 Contact with and (suspected) exposure to COVID-19; D72.829 Elevated white blood cell count, unspecified; R00.0 Tachycardia, unspecified; F41.9 Anxiety disorder, unspecified; F32.A Depression, unspecified; K21.9 Gastro-esophageal reflux disease without esophagitis; J44.9 Chronic obstructive pulmonary disease, unspecified; Z91.041 Radiographic dye allergy status; Z88.6 Allergy status to analgesic agent; Z88.8 Allergy status to other drugs, medicaments and biological substances; Z95.5 Presence of coronary angioplasty implant and graft; Z98.890 Other specified postprocedural states; Z98.51 Tubal ligation status; F17.210 Nicotine dependence, cigarettes, uncomplicated

== ENCOUNTER 2024-03-16 10:23 | Emergency (ER) | payer OTHER ==
[~2024-03-16] VITALS: Ht 142.2 cm; Wt 59.0 kg
[2024-03-16] MEDS ORDERED: Ondansetron Hydrochloride 4 MG/2 ML VIAL IV ONE (10:40)
[2024-03-16] MEDS ORDERED: SODIUM CHLORIDE 0.9% 1,000 ML IV ONE (10:40)
[2024-03-16] MEDS ORDERED: MORPHINE Sulfate 2 MG/ML SYR IV ONE ×2 (10:40→10:50)
[2024-03-16 10:57] LABS: BASO # 0.1 10*3/uL (0.0-0.1); BASO % 0.6 % (0.0-1.0); EOS # 0.4 10*3/uL (0.0-0.4); EOS % 3.1 % (1.0-4.0); HEMATOCRIT 41.7 % (37.0-47.0); LYMPH % 27.1 % (27.0-41.0); MEAN CELL VOLUME 94.6 fl (81.0-99.0); MEAN CORPUSCULAR HGB 29.3 pg (27.0-31.0); MEAN CORPUSCULAR HGB CONC 30.9 g/dl (33.0-37.0); MEAN PLATELET VOLUME 8.3 fl (9.6-12.3); MONO # 1.1 10*3/uL (0.1-1.0); MONO % 9.6 % (3.0-9.0); NEUT # 6.6 10*3/uL (2.3-7.9); NEUT % 58.7 % (47.0-73.0); PLATELET COUNT AUTOMATED 312 10*3/uL (130-400); RED BLOOD COUNT 4.41 10*6/uL (4.10-5.10); WHITE BLOOD COUNT 11.2 10*3/uL (4.8-10.8)
[2024-03-16 11:21] LABS: ALKALINE PHOSPHATASE 67 U/L (46-116); BUN 9 mg/dl (9-23); CHLORIDE 104 mmol/L (98-107); POTASSIUM 4.1 mmol/L (3.4-5.1); SGPT/ALT 21 U/L (5-49); TOTAL PROTEIN 6.1 gm/dL (6.0-8.0)
== END 2024-03-16 12:12 | disposition home or self-care (01) ==
LOC: ED 10:23
PROVIDERS: Emergency Medicine
DX: R07.89 Other chest pain (principal); R11.0 Nausea; I25.10 Atherosclerotic heart disease of native coronary artery without angina pectoris; I10 Essential (primary) hypertension; E11.9 Type 2 diabetes mellitus without complications; E78.5 Hyperlipidemia, unspecified; J44.9 Chronic obstructive pulmonary disease, unspecified; F41.9 Anxiety disorder, unspecified; F32.A Depression, unspecified; K21.9 Gastro-esophageal reflux disease without esophagitis; F17.210 Nicotine dependence, cigarettes, uncomplicated; Z91.041 Radiographic dye allergy status; Z88.6 Allergy status to analgesic agent; Z88.8 Allergy status to other drugs, medicaments and biological substances; Z98.890 Other specified postprocedural states; Z95.5 Presence of coronary angioplasty implant and graft; Z98.51 Tubal ligation status

== ENCOUNTER 2024-03-29 18:20 | Emergency (ER) | payer OTHER ==
[2024-03-29] MEDS ORDERED: MIRTAZAPINE15 M2 PO (19:30)
[2024-03-29] MEDS ORDERED: ACETAMINOPHEN 325 MG TAB PO ONE (19:50)
[2024-03-29 20:04] LABS: HEMATOCRIT 43.2 % (37.0-47.0); MEAN CELL VOLUME 92.9 fl (81.0-99.0); MEAN CORPUSCULAR HGB 28.6 pg (27.0-31.0); MEAN CORPUSCULAR HGB CONC 30.8 g/dl (33.0-37.0); MEAN PLATELET VOLUME 8.1 fl (9.6-12.3); PLATELET COUNT AUTOMATED 521 10*3/uL (130-400); RED BLOOD COUNT 4.65 10*6/uL (4.10-5.10); RED CELL DISTRI WIDTH 15.4 % (0-14.5); WHITE BLOOD COUNT 19.1 10*3/uL (4.8-10.8)
[2024-03-29 20:05] LABS: MANUAL DIFF REFLEX YES
[2024-03-29 20:21] LABS: ALKALINE PHOSPHATASE 82 U/L (46-116); BUN 14 mg/dl (9-23); CHLORIDE 107 mmol/L (98-107); POTASSIUM 3.6 mmol/L (3.4-5.1); SGPT/ALT 14 U/L (5-49); TOTAL PROTEIN 6.2 gm/dL (6.0-8.0)
[2024-03-29 20:24] LABS: BURR CELLS FEW; OVALOCYTES FEW; PLATELET SUFFICIENCY HIGH (NORMAL); TOTAL CELLS COUNTED 100 #CELLS
== END 2024-03-29 21:45 | disposition home or self-care (01) ==
LOC: ED 18:20
PROVIDERS: Internal Medicine
DX: J44.1 Chronic obstructive pulmonary disease with (acute) exacerbation (principal); R42 Dizziness and giddiness; F32.A Depression, unspecified; F41.9 Anxiety disorder, unspecified; K21.9 Gastro-esophageal reflux disease without esophagitis; F17.210 Nicotine dependence, cigarettes, uncomplicated; Z91.041 Radiographic dye allergy status; Z88.6 Allergy status to analgesic agent; Z88.8 Allergy status to other drugs, medicaments and biological substances; Z98.890 Other specified postprocedural states; Z95.5 Presence of coronary angioplasty implant and graft; Z98.51 Tubal ligation status

== ENCOUNTER 2024-04-09 16:04 | Emergency (ER) | payer OTHER ==
[~2024-04-09] VITALS: Ht 142.2 cm; Wt 59.0 kg
[~2024-04-09 16:04] MED LIST changes: +MIRTAZAPINE15 M2 PO
[2024-04-09] MEDS ORDERED: XARE20MG PO (16:21)
[2024-04-09 16:41] LABS: BASO # 0.1 10*3/uL (0.0-0.1); BASO % 0.6 % (0.0-1.0); HEMATOCRIT 41.2 % (37.0-47.0); LYMPH # 1.3 10*3/uL (1.3-4.4); LYMPH % 9.7 % (27.0-41.0); MEAN CELL VOLUME 93.2 fl (81.0-99.0); MEAN CORPUSCULAR HGB CONC 31.1 g/dl (33.0-37.0); MEAN PLATELET VOLUME 8.7 fl (9.6-12.3); MONO # 0.7 10*3/uL (0.1-1.0); MONO % 4.8 % (3.0-9.0); NEUT # 11.5 10*3/uL (2.3-7.9); NEUT % 83.4 % (47.0-73.0); NUCLEATED RED BLOOD CELL 0.1 % (0.0-0.0); PLATELET COUNT AUTOMATED 352 10*3/uL (130-400); RED BLOOD COUNT 4.42 10*6/uL (4.10-5.10); RED CELL DISTRI WIDTH 15.9 % (0-14.5); WHITE BLOOD COUNT 13.8 10*3/uL (4.8-10.8)
[2024-04-09 17:02] LABS: ALKALINE PHOSPHATASE 86 U/L (46-116); BUN 13 mg/dl (9-23); CHLORIDE 107 mmol/L (98-107); POTASSIUM 4.4 mmol/L (3.4-5.1); SGPT/ALT 22 U/L (5-49); TOTAL PROTEIN 6.7 gm/dL (6.0-8.0)
[2024-04-09] MEDS ORDERED: ACETAMINOPHEN 325 MG TAB PO ONE (17:10)
== END 2024-04-09 17:12 | disposition home or self-care (01) ==
LOC: ED 16:04
PROVIDERS: Internal Medicine
DX: R07.89 Other chest pain (principal); R11.0 Nausea; M54.2 Cervicalgia; M79.602 Pain in left arm; F32.A Depression, unspecified; F41.9 Anxiety disorder, unspecified; K21.9 Gastro-esophageal reflux disease without esophagitis; J44.9 Chronic obstructive pulmonary disease, unspecified; F17.210 Nicotine dependence, cigarettes, uncomplicated; Z91.041 Radiographic dye allergy status; Z88.6 Allergy status to analgesic agent; Z88.8 Allergy status to other drugs, medicaments and biological substances; Z95.5 Presence of coronary angioplasty implant and graft; Z98.51 Tubal ligation status; Z98.890 Other specified postprocedural states

== ENCOUNTER 2024-04-21 16:35 | Emergency (ER) | payer OTHER ==
[~2024-04-21] VITALS: Ht 142.2 cm; Wt 59.0 kg
[~2024-04-21 16:35] MED LIST changes: +XARE20MG PO
[2024-04-21] MEDS ORDERED: TRIAMCINOLONE430 GM TD (17:40)
[2024-04-21] MEDS ORDERED: PREDNISONE20 M1 PO (17:40)
[2024-04-21] MEDS ORDERED: LEVETIRACETAM 1,000 MG in SODIUM CHLORIDE 0.9% 100 ML IV ONE (17:55)
[2024-04-21] MEDS ORDERED: SODIUM CHLORIDE 0.9% 1,000 ML IV ONE (17:55)
[2024-04-21] MEDS ORDERED: diphenhydrAMINE hydrochloride 50 MG/ML VIAL IV ONE (17:55)
[2024-04-21] MEDS ORDERED: Metoclopramide Hydrochloride 10 MG/2 ML AMP IV ONE (17:55)
[2024-04-21] MEDS ORDERED: MORPHINE Sulfate 2 MG/ML SYR IV ONE (17:55)
[2024-04-21] MEDS ORDERED: LEVETIRACETAM IN NACL (ISO-OS) 100 ML IV ONE (18:00)
[2024-04-21 18:17] LABS: BASO # 0.1 10*3/uL (0.0-0.1); BASO % 0.9 % (0.0-1.0); EOS # 0.2 10*3/uL (0.0-0.4); EOS % 1.3 % (1.0-4.0); HEMATOCRIT 41.5 % (37.0-47.0); LYMPH # 2.3 10*3/uL (1.3-4.4); LYMPH % 19.6 % (27.0-41.0); MEAN CORPUSCULAR HGB 27.6 pg (27.0-31.0); MEAN CORPUSCULAR HGB CONC 30.4 g/dl (33.0-37.0); MEAN PLATELET VOLUME 8.5 fl (9.6-12.3); MONO # 1.4 10*3/uL (0.1-1.0); MONO % 11.7 % (3.0-9.0); NEUT # 7.6 10*3/uL (2.3-7.9); NEUT % 64.8 % (47.0-73.0); PLATELET COUNT AUTOMATED 421 10*3/uL (130-400); RED BLOOD COUNT 4.56 10*6/uL (4.10-5.10); RED CELL DISTRI WIDTH 15.9 % (0-14.5); WHITE BLOOD COUNT 11.8 10*3/uL (4.8-10.8)
[2024-04-21 18:32] LABS: BUN 12 mg/dl (9-23); CHLORIDE 105 mmol/L (98-107); POTASSIUM 4.1 mmol/L (3.4-5.1)
== END 2024-04-21 19:22 | disposition home or self-care (01) ==
LOC: ED 16:35
PROVIDERS: Emergency Medicine
DX: R07.89 Other chest pain (principal); R56.9 Unspecified convulsions; R11.2 Nausea with vomiting, unspecified; I25.10 Atherosclerotic heart disease of native coronary artery without angina pectoris; J44.9 Chronic obstructive pulmonary disease, unspecified; E11.9 Type 2 diabetes mellitus without complications; M79.7 Fibromyalgia; Z86.718 Personal history of other venous thrombosis and embolism; I10 Essential (primary) hypertension; E78.5 Hyperlipidemia, unspecified; F32.A Depression, unspecified; F41.9 Anxiety disorder, unspecified; K21.9 Gastro-esophageal reflux disease without esophagitis; F17.210 Nicotine dependence, cigarettes, uncomplicated; Z91.041 Radiographic dye allergy status; Z88.6 Allergy status to analgesic agent; Z88.8 Allergy status to other drugs, medicaments and biological substances; Z95.5 Presence of coronary angioplasty implant and graft; Z98.51 Tubal ligation status; Z98.890 Other specified postprocedural states

== ENCOUNTER 2024-04-27 17:03 | Emergency (ER) | payer OTHER ==
[~2024-04-27] VITALS: Ht 142.2 cm; Wt 112.5 kg
[~2024-04-27 17:03] MED LIST changes: +TRIAMCINOLONE430 GM TD
[2024-04-27] MEDS ORDERED: LEVETIRACETAM IN NACL (ISO-OS) 100 ML IV ONE (17:40)
[2024-04-27] MEDS ORDERED: MORPHINE Sulfate 2 MG/ML SYR IV ONE (17:40)
[2024-04-27] MEDS ORDERED: Ondansetron Hydrochloride 4 MG/2 ML VIAL IV ONE (17:40)
[2024-04-27] MEDS ORDERED: KEPPRA1000 MG PO (17:41)
[2024-04-27 17:52] LABS: HEMATOCRIT 41.9 % (37.0-47.0); MEAN CELL VOLUME 90.1 fl (81.0-99.0); MEAN CORPUSCULAR HGB 27.5 pg (27.0-31.0); MEAN CORPUSCULAR HGB CONC 30.5 g/dl (33.0-37.0); MEAN PLATELET VOLUME 8.3 fl (9.6-12.3); PLATELET COUNT AUTOMATED 524 10*3/uL (130-400); RED BLOOD COUNT 4.65 10*6/uL (4.10-5.10); RED CELL DISTRI WIDTH 15.6 % (0-14.5)
[2024-04-27 17:53] LABS: MANUAL DIFF REFLEX YES
[2024-04-27 18:11] LABS: BASOPHILS 1 % (0-1); PLATELET SUFFICIENCY HIGH (NORMAL); TOTAL CELLS COUNTED 100 #CELLS
[2024-04-27 18:12] LABS: BUN 17 mg/dl (9-23); CHLORIDE 106 mmol/L (98-107); OVALOCYTES FEW; POLYCHROMASIA SLIGHT
== END 2024-04-27 19:32 | disposition home or self-care (01) ==
LOC: ED 17:03
PROVIDERS: Emergency Medicine
DX: R56.9 Unspecified convulsions (principal); R07.89 Other chest pain; J44.9 Chronic obstructive pulmonary disease, unspecified; M79.7 Fibromyalgia; E11.9 Type 2 diabetes mellitus without complications; I10 Essential (primary) hypertension; I25.10 Atherosclerotic heart disease of native coronary artery without angina pectoris; E78.5 Hyperlipidemia, unspecified; F32.A Depression, unspecified; F41.9 Anxiety disorder, unspecified; K21.9 Gastro-esophageal reflux disease without esophagitis; F17.210 Nicotine dependence, cigarettes, uncomplicated; Z91.041 Radiographic dye allergy status; Z88.6 Allergy status to analgesic agent; Z88.8 Allergy status to other drugs, medicaments and biological substances; Z95.5 Presence of coronary angioplasty implant and graft; Z98.51 Tubal ligation status; Z98.890 Other specified postprocedural states

== ENCOUNTER 2024-05-01 12:08 | Emergency (ER) | payer OTHER ==
[~2024-05-01] VITALS: Ht 142.2 cm; Wt 59.0 kg
[2024-05-01 14:54] LABS: HEMATOCRIT 40.9 % (37.0-47.0); MANUAL DIFF REFLEX YES; MEAN CELL VOLUME 89.5 fl (81.0-99.0); MEAN CORPUSCULAR HGB 27.4 pg (27.0-31.0); MEAN CORPUSCULAR HGB CONC 30.6 g/dl (33.0-37.0); MEAN PLATELET VOLUME 8.1 fl (9.6-12.3); NUCLEATED RED BLOOD CELL 0.1 % (0.0-0.0); PLATELET COUNT AUTOMATED 480 10*3/uL (130-400); RED BLOOD COUNT 4.57 10*6/uL (4.10-5.10); RED CELL DISTRI WIDTH 15.2 % (0-14.5)
[2024-05-01 15:15] LABS: ALKALINE PHOSPHATASE 85 U/L (46-116); BUN 17 mg/dl (9-23); CHLORIDE 105 mmol/L (98-107); POTASSIUM 3.6 mmol/L (3.4-5.1); SGPT/ALT 11 U/L (5-49); TOTAL PROTEIN 6.6 gm/dL (6.0-8.0)
[2024-05-01 15:22] LABS: TOTAL CELLS COUNTED 100 #CELLS
[2024-05-01 15:23] LABS: BURR CELLS FEW; OVALOCYTES FEW; PLATELET SUFFICIENCY HIGH (NORMAL); POLYCHROMASIA SLIGHT
[2024-05-01 16:43] LABS: BILIRUBIN Negative (Negative); BLOOD Negative (Negative); CLARITY Clear (Clear); COLOR Yellow (Yellow); GLUCOSE 3+ (Negative); KETONE Negative (Negative); LEUKO ESTERASE Trace (Negative); NITRITE Negative (Negative); SPECIFIC GRAVITY 1.025 (1.001-1.030); UROBILINOGEN 0.2 E.U./dl (0.0-1.0)
[2024-05-01] MEDS ORDERED: SEPTDS PO (18:16)
== END 2024-05-01 18:39 | disposition home or self-care (01) ==
LOC: ED 12:08
PROVIDERS: Emergency Medicine
DX: R07.89 Other chest pain (principal); R20.2 Paresthesia of skin; F41.9 Anxiety disorder, unspecified; F32.A Depression, unspecified; F17.210 Nicotine dependence, cigarettes, uncomplicated; Z91.041 Radiographic dye allergy status; Z88.6 Allergy status to analgesic agent; Z88.8 Allergy status to other drugs, medicaments and biological substances; Z79.899 Other long term (current) drug therapy; Z98.61 Coronary angioplasty status; Z98.51 Tubal ligation status

== ENCOUNTER 2024-05-10 19:00 | Emergency (ER) | payer OTHER ==
[~2024-05-10] VITALS: Ht 142.2 cm; Wt 59.0 kg
[~2024-05-10 19:00] MED LIST changes: +SEPTDS PO
[2024-05-10 19:38] LABS: BASO # 0.1 10*3/uL (0.0-0.1); BASO % 0.8 % (0.0-1.0); EOS # 0.3 10*3/uL (0.0-0.4); HEMATOCRIT 40.2 % (37.0-47.0); LYMPH # 3.4 10*3/uL (1.3-4.4); LYMPH % 25.3 % (27.0-41.0); MEAN CELL VOLUME 88.9 fl (81.0-99.0); MEAN CORPUSCULAR HGB CONC 30.3 g/dl (33.0-37.0); MEAN PLATELET VOLUME 8.1 fl (9.6-12.3); MONO # 1.4 10*3/uL (0.1-1.0); MONO % 10.2 % (3.0-9.0); NEUT # 8.1 10*3/uL (2.3-7.9); NEUT % 60.7 % (47.0-73.0); PLATELET COUNT AUTOMATED 388 10*3/uL (130-400); RED BLOOD COUNT 4.52 10*6/uL (4.10-5.10); RED CELL DISTRI WIDTH 15.2 % (0-14.5); WHITE BLOOD COUNT 13.3 10*3/uL (4.8-10.8)
[2024-05-10 19:52] LABS: BUN 14 mg/dl (9-23); CHLORIDE 105 mmol/L (98-107); POTASSIUM 3.5 mmol/L (3.4-5.1)
[2024-05-10 20:06] LABS: ACT PARTIAL THROMBO TIME 33.5 SECONDS (20.0-32.1)
[2024-05-10] MEDS ORDERED: MORPHINE Sulfate 2 MG/ML SYR IM ONE (22:10)
== END 2024-05-10 22:20 | disposition home or self-care (01) ==
LOC: ED 19:00
PROVIDERS: Internal Medicine
DX: R07.89 Other chest pain (principal); R68.84 Jaw pain; M79.602 Pain in left arm; F41.9 Anxiety disorder, unspecified; F32.A Depression, unspecified; K21.9 Gastro-esophageal reflux disease without esophagitis; J44.9 Chronic obstructive pulmonary disease, unspecified; E11.9 Type 2 diabetes mellitus without complications; F17.210 Nicotine dependence, cigarettes, uncomplicated; Z91.041 Radiographic dye allergy status; Z88.6 Allergy status to analgesic agent; Z88.8 Allergy status to other drugs, medicaments and biological substances; Z95.5 Presence of coronary angioplasty implant and graft; Z98.51 Tubal ligation status; Z98.890 Other specified postprocedural states

== ENCOUNTER 2024-05-12 16:53 | Inpatient (IN) | payer OTHER ==
[~2024-05-12] VITALS: Ht 142.2 cm; Wt 59.0 kg
[2024-05-12 17:22] VITALS: BP 134/48
[2024-05-12] MEDS ORDERED: SODIUM CHLORIDE 0.9% 1,000 ML IV ONE (17:30)
[2024-05-12] MEDS ORDERED: MORPHINE Sulfate 2 MG/ML SYR IV ONE (17:30)
[2024-05-12 17:38] LABS: BASO # 0.1 10*3/uL (0.0-0.1); EOS # 0.2 10*3/uL (0.0-0.4); EOS % 1.9 % (1.0-4.0); LYMPH # 2.8 10*3/uL (1.3-4.4); LYMPH % 24.2 % (27.0-41.0); MEAN CELL VOLUME 88.5 fl (81.0-99.0); MEAN CORPUSCULAR HGB 27.4 pg (27.0-31.0); MEAN PLATELET VOLUME 8.3 fl (9.6-12.3); MONO # 1.4 10*3/uL (0.1-1.0); MONO % 12.1 % (3.0-9.0); NEUT # 6.9 10*3/uL (2.3-7.9); NEUT % 59.9 % (47.0-73.0); PLATELET COUNT AUTOMATED 390 10*3/uL (130-400); RED BLOOD COUNT 4.52 10*6/uL (4.10-5.10); RED CELL DISTRI WIDTH 15.4 % (0-14.5); WHITE BLOOD COUNT 11.5 10*3/uL (4.8-10.8)
[2024-05-12 17:49] LABS: ACT PARTIAL THROMBO TIME 38.5 SECONDS (20.0-32.1)
[2024-05-12 18:08] LABS: ALKALINE PHOSPHATASE 93 U/L (46-116); BUN 13 mg/dl (9-23); CHLORIDE 106 mmol/L (98-107); LIPASE 59 U/L (12-53); POTASSIUM 3.7 mmol/L (3.4-5.1); SGPT/ALT 33 U/L (5-49)
[2024-05-12 19:23] VITALS: BP 122/74
[2024-05-12] MEDS ORDERED: Acetaminophen/Hydrocodone 5 MG/325 MG TABLET PO PRN (19:25)
[2024-05-12] MEDS ORDERED: Ondansetron Hydrochloride 4 MG/2 ML VIAL IV PRN (19:25)
[2024-05-12] MEDS ORDERED: MORPHINE Sulfate 2 MG/ML SYR IV PRN (19:25)
[2024-05-12] MEDS ORDERED: NITROGLYCERIN 1 IN PACKET T ONE (19:30)
[2024-05-12] MEDS ORDERED: hydrOXYzine pamoate 25 MG CAP PO PRN (19:40)
[2024-05-12] MEDS ORDERED: Albuterol Sulfate 2.5 MG/3 ML VIAL NEB SCH (20:00)
[2024-05-12] MEDS ORDERED: DEXTROSE 10 % IN WATER 250 ML IV PRN (20:05)
[2024-05-12 21:54] VITALS: BP 120/58
[2024-05-12] MEDS ORDERED: Technetium Tc 99M Pentetate 1 KIT KIT IV SCH (21:55)
[2024-05-12] MEDS ORDERED: Technetium Tc 99M MacroAg Albu 1 KIT KIT IV SCH (21:55)
[2024-05-12] MEDS ORDERED: LEVETIRACETAM 500 MG TAB PO SCH (22:00)
[2024-05-12] MEDS ORDERED: Metoprolol Tartrate 25 MG TAB PO SCH (22:00)
[2024-05-12] MEDS ORDERED: INSULIN LISPRO 1 UNIT/0.01 ML SQ SCH (22:00)
[2024-05-12] MEDS ORDERED: VERAPAMIL HYDROCHLORIDE 120 MG PO SCH (22:00)
[2024-05-12] MEDS ORDERED: ATORVASTATIN CALCIUM 20 MG TAB PO SCH (22:00)
[2024-05-13 01:28] VITALS: BP 101/60
[2024-05-13 05:48] LABS: BUN 10 mg/dl (9-23); CHLORIDE 109 mmol/L (98-107); CHOLESTEROL 125 mg/dL (<200); FREE T4 1.16 ng/dl (0.89-1.76); LDL CHOLESTEROL 37 mg/dL (9-159); POTASSIUM 3.7 mmol/L (3.4-5.1); TRIGLYCERIDES 213 mg/dl (<150)
[2024-05-13] MEDS ORDERED: Pantoprazole Sodium 40 MG TAB PO SCH (06:00)
[2024-05-13 06:13] LABS: BASO # 0.1 10*3/uL (0.0-0.1); BASO % 1.5 % (0.0-1.0); EOS # 0.2 10*3/uL (0.0-0.4); EOS % 3.1 % (1.0-4.0); HEMATOCRIT 38.1 % (37.0-47.0); LYMPH # 2.6 10*3/uL (1.3-4.4); LYMPH % 33.8 % (27.0-41.0); MEAN CELL VOLUME 90.1 fl (81.0-99.0); MEAN CORPUSCULAR HGB 26.7 pg (27.0-31.0); MEAN CORPUSCULAR HGB CONC 29.7 g/dl (33.0-37.0); MEAN PLATELET VOLUME 8.7 fl (9.6-12.3); MONO # 1.1 10*3/uL (0.1-1.0); MONO % 14.3 % (3.0-9.0); NEUT # 3.6 10*3/uL (2.3-7.9); NEUT % 46.3 % (47.0-73.0); PLATELET COUNT AUTOMATED 369 10*3/uL (130-400); RED BLOOD COUNT 4.23 10*6/uL (4.10-5.10); RED CELL DISTRI WIDTH 15.5 % (0-14.5); WHITE BLOOD COUNT 7.8 10*3/uL (4.8-10.8)
[2024-05-13 06:18] VITALS: BP 113/66
[2024-05-13] MEDS ORDERED: Nicotine 21 MG PATCH T SCH (10:00)
[2024-05-13] MEDS ORDERED: HYDROCHLOROTHIAZIDE 25 MG TAB PO SCH (10:00)
[2024-05-13] MEDS ORDERED: RIVAROXABAN 20 MG TAB PO SCH (10:00)
[2024-05-13 10:47] VITALS: BP 113/58
[2024-05-13] MEDS ORDERED: Albuterol Sulfate 2.5 MG/3 ML VIAL NEB PRN (11:20)
[2024-05-13] MEDS ORDERED: Acetaminophen/Hydrocodone 5 MG/325 MG TABLET PO ONE (12:15)
[2024-05-13] MEDS ORDERED: LOPRESSOR25 MG PO (12:17)
[2024-05-13] MEDS ORDERED: TIZANIDINE HCL4 MG PO (12:17)
== END 2024-05-13 14:45 | disposition home or self-care (01) | DRG 206 ==
LOC: ED 16:53 → EDHOLD 18:28
PROVIDERS: Internal Medicine; ADMIT Internal Medicine; ATTEND Internal Medicine
DX: M94.0 Chondrocostal junction syndrome [Tietze] (principal); I25.110 Atherosclerotic heart disease of native coronary artery with unstable angina pectoris; F33.9 Major depressive disorder, recurrent, unspecified; K21.9 Gastro-esophageal reflux disease without esophagitis; J44.9 Chronic obstructive pulmonary disease, unspecified; E78.5 Hyperlipidemia, unspecified; G89.29 Other chronic pain; E66.9 Obesity, unspecified; E11.65 Type 2 diabetes mellitus with hyperglycemia; F41.1 Generalized anxiety disorder; D72.821 Monocytosis (symptomatic); F17.210 Nicotine dependence, cigarettes, uncomplicated; Z88.8 Allergy status to other drugs, medicaments and biological substances; Z88.6 Allergy status to analgesic agent; Z91.041 Radiographic dye allergy status; Z98.51 Tubal ligation status; Z82.49 Family history of ischemic heart disease and other diseases of the circulatory system; Z68.29 Body mass index [BMI] 29.0-29.9, adult

== ENCOUNTER 2024-05-17 17:52 | Emergency (ER) | payer OTHER ==
[~2024-05-17] VITALS: Ht 142.2 cm; Wt 59.0 kg
[2024-05-17] MEDS ORDERED: SODIUM CHLORIDE 0.9% 1,000 ML IV ONE (18:15)
[2024-05-17] MEDS ORDERED: Ondansetron Hydrochloride 4 MG/2 ML VIAL IV ONE (18:15)
[2024-05-17] MEDS ORDERED: MORPHINE Sulfate 2 MG/ML SYR IV ONE (18:15)
[2024-05-17 18:43] LABS: BASO # 0.1 10*3/uL (0.0-0.1); EOS # 0.4 10*3/uL (0.0-0.4); EOS % 3.5 % (1.0-4.0); HEMATOCRIT 41.7 % (37.0-47.0); LYMPH # 3.3 10*3/uL (1.3-4.4); LYMPH % 29.1 % (27.0-41.0); MEAN CORPUSCULAR HGB 26.8 pg (27.0-31.0); MEAN CORPUSCULAR HGB CONC 30.5 g/dl (33.0-37.0); MEAN PLATELET VOLUME 8.3 fl (9.6-12.3); MONO % 9.1 % (3.0-9.0); NEUT # 6.3 10*3/uL (2.3-7.9); NEUT % 56.7 % (47.0-73.0); PLATELET COUNT AUTOMATED 423 10*3/uL (130-400); RED BLOOD COUNT 4.74 10*6/uL (4.10-5.10); RED CELL DISTRI WIDTH 15.3 % (0-14.5); WHITE BLOOD COUNT 11.2 10*3/uL (4.8-10.8)
[2024-05-17 18:58] LABS: BUN 9 mg/dl (9-23); CHLORIDE 105 mmol/L (98-107); POTASSIUM 3.4 mmol/L (3.4-5.1)
== END 2024-05-17 19:07 | disposition home or self-care (01) ==
LOC: ED 17:52
PROVIDERS: Emergency Medicine
DX: R56.9 Unspecified convulsions (principal); R07.89 Other chest pain; I25.10 Atherosclerotic heart disease of native coronary artery without angina pectoris; J44.9 Chronic obstructive pulmonary disease, unspecified; I10 Essential (primary) hypertension; E78.5 Hyperlipidemia, unspecified; E11.9 Type 2 diabetes mellitus without complications; M79.7 Fibromyalgia; F41.9 Anxiety disorder, unspecified; F32.A Depression, unspecified; K21.9 Gastro-esophageal reflux disease without esophagitis; F17.210 Nicotine dependence, cigarettes, uncomplicated; Z91.041 Radiographic dye allergy status; Z88.6 Allergy status to analgesic agent; Z88.8 Allergy status to other drugs, medicaments and biological substances; Z98.890 Other specified postprocedural states; Z95.5 Presence of coronary angioplasty implant and graft; Z98.51 Tubal ligation status

== ENCOUNTER 2024-05-24 19:43 | Emergency (ER) | payer OTHER ==
[~2024-05-24] VITALS: Ht 142.2 cm; Wt 59.0 kg
[2024-05-24] MEDS ORDERED: Ondansetron Hydrochloride 4 MG/2 ML VIAL IV ONE (20:35)
[2024-05-24] MEDS ORDERED: SODIUM CHLORIDE 0.9% 1,000 ML IV ONE (20:35)
[2024-05-24 20:56] LABS: BASO # 0.2 10*3/uL (0.0-0.1); BASO % 1.4 % (0.0-1.0); EOS # 0.6 10*3/uL (0.0-0.4); EOS % 4.5 % (1.0-4.0); HEMATOCRIT 41.4 % (37.0-47.0); LYMPH # 3.3 10*3/uL (1.3-4.4); MEAN CELL VOLUME 88.8 fl (81.0-99.0); MEAN CORPUSCULAR HGB 26.4 pg (27.0-31.0); MEAN CORPUSCULAR HGB CONC 29.7 g/dl (33.0-37.0); MEAN PLATELET VOLUME 8.5 fl (9.6-12.3); MONO # 1.3 10*3/uL (0.1-1.0); MONO % 10.5 % (3.0-9.0); NEUT % 55.5 % (47.0-73.0); PLATELET COUNT AUTOMATED 478 10*3/uL (130-400); RED BLOOD COUNT 4.66 10*6/uL (4.10-5.10); RED CELL DISTRI WIDTH 15.5 % (0-14.5); WHITE BLOOD COUNT 12.7 10*3/uL (4.8-10.8)
[2024-05-24 21:15] LABS: BUN 7 mg/dl (9-23); CHLORIDE 106 mmol/L (98-107); LIPASE 59 U/L (12-53); POTASSIUM 4.1 mmol/L (3.4-5.1); SGPT/ALT 15 U/L (5-49)
[2024-05-24] MEDS ORDERED: MORPHINE Sulfate 2 MG/ML SYR IV ONE ×2 (21:20→22:15)
[2024-05-24 21:27] LABS: BILIRUBIN Negative (Negative); BLOOD Negative (Negative); CLARITY Cloudy (Clear); COLOR Yellow (Yellow); GLUCOSE 3+ (Negative); KETONE Negative (Negative); LEUKO ESTERASE Negative (Negative); NITRITE Negative (Negative); UROBILINOGEN 0.2 E.U./dl (0.0-1.0)
[2024-05-24 21:49] LABS: BACTERIA TRACE; EPITHELIAL CELLS 21-30; MUCOUS 1+
[2024-05-24] MEDS ORDERED: PREDNISONE20 M1 PO (22:16)
== END 2024-05-24 22:36 | disposition home or self-care (01) ==
LOC: ED 19:43
PROVIDERS: Nurse Practitioner Family
DX: K52.9 Noninfective gastroenteritis and colitis, unspecified (principal); R11.2 Nausea with vomiting, unspecified; I25.10 Atherosclerotic heart disease of native coronary artery without angina pectoris; K21.9 Gastro-esophageal reflux disease without esophagitis; I10 Essential (primary) hypertension; F32.A Depression, unspecified; E11.9 Type 2 diabetes mellitus without complications; G40.909 Epilepsy, unspecified, not intractable, without status epilepticus; F17.210 Nicotine dependence, cigarettes, uncomplicated; Z91.041 Radiographic dye allergy status; Z88.6 Allergy status to analgesic agent; Z79.899 Other long term (current) drug therapy; Z98.51 Tubal ligation status

== ENCOUNTER 2024-05-26 19:15 | Emergency (ER) | payer OTHER ==
[~2024-05-26] VITALS: Ht 142.2 cm; Wt 59.0 kg
[2024-05-26] MEDS ORDERED: SODIUM CHLORIDE 0.9% 1,000 ML IV ONE (19:40)
[2024-05-26] MEDS ORDERED: Ondansetron Hydrochloride 4 MG/2 ML VIAL IV ONE (19:40)
[2024-05-26] MEDS ORDERED: MORPHINE Sulfate 2 MG/ML SYR IV ONE (19:40)
[2024-05-26 19:49] LABS: BILIRUBIN Negative (Negative); BLOOD Negative (Negative); CLARITY Clear (Clear); COLOR Yellow (Yellow); GLUCOSE 3+ (Negative); KETONE Negative (Negative); LEUKO ESTERASE Negative (Negative); NITRITE Negative (Negative); UROBILINOGEN 0.2 E.U./dl (0.0-1.0)
[2024-05-26 20:08] LABS: BASO # 0.1 10*3/uL (0.0-0.1); BASO % 0.5 % (0.0-1.0); EOS % 0.1 % (1.0-4.0); HEMATOCRIT 38.6 % (37.0-47.0); LYMPH # 1.6 10*3/uL (1.3-4.4); LYMPH % 12.1 % (27.0-41.0); MEAN CELL VOLUME 88.1 fl (81.0-99.0); MEAN CORPUSCULAR HGB 26.3 pg (27.0-31.0); MEAN CORPUSCULAR HGB CONC 29.8 g/dl (33.0-37.0); MEAN PLATELET VOLUME 8.5 fl (9.6-12.3); MONO # 0.5 10*3/uL (0.1-1.0); MONO % 3.8 % (3.0-9.0); NEUT # 10.4 10*3/uL (2.3-7.9); NEUT % 81.5 % (47.0-73.0); PLATELET COUNT AUTOMATED 485 10*3/uL (130-400); RED BLOOD COUNT 4.38 10*6/uL (4.10-5.10); RED CELL DISTRI WIDTH 15.5 % (0-14.5); WHITE BLOOD COUNT 12.8 10*3/uL (4.8-10.8)
[2024-05-26 20:19] LABS: ACT PARTIAL THROMBO TIME 33.9 SECONDS (20.0-32.1)
[2024-05-26 20:28] LABS: ALKALINE PHOSPHATASE 96 U/L (46-116); BUN 9 mg/dl (9-23); CHLORIDE 106 mmol/L (98-107); LIPASE 52 U/L (12-53); POTASSIUM 3.9 mmol/L (3.4-5.1); SGPT/ALT 13 U/L (5-49); TOTAL PROTEIN 6.6 gm/dL (6.0-8.0)
[2024-05-26] MEDS ORDERED: Piperacillin Sodium/Tazobact 50 ML IV ONE (20:40)
[2024-05-26] MEDS ORDERED: SODIUM CHLORIDE 0.9% 1,000 ML IV SCH (20:40)
[2024-05-26] MEDS ORDERED: Ondansetron4 MG PO (22:58)
== END 2024-05-26 23:14 | disposition home or self-care (01) ==
LOC: ED 19:15
PROVIDERS: Physician Assistant Medical
DX: K52.9 Noninfective gastroenteritis and colitis, unspecified (principal); R11.2 Nausea with vomiting, unspecified; R56.9 Unspecified convulsions; R20.2 Paresthesia of skin; F32.A Depression, unspecified; F41.9 Anxiety disorder, unspecified; J44.9 Chronic obstructive pulmonary disease, unspecified; I25.2 Old myocardial infarction; F17.210 Nicotine dependence, cigarettes, uncomplicated; Z91.041 Radiographic dye allergy status; Z88.6 Allergy status to analgesic agent; Z88.8 Allergy status to other drugs, medicaments and biological substances; Z79.899 Other long term (current) drug therapy; Z79.84 Long term (current) use of oral hypoglycemic drugs; Z98.51 Tubal ligation status; Z98.890 Other specified postprocedural states

== ENCOUNTER 2024-06-03 17:00 | Emergency (ER) | payer OTHER ==
[~2024-06-03 17:00] MED LIST changes: +Ondansetron4 MG PO
[2024-06-03] MEDS ORDERED: MAGNESIUM SULFATE 50 ML IV ONE (17:20)
[2024-06-03] MEDS ORDERED: Albuterol Sulfate 2.5 MG/3 ML VIAL NEB ONE (17:20)
[2024-06-03] MEDS ORDERED: Ondansetron Hydrochloride 4 MG/2 ML VIAL IV ONE (17:20)
[2024-06-03] MEDS ORDERED: AZITHROMYCIN 250 MG TAB PO ONE (17:20)
[2024-06-03] MEDS ORDERED: methylPREDNISolone sod succ 125 MG VIAL IV ONE (17:20)
[2024-06-03] MEDS ORDERED: MORPHINE Sulfate 2 MG/ML SYR IV ONE (17:20)
[2024-06-03 17:35] LABS: HEMATOCRIT 40.3 % (37.0-47.0); MEAN CELL VOLUME 84.5 fl (81.0-99.0); MEAN CORPUSCULAR HGB 26.6 pg (27.0-31.0); MEAN CORPUSCULAR HGB CONC 31.5 g/dl (33.0-37.0); MEAN PLATELET VOLUME 8.4 fl (9.6-12.3); PLATELET COUNT AUTOMATED 431 10*3/uL (130-400); RED BLOOD COUNT 4.77 10*6/uL (4.10-5.10); RED CELL DISTRI WIDTH 15.7 % (0-14.5); WHITE BLOOD COUNT 14.5 10*3/uL (4.8-10.8)
[2024-06-03 17:41] LABS: MANUAL DIFF REFLEX YES
[2024-06-03 17:52] LABS: ACT PARTIAL THROMBO TIME 37.9 SECONDS (20.0-32.1); ALKALINE PHOSPHATASE 89 U/L (46-116); BUN 9 mg/dl (9-23); CHLORIDE 105 mmol/L (98-107); POTASSIUM 3.4 mmol/L (3.4-5.1); SGPT/ALT 9 U/L (5-49); TOTAL PROTEIN 6.6 gm/dL (6.0-8.0)
[2024-06-03 17:59] LABS: BASOPHILS 1 % (0-1); BURR CELLS FEW; PLATELET SUFFICIENCY HIGH (NORMAL); TARGET CELLS FEW; TOTAL CELLS COUNTED 100 #CELLS
[2024-06-03 18:00] LABS: POLYCHROMASIA SLIGHT
[2024-06-03] MEDS ORDERED: AVPAK AZITHROM250 M1 PO (18:21)
== END 2024-06-03 18:32 | disposition home or self-care (01) ==
LOC: ED 17:00
PROVIDERS: Emergency Medicine
DX: J44.1 Chronic obstructive pulmonary disease with (acute) exacerbation (principal); R07.89 Other chest pain; E11.9 Type 2 diabetes mellitus without complications; M79.7 Fibromyalgia; I10 Essential (primary) hypertension; E78.5 Hyperlipidemia, unspecified; F41.9 Anxiety disorder, unspecified; F32.A Depression, unspecified; K21.9 Gastro-esophageal reflux disease without esophagitis; F17.210 Nicotine dependence, cigarettes, uncomplicated; Z86.718 Personal history of other venous thrombosis and embolism; Z91.041 Radiographic dye allergy status; Z88.6 Allergy status to analgesic agent; Z88.8 Allergy status to other drugs, medicaments and biological substances; Z95.5 Presence of coronary angioplasty implant and graft; Z98.51 Tubal ligation status; Z98.890 Other specified postprocedural states

== ENCOUNTER 2024-06-08 11:04 | Observation (INO) | payer OTHER ==
[~2024-06-08] VITALS: Ht 142.2 cm; Wt 68.5 kg
[~2024-06-08 11:04] MED LIST changes: +AVPAK AZITHROM250 M1 PO
[2024-06-08 11:12] VITALS: BP 102/79
[2024-06-08] MEDS ORDERED: Lactated Ringer's Solution 1,000 ML IV SCH (11:55)
[2024-06-08] MEDS ORDERED: Ondansetron Hydrochloride 4 MG/2 ML VIAL IV ONE (11:55)
[2024-06-08 12:33] LABS: HEMATOCRIT 42.1 % (37.0-47.0); MEAN CELL VOLUME 89.2 fl (81.0-99.0); MEAN CORPUSCULAR HGB 26.1 pg (27.0-31.0); MEAN CORPUSCULAR HGB CONC 29.2 g/dl (33.0-37.0); MEAN PLATELET VOLUME 8.8 fl (9.6-12.3); PLATELET COUNT AUTOMATED 427 10*3/uL (130-400); RED BLOOD COUNT 4.72 10*6/uL (4.10-5.10); RED CELL DISTRI WIDTH 16.1 % (0-14.5); WHITE BLOOD COUNT 19.7 10*3/uL (4.8-10.8)
[2024-06-08 12:35] LABS: MANUAL DIFF REFLEX YES
[2024-06-08 12:57] LABS: TOTAL CELLS COUNTED 100 #CELLS
[2024-06-08 12:58] LABS: PLATELET SUFFICIENCY HIGH (NORMAL)
[2024-06-08 13:09] LABS: ALKALINE PHOSPHATASE 84 U/L (46-116); BUN 7 mg/dl (9-23); CHLORIDE 105 mmol/L (98-107); LIPASE 50 U/L (12-53); POTASSIUM 3.9 mmol/L (3.4-5.1); SGPT/ALT 9 U/L (5-49); TOTAL PROTEIN 6.7 gm/dL (6.0-8.0)
[2024-06-08 13:12] LABS: ACT PARTIAL THROMBO TIME 33.3 SECONDS (20.0-32.1)
[2024-06-08] MEDS ORDERED: ACETAMINOPHEN 325 MG TAB PO PRN (14:25)
[2024-06-08] MEDS ORDERED: Magnesium Hydroxide 30 ML UDC PO PRN (14:25)
[2024-06-08] MEDS ORDERED: Ondansetron Hydrochloride 4 MG/2 ML VIAL IV PRN (14:25)
[2024-06-08] MEDS ORDERED: BISACODYL 5 MG TAB PO PRN (14:25)
[2024-06-08] MEDS ORDERED: MORPHINE Sulfate 2 MG/ML SYR IV ONE (15:10)
[2024-06-08 16:00] VITALS: BP 110/76
[2024-06-08] MEDS ORDERED: ATORVASTATIN CALCIUM 40 MG TABLET PO SCH (16:05)
[2024-06-08] MEDS ORDERED: SODIUM CHLORIDE 0.9% 1,000 ML IV ONE (16:10)
[2024-06-08] MEDS ORDERED: Clopidogrel Hydrogen Sulfate 75 MG TAB PO SCH (16:10)
[2024-06-08] MEDS ORDERED: DEXTROSE 10 % IN WATER 250 ML IV PRN (18:05)
[2024-06-08] MEDS ORDERED: ASPIRIN 325 MG TAB PO ONE (19:50)
[2024-06-08 20:00] VITALS: BP 132/64
[2024-06-08] MEDS ORDERED: HYDROmorphONE Hydrochloride 0.5 MG/0.5 ML SYRINGE IV ONE (21:00)
[2024-06-08] MEDS ORDERED: INSULIN LISPRO 1 UNIT/0.01 ML SQ SCH (22:00)
[2024-06-08] MEDS ORDERED: LEVETIRACETAM 500 MG TAB PO SCH (22:00)
[2024-06-08] MEDS ORDERED: Metoprolol Tartrate 25 MG TAB PO SCH (22:00)
[2024-06-08] MEDS ORDERED: ZANAFLEX4 M1 PO (23:12)
[2024-06-08] MEDS ORDERED: REMERON30 M1 PO (23:13)
[2024-06-08] MEDS ORDERED: LEVETIRACETAM1000 M1 PO (23:14)
[2024-06-08] MEDS ORDERED: LORazepam 0.5 MG TAB PO PRN (23:30)
[2024-06-09] VITALS: BP 118/80
[2024-06-09] MEDS ORDERED: Mirtazapine 15 MG TAB PO SCH ×2 (00:20→22:00)
[2024-06-09] MEDS ORDERED: MAGNESIUM400 MG PO (00:50)
[2024-06-09] MEDS ORDERED: CARAFATE1 GM PO (00:51)
[2024-06-09] MEDS ORDERED: Pantoprazole Sodium 40 MG TAB PO SCH (06:00)
[2024-06-09 06:43] LABS: BASO # 0.1 10*3/uL (0.0-0.1); BASO % 0.9 % (0.0-1.0); EOS # 0.1 10*3/uL (0.0-0.4); EOS % 0.6 % (1.0-4.0); HEMATOCRIT 41.2 % (37.0-47.0); LYMPH # 4.3 10*3/uL (1.3-4.4); LYMPH % 33.5 % (27.0-41.0); MEAN CELL VOLUME 89.6 fl (81.0-99.0); MEAN CORPUSCULAR HGB 25.7 pg (27.0-31.0); MEAN CORPUSCULAR HGB CONC 28.6 g/dl (33.0-37.0); MEAN PLATELET VOLUME 8.4 fl (9.6-12.3); MONO # 1.4 10*3/uL (0.1-1.0); MONO % 11.1 % (3.0-9.0); NEUT # 6.6 10*3/uL (2.3-7.9); NEUT % 52.2 % (47.0-73.0); PLATELET COUNT AUTOMATED 385 10*3/uL (130-400); RED CELL DISTRI WIDTH 16.3 % (0-14.5); WHITE BLOOD COUNT 12.7 10*3/uL (4.8-10.8)
[2024-06-09 08:00] VITALS: BP 113/56
[2024-06-09 08:16] LABS: BUN 11 mg/dl (9-23); CHLORIDE 109 mmol/L (98-107)
[2024-06-09] MEDS ORDERED: RIVAROXABAN 20 MG TAB PO SCH (10:00)
[2024-06-09] MEDS ORDERED: HYDROCHLOROTHIAZIDE 25 MG TAB PO SCH (10:00)
[2024-06-09] MEDS ORDERED: VERAPAMIL HYDROCHLORIDE 120 MG PO SCH (10:00)
[2024-06-09 12:00] VITALS: BP 104/48
[2024-06-09] MEDS ORDERED: HYDROmorphONE Hydrochloride 0.5 MG/0.5 ML SYRINGE IV PRN (14:00)
[2024-06-09 16:00] VITALS: BP 119/61
[2024-06-09 20:00] VITALS: BP 104/68
[2024-06-09] MEDS ORDERED: ATORVASTATIN CALCIUM 20 MG TAB PO SCH (22:00)
[2024-06-10] VITALS: BP 117/61
[2024-06-10 05:58] LABS: BUN 15 mg/dl (9-23); CHLORIDE 104 mmol/L (98-107); POTASSIUM 3.7 mmol/L (3.4-5.1)
[2024-06-10 06:31] LABS: BASO # 0.1 10*3/uL (0.0-0.1); EOS # 0.4 10*3/uL (0.0-0.4); EOS % 2.6 % (1.0-4.0); HEMATOCRIT 39.6 % (37.0-47.0); LYMPH # 3.8 10*3/uL (1.3-4.4); LYMPH % 27.6 % (27.0-41.0); MEAN CELL VOLUME 87.4 fl (81.0-99.0); MEAN CORPUSCULAR HGB 25.8 pg (27.0-31.0); MEAN CORPUSCULAR HGB CONC 29.5 g/dl (33.0-37.0); MEAN PLATELET VOLUME 9.1 fl (9.6-12.3); MONO # 1.4 10*3/uL (0.1-1.0); MONO % 10.4 % (3.0-9.0); NEUT # 7.7 10*3/uL (2.3-7.9); NEUT % 56.6 % (47.0-73.0); PLATELET COUNT AUTOMATED 392 10*3/uL (130-400); RED BLOOD COUNT 4.53 10*6/uL (4.10-5.10); WHITE BLOOD COUNT 13.6 10*3/uL (4.8-10.8)
[2024-06-10 08:00] VITALS: BP 108/67
[2024-06-10 12:00] VITALS: BP 124/70
[2024-06-10 16:00] VITALS: BP 101/66
[2024-06-10 20:00] VITALS: BP 101/60
[2024-06-11] VITALS: BP 118/54
[2024-06-11 06:46] LABS: BASO # 0.1 10*3/uL (0.0-0.1); BASO % 0.8 % (0.0-1.0); EOS # 0.6 10*3/uL (0.0-0.4); EOS % 4.5 % (1.0-4.0); HEMATOCRIT 36.6 % (37.0-47.0); LYMPH # 2.8 10*3/uL (1.3-4.4); LYMPH % 20.6 % (27.0-41.0); MEAN CELL VOLUME 85.7 fl (81.0-99.0); MEAN CORPUSCULAR HGB CONC 30.3 g/dl (33.0-37.0); MEAN PLATELET VOLUME 8.9 fl (9.6-12.3); MONO # 1.5 10*3/uL (0.1-1.0); NEUT # 8.3 10*3/uL (2.3-7.9); NEUT % 61.5 % (47.0-73.0); PLATELET COUNT AUTOMATED 363 10*3/uL (130-400); RED BLOOD COUNT 4.27 10*6/uL (4.10-5.10); RED CELL DISTRI WIDTH 15.9 % (0-14.5); WHITE BLOOD COUNT 13.4 10*3/uL (4.8-10.8)
[2024-06-11] MEDS ORDERED: Regadenoson 0.4 MG/5 ML SYR IV ONE (06:59)
[2024-06-11 07:12] LABS: BUN 14 mg/dl (9-23); CHLORIDE 106 mmol/L (98-107); POTASSIUM 3.5 mmol/L (3.4-5.1)
[2024-06-11 08:00] VITALS: BP 95/63
[2024-06-11 10:30] VITALS: BP 103/51
[2024-06-11] MEDS ORDERED: Acetaminophen/Oxycodone 5 MG/325 MG TABLET PO ONE (11:00)
[2024-06-11 12:00] VITALS: BP 105/50
[2024-06-11] MEDS ORDERED: CLOPIDOGREL75 MG PO ×2 (12:26→12:27)
[2024-06-11] MEDS ORDERED: PERCOCET 5-3251 EACH PO (13:52)
== END 2024-06-11 14:10 | disposition home or self-care (01) ==
LOC: ED 11:04 → EDHOLD 13:43 → ICCU 16:39 → 4E 22:38
PROVIDERS: Emergency Medicine; ADMIT Student in an Organized Health Care Education/Training Program; ATTEND Student in an Organized Health Care Education/Training Program
DX: R07.89 Other chest pain (principal); G40.909 Epilepsy, unspecified, not intractable, without status epilepticus; D72.829 Elevated white blood cell count, unspecified; D75.839 Thrombocytosis, unspecified; K21.9 Gastro-esophageal reflux disease without esophagitis; J44.9 Chronic obstructive pulmonary disease, unspecified; E11.9 Type 2 diabetes mellitus without complications; I25.10 Atherosclerotic heart disease of native coronary artery without angina pectoris; F17.200 Nicotine dependence, unspecified, uncomplicated; Z79.899 Other long term (current) drug therapy

== ENCOUNTER 2024-06-19 15:47 | Emergency (ER) | payer OTHER ==
[~2024-06-19] VITALS: Ht 142.2 cm; Wt 68.9 kg
[~2024-06-19 15:47] MED LIST changes: +CARAFATE1 GM PO; +CLOPIDOGREL75 MG PO; +LEVETIRACETAM1000 M1 PO; +MAGNESIUM400 MG PO; +PERCOCET 5-3251 EACH PO; +REMERON30 M1 PO; +ZANAFLEX4 M1 PO
[2024-06-19] MEDS ORDERED: SODIUM CHLORIDE 0.9% 1,000 ML IV ONE (17:10)
[2024-06-19] MEDS ORDERED: Ondansetron Hydrochloride 4 MG/2 ML VIAL IV ONE (17:20)
[2024-06-19 17:23] LABS: BASO # 0.1 10*3/uL (0.0-0.1); EOS # 0.5 10*3/uL (0.0-0.4); HEMATOCRIT 39.6 % (37.0-47.0); LYMPH # 2.2 10*3/uL (1.3-4.4); MEAN CELL VOLUME 87.6 fl (81.0-99.0); MEAN CORPUSCULAR HGB 25.7 pg (27.0-31.0); MEAN CORPUSCULAR HGB CONC 29.3 g/dl (33.0-37.0); MEAN PLATELET VOLUME 8.4 fl (9.6-12.3); MONO # 1.2 10*3/uL (0.1-1.0); MONO % 10.5 % (3.0-9.0); NEUT # 7.6 10*3/uL (2.3-7.9); NEUT % 64.5 % (47.0-73.0); PLATELET COUNT AUTOMATED 411 10*3/uL (130-400); RED BLOOD COUNT 4.52 10*6/uL (4.10-5.10); RED CELL DISTRI WIDTH 16.8 % (0-14.5); WHITE BLOOD COUNT 11.8 10*3/uL (4.8-10.8)
[2024-06-19 17:52] LABS: ALKALINE PHOSPHATASE 104 U/L (46-116); BUN 9 mg/dl (9-23); CHLORIDE 104 mmol/L (98-107); LIPASE 45 U/L (12-53); SGPT/ALT 15 U/L (5-49); TOTAL PROTEIN 6.6 gm/dL (6.0-8.0)
[2024-06-19] MEDS ORDERED: Ondansetron4 MG PO (18:56)
[2024-06-19] MEDS ORDERED: MORPHINE SULFAT15 MG PO (18:59)
== END 2024-06-19 19:12 | disposition home or self-care (01) ==
LOC: ED 15:47
PROVIDERS: Emergency Medicine
DX: R10.84 Generalized abdominal pain (principal); R11.2 Nausea with vomiting, unspecified; R19.7 Diarrhea, unspecified; R07.89 Other chest pain; G40.909 Epilepsy, unspecified, not intractable, without status epilepticus; I25.10 Atherosclerotic heart disease of native coronary artery without angina pectoris; J44.9 Chronic obstructive pulmonary disease, unspecified; E11.9 Type 2 diabetes mellitus without complications; M79.7 Fibromyalgia; K21.9 Gastro-esophageal reflux disease without esophagitis; F17.210 Nicotine dependence, cigarettes, uncomplicated; Z91.041 Radiographic dye allergy status; Z88.6 Allergy status to analgesic agent; Z88.8 Allergy status to other drugs, medicaments and biological substances; Z79.899 Other long term (current) drug therapy; Z98.51 Tubal ligation status

== ENCOUNTER 2024-06-30 11:26 | Emergency (ER) | payer OTHER ==
[~2024-06-30] VITALS: Ht 142.2 cm; Wt 68.0 kg
[~2024-06-30 11:26] MED LIST changes: +MORPHINE SULFAT15 MG PO
[2024-06-30] MEDS ORDERED: SODIUM CHLORIDE 0.9% 1,000 ML IV ONE (12:00)
[2024-06-30] MEDS ORDERED: Ondansetron Hydrochloride 4 MG/2 ML VIAL IV ONE (12:00)
[2024-06-30] MEDS ORDERED: MORPHINE Sulfate 2 MG/ML SYR IV ONE (12:00)
[2024-06-30 12:12] LABS: BASO # 0.1 10*3/uL (0.0-0.1); BASO % 1.1 % (0.0-1.0); EOS # 0.5 10*3/uL (0.0-0.4); EOS % 5.1 % (1.0-4.0); LYMPH % 21.3 % (27.0-41.0); MEAN CELL VOLUME 84.8 fl (81.0-99.0); MEAN CORPUSCULAR HGB 26.3 pg (27.0-31.0); MEAN PLATELET VOLUME 8.2 fl (9.6-12.3); MONO # 0.9 10*3/uL (0.1-1.0); MONO % 10.2 % (3.0-9.0); NEUT # 5.7 10*3/uL (2.3-7.9); NEUT % 61.5 % (47.0-73.0); PLATELET COUNT AUTOMATED 488 10*3/uL (130-400); RED CELL DISTRI WIDTH 17.8 % (0-14.5); WHITE BLOOD COUNT 9.2 10*3/uL (4.8-10.8)
[2024-06-30 12:31] LABS: BUN 6 mg/dl (9-23); CHLORIDE 105 mmol/L (98-107); POTASSIUM 3.8 mmol/L (3.4-5.1)
== END 2024-06-30 12:59 | disposition home or self-care (01) ==
LOC: ED 11:26
PROVIDERS: Emergency Medicine
DX: R07.89 Other chest pain (principal); R56.9 Unspecified convulsions; M54.2 Cervicalgia; M79.602 Pain in left arm; I25.10 Atherosclerotic heart disease of native coronary artery without angina pectoris; J44.9 Chronic obstructive pulmonary disease, unspecified; I10 Essential (primary) hypertension; E78.5 Hyperlipidemia, unspecified; F32.A Depression, unspecified; F41.9 Anxiety disorder, unspecified; K21.9 Gastro-esophageal reflux disease without esophagitis; E11.9 Type 2 diabetes mellitus without complications; F17.210 Nicotine dependence, cigarettes, uncomplicated; Z91.041 Radiographic dye allergy status; Z88.6 Allergy status to analgesic agent; Z88.8 Allergy status to other drugs, medicaments and biological substances; Z98.51 Tubal ligation status; Z95.5 Presence of coronary angioplasty implant and graft; Z98.890 Other specified postprocedural states

== ENCOUNTER 2024-07-05 16:06 | Emergency (ER) | payer OTHER ==
[~2024-07-05] VITALS: Ht 142.2 cm; Wt 68.9 kg
[2024-07-05 16:28] LABS: BASO # 0.1 10*3/uL (0.0-0.1); BASO % 1.2 % (0.0-1.0); EOS # 0.5 10*3/uL (0.0-0.4); EOS % 3.8 % (1.0-4.0); HEMATOCRIT 42.1 % (37.0-47.0); LYMPH # 2.5 10*3/uL (1.3-4.4); MEAN CELL VOLUME 85.9 fl (81.0-99.0); MEAN CORPUSCULAR HGB 25.5 pg (27.0-31.0); MEAN CORPUSCULAR HGB CONC 29.7 g/dl (33.0-37.0); MEAN PLATELET VOLUME 8.3 fl (9.6-12.3); MONO # 1.3 10*3/uL (0.1-1.0); MONO % 11.1 % (3.0-9.0); NEUT # 7.5 10*3/uL (2.3-7.9); NEUT % 62.2 % (47.0-73.0); PLATELET COUNT AUTOMATED 568 10*3/uL (130-400); RED CELL DISTRI WIDTH 17.2 % (0-14.5)
[2024-07-05 16:50] LABS: ALKALINE PHOSPHATASE 113 U/L (46-116); BUN 6 mg/dl (9-23); CHLORIDE 107 mmol/L (98-107); SGPT/ALT < 7 U/L (5-49); TOTAL PROTEIN 7.2 gm/dL (6.0-8.0)
[2024-07-05] MEDS ORDERED: SODIUM CHLORIDE 0.45% 1,000 ML IV ONE (17:05)
[2024-07-05] MEDS ORDERED: AVPAK AZITHROM250 MG PO (17:29)
[2024-07-05] MEDS ORDERED: MEDROL DOSEPAK4 MG PO (17:29)
== END 2024-07-05 17:37 | disposition home or self-care (01) ==
LOC: ED 16:06
PROVIDERS: Internal Medicine
DX: J44.1 Chronic obstructive pulmonary disease with (acute) exacerbation (principal); Z20.822 Contact with and (suspected) exposure to COVID-19; F32.A Depression, unspecified; F41.9 Anxiety disorder, unspecified; K21.9 Gastro-esophageal reflux disease without esophagitis; E11.9 Type 2 diabetes mellitus without complications; F17.210 Nicotine dependence, cigarettes, uncomplicated; Z91.041 Radiographic dye allergy status; Z88.6 Allergy status to analgesic agent; Z88.8 Allergy status to other drugs, medicaments and biological substances; Z98.51 Tubal ligation status; Z95.5 Presence of coronary angioplasty implant and graft; Z98.890 Other specified postprocedural states

== ENCOUNTER 2024-07-09 18:45 | Emergency (ER) | payer OTHER ==
[~2024-07-09] VITALS: Ht 142.2 cm; Wt 68.9 kg
[~2024-07-09 18:45] MED LIST changes: +MEDROL DOSEPAK4 MG PO
[2024-07-09 19:18] LABS: BASO # 0.1 10*3/uL (0.0-0.1); BASO % 0.6 % (0.0-1.0); EOS % 0.2 % (1.0-4.0); HEMATOCRIT 39.3 % (37.0-47.0); LYMPH # 2.1 10*3/uL (1.3-4.4); LYMPH % 16.4 % (27.0-41.0); MEAN CELL VOLUME 85.8 fl (81.0-99.0); MEAN CORPUSCULAR HGB 25.5 pg (27.0-31.0); MEAN CORPUSCULAR HGB CONC 29.8 g/dl (33.0-37.0); MEAN PLATELET VOLUME 8.3 fl (9.6-12.3); MONO # 0.9 10*3/uL (0.1-1.0); NEUT # 9.8 10*3/uL (2.3-7.9); NEUT % 74.6 % (47.0-73.0); PLATELET COUNT AUTOMATED 496 10*3/uL (130-400); RED BLOOD COUNT 4.58 10*6/uL (4.10-5.10); RED CELL DISTRI WIDTH 17.2 % (0-14.5); WHITE BLOOD COUNT 13.1 10*3/uL (4.8-10.8)
[2024-07-09 19:51] LABS: ALKALINE PHOSPHATASE 87 U/L (46-116); BUN 8 mg/dl (9-23); CHLORIDE 105 mmol/L (98-107); POTASSIUM 3.9 mmol/L (3.4-5.1); SGPT/ALT < 7 U/L (5-49); TOTAL PROTEIN 6.3 gm/dL (6.0-8.0)
[2024-07-09] MEDS ORDERED: Ondansetron Hydrochloride 4 MG/2 ML VIAL IV ONE (21:40)
[2024-07-09] MEDS ORDERED: MORPHINE Sulfate 2 MG/ML SYR IV ONE (21:40)
== END 2024-07-09 21:57 | disposition home or self-care (01) ==
LOC: ED 18:45
PROVIDERS: Internal Medicine
DX: R07.89 Other chest pain (principal); R68.84 Jaw pain; M79.602 Pain in left arm; D72.829 Elevated white blood cell count, unspecified; R00.0 Tachycardia, unspecified; F41.9 Anxiety disorder, unspecified; F32.A Depression, unspecified; K21.9 Gastro-esophageal reflux disease without esophagitis; J44.9 Chronic obstructive pulmonary disease, unspecified; E11.9 Type 2 diabetes mellitus without complications; F17.210 Nicotine dependence, cigarettes, uncomplicated; Z91.041 Radiographic dye allergy status; Z88.6 Allergy status to analgesic agent; Z88.8 Allergy status to other drugs, medicaments and biological substances; Z98.51 Tubal ligation status; Z95.5 Presence of coronary angioplasty implant and graft; Z98.890 Other specified postprocedural states

== ENCOUNTER 2024-07-13 17:27 | Inpatient (IN) | payer OTHER ==
[~2024-07-13] VITALS: Ht 142.2 cm; Wt 68.9 kg
[2024-07-13] MEDS ORDERED: MORPHINE Sulfate 2 MG/ML SYR IV ONE (17:35)
[2024-07-13] MEDS ORDERED: Ondansetron Hydrochloride 4 MG/2 ML VIAL IV ONE (17:35)
[2024-07-13] MEDS ORDERED: SODIUM CHLORIDE 0.9% 1,000 ML IV ONE ×2 (17:35→18:45)
[2024-07-13 17:37] VITALS: BP 111/63
[2024-07-13] MEDS ORDERED: Albuterol Sulfate 2.5 MG/3 ML VIAL NEB ONE (17:45)
[2024-07-13] MEDS ORDERED: methylPREDNISolone sod succ 125 MG VIAL IV ONE (17:45)
[2024-07-13 18:00] LABS: HEMATOCRIT 41.8 % (37.0-47.0); MEAN CELL VOLUME 85.7 fl (81.0-99.0); MEAN CORPUSCULAR HGB CONC 30.4 g/dl (33.0-37.0); PLATELET COUNT AUTOMATED 434 10*3/uL (130-400); RED BLOOD COUNT 4.88 10*6/uL (4.10-5.10); RED CELL DISTRI WIDTH 17.2 % (0-14.5); WHITE BLOOD COUNT 19.2 10*3/uL (4.8-10.8)
[2024-07-13 18:01] LABS: MANUAL DIFF REFLEX YES
[2024-07-13 18:18] LABS: BUN 12 mg/dl (9-23); CHLORIDE 107 mmol/L (98-107); POTASSIUM 4.5 mmol/L (3.4-5.1)
[2024-07-13 18:21] LABS: PLATELET SUFFICIENCY HIGH (NORMAL); TOTAL CELLS COUNTED 100 #CELLS
[2024-07-13] MEDS ORDERED: Ceftriaxone Sodium 1 GM/10 ML SYR IV ONE (18:45)
[2024-07-13] MEDS ORDERED: AZITHROMYCIN 250 MG TAB PO ONE (18:45)
[2024-07-13] MEDS ORDERED: BISACODYL 5 MG TAB PO PRN (18:50)
[2024-07-13] MEDS ORDERED: ACETAMINOPHEN 650 MG SUPP R PRN (18:50)
[2024-07-13] MEDS ORDERED: BISACODYL 10 MG SUPP R PRN (18:50)
[2024-07-13] MEDS ORDERED: Magnesium Hydroxide 30 ML UDC PO PRN (18:50)
[2024-07-13] MEDS ORDERED: ACETAMINOPHEN 325 MG TAB PO PRN (18:50)
[2024-07-13] MEDS ORDERED: Ondansetron Hydrochloride 4 MG/2 ML VIAL IV PRN (18:50)
[2024-07-13] MEDS ORDERED: TEMAZEPAM 15 MG CAP PO PRN (18:50)
[2024-07-13] MEDS ORDERED: Albuterol Sulf/Ipratropium 3 ML VIAL NEB SCH (18:55)
[2024-07-13] MEDS ORDERED: SODIUM CHLORIDE 0.9% 1,000 ML IV SCH (19:00)
[2024-07-13] MEDS ORDERED: LEVETIRACETAM 500 MG TAB PO SCH (23:00)
[2024-07-13] MEDS ORDERED: LORazepam 0.5 MG TAB PO SCH (23:05)
[2024-07-14] MEDS ORDERED: Ceftriaxone Sodium 1 GM in SYRINGE INFUSION 10 ML IV SCH
[2024-07-14] MEDS ORDERED: methylPREDNISolone sod succ 40 MG VIAL IV SCH (06:00)
[2024-07-14] MEDS ORDERED: Pantoprazole Sodium 40 MG TAB PO SCH (06:00)
[2024-07-14 06:14] LABS: BASO % 0.1 % (0.0-1.0); EOS % 0.1 % (1.0-4.0); HEMATOCRIT 37.9 % (37.0-47.0); LYMPH # 0.9 10*3/uL (1.3-4.4); LYMPH % 9.1 % (27.0-41.0); MEAN CELL VOLUME 84.8 fl (81.0-99.0); MEAN CORPUSCULAR HGB CONC 30.6 g/dl (33.0-37.0); MEAN PLATELET VOLUME 8.8 fl (9.6-12.3); MONO # 0.2 10*3/uL (0.1-1.0); MONO % 2.3 % (3.0-9.0); NEUT # 8.3 10*3/uL (2.3-7.9); NEUT % 87.5 % (47.0-73.0); PLATELET COUNT AUTOMATED 402 10*3/uL (130-400); RED BLOOD COUNT 4.47 10*6/uL (4.10-5.10); WHITE BLOOD COUNT 9.5 10*3/uL (4.8-10.8)
[2024-07-14 06:28] LABS: ACT PARTIAL THROMBO TIME 25.3 SECONDS (20.0-32.1)
[2024-07-14 06:40] LABS: ALKALINE PHOSPHATASE 73 U/L (46-116); BUN 11 mg/dl (9-23); CHLORIDE 109 mmol/L (98-107); CHOLESTEROL 104 mg/dL (<200); FREE T4 1.44 ng/dl (0.89-1.76); LDL CHOLESTEROL 32 mg/dL (9-159); POTASSIUM 4.2 mmol/L (3.4-5.1); SGPT/ALT 8 U/L (5-49); TOTAL PROTEIN 5.9 gm/dL (6.0-8.0); TRIGLYCERIDES 108 mg/dl (<150)
[2024-07-14 08:40] LABS: VITAMIN D, 25-HYDROXY 35.5 ng/mL (30-100)
[2024-07-14 08:57] VITALS: BP 105/46
[2024-07-14 11:40] VITALS: BP 122/64
[2024-07-14] MEDS ORDERED: RIVAROXABAN 20 MG TAB PO SCH (18:00)
[2024-07-14] MEDS ORDERED: AZITHROMYCIN 250 ML IV SCH (23:00)
== END 2024-07-14 17:01 | disposition left against medical advice (07) | DRG 872 ==
LOC: ED 17:27 → EDHOLD 18:49
PROVIDERS: Emergency Medicine; Student in an Organized Health Care Education/Training Program; ADMIT Internal Medicine; ATTEND Internal Medicine
DX: A41.9 Sepsis, unspecified organism (principal); J44.1 Chronic obstructive pulmonary disease with (acute) exacerbation; F41.1 Generalized anxiety disorder; I25.10 Atherosclerotic heart disease of native coronary artery without angina pectoris; F32.A Depression, unspecified; K21.9 Gastro-esophageal reflux disease without esophagitis; E11.69 Type 2 diabetes mellitus with other specified complication; D72.828 Other elevated white blood cell count; J98.4 Other disorders of lung; I95.9 Hypotension, unspecified; M79.7 Fibromyalgia; Z53.29 Procedure and treatment not carried out because of patient's decision for other reasons; Z88.8 Allergy status to other drugs, medicaments and biological substances; Z88.6 Allergy status to analgesic agent; Z91.041 Radiographic dye allergy status; Z98.51 Tubal ligation status; Z82.49 Family history of ischemic heart disease and other diseases of the circulatory system; Z81.8 Family history of other mental and behavioral disorders

== ENCOUNTER 2024-07-18 14:54 | Emergency (ER) | payer OTHER ==
[~2024-07-18] VITALS: Ht 142.2 cm; Wt 68.9 kg
[2024-07-18 15:58] LABS: BASO % 0.1 % (0.0-1.0); EOS % 0.1 % (1.0-4.0); HEMATOCRIT 41.4 % (37.0-47.0); LYMPH # 1.4 10*3/uL (1.3-4.4); LYMPH % 7.9 % (27.0-41.0); MEAN CELL VOLUME 83.3 fl (81.0-99.0); MEAN CORPUSCULAR HGB CONC 31.2 g/dl (33.0-37.0); MEAN PLATELET VOLUME 8.6 fl (9.6-12.3); MONO # 0.9 10*3/uL (0.1-1.0); MONO % 4.9 % (3.0-9.0); NEUT # 15.3 10*3/uL (2.3-7.9); PLATELET COUNT AUTOMATED 495 10*3/uL (130-400); RED BLOOD COUNT 4.97 10*6/uL (4.10-5.10); RED CELL DISTRI WIDTH 17.4 % (0-14.5); WHITE BLOOD COUNT 17.8 10*3/uL (4.8-10.8)
[2024-07-18 16:13] LABS: BUN 11 mg/dl (9-23); CHLORIDE 100 mmol/L (98-107); POTASSIUM 4.1 mmol/L (3.4-5.1)
[2024-07-18] MEDS ORDERED: methylPREDNISolone sod succ 125 MG VIAL IM ONE (16:35)
[2024-07-18] MEDS ORDERED: Albuterol Sulf/Ipratropium 3 ML VIAL NEB ONE (16:35)
[2024-07-18 17:31] LABS: BILIRUBIN Negative (Negative); BLOOD Negative (Negative); CLARITY Clear (Clear); COLOR Yellow (Yellow); GLUCOSE 3+ (Negative); KETONE Negative (Negative); LEUKO ESTERASE 1+ (Negative); NITRITE Negative (Negative); UROBILINOGEN 0.2 E.U./dl (0.0-1.0)
[2024-07-18 17:54] LABS: BACTERIA 1+; EPITHELIAL CELLS 21-30; RBC 0-2 rbc/hpf (0-2)
[2024-07-18] MEDS ORDERED: Ciprofloxacin Hydrochloride 500 MG TAB PO ONE (18:00)
[2024-07-18] MEDS ORDERED: CIPRO500 MG PO (18:00)
== END 2024-07-18 18:19 | disposition home or self-care (01) ==
LOC: ED 14:54
PROVIDERS: Nurse Practitioner Family
DX: R07.89 Other chest pain (principal); J44.9 Chronic obstructive pulmonary disease, unspecified; N39.0 Urinary tract infection, site not specified; E11.9 Type 2 diabetes mellitus without complications; F32.A Depression, unspecified; M79.7 Fibromyalgia; K21.9 Gastro-esophageal reflux disease without esophagitis; I25.10 Atherosclerotic heart disease of native coronary artery without angina pectoris; F41.9 Anxiety disorder, unspecified; F17.210 Nicotine dependence, cigarettes, uncomplicated; Z91.041 Radiographic dye allergy status; Z88.6 Allergy status to analgesic agent; Z88.8 Allergy status to other drugs, medicaments and biological substances; Z95.5 Presence of coronary angioplasty implant and graft; Z98.51 Tubal ligation status; Z98.890 Other specified postprocedural states

== ENCOUNTER 2024-07-23 17:01 | Emergency (ER) | payer OTHER ==
[~2024-07-23] VITALS: Wt 68.0 kg
[2024-07-23] MEDS ORDERED: Ondansetron Hydrochloride 4 MG TAB SL ONE (19:05)
[2024-07-23 19:19] LABS: BASO # 0.1 10*3/uL (0.0-0.1); BASO % 0.5 % (0.0-1.0); EOS # 0.5 10*3/uL (0.0-0.4); EOS % 3.5 % (1.0-4.0); HEMATOCRIT 42.2 % (37.0-47.0); LYMPH # 4.2 10*3/uL (1.3-4.4); LYMPH % 31.8 % (27.0-41.0); MEAN CELL VOLUME 85.8 fl (81.0-99.0); MEAN CORPUSCULAR HGB 25.4 pg (27.0-31.0); MEAN CORPUSCULAR HGB CONC 29.6 g/dl (33.0-37.0); MEAN PLATELET VOLUME 8.1 fl (9.6-12.3); MONO # 1.1 10*3/uL (0.1-1.0); MONO % 8.3 % (3.0-9.0); NEUT # 7.2 10*3/uL (2.3-7.9); NEUT % 54.6 % (47.0-73.0); PLATELET COUNT AUTOMATED 414 10*3/uL (130-400); RED BLOOD COUNT 4.92 10*6/uL (4.10-5.10); RED CELL DISTRI WIDTH 17.3 % (0-14.5); WHITE BLOOD COUNT 13.2 10*3/uL (4.8-10.8)
[2024-07-23 19:43] LABS: ALKALINE PHOSPHATASE 76 U/L (46-116); BUN 9 mg/dl (9-23); CHLORIDE 104 mmol/L (98-107); POTASSIUM 3.1 mmol/L (3.4-5.1); SGPT/ALT 15 U/L (5-49); TOTAL PROTEIN 6.2 gm/dL (6.0-8.0)
[2024-07-23] MEDS ORDERED: MORPHINE Sulfate 2 MG/ML SYR IM ONE (20:00)
[2024-07-23] MEDS ORDERED: POTASSIUM CHLORIDE 20 MEQ TAB PO ONE (20:45)
== END 2024-07-23 20:58 | disposition home or self-care (01) ==
LOC: ED 17:01
PROVIDERS: Internal Medicine
DX: R07.89 Other chest pain (principal); E87.6 Hypokalemia; D72.829 Elevated white blood cell count, unspecified; R00.0 Tachycardia, unspecified; R11.0 Nausea; F32.A Depression, unspecified; F41.9 Anxiety disorder, unspecified; K21.9 Gastro-esophageal reflux disease without esophagitis; J44.9 Chronic obstructive pulmonary disease, unspecified; E11.9 Type 2 diabetes mellitus without complications; F17.210 Nicotine dependence, cigarettes, uncomplicated; Z91.041 Radiographic dye allergy status; Z88.6 Allergy status to analgesic agent; Z88.8 Allergy status to other drugs, medicaments and biological substances; Z95.5 Presence of coronary angioplasty implant and graft; Z98.51 Tubal ligation status; Z98.890 Other specified postprocedural states

== ENCOUNTER 2024-08-08 15:55 | Emergency (ER) | payer OTHER ==
[~2024-08-08] VITALS: Wt 67.1 kg
[2024-08-08] MEDS ORDERED: ACETAMINOPHEN 325 MG TAB PO ONE (16:30)
[2024-08-08 16:44] LABS: BASO # 0.1 10*3/uL (0.0-0.1); BASO % 0.9 % (0.0-1.0); EOS # 0.3 10*3/uL (0.0-0.4); HEMATOCRIT 43.7 % (37.0-47.0); LYMPH # 2.9 10*3/uL (1.3-4.4); LYMPH % 30.1 % (27.0-41.0); MEAN CORPUSCULAR HGB 25.7 pg (27.0-31.0); MEAN CORPUSCULAR HGB CONC 30.2 g/dl (33.0-37.0); MEAN PLATELET VOLUME 8.4 fl (9.6-12.3); MONO # 1.1 10*3/uL (0.1-1.0); MONO % 10.9 % (3.0-9.0); NEUT # 5.2 10*3/uL (2.3-7.9); NEUT % 54.6 % (47.0-73.0); PLATELET COUNT AUTOMATED 460 10*3/uL (130-400); RED BLOOD COUNT 5.14 10*6/uL (4.10-5.10); RED CELL DISTRI WIDTH 18.8 % (0-14.5); WHITE BLOOD COUNT 9.6 10*3/uL (4.8-10.8)
[2024-08-08 17:02] LABS: BUN 8 mg/dl (9-23); CHLORIDE 103 mmol/L (98-107); POTASSIUM 3.6 mmol/L (3.4-5.1)
[2024-08-08] MEDS ORDERED: Ondansetron4 MG PO (17:09)
== END 2024-08-08 17:34 | disposition home or self-care (01) ==
LOC: ED 15:55
PROVIDERS: Internal Medicine
DX: R11.2 Nausea with vomiting, unspecified (principal); F41.9 Anxiety disorder, unspecified; F32.A Depression, unspecified; K21.9 Gastro-esophageal reflux disease without esophagitis; J44.9 Chronic obstructive pulmonary disease, unspecified; E11.9 Type 2 diabetes mellitus without complications; F17.210 Nicotine dependence, cigarettes, uncomplicated; Z91.041 Radiographic dye allergy status; Z88.6 Allergy status to analgesic agent; Z88.8 Allergy status to other drugs, medicaments and biological substances; Z98.890 Other specified postprocedural states; Z98.51 Tubal ligation status; Z95.5 Presence of coronary angioplasty implant and graft

== ENCOUNTER 2024-08-14 17:15 | Emergency (ER) | payer OTHER ==
[~2024-08-14] VITALS: Ht 142.2 cm; Wt 66.9 kg
[2024-08-14] MEDS ORDERED: Ondansetron Hydrochloride 4 MG TAB SL ONE (17:40)
[2024-08-14 17:50] LABS: BASO # 0.1 10*3/uL (0.0-0.1); BASO % 0.8 % (0.0-1.0); EOS # 0.2 10*3/uL (0.0-0.4); EOS % 1.5 % (1.0-4.0); HEMATOCRIT 44.5 % (37.0-47.0); LYMPH % 21.8 % (27.0-41.0); MEAN CELL VOLUME 84.6 fl (81.0-99.0); MEAN CORPUSCULAR HGB 25.9 pg (27.0-31.0); MEAN CORPUSCULAR HGB CONC 30.6 g/dl (33.0-37.0); MEAN PLATELET VOLUME 8.5 fl (9.6-12.3); MONO # 1.3 10*3/uL (0.1-1.0); MONO % 9.2 % (3.0-9.0); PLATELET COUNT AUTOMATED 473 10*3/uL (130-400); RED BLOOD COUNT 5.26 10*6/uL (4.10-5.10); RED CELL DISTRI WIDTH 18.6 % (0-14.5); WHITE BLOOD COUNT 13.7 10*3/uL (4.8-10.8)
[2024-08-14 18:08] LABS: BUN 12 mg/dl (9-23); CHLORIDE 101 mmol/L (98-107); POTASSIUM 3.6 mmol/L (3.4-5.1)
== END 2024-08-14 18:28 | disposition home or self-care (01) ==
LOC: ED 17:15
PROVIDERS: Internal Medicine
DX: R11.2 Nausea with vomiting, unspecified (principal); R19.7 Diarrhea, unspecified; R07.89 Other chest pain; F32.A Depression, unspecified; F41.9 Anxiety disorder, unspecified; K21.9 Gastro-esophageal reflux disease without esophagitis; J44.9 Chronic obstructive pulmonary disease, unspecified; E11.9 Type 2 diabetes mellitus without complications; F17.210 Nicotine dependence, cigarettes, uncomplicated; Z91.041 Radiographic dye allergy status; Z88.6 Allergy status to analgesic agent; Z88.8 Allergy status to other drugs, medicaments and biological substances; Z95.5 Presence of coronary angioplasty implant and graft; Z98.51 Tubal ligation status; Z98.890 Other specified postprocedural states

== ENCOUNTER 2024-08-16 16:16 | Emergency (ER) | payer OTHER ==
[2024-08-16 16:52] LABS: BASO # 0.1 10*3/uL (0.0-0.1); EOS # 0.2 10*3/uL (0.0-0.4); EOS % 1.7 % (1.0-4.0); HEMATOCRIT 42.9 % (37.0-47.0); LYMPH # 2.9 10*3/uL (1.3-4.4); LYMPH % 26.7 % (27.0-41.0); MEAN CELL VOLUME 84.8 fl (81.0-99.0); MEAN CORPUSCULAR HGB 25.9 pg (27.0-31.0); MEAN CORPUSCULAR HGB CONC 30.5 g/dl (33.0-37.0); MEAN PLATELET VOLUME 8.6 fl (9.6-12.3); MONO # 1.1 10*3/uL (0.1-1.0); MONO % 9.9 % (3.0-9.0); NEUT # 6.4 10*3/uL (2.3-7.9); NEUT % 59.8 % (47.0-73.0); PLATELET COUNT AUTOMATED 433 10*3/uL (130-400); RED BLOOD COUNT 5.06 10*6/uL (4.10-5.10); RED CELL DISTRI WIDTH 18.6 % (0-14.5); WHITE BLOOD COUNT 10.7 10*3/uL (4.8-10.8)
[2024-08-16 17:11] LABS: BUN 9 mg/dl (9-23); CHLORIDE 103 mmol/L (98-107); POTASSIUM 3.7 mmol/L (3.4-5.1)
== END 2024-08-16 17:53 | disposition home or self-care (01) ==
LOC: ED 16:16
PROVIDERS: Internal Medicine
DX: M94.0 Chondrocostal junction syndrome [Tietze] (principal); J44.9 Chronic obstructive pulmonary disease, unspecified; F17.210 Nicotine dependence, cigarettes, uncomplicated; Z91.041 Radiographic dye allergy status; Z88.6 Allergy status to analgesic agent; Z88.8 Allergy status to other drugs, medicaments and biological substances; Z98.51 Tubal ligation status; Z95.5 Presence of coronary angioplasty implant and graft; Z98.890 Other specified postprocedural states

== ENCOUNTER 2024-08-21 15:47 | Emergency (ER) | payer OTHER ==
[~2024-08-21] VITALS: Ht 142.2 cm; Wt 66.7 kg
[2024-08-21 18:08] LABS: BASO % 0.3 % (0.0-1.0); EOS % 0.1 % (1.0-4.0); HEMATOCRIT 41.6 % (37.0-47.0); LYMPH # 1.6 10*3/uL (1.3-4.4); LYMPH % 12.2 % (27.0-41.0); MEAN CELL VOLUME 85.6 fl (81.0-99.0); MEAN CORPUSCULAR HGB 25.9 pg (27.0-31.0); MEAN CORPUSCULAR HGB CONC 30.3 g/dl (33.0-37.0); MEAN PLATELET VOLUME 8.6 fl (9.6-12.3); MONO # 0.8 10*3/uL (0.1-1.0); MONO % 6.2 % (3.0-9.0); NEUT # 10.4 10*3/uL (2.3-7.9); NEUT % 80.1 % (47.0-73.0); PLATELET COUNT AUTOMATED 442 10*3/uL (130-400); RED BLOOD COUNT 4.86 10*6/uL (4.10-5.10)
[2024-08-21 18:35] LABS: ALKALINE PHOSPHATASE 83 U/L (46-116); BUN 17 mg/dl (9-23); CHLORIDE 101 mmol/L (98-107); POTASSIUM 3.8 mmol/L (3.4-5.1); TOTAL PROTEIN 6.6 gm/dL (6.0-8.0)
[2024-08-21 18:37] LABS: SGPT/ALT < 7 U/L (5-49)
[2024-08-21] MEDS ORDERED: SODIUM CHLORIDE 0.9% 1,000 ML IV ONE (18:45)
[2024-08-21] MEDS ORDERED: ACETAMINOPHEN 325 MG TAB PO ONE (19:05)
[2024-08-21 20:19] LABS: BILIRUBIN Negative (Negative); BLOOD Negative (Negative); CLARITY Clear (Clear); COLOR Yellow (Yellow); GLUCOSE 3+ (Negative); KETONE Negative (Negative); LEUKO ESTERASE Negative (Negative); NITRITE Negative (Negative); PH 7.5 (4.5-8.0); SPECIFIC GRAVITY >= 1.030 (1.001-1.030); UROBILINOGEN 0.2 E.U./dl (0.0-1.0)
[2024-08-21 20:54] LABS: BACTERIA TRACE; MUCOUS TRACE; WBC 0-2 wbc/hpf (0-5)
[2024-08-21] MEDS ORDERED: Doxycycline Hyclate 100 MG 2 TAB ED PACK PO SCH (22:15)
[2024-08-22] MEDS ORDERED: VIBRAMYCIN100 MG PO (00:35)
== END 2024-08-21 22:21 ==
LOC: ED 15:47
PROVIDERS: Nurse Practitioner
DX: R07.89 Other chest pain (principal); M79.602 Pain in left arm; F32.A Depression, unspecified; F41.9 Anxiety disorder, unspecified; K21.9 Gastro-esophageal reflux disease without esophagitis; J44.9 Chronic obstructive pulmonary disease, unspecified; E11.9 Type 2 diabetes mellitus without complications; F17.210 Nicotine dependence, cigarettes, uncomplicated; Z91.041 Radiographic dye allergy status; Z88.6 Allergy status to analgesic agent; Z88.8 Allergy status to other drugs, medicaments and biological substances; Z98.890 Other specified postprocedural states; Z98.51 Tubal ligation status; Z95.5 Presence of coronary angioplasty implant and graft

== ENCOUNTER 2024-09-01 16:38 | Emergency (ER) | payer OTHER ==
[~2024-09-01] VITALS: Ht 1463 cm; Wt 66.7 kg
[2024-09-01 17:23] LABS: BASO # 0.1 10*3/uL (0.0-0.1); BASO % 0.4 % (0.0-1.0); EOS # 0.3 10*3/uL (0.0-0.4); EOS % 1.6 % (1.0-4.0); HEMATOCRIT 43.3 % (37.0-47.0); LYMPH # 3.4 10*3/uL (1.3-4.4); MEAN CELL VOLUME 86.4 fl (81.0-99.0); MEAN CORPUSCULAR HGB 26.5 pg (27.0-31.0); MEAN CORPUSCULAR HGB CONC 30.7 g/dl (33.0-37.0); MEAN PLATELET VOLUME 8.4 fl (9.6-12.3); MONO # 1.4 10*3/uL (0.1-1.0); MONO % 8.6 % (3.0-9.0); NEUT % 66.9 % (47.0-73.0); PLATELET COUNT AUTOMATED 421 10*3/uL (130-400); RED BLOOD COUNT 5.01 10*6/uL (4.10-5.10); RED CELL DISTRI WIDTH 19.9 % (0-14.5); WHITE BLOOD COUNT 16.4 10*3/uL (4.8-10.8)
[2024-09-01 17:38] LABS: BUN 19 mg/dl (9-23); CHLORIDE 105 mmol/L (98-107); POTASSIUM 3.5 mmol/L (3.4-5.1)
== END 2024-09-01 18:25 | disposition home or self-care (01) ==
LOC: ED 16:38
PROVIDERS: Nurse Practitioner Family
DX: R07.89 Other chest pain (principal); D72.89 Other specified disorders of white blood cells; J44.9 Chronic obstructive pulmonary disease, unspecified; I25.10 Atherosclerotic heart disease of native coronary artery without angina pectoris; E11.9 Type 2 diabetes mellitus without complications; F32.A Depression, unspecified; F41.9 Anxiety disorder, unspecified; M79.7 Fibromyalgia; K21.9 Gastro-esophageal reflux disease without esophagitis; F17.210 Nicotine dependence, cigarettes, uncomplicated; Z91.041 Radiographic dye allergy status; Z88.6 Allergy status to analgesic agent; Z88.8 Allergy status to other drugs, medicaments and biological substances; Z79.899 Other long term (current) drug therapy; Z98.51 Tubal ligation status

== ENCOUNTER 2024-12-01 16:13 | Emergency (ER) | payer OTHER ==
[~2024-12-01] VITALS: Ht 139.7 cm; Wt 67.8 kg
[2024-12-01] MEDS ORDERED: MORPHINE Sulfate 2 MG/ML SYR IV ONE (16:30)
[2024-12-01] MEDS ORDERED: Albuterol Sulfate 2.5 MG/3 ML VIAL NEB ONE (16:30)
[2024-12-01] MEDS ORDERED: methylPREDNISolone sod succ 125 MG VIAL IV ONE (16:30)
[2024-12-01] MEDS ORDERED: SODIUM CHLORIDE 0.9% 1,000 ML IV ONE (16:30)
[2024-12-01] MEDS ORDERED: Ondansetron Hydrochloride 4 MG/2 ML VIAL IV ONE (16:30)
[2024-12-01 17:11] LABS: POTASSIUM 4.1 mmol/L (3.4-5.1)
== END 2024-12-01 18:05 | disposition home or self-care (01) ==
LOC: ED 16:13
PROVIDERS: Emergency Medicine
DX: J44.1 Chronic obstructive pulmonary disease with (acute) exacerbation (principal); R07.89 Other chest pain; F17.210 Nicotine dependence, cigarettes, uncomplicated; E11.9 Type 2 diabetes mellitus without complications; E78.5 Hyperlipidemia, unspecified; I10 Essential (primary) hypertension; Z79.899 Other long term (current) drug therapy; Z88.8 Allergy status to other drugs, medicaments and biological substances; Z91.041 Radiographic dye allergy status; Z88.6 Allergy status to analgesic agent

== ENCOUNTER 2024-12-06 17:45 | Emergency (ER) | payer OTHER ==
[~2024-12-06] VITALS: Ht 142.2 cm; Wt 61.2 kg
[2024-12-06] MEDS ORDERED: MORPHINE Sulfate 2 MG/ML SYR IV ONE (21:00)
[2024-12-06] MEDS ORDERED: SODIUM CHLORIDE 0.9% 1,000 ML IV ONE (21:00)
[2024-12-06] MEDS ORDERED: Ondansetron Hydrochloride 4 MG/2 ML VIAL IV ONE (21:00)
[2024-12-06 21:30] LABS: HEMATOCRIT 48.4 % (37.0-47.0); MEAN CELL VOLUME 96.2 fl (81.0-99.0); MEAN CORPUSCULAR HGB CONC 32.2 g/dl (33.0-37.0); MEAN PLATELET VOLUME 8.6 fl (9.6-12.3); PLATELET COUNT AUTOMATED 387 10*3/uL (130-400); RED BLOOD COUNT 5.03 10*6/uL (4.10-5.10); RED CELL DISTRI WIDTH 15.4 % (0-14.5); WHITE BLOOD COUNT 18.1 10*3/uL (4.8-10.8)
[2024-12-06 21:32] LABS: MANUAL DIFF REFLEX YES
[2024-12-06 21:47] LABS: BUN 26 mg/dl (9-23); CHLORIDE 94 mmol/L (98-107); POTASSIUM 3.1 mmol/L (3.4-5.1)
[2024-12-06] MEDS ORDERED: POTASSIUM CHLORIDE 20 MEQ TAB PO ONE (21:50)
[2024-12-06 21:58] LABS: PLATELET SUFFICIENCY NORMAL (NORMAL); TOTAL CELLS COUNTED 100 #CELLS
[2024-12-06 21:59] LABS: OVALOCYTES FEW
== END 2024-12-06 22:22 | disposition home or self-care (01) ==
LOC: ED 17:45
PROVIDERS: Physician Assistant Medical
DX: G89.29 Other chronic pain (principal); R07.89 Other chest pain; R42 Dizziness and giddiness; R11.0 Nausea; J44.9 Chronic obstructive pulmonary disease, unspecified; I25.10 Atherosclerotic heart disease of native coronary artery without angina pectoris; E11.9 Type 2 diabetes mellitus without complications; M79.7 Fibromyalgia; F41.9 Anxiety disorder, unspecified; F32.A Depression, unspecified; F17.200 Nicotine dependence, unspecified, uncomplicated; Z91.041 Radiographic dye allergy status; Z88.6 Allergy status to analgesic agent; Z88.8 Allergy status to other drugs, medicaments and biological substances; Z79.899 Other long term (current) drug therapy; Z79.84 Long term (current) use of oral hypoglycemic drugs; Z98.890 Other specified postprocedural states; Z98.51 Tubal ligation status

== ENCOUNTER 2024-12-18 14:54 | Emergency (ER) | payer OTHER ==
[~2024-12-18] VITALS: Ht 142.2 cm; Wt 68.0 kg
[2024-12-18] MEDS ORDERED: Ondansetron Hydrochloride 4 MG TAB SL ONE (15:40)
[2024-12-18 15:47] LABS: BASO # 0.1 10*3/uL (0.0-0.1); BASO % 0.4 % (0.0-1.0); EOS # 0.3 10*3/uL (0.0-0.4); EOS % 2.1 % (1.0-4.0); HEMATOCRIT 46.4 % (37.0-47.0); MEAN CORPUSCULAR HGB 32.1 pg (27.0-31.0); MEAN CORPUSCULAR HGB CONC 32.1 g/dl (33.0-37.0); MEAN PLATELET VOLUME 8.5 fl (9.6-12.3); MONO # 1.4 10*3/uL (0.1-1.0); MONO % 9.8 % (3.0-9.0); NEUT # 9.6 10*3/uL (2.3-7.9); NEUT % 69.1 % (47.0-73.0); PLATELET COUNT AUTOMATED 256 10*3/uL (130-400); RED BLOOD COUNT 4.64 10*6/uL (4.10-5.10); RED CELL DISTRI WIDTH 16.2 % (0-14.5); WHITE BLOOD COUNT 13.8 10*3/uL (4.8-10.8)
[2024-12-18 16:05] LABS: BUN 12 mg/dl (9-23); CHLORIDE 104 mmol/L (98-107); POTASSIUM 3.9 mmol/L (3.4-5.1)
[2024-12-18] MEDS ORDERED: ACETAMINOPHEN 325 MG TAB PO ONE (18:10)
[2024-12-18] MEDS ORDERED: Promethazine Hydrochloride 25 MG TAB PO ONE (18:10)
[2024-12-18] MEDS ORDERED: Ondansetron4 MG PO (19:02)
== END 2024-12-18 19:06 | disposition home or self-care (01) ==
LOC: ED 14:54
PROVIDERS: Nurse Practitioner Family
DX: G89.29 Other chronic pain (principal); R07.89 Other chest pain; M79.602 Pain in left arm; J44.9 Chronic obstructive pulmonary disease, unspecified; E11.9 Type 2 diabetes mellitus without complications; M79.7 Fibromyalgia; F32.A Depression, unspecified; K21.9 Gastro-esophageal reflux disease without esophagitis; E87.6 Hypokalemia; Z91.041 Radiographic dye allergy status; Z88.6 Allergy status to analgesic agent; Z88.8 Allergy status to other drugs, medicaments and biological substances; Z98.890 Other specified postprocedural states; Z98.51 Tubal ligation status; Z95.5 Presence of coronary angioplasty implant and graft; F17.210 Nicotine dependence, cigarettes, uncomplicated; F41.9 Anxiety disorder, unspecified

== ENCOUNTER 2025-01-24 15:17 | Emergency (ER) | payer OTHER ==
[~2025-01-24] VITALS: Ht 142.2 cm; Wt 68.0 kg
[~2025-01-24 15:17] MED LIST changes: +CEPHALEXIN500 M1 PO; +FEROSUL325 M1 PO; +GABAPENTIN400 MG PO; +HYDROCODONE-AC1 EAC1 PO; +LEXAPRO20 MG PO; +METRONIDAZOLE500 M1 PO; +PROPAFENONE HC150 MG PO; +VITAMIN D
[2025-01-24] MEDS ORDERED: methylPREDNISolone sod succ 125 MG VIAL IV ONE (15:35)
[2025-01-24] MEDS ORDERED: MORPHINE Sulfate 2 MG/ML SYR IV ONE (15:35)
[2025-01-24] MEDS ORDERED: Albuterol Sulfate 2.5 MG/3 ML VIAL NEB ONE (15:35)
[2025-01-24] MEDS ORDERED: ACETAMINOPHEN 325 MG TAB PO ONE (15:35)
[2025-01-24] MEDS ORDERED: SODIUM CHLORIDE 0.9% 1,000 ML IV ONE (15:35)
[2025-01-24] MEDS ORDERED: Ondansetron Hydrochloride 4 MG/2 ML VIAL IV ONE (15:35)
[2025-01-24 16:03] LABS: HEMATOCRIT 48.3 % (37.0-47.0); MEAN CELL VOLUME 97.6 fl (81.0-99.0); MEAN CORPUSCULAR HGB 32.3 pg (27.0-31.0); MEAN CORPUSCULAR HGB CONC 33.1 g/dl (33.0-37.0); MEAN PLATELET VOLUME 8.6 fl (9.6-12.3); PLATELET COUNT AUTOMATED 418 10*3/uL (130-400); RED BLOOD COUNT 4.95 10*6/uL (4.10-5.10); RED CELL DISTRI WIDTH 15.6 % (0-14.5); WHITE BLOOD COUNT 17.8 10*3/uL (4.8-10.8)
[2025-01-24 16:04] LABS: MANUAL DIFF REFLEX YES
[2025-01-24 16:24] LABS: BUN 16 mg/dl (9-23); CHLORIDE 105 mmol/L (98-107); LIPASE 74 U/L (12-53); POTASSIUM 4.6 mmol/L (3.4-5.1)
[2025-01-24 16:26] LABS: BASOPHILS 1 % (0-1); PLATELET SUFFICIENCY HIGH (NORMAL); TOTAL CELLS COUNTED 100 #CELLS
[2025-01-24 16:28] LABS: POLYCHROMASIA SLIGHT
[2025-01-24 17:08] LABS: BILIRUBIN Negative (Negative); BLOOD 1+ (Negative); CLARITY Clear (Clear); COLOR Yellow (Yellow); GLUCOSE 3+ (Negative); KETONE Negative (Negative); LEUKO ESTERASE 1+ (Negative); NITRITE Negative (Negative); PH 6.5 (4.5-8.0); UROBILINOGEN 0.2 E.U./dl (0.0-1.0)
[2025-01-24 17:15] LABS: BACTERIA 1+; WBC 16-20 wbc/hpf (0-5)
== END 2025-01-24 17:16 | disposition home or self-care (01) ==
LOC: ED 15:17
PROVIDERS: Emergency Medicine
DX: J44.1 Chronic obstructive pulmonary disease with (acute) exacerbation (principal); I10 Essential (primary) hypertension; E78.5 Hyperlipidemia, unspecified; F41.9 Anxiety disorder, unspecified; F32.A Depression, unspecified; F17.210 Nicotine dependence, cigarettes, uncomplicated; Z91.041 Radiographic dye allergy status; Z88.6 Allergy status to analgesic agent; Z88.8 Allergy status to other drugs, medicaments and biological substances; Z79.899 Other long term (current) drug therapy; Z98.890 Other specified postprocedural states

== ENCOUNTER 2025-01-26 17:10 | Emergency (ER) | payer OTHER ==
[~2025-01-26] VITALS: Ht 142.2 cm; Wt 70.8 kg
[2025-01-26 18:14] LABS: BUN 15 mg/dl (9-23); CHLORIDE 107 mmol/L (98-107); POTASSIUM 4.5 mmol/L (3.4-5.1)
[2025-01-26] MEDS ORDERED: Albuterol Sulf/Ipratropium 3 ML VIAL NEB ONE (18:20)
[2025-01-26] MEDS ORDERED: ACETAMINOPHEN 325 MG TAB PO ONE (18:20)
[2025-01-26 18:56] LABS: HEMATOCRIT 46.6 % (37.0-47.0); MEAN CELL VOLUME 99.4 fl (81.0-99.0); MEAN CORPUSCULAR HGB 32.2 pg (27.0-31.0); MEAN CORPUSCULAR HGB CONC 32.4 g/dl (33.0-37.0); MEAN PLATELET VOLUME 8.6 fl (9.6-12.3); PLATELET COUNT AUTOMATED 386 10*3/uL (130-400); RED BLOOD COUNT 4.69 10*6/uL (4.10-5.10); RED CELL DISTRI WIDTH 15.9 % (0-14.5); WHITE BLOOD COUNT 16.7 10*3/uL (4.8-10.8)
[2025-01-26 18:58] LABS: MANUAL DIFF REFLEX YES
[2025-01-26 19:22] LABS: TOTAL CELLS COUNTED 100 #CELLS
[2025-01-26 19:23] LABS: PLATELET SUFFICIENCY NORMAL (NORMAL)
== END 2025-01-26 19:16 | disposition home or self-care (01) ==
LOC: ED 17:10
PROVIDERS: Internal Medicine
DX: J44.1 Chronic obstructive pulmonary disease with (acute) exacerbation (principal); F32.A Depression, unspecified; F41.9 Anxiety disorder, unspecified; F17.210 Nicotine dependence, cigarettes, uncomplicated; Z91.041 Radiographic dye allergy status; Z88.6 Allergy status to analgesic agent; Z88.8 Allergy status to other drugs, medicaments and biological substances; Z79.899 Other long term (current) drug therapy

== ENCOUNTER 2025-01-31 16:52 | Emergency (ER) | payer OTHER ==
[~2025-01-31] VITALS: Ht 142.2 cm; Wt 68.0 kg
[2025-01-31] MEDS ORDERED: methylPREDNISolone sod succ 1,000 MG/16 ML VIAL IM ONE (17:20)
[2025-01-31] MEDS ORDERED: Albuterol Sulf/Ipratropium 3 ML VIAL NEB ONE (17:20)
[2025-01-31] MEDS ORDERED: methylPREDNISolone sod succ 125 MG VIAL IM ONE (17:25)
[2025-01-31 18:16] LABS: HEMATOCRIT 47.3 % (37.0-47.0); MEAN CELL VOLUME 102.6 fl (81.0-99.0); MEAN CORPUSCULAR HGB CONC 32.1 g/dl (33.0-37.0); MEAN PLATELET VOLUME 8.7 fl (9.6-12.3); PLATELET COUNT AUTOMATED 361 10*3/uL (130-400); RED BLOOD COUNT 4.61 10*6/uL (4.10-5.10); RED CELL DISTRI WIDTH 16.3 % (0-14.5); WHITE BLOOD COUNT 18.7 10*3/uL (4.8-10.8)
[2025-01-31 18:18] LABS: MANUAL DIFF REFLEX YES
[2025-01-31 18:34] LABS: ALKALINE PHOSPHATASE 75 U/L (46-116); BUN 14 mg/dl (9-23); CHLORIDE 102 mmol/L (98-107); POTASSIUM 4.7 mmol/L (3.4-5.1); SGPT/ALT 19 U/L (5-49); TOTAL PROTEIN 6.7 gm/dL (6.0-8.0)
[2025-01-31] MEDS ORDERED: Ondansetron Hydrochloride 4 MG TAB PO ONE (18:35)
[2025-01-31] MEDS ORDERED: Acetaminophen/Hydrocodone 5 MG/325 MG TABLET PO ONE (18:35)
[2025-01-31 18:53] LABS: PLATELET SUFFICIENCY NORMAL (NORMAL); TOTAL CELLS COUNTED 100 #CELLS
[2025-01-31 18:54] LABS: OVALOCYTES FEW
== END 2025-01-31 21:54 | disposition home or self-care (01) ==
LOC: ED 16:52
PROVIDERS: Nurse Practitioner Family
DX: J44.1 Chronic obstructive pulmonary disease with (acute) exacerbation (principal); I25.10 Atherosclerotic heart disease of native coronary artery without angina pectoris; E11.9 Type 2 diabetes mellitus without complications; I10 Essential (primary) hypertension; E78.5 Hyperlipidemia, unspecified; F32.A Depression, unspecified; F41.9 Anxiety disorder, unspecified; F17.210 Nicotine dependence, cigarettes, uncomplicated; Z91.041 Radiographic dye allergy status; Z88.6 Allergy status to analgesic agent; Z79.899 Other long term (current) drug therapy; Z79.84 Long term (current) use of oral hypoglycemic drugs

== ENCOUNTER 2025-02-04 17:24 | Emergency (ER) | payer OTHER ==
[~2025-02-04] VITALS: Ht 142.2 cm; Wt 68.0 kg
[2025-02-04 18:01] LABS: MEAN CELL VOLUME 101.5 fl (81.0-99.0); MEAN CORPUSCULAR HGB CONC 32.5 g/dl (33.0-37.0); MEAN PLATELET VOLUME 8.6 fl (9.6-12.3); PLATELET COUNT AUTOMATED 324 10*3/uL (130-400); RED BLOOD COUNT 4.73 10*6/uL (4.10-5.10); RED CELL DISTRI WIDTH 16.2 % (0-14.5); WHITE BLOOD COUNT 20.5 10*3/uL (4.8-10.8)
[2025-02-04 18:11] LABS: MANUAL DIFF REFLEX YES
[2025-02-04 18:18] LABS: BUN 12 mg/dl (9-23); CHLORIDE 103 mmol/L (98-107); POTASSIUM 4.2 mmol/L (3.4-5.1)
[2025-02-04 18:21] LABS: PLATELET SUFFICIENCY NORMAL (NORMAL); TOTAL CELLS COUNTED 100 #CELLS
[2025-02-04 18:22] LABS: BURR CELLS FEW; POLYCHROMASIA SLIGHT
== END 2025-02-04 19:12 | disposition home or self-care (01) ==
LOC: ED 17:24
PROVIDERS: Internal Medicine
DX: R53.1 Weakness (principal); R20.0 Anesthesia of skin; F41.9 Anxiety disorder, unspecified; F32.A Depression, unspecified; F17.210 Nicotine dependence, cigarettes, uncomplicated; Z91.041 Radiographic dye allergy status; Z88.6 Allergy status to analgesic agent; Z88.8 Allergy status to other drugs, medicaments and biological substances; Z79.899 Other long term (current) drug therapy; Z79.84 Long term (current) use of oral hypoglycemic drugs

== ENCOUNTER 2025-02-08 15:35 | Emergency (ER) | payer OTHER ==
[~2025-02-08] VITALS: Ht 142.2 cm; Wt 68.0 kg
[2025-02-08] MEDS ORDERED: SODIUM CHLORIDE 0.9% 1,000 ML IV ONE (15:55)
[2025-02-08] MEDS ORDERED: MORPHINE Sulfate 2 MG/ML SYR IV ONE (15:55)
[2025-02-08] MEDS ORDERED: Ondansetron Hydrochloride 4 MG/2 ML VIAL IV ONE (15:55)
[2025-02-08 16:19] LABS: HEMATOCRIT 50.3 % (37.0-47.0); MEAN CELL VOLUME 104.8 fl (81.0-99.0); MEAN CORPUSCULAR HGB 33.5 pg (27.0-31.0); MEAN PLATELET VOLUME 8.6 fl (9.6-12.3); PLATELET COUNT AUTOMATED 342 10*3/uL (130-400); RED CELL DISTRI WIDTH 17.2 % (0-14.5); WHITE BLOOD COUNT 19.7 10*3/uL (4.8-10.8)
[2025-02-08 16:36] LABS: MANUAL DIFF REFLEX YES
[2025-02-08 16:38] LABS: PLATELET SUFFICIENCY NORMAL (NORMAL); TOTAL CELLS COUNTED 100 #CELLS
[2025-02-08 16:39] LABS: BUN 12 mg/dl (9-23); CHLORIDE 104 mmol/L (98-107); POTASSIUM 4.6 mmol/L (3.4-5.1)
== END 2025-02-08 17:23 | disposition home or self-care (01) ==
LOC: ED 15:35
PROVIDERS: Emergency Medicine
DX: R07.89 Other chest pain (principal); R20.0 Anesthesia of skin; R42 Dizziness and giddiness; R05.9 Cough, unspecified; R53.1 Weakness; R53.83 Other fatigue; F41.9 Anxiety disorder, unspecified; F32.A Depression, unspecified; I25.10 Atherosclerotic heart disease of native coronary artery without angina pectoris; E11.9 Type 2 diabetes mellitus without complications; I10 Essential (primary) hypertension; E78.5 Hyperlipidemia, unspecified; F17.210 Nicotine dependence, cigarettes, uncomplicated; Z91.041 Radiographic dye allergy status; Z88.6 Allergy status to analgesic agent; Z88.8 Allergy status to other drugs, medicaments and biological substances; Z79.899 Other long term (current) drug therapy; Z79.84 Long term (current) use of oral hypoglycemic drugs; Z98.890 Other specified postprocedural states

== ENCOUNTER 2025-02-21 17:31 | Emergency (ER) | payer OTHER ==
[~2025-02-21] VITALS: Ht 142.2 cm; Wt 5.9 kg
[2025-02-21 18:19] LABS: BASO # 0.1 10*3/uL (0.0-0.1); EOS # 0.1 10*3/uL (0.0-0.4); HEMATOCRIT 48.2 % (37.0-47.0); MEAN CELL VOLUME 102.8 fl (81.0-99.0); MEAN CORPUSCULAR HGB 34.1 pg (27.0-31.0); MEAN CORPUSCULAR HGB CONC 33.2 g/dl (33.0-37.0); MEAN PLATELET VOLUME 8.3 fl (9.6-12.3); MONO # 1.2 10*3/uL (0.1-1.0); MONO % 8.4 % (3.0-9.0); NEUT # 9.5 10*3/uL (2.3-7.9); PLATELET COUNT AUTOMATED 292 10*3/uL (130-400); RED BLOOD COUNT 4.69 10*6/uL (4.10-5.10); RED CELL DISTRI WIDTH 15.9 % (0-14.5)
[2025-02-21 18:32] LABS: BUN 12 mg/dl (9-23); CHLORIDE 104 mmol/L (98-107); POTASSIUM 4.1 mmol/L (3.4-5.1)
[2025-02-21] MEDS ORDERED: ACETAMINOPHEN 325 MG TAB PO ONE (19:05)
== END 2025-02-21 19:48 | disposition home or self-care (01) ==
LOC: ED 17:31
PROVIDERS: Physician Assistant Medical
DX: R07.89 Other chest pain (principal); K21.9 Gastro-esophageal reflux disease without esophagitis; J44.9 Chronic obstructive pulmonary disease, unspecified; F32.A Depression, unspecified; F41.9 Anxiety disorder, unspecified; Z79.899 Other long term (current) drug therapy; Z88.8 Allergy status to other drugs, medicaments and biological substances; Z88.6 Allergy status to analgesic agent; Z91.041 Radiographic dye allergy status; Z90.89 Acquired absence of other organs; Z98.51 Tubal ligation status; Z98.890 Other specified postprocedural states

== ENCOUNTER 2025-02-24 22:12 | Emergency (ER) | payer OTHER ==
[2025-02-24 22:38] LABS: HEMATOCRIT 48.3 % (37.0-47.0); MEAN CELL VOLUME 103.4 fl (81.0-99.0); MEAN CORPUSCULAR HGB 34.3 pg (27.0-31.0); MEAN CORPUSCULAR HGB CONC 33.1 g/dl (33.0-37.0); MEAN PLATELET VOLUME 8.4 fl (9.6-12.3); PLATELET COUNT AUTOMATED 327 10*3/uL (130-400); RED BLOOD COUNT 4.67 10*6/uL (4.10-5.10); RED CELL DISTRI WIDTH 15.7 % (0-14.5); WHITE BLOOD COUNT 17.5 10*3/uL (4.8-10.8)
[2025-02-24 22:41] LABS: MANUAL DIFF REFLEX YES
[2025-02-24 23:03] LABS: ALKALINE PHOSPHATASE 74 U/L (46-116); BUN 11 mg/dl (9-23); CHLORIDE 104 mmol/L (98-107); POTASSIUM 3.7 mmol/L (3.4-5.1); SGPT/ALT < 7 U/L (5-49); TOTAL PROTEIN 7.2 gm/dL (6.0-8.0)
[2025-02-24 23:06] LABS: BASOPHILS 1 % (0-1); PLATELET SUFFICIENCY NORMAL (NORMAL); TOTAL CELLS COUNTED 100 #CELLS
[2025-02-24] MEDS ORDERED: Ondansetron Hydrochloride 4 MG/2 ML VIAL IV ONE (23:20)
[2025-02-24] MEDS ORDERED: MORPHINE Sulfate 2 MG/ML SYR IV ONE (23:20)
[2025-02-24] MEDS ORDERED: MORPHINE Sulfate 2 MG/ML SYR IM ONE (23:55)
[2025-02-24] MEDS ORDERED: Ondansetron Hydrochloride 4 MG TAB SL ONE (23:55)
== END 2025-02-25 01:09 | disposition home or self-care (01) ==
LOC: ED 22:12
PROVIDERS: Internal Medicine
DX: R07.89 Other chest pain (principal); D72.829 Elevated white blood cell count, unspecified; D75.89 Other specified diseases of blood and blood-forming organs; R06.02 Shortness of breath; R11.0 Nausea; F41.9 Anxiety disorder, unspecified; F32.A Depression, unspecified; F17.210 Nicotine dependence, cigarettes, uncomplicated; Z91.041 Radiographic dye allergy status; Z88.6 Allergy status to analgesic agent; Z79.899 Other long term (current) drug therapy; Z98.890 Other specified postprocedural states

== ENCOUNTER 2025-03-12 15:11 | Emergency (ER) | payer OTHER ==
[~2025-03-12] VITALS: Ht 142.2 cm; Wt 68.0 kg
[2025-03-12] MEDS ORDERED: diphenhydrAMINE hydrochloride 50 MG/ML VIAL IV ONE (15:30)
[2025-03-12] MEDS ORDERED: Metoclopramide Hydrochloride 10 MG/2 ML VIAL IV ONE (15:30)
[2025-03-12] MEDS ORDERED: SODIUM CHLORIDE 0.9% 1,000 ML IV ONE (15:30)
[2025-03-12 15:47] LABS: HEMATOCRIT 47.4 % (37.0-47.0); MEAN CELL VOLUME 102.4 fl (81.0-99.0); MEAN CORPUSCULAR HGB 33.9 pg (27.0-31.0); MEAN CORPUSCULAR HGB CONC 33.1 g/dl (33.0-37.0); MEAN PLATELET VOLUME 8.6 fl (9.6-12.3); PLATELET COUNT AUTOMATED 339 10*3/uL (130-400); RED BLOOD COUNT 4.63 10*6/uL (4.10-5.10); RED CELL DISTRI WIDTH 14.2 % (0-14.5); WHITE BLOOD COUNT 19.3 10*3/uL (4.8-10.8)
[2025-03-12 15:55] LABS: MANUAL DIFF REFLEX YES
[2025-03-12 16:07] LABS: ACT PARTIAL THROMBO TIME 30.2 SECONDS (20.0-32.1)
[2025-03-12 16:09] LABS: ALKALINE PHOSPHATASE 82 U/L (46-116); BUN 11 mg/dl (9-23); CHLORIDE 101 mmol/L (98-107); LIPASE 143 U/L (12-53); POTASSIUM 3.8 mmol/L (3.4-5.1); SGPT/ALT 12 U/L (5-49); TOTAL PROTEIN 7.1 gm/dL (6.0-8.0)
[2025-03-12 16:17] LABS: TOTAL CELLS COUNTED 100 #CELLS
[2025-03-12 16:21] LABS: BURR CELLS FEW; PLATELET SUFFICIENCY NORMAL (NORMAL)
[2025-03-12] MEDS ORDERED: MAGNESIUM OXIDE 400 MG TAB PO ONE (16:30)
== END 2025-03-12 18:42 | disposition home or self-care (01) ==
LOC: ED 15:11
PROVIDERS: Internal Medicine
DX: R07.89 Other chest pain (principal); R11.2 Nausea with vomiting, unspecified; F32.A Depression, unspecified; F41.9 Anxiety disorder, unspecified; J44.9 Chronic obstructive pulmonary disease, unspecified; F17.200 Nicotine dependence, unspecified, uncomplicated; Z79.899 Other long term (current) drug therapy; Z88.6 Allergy status to analgesic agent; Z88.8 Allergy status to other drugs, medicaments and biological substances; Z91.041 Radiographic dye allergy status; Z90.89 Acquired absence of other organs; Z98.51 Tubal ligation status; Z98.890 Other specified postprocedural states

== ENCOUNTER 2025-03-17 17:21 | Inpatient (IN) | payer OTHER ==
[~2025-03-17] VITALS: Ht 142.2 cm; Wt 73.2 kg
[2025-03-17 17:41] VITALS: BP 117/55
[2025-03-17] MEDS ORDERED: SODIUM CHLORIDE 0.9% 1,000 ML IV ONE (17:50)
[2025-03-17] MEDS ORDERED: Ondansetron Hydrochloride 4 MG/2 ML VIAL IV ONE (17:50)
[2025-03-17] MEDS ORDERED: MORPHINE Sulfate 2 MG/ML SYR IV ONE (17:50)
[2025-03-17] MEDS ORDERED: Ondansetron Hydrochloride 4 MG TAB PO ONE (18:30)
[2025-03-17 18:50] LABS: HEMATOCRIT 47.9 % (37.0-47.0); MEAN CELL VOLUME 104.6 fl (81.0-99.0); MEAN CORPUSCULAR HGB 34.1 pg (27.0-31.0); MEAN CORPUSCULAR HGB CONC 32.6 g/dl (33.0-37.0); MEAN PLATELET VOLUME 8.6 fl (9.6-12.3); PLATELET COUNT AUTOMATED 347 10*3/uL (130-400); RED BLOOD COUNT 4.58 10*6/uL (4.10-5.10); RED CELL DISTRI WIDTH 14.2 % (0-14.5); WHITE BLOOD COUNT 17.8 10*3/uL (4.8-10.8)
[2025-03-17 18:51] LABS: MANUAL DIFF REFLEX YES
[2025-03-17 19:05] LABS: BILIRUBIN Negative (Negative); BLOOD Trace-Lysed (Negative); CLARITY Clear (Clear); COLOR Yellow (Yellow); GLUCOSE 3+ (Negative); KETONE Negative (Negative); LEUKO ESTERASE 1+ (Negative); NITRITE Negative (Negative); SPECIFIC GRAVITY 1.015 (1.001-1.030); UROBILINOGEN 0.2 E.U./dl (0.0-1.0)
[2025-03-17 19:09] LABS: ALKALINE PHOSPHATASE 71 U/L (46-116); BUN 13 mg/dl (9-23); CHLORIDE 104 mmol/L (98-107); LIPASE 94 U/L (12-53); POTASSIUM 3.7 mmol/L (3.4-5.1); SGPT/ALT 8 U/L (5-49); TOTAL PROTEIN 6.9 gm/dL (6.0-8.0)
[2025-03-17 19:16] LABS: ATYPICAL LYMPHS 1 % (0-0); TOTAL CELLS COUNTED 100 #CELLS
[2025-03-17 19:17] LABS: BURR CELLS MODERATE; PLATELET SUFFICIENCY NORMAL (NORMAL)
[2025-03-17 19:19] LABS: BACTERIA 1+; WBC 16-20 wbc/hpf (0-5)
[2025-03-17] MEDS ORDERED: Ondansetron Hydrochloride 4 MG/2 ML VIAL IV PRN (20:45)
[2025-03-17] MEDS ORDERED: MORPHINE Sulfate 2 MG/ML SYR IV PRN (20:45)
[2025-03-17] MEDS ORDERED: Acetaminophen/Hydrocodone 5 MG/325 MG TABLET PO PRN (20:45)
[2025-03-17] MEDS ORDERED: SODIUM CHLORIDE 0.9% 1,000 ML IV SCH (21:00)
[2025-03-17] MEDS ORDERED: Piperacillin Sodium/Tazobact 50 ML IV SCH (22:00)
[2025-03-17] MEDS ORDERED: DEXTROSE 50% 25 GM/50 ML VIAL IV PRN (22:15)
[2025-03-18] MEDS ORDERED: LORazepam 0.5 MG TAB PO PRN (03:15)
[2025-03-18] MEDS ORDERED: tiZANidine Hydrochloride 4 MG TAB PO PRN (03:15)
[2025-03-18 06:16] VITALS: BP 102/43
[2025-03-18 06:35] LABS: HEMATOCRIT 45.7 % (37.0-47.0); MANUAL DIFF REFLEX YES; MEAN CELL VOLUME 109.1 fl (81.0-99.0); MEAN CORPUSCULAR HGB 34.4 pg (27.0-31.0); MEAN CORPUSCULAR HGB CONC 31.5 g/dl (33.0-37.0); MEAN PLATELET VOLUME 8.7 fl (9.6-12.3); PLATELET COUNT AUTOMATED 288 10*3/uL (130-400); RED BLOOD COUNT 4.19 10*6/uL (4.10-5.10); RED CELL DISTRI WIDTH 14.2 % (0-14.5); WHITE BLOOD COUNT 10.7 10*3/uL (4.8-10.8)
[2025-03-18 06:53] LABS: BUN 9 mg/dl (9-23); CHLORIDE 111 mmol/L (98-107)
[2025-03-18 06:54] LABS: ATYPICAL LYMPHS 1 % (0-0); PLATELET SUFFICIENCY NORMAL (NORMAL); POLYCHROMASIA SLIGHT; TOTAL CELLS COUNTED 100 #CELLS
[2025-03-18] MEDS ORDERED: INSULIN LISPRO 1 UNIT/0.01 ML SQ SCH (07:30)
[2025-03-18 07:44] VITALS: BP 97/44
[2025-03-18 07:46] LABS: VITAMIN D, 25-HYDROXY 84.8 ng/mL (30-100)
[2025-03-18] MEDS ORDERED: Propafenone Hydrochloride 150 MG TAB PO SCH ×2 (08:16→10:00)
[2025-03-18] MEDS ORDERED: EMPAGLIFLOZIN 25 MG TABLET PO SCH (10:00)
[2025-03-18] MEDS ORDERED: hydroCHLOROthiazide 12.5 MG CAP PO SCH (10:00)
[2025-03-18] MEDS ORDERED: VERAPAMIL HYDROCHLORIDE 120 MG PO SCH (10:00)
[2025-03-18] MEDS ORDERED: Clopidogrel Hydrogen Sulfate 75 MG TAB PO SCH (10:00)
[2025-03-18] MEDS ORDERED: GABAPENTIN 400 MG CAP PO SCH (10:00)
[2025-03-18] MEDS ORDERED: ESCITALOPRAM OXALATE 20 MG TAB PO SCH (10:00)
[2025-03-18] MEDS ORDERED: Nicotine 21 MG PATCH T SCH (10:00)
[2025-03-18] MEDS ORDERED: hydroCHLOROthiazide 25 MG TAB PO SCH (10:00)
[2025-03-18] MEDS ORDERED: cefTRIAXone Sodium 1 GM in SYRINGE INFUSION 10 ML IV SCH (10:00)
[2025-03-18] MEDS ORDERED: Metoprolol Tartrate 25 MG TAB PO SCH (10:00)
[2025-03-18] MEDS ORDERED: VITAMIN D3125 MCG PO (11:01)
[2025-03-18 11:09] VITALS: BP 119/49
[2025-03-18] MEDS ORDERED: ACETAMINOPHEN 325 MG TAB PO PRN (13:10)
[2025-03-18 16:00] VITALS: BP 108/58
[2025-03-18] MEDS ORDERED: RIVAROXABAN 20 MG TAB PO SCH (18:00)
[2025-03-18 20:00] VITALS: BP 111/63
[2025-03-18] MEDS ORDERED: ATORVASTATIN CALCIUM 20 MG TAB PO SCH (22:00)
[2025-03-19] VITALS: BP 115/75; BP 123/73
[2025-03-19 07:01] LABS: BASO # 0.1 10*3/uL (0.0-0.1); BASO % 1.4 % (0.0-1.0); EOS # 0.2 10*3/uL (0.0-0.4); EOS % 1.7 % (1.0-4.0); HEMATOCRIT 44.8 % (37.0-47.0); MEAN CORPUSCULAR HGB 33.9 pg (27.0-31.0); MEAN CORPUSCULAR HGB CONC 31.9 g/dl (33.0-37.0); MEAN PLATELET VOLUME 8.9 fl (9.6-12.3); MONO # 1.2 10*3/uL (0.1-1.0); MONO % 11.4 % (3.0-9.0); NEUT # 6.1 10*3/uL (2.3-7.9); PLATELET COUNT AUTOMATED 304 10*3/uL (130-400); RED BLOOD COUNT 4.22 10*6/uL (4.10-5.10); RED CELL DISTRI WIDTH 14.1 % (0-14.5); WHITE BLOOD COUNT 10.1 10*3/uL (4.8-10.8)
[2025-03-19 07:05] LABS: MEAN CELL VOLUME 106.2 fl (81.0-99.0)
[2025-03-19 08:00] VITALS: BP 125/97
[2025-03-19] MEDS ORDERED: TYLENOL EXTRA500 MG PO (09:58)
[2025-03-19] MEDS ORDERED: AMOX-CLAV 875-1 EACH PO (09:58)
== END 2025-03-19 11:50 | disposition home or self-care (01) | DRG 872 ==
LOC: ED 17:21 → EDHOLD 20:00 → 4E 20:00 → 5E 03-18 17:52
PROVIDERS: Physician Assistant Medical; Student in an Organized Health Care Education/Training Program; ADMIT Internal Medicine; ATTEND Internal Medicine
DX: A41.9 Sepsis, unspecified organism (principal); N39.0 Urinary tract infection, site not specified; A04.9 Bacterial intestinal infection, unspecified; R31.9 Hematuria, unspecified; F17.210 Nicotine dependence, cigarettes, uncomplicated; D72.828 Other elevated white blood cell count; R65.20 Severe sepsis without septic shock; E80.6 Other disorders of bilirubin metabolism; K76.0 Fatty (change of) liver, not elsewhere classified; K21.9 Gastro-esophageal reflux disease without esophagitis; M79.7 Fibromyalgia; J44.9 Chronic obstructive pulmonary disease, unspecified; F32.A Depression, unspecified; F41.1 Generalized anxiety disorder; E11.65 Type 2 diabetes mellitus with hyperglycemia; I25.10 Atherosclerotic heart disease of native coronary artery without angina pectoris; Z98.51 Tubal ligation status; Z82.49 Family history of ischemic heart disease and other diseases of the circulatory system; Z82.0 Family history of epilepsy and other diseases of the nervous system; Z88.6 Allergy status to analgesic agent; Z91.041 Radiographic dye allergy status; Z88.8 Allergy status to other drugs, medicaments and biological substances; Z68.35 Body mass index [BMI] 35.0-35.9, adult; Z79.51 Long term (current) use of inhaled steroids; Z79.84 Long term (current) use of oral hypoglycemic drugs; Z79.899 Other long term (current) drug therapy

== ENCOUNTER 2025-03-20 18:25 | Emergency (ER) | payer OTHER ==
[~2025-03-20] VITALS: Ht 142.2 cm; Wt 73.0 kg
[~2025-03-20 18:25] MED LIST changes: +AMOX-CLAV 875-1 EACH PO; +TYLENOL EXTRA500 MG PO; +VITAMIN D3125 MCG PO
[2025-03-20 21:23] LABS: BASO # 0.1 10*3/uL (0.0-0.1); BASO % 0.7 % (0.0-1.0); EOS # 0.3 10*3/uL (0.0-0.4); EOS % 2.4 % (1.0-4.0); HEMATOCRIT 49.5 % (37.0-47.0); MEAN CELL VOLUME 103.1 fl (81.0-99.0); MEAN CORPUSCULAR HGB 34.2 pg (27.0-31.0); MEAN CORPUSCULAR HGB CONC 33.1 g/dl (33.0-37.0); MEAN PLATELET VOLUME 8.5 fl (9.6-12.3); MONO # 1.1 10*3/uL (0.1-1.0); MONO % 7.6 % (3.0-9.0); NEUT # 9.5 10*3/uL (2.3-7.9); NEUT % 68.2 % (47.0-73.0); PLATELET COUNT AUTOMATED 351 10*3/uL (130-400); WHITE BLOOD COUNT 13.9 10*3/uL (4.8-10.8)
[2025-03-20 21:38] LABS: ALKALINE PHOSPHATASE 79 U/L (46-116); BUN 8 mg/dl (9-23); CHLORIDE 102 mmol/L (98-107); LIPASE 51 U/L (12-53); POTASSIUM 3.5 mmol/L (3.4-5.1); SGPT/ALT 13 U/L (5-49); TOTAL PROTEIN 7.2 gm/dL (6.0-8.0)
[2025-03-20] MEDS ORDERED: MORPHINE Sulfate 2 MG/ML SYR IM ONE (22:00)
[2025-03-20] MEDS ORDERED: Ondansetron Hydrochloride 4 MG TAB SL ONE (22:00)
== END 2025-03-20 23:23 | disposition home or self-care (01) ==
LOC: ED 18:25
PROVIDERS: Internal Medicine
DX: K52.9 Noninfective gastroenteritis and colitis, unspecified (principal); E87.1 Hypo-osmolality and hyponatremia; D72.829 Elevated white blood cell count, unspecified; D75.1 Secondary polycythemia; J44.9 Chronic obstructive pulmonary disease, unspecified; F32.A Depression, unspecified; F41.9 Anxiety disorder, unspecified; Z79.899 Other long term (current) drug therapy; Z88.6 Allergy status to analgesic agent; Z88.8 Allergy status to other drugs, medicaments and biological substances; Z91.041 Radiographic dye allergy status; Z98.51 Tubal ligation status; Z98.890 Other specified postprocedural states

== ENCOUNTER 2025-03-26 17:18 | Emergency (ER) | payer OTHER ==
[~2025-03-26] VITALS: Ht 142.2 cm; Wt 72.6 kg
[2025-03-26 18:46] LABS: BASO # 0.1 10*3/uL (0.0-0.1); BASO % 0.9 % (0.0-1.0); EOS # 0.6 10*3/uL (0.0-0.4); EOS % 4.2 % (1.0-4.0); HEMATOCRIT 45.9 % (37.0-47.0); MEAN CELL VOLUME 102.2 fl (81.0-99.0); MEAN CORPUSCULAR HGB 34.1 pg (27.0-31.0); MEAN CORPUSCULAR HGB CONC 33.3 g/dl (33.0-37.0); MEAN PLATELET VOLUME 8.8 fl (9.6-12.3); MONO # 1.3 10*3/uL (0.1-1.0); MONO % 8.6 % (3.0-9.0); NEUT # 9.9 10*3/uL (2.3-7.9); NEUT % 64.6 % (47.0-73.0); PLATELET COUNT AUTOMATED 314 10*3/uL (130-400); RED BLOOD COUNT 4.49 10*6/uL (4.10-5.10); RED CELL DISTRI WIDTH 13.8 % (0-14.5); WHITE BLOOD COUNT 15.3 10*3/uL (4.8-10.8)
[2025-03-26 19:10] LABS: POTASSIUM 3.9 mmol/L (3.4-5.1); TOTAL PROTEIN 6.5 gm/dL (6.0-8.0)
[2025-03-26] MEDS ORDERED: SODIUM CHLORIDE 0.9% 1,000 ML IV ONE (19:20)
[2025-03-26] MEDS ORDERED: METHOCARBAMOL 750 MG TAB PO ONE (19:30)
== END 2025-03-26 20:17 | disposition home or self-care (01) ==
LOC: ED 17:18
PROVIDERS: Nurse Practitioner
DX: N17.9 Acute kidney failure, unspecified (principal); R07.89 Other chest pain; R10.9 Unspecified abdominal pain; R11.2 Nausea with vomiting, unspecified; R06.00 Dyspnea, unspecified; F41.9 Anxiety disorder, unspecified; F32.A Depression, unspecified; Z91.041 Radiographic dye allergy status; Z88.6 Allergy status to analgesic agent; Z88.8 Allergy status to other drugs, medicaments and biological substances; Z79.899 Other long term (current) drug therapy; Z87.891 Personal history of nicotine dependence

== ENCOUNTER 2025-03-28 17:58 | Emergency (ER) | payer OTHER ==
[~2025-03-28] VITALS: Ht 142.2 cm; Wt 72.6 kg
[2025-03-28] MEDS ORDERED: Albuterol Sulfate 2.5 MG/3 ML VIAL NEB ONE (18:10)
[2025-03-28] MEDS ORDERED: MORPHINE Sulfate 2 MG/ML SYR IV ONE (18:10)
[2025-03-28] MEDS ORDERED: Ondansetron Hydrochloride 4 MG/2 ML VIAL IV ONE (18:10)
[2025-03-28] MEDS ORDERED: methylPREDNISolone sod succ 125 MG VIAL IV ONE (18:10)
[2025-03-28] MEDS ORDERED: AZITHROMYCIN 250 MG TAB PO ONE (18:15)
[2025-03-28 19:00] LABS: HEMATOCRIT 48.3 % (37.0-47.0); MEAN CELL VOLUME 102.8 fl (81.0-99.0); MEAN CORPUSCULAR HGB 34.3 pg (27.0-31.0); MEAN CORPUSCULAR HGB CONC 33.3 g/dl (33.0-37.0); MEAN PLATELET VOLUME 8.8 fl (9.6-12.3); PLATELET COUNT AUTOMATED 308 10*3/uL (130-400); RED CELL DISTRI WIDTH 13.8 % (0-14.5); WHITE BLOOD COUNT 21.5 10*3/uL (4.8-10.8)
[2025-03-28 19:06] LABS: MANUAL DIFF REFLEX YES
[2025-03-28 19:20] LABS: BUN 10 mg/dl (9-23); CHLORIDE 103 mmol/L (98-107); POTASSIUM 3.7 mmol/L (3.4-5.1)
[2025-03-28 19:23] LABS: TOTAL CELLS COUNTED 100 #CELLS
[2025-03-28 19:24] LABS: PLATELET SUFFICIENCY NORMAL (NORMAL)
[2025-03-28 19:26] LABS: BURR CELLS FEW; POLYCHROMASIA SLIGHT
== END 2025-03-28 19:29 | disposition home or self-care (01) ==
LOC: ED 17:58
PROVIDERS: Emergency Medicine
DX: J44.1 Chronic obstructive pulmonary disease with (acute) exacerbation (principal); R07.89 Other chest pain; I25.10 Atherosclerotic heart disease of native coronary artery without angina pectoris; E11.9 Type 2 diabetes mellitus without complications; I10 Essential (primary) hypertension; E78.5 Hyperlipidemia, unspecified; F41.9 Anxiety disorder, unspecified; F32.A Depression, unspecified; Z87.891 Personal history of nicotine dependence; Z98.890 Other specified postprocedural states; Z91.041 Radiographic dye allergy status; Z88.6 Allergy status to analgesic agent; Z79.899 Other long term (current) drug therapy

== ENCOUNTER 2025-04-01 18:12 | Emergency (ER) | payer OTHER ==
[~2025-04-01] VITALS: Ht 142.2 cm; Wt 68.0 kg
[2025-04-01 19:25] LABS: BASO # 0.1 10*3/uL (0.0-0.1); BASO % 0.5 % (0.0-1.0); EOS # 0.1 10*3/uL (0.0-0.4); EOS % 0.6 % (1.0-4.0); HEMATOCRIT 47.9 % (37.0-47.0); MEAN CELL VOLUME 102.8 fl (81.0-99.0); MEAN CORPUSCULAR HGB 34.3 pg (27.0-31.0); MEAN CORPUSCULAR HGB CONC 33.4 g/dl (33.0-37.0); MEAN PLATELET VOLUME 8.6 fl (9.6-12.3); MONO # 0.4 10*3/uL (0.1-1.0); MONO % 3.5 % (3.0-9.0); NEUT # 9.7 10*3/uL (2.3-7.9); NEUT % 81.2 % (47.0-73.0); PLATELET COUNT AUTOMATED 297 10*3/uL (130-400); RED BLOOD COUNT 4.66 10*6/uL (4.10-5.10); RED CELL DISTRI WIDTH 13.6 % (0-14.5); WHITE BLOOD COUNT 11.9 10*3/uL (4.8-10.8)
[2025-04-01 19:42] LABS: BILIRUBIN Negative (Negative); BLOOD 1+ (Negative); CLARITY Clear (Clear); COLOR Yellow (Yellow); GLUCOSE 3+ (Negative); KETONE Negative (Negative); LEUKO ESTERASE 2+ (Negative); NITRITE Negative (Negative); UROBILINOGEN 0.2 E.U./dl (0.0-1.0)
[2025-04-01 19:47] LABS: ALKALINE PHOSPHATASE 67 U/L (46-116); BUN 13 mg/dl (9-23); CHLORIDE 102 mmol/L (98-107); POTASSIUM 4.3 mmol/L (3.4-5.1); SGPT/ALT 11 U/L (5-49); TOTAL PROTEIN 6.9 gm/dL (6.0-8.0)
[2025-04-01 19:49] LABS: ETHYL ALCOHOL < 3.0 mg/dl (<3)
[2025-04-01 19:49] LABS: URINE AMPHETAMINES Negative (1000ng/ml); URINE BARBITURATES Negative (200ng/ml); URINE BENZODIAZEPINES Negative (200ng/ml); URINE CANNABINOIDS (THC) Negative (50ng/ml); URINE COCAINE Negative (300ng/ml); URINE METHADONE Negative (300ng/ml); URINE OPIATES Negative (300ng/ml); URINE PHENCYCLIDINE Negative (25ng/ml)
[2025-04-01 19:56] LABS: BACTERIA 3+
[2025-04-01] MEDS ORDERED: cefTRIAXone Sodium 1 GM VIAL IM ONE (20:05)
[2025-04-01] MEDS ORDERED: ACETAMINOPHEN 325 MG TAB PO ONE (20:05)
[2025-04-01] MEDS ORDERED: Water, Sterile 10 ML VIAL ONE (20:55)
[2025-04-01] MEDS ORDERED: OMNICEF300 MG PO (22:14)
[2025-04-01] MEDS ORDERED: LORazepam 1 MG TAB PO ONE (22:50)
== END 2025-04-01 22:17 | disposition home or self-care (01) ==
LOC: ED 18:12
PROVIDERS: Nurse Practitioner Family
DX: R25.9 Unspecified abnormal involuntary movements (principal); F41.1 Generalized anxiety disorder; G89.29 Other chronic pain; N39.0 Urinary tract infection, site not specified; R07.2 Precordial pain; J44.9 Chronic obstructive pulmonary disease, unspecified; F41.9 Anxiety disorder, unspecified; E11.9 Type 2 diabetes mellitus without complications; I10 Essential (primary) hypertension; E78.5 Hyperlipidemia, unspecified; K21.9 Gastro-esophageal reflux disease without esophagitis; M79.7 Fibromyalgia; I25.10 Atherosclerotic heart disease of native coronary artery without angina pectoris; F32.A Depression, unspecified; Z91.041 Radiographic dye allergy status; Z88.6 Allergy status to analgesic agent; Z88.8 Allergy status to other drugs, medicaments and biological substances; Z79.899 Other long term (current) drug therapy; Z98.890 Other specified postprocedural states; Z87.891 Personal history of nicotine dependence

== ENCOUNTER 2025-04-23 15:28 | Emergency (ER) | payer OTHER ==
[2025-04-23 16:51] LABS: BASO # 0.1 10*3/uL (0.0-0.1); BASO % 0.6 % (0.0-1.0); EOS # 0.2 10*3/uL (0.0-0.4); EOS % 1.4 % (1.0-4.0); HEMATOCRIT 45.8 % (37.0-47.0); MEAN CELL VOLUME 105.3 fl (81.0-99.0); MEAN CORPUSCULAR HGB 34.5 pg (27.0-31.0); MEAN CORPUSCULAR HGB CONC 32.8 g/dl (33.0-37.0); MEAN PLATELET VOLUME 8.5 fl (9.6-12.3); MONO # 1.1 10*3/uL (0.1-1.0); MONO % 6.7 % (3.0-9.0); NEUT # 11.5 10*3/uL (2.3-7.9); NEUT % 71.4 % (47.0-73.0); PLATELET COUNT AUTOMATED 271 10*3/uL (130-400); RED BLOOD COUNT 4.35 10*6/uL (4.10-5.10); WHITE BLOOD COUNT 16.1 10*3/uL (4.8-10.8)
[2025-04-23 17:14] LABS: BUN 10 mg/dl (9-23); CHLORIDE 106 mmol/L (98-107); POTASSIUM 3.7 mmol/L (3.4-5.1)
[2025-04-23] MEDS ORDERED: Albuterol Sulf/Ipratropium 3 ML VIAL NEB ONE (17:20)
[2025-04-23] MEDS ORDERED: methylPREDNISolone sod succ 125 MG VIAL IV ONE (17:20)
[2025-04-23] MEDS ORDERED: diazePAM 5 MG TAB PO ONE (17:20)
[2025-04-23] MEDS ORDERED: METHOCARBAMOL750 M1 PO (18:54)
[2025-04-23] MEDS ORDERED: PREDNISONE20 M1 PO (18:54)
== END 2025-04-23 19:05 | disposition home or self-care (01) ==
LOC: ED 15:28
PROVIDERS: Nurse Practitioner Family
DX: J44.1 Chronic obstructive pulmonary disease with (acute) exacerbation (principal); R07.89 Other chest pain; K21.9 Gastro-esophageal reflux disease without esophagitis; F32.A Depression, unspecified; F41.9 Anxiety disorder, unspecified; F17.200 Nicotine dependence, unspecified, uncomplicated; Z79.899 Other long term (current) drug therapy; Z88.6 Allergy status to analgesic agent; Z88.8 Allergy status to other drugs, medicaments and biological substances; Z98.51 Tubal ligation status; Z98.890 Other specified postprocedural states

== ENCOUNTER 2025-05-05 14:24 | Emergency (ER) | payer OTHER ==
[~2025-05-05] VITALS: Ht 142.2 cm; Wt 68.0 kg
[~2025-05-05 14:24] MED LIST changes: +METHOCARBAMOL750 M1 PO
[2025-05-05] MEDS ORDERED: ACETAMINOPHEN 325 MG TAB PO ONE (15:20)
[2025-05-05 15:52] LABS: MEAN CELL VOLUME 105.4 fl (81.0-99.0); MEAN CORPUSCULAR HGB 33.6 pg (27.0-31.0); MEAN PLATELET VOLUME 8.3 fl (9.6-12.3); NUCLEATED RED BLOOD CELL 0.0 % (0.0-0.0); NUCLEATED RED BLOOD CELL 0.0 10*3/uL (0.0-0.0); PLATELET COUNT AUTOMATED 332 10*3/uL (130-400); RED CELL DISTRI WIDTH 14.3 % (0-14.5)
[2025-05-05 16:04] LABS: MANUAL DIFF REFLEX YES
[2025-05-05 16:10] LABS: BUN 15 mg/dl (9-23)
[2025-05-05 16:17] LABS: PLATELET SUFFICIENCY NORMAL (NORMAL)
[2025-05-05 16:45] LABS: BILIRUBIN Negative (Negative); BLOOD Trace-Lysed (Negative); CLARITY Clear (Clear); COLOR Yellow (Yellow); KETONE Negative (Negative); LEUKO ESTERASE Negative (Negative); NITRITE Negative (Negative); PH 6.5 (4.5-8.0); SPECIFIC GRAVITY 1.025 (1.001-1.030); UROBILINOGEN 0.2 E.U./dl (0.0-1.0)
[2025-05-05 16:53] LABS: BACTERIA 1+; EPITHELIAL CELLS 21-30
[2025-05-05] MEDS ORDERED: NITROGLYCERIN 0.4 MG BOT SL ONE (17:00)
== END 2025-05-05 18:30 | disposition home or self-care (01) ==
LOC: ED 14:24
PROVIDERS: Nurse Practitioner Family
DX: R07.89 Other chest pain (principal); R20.2 Paresthesia of skin; R53.1 Weakness; R42 Dizziness and giddiness; F17.200 Nicotine dependence, unspecified, uncomplicated; Z91.041 Radiographic dye allergy status; Z88.6 Allergy status to analgesic agent; Z79.899 Other long term (current) drug therapy; Z98.890 Other specified postprocedural states

== ENCOUNTER 2025-05-17 16:51 | Emergency (ER) | payer OTHER ==
[~2025-05-17] VITALS: Ht 142.2 cm; Wt 68.0 kg
[2025-05-17] MEDS ORDERED: Metoclopramide Hydrochloride 10 MG/2 ML VIAL IV ONE (17:25)
[2025-05-17] MEDS ORDERED: Ondansetron Hydrochloride 4 MG/2 ML VIAL IV ONE (17:25)
[2025-05-17] MEDS ORDERED: diphenhydrAMINE hydrochloride 50 MG/ML VIAL IV ONE (17:30)
[2025-05-17 17:44] LABS: MEAN CELL VOLUME 104.6 fl (81.0-99.0); MEAN CORPUSCULAR HGB 34.1 pg (27.0-31.0); MEAN PLATELET VOLUME 8.5 fl (9.6-12.3); NUCLEATED RED BLOOD CELL 0.0 % (0.0-0.0); NUCLEATED RED BLOOD CELL 0.0 10*3/uL (0.0-0.0); PLATELET COUNT AUTOMATED 315 10*3/uL (130-400); RED CELL DISTRI WIDTH 14.1 % (0-14.5)
[2025-05-17 17:50] LABS: MANUAL DIFF REFLEX YES
[2025-05-17 18:07] LABS: BUN 10 mg/dl (9-23); CPK 34 U/L (34-171); SGPT/ALT 9 U/L (5-49)
[2025-05-17 18:14] LABS: BASOPHILS 1 % (0-1); PLATELET SUFFICIENCY NORMAL (NORMAL)
[2025-05-17] MEDS ORDERED: Ondansetron4 MG PO (19:06)
[2025-05-17] MEDS ORDERED: REGLAN10 M1 PO (19:06)
== END 2025-05-17 20:51 | disposition home or self-care (01) ==
LOC: ED 16:51
PROVIDERS: Emergency Medicine
DX: B34.9 Viral infection, unspecified (principal); R07.89 Other chest pain; R10.13 Epigastric pain; R11.0 Nausea; R10.10 Upper abdominal pain, unspecified; F41.9 Anxiety disorder, unspecified; F32.A Depression, unspecified; F17.210 Nicotine dependence, cigarettes, uncomplicated; Z91.041 Radiographic dye allergy status; Z88.6 Allergy status to analgesic agent; Z79.899 Other long term (current) drug therapy; Z98.890 Other specified postprocedural states

== ENCOUNTER 2025-06-24 19:57 | Emergency (ER) | payer OTHER ==
[~2025-06-24] VITALS: Ht 142.2 cm; Wt 63.5 kg
[~2025-06-24 19:57] MED LIST changes: +DOXYCYCLINE MO100 MG PO; +OXYCODONE HCL5 MG PO; +REGLAN10 M1 PO; +ZYVOX600 MG PO
[2025-06-24 21:31] LABS: BILIRUBIN Negative (Negative); BLOOD 1+ (Negative); CLARITY Clear (Clear); COLOR Yellow (Yellow); KETONE Negative (Negative); LEUKO ESTERASE 2+ (Negative); NITRITE Negative (Negative); PH 6.0 (4.5-8.0); SPECIFIC GRAVITY 1.010 (1.001-1.030); UROBILINOGEN 0.2 E.U./dl (0.0-1.0)
[2025-06-24 21:48] LABS: BACTERIA 1+; WBC 21-30 wbc/hpf (0-5)
[2025-06-24] MEDS ORDERED: Ciprofloxacin Hydrochloride 500 MG TAB PO ONE (22:30)
[2025-06-24] MEDS ORDERED: Ondansetron Hydrochloride 4 MG TAB SL ONE (22:30)
== END 2025-06-24 23:21 | disposition home or self-care (01) ==
LOC: ED 19:57
PROVIDERS: Internal Medicine
DX: N39.0 Urinary tract infection, site not specified (principal); F17.210 Nicotine dependence, cigarettes, uncomplicated; Z98.51 Tubal ligation status; Z98.890 Other specified postprocedural states; Z88.6 Allergy status to analgesic agent; Z88.8 Allergy status to other drugs, medicaments and biological substances

== ENCOUNTER 2025-06-26 20:55 | Emergency (ER) | payer OTHER ==
[~2025-06-26] VITALS: Ht 142.2 cm; Wt 68.0 kg
[2025-06-26 21:14] LABS: BASO # 0.1 10*3/uL (0.0-0.1); BASO % 0.7 % (0.0-1.0); EOS # 0.1 10*3/uL (0.0-0.4); EOS % 0.3 % (1.0-4.0); MEAN CELL VOLUME 107.1 fl (81.0-99.0); MEAN CORPUSCULAR HGB 33.5 pg (27.0-31.0); MEAN PLATELET VOLUME 8.6 fl (9.6-12.3); MONO # 1.5 10*3/uL (0.1-1.0); MONO % 8.4 % (3.0-9.0); NEUT # 12.2 10*3/uL (2.3-7.9); NEUT % 69.9 % (47.0-73.0); NUCLEATED RED BLOOD CELL 0.0 % (0.0-0.0); NUCLEATED RED BLOOD CELL 0.0 10*3/uL (0.0-0.0); PLATELET COUNT AUTOMATED 307 10*3/uL (130-400); RED CELL DISTRI WIDTH 14.5 % (0-14.5)
[2025-06-26 21:35] LABS: BUN 12 mg/dl (9-23)
[2025-06-26] MEDS ORDERED: Ondansetron Hydrochloride 4 MG TAB SL ONE (22:15)
[2025-06-27] MEDS ORDERED: MACROBID100 M1 PO (10:57)
== END 2025-06-27 00:24 | disposition home or self-care (01) ==
LOC: ED 20:55
PROVIDERS: Internal Medicine
DX: R07.89 Other chest pain (principal); D72.829 Elevated white blood cell count, unspecified; D75.89 Other specified diseases of blood and blood-forming organs; I10 Essential (primary) hypertension; E78.5 Hyperlipidemia, unspecified; E11.9 Type 2 diabetes mellitus without complications; F17.210 Nicotine dependence, cigarettes, uncomplicated; Z98.51 Tubal ligation status; Z88.6 Allergy status to analgesic agent; Z88.8 Allergy status to other drugs, medicaments and biological substances; Z98.890 Other specified postprocedural states

== ENCOUNTER 2025-07-02 16:55 | Inpatient (IN) | payer OTHER ==
[~2025-07-02] VITALS: Ht 142.2 cm; Wt 75.6 kg
[2025-07-02 17:05] VITALS: BP 139/75
[2025-07-02] MEDS ORDERED: SODIUM CHLORIDE 0.9% 1,000 ML IV SCH (17:25)
[2025-07-02 17:48] LABS: MEAN CELL VOLUME 104.8 fl (81.0-99.0); MEAN CORPUSCULAR HGB 33.7 pg (27.0-31.0); MEAN PLATELET VOLUME 8.7 fl (9.6-12.3); NUCLEATED RED BLOOD CELL 0.0 % (0.0-0.0); NUCLEATED RED BLOOD CELL 0.0 10*3/uL (0.0-0.0); PLATELET COUNT AUTOMATED 357 10*3/uL (130-400); RED CELL DISTRI WIDTH 14.1 % (0-14.5)
[2025-07-02 17:51] LABS: MANUAL DIFF REFLEX YES
[2025-07-02 18:06] LABS: BUN 13 mg/dl (9-23)
[2025-07-02 18:17] LABS: PLATELET SUFFICIENCY NORMAL (NORMAL)
[2025-07-02 19:03] LABS: BILIRUBIN Negative (Negative); BLOOD 1+ (Negative); CLARITY Cloudy (Clear); COLOR Yellow (Yellow); KETONE Trace (Negative); LEUKO ESTERASE 3+ (Negative); NITRITE Negative (Negative); PH 6.0 (4.5-8.0); SPECIFIC GRAVITY 1.025 (1.001-1.030); UROBILINOGEN 1.0 E.U./dl (0.0-1.0)
[2025-07-02 19:17] VITALS: BP 112/51
[2025-07-02 19:23] LABS: BACTERIA 3+; WBC 21-30 wbc/hpf (0-5)
[2025-07-02] MEDS ORDERED: ACETAMINOPHEN 325 MG TAB PO PRN (20:55)
[2025-07-02] MEDS ORDERED: ACETAMINOPHEN 650 MG SUPP R PRN (20:55)
[2025-07-02] MEDS ORDERED: BISACODYL 5 MG TAB PO PRN (20:55)
[2025-07-02] MEDS ORDERED: Ondansetron Hydrochloride 4 MG/2 ML VIAL IV PRN (20:55)
[2025-07-02] MEDS ORDERED: Acetaminophen/Hydrocodone 5 MG/325 MG TABLET PO PRN (20:55)
[2025-07-02] MEDS ORDERED: BISACODYL 10 MG SUPP R PRN (20:55)
[2025-07-02] MEDS ORDERED: LINEZOLID 300 ML IV SCH (22:00)
[2025-07-02 23:09] VITALS: BP 109/47
[2025-07-02 23:30] VITALS: BP 112/60
[2025-07-03] MEDS ORDERED: LORazepam 0.5 MG TAB PO PRN (01:05)
[2025-07-03 02:00] VITALS: BP 129/62
[2025-07-03 06:51] LABS: MEAN CELL VOLUME 103.9 fl (81.0-99.0); MEAN CORPUSCULAR HGB 33.7 pg (27.0-31.0); MEAN PLATELET VOLUME 8.8 fl (9.6-12.3); NUCLEATED RED BLOOD CELL 0.0 % (0.0-0.0); NUCLEATED RED BLOOD CELL 0.0 10*3/uL (0.0-0.0); PLATELET COUNT AUTOMATED 274 10*3/uL (130-400); RED CELL DISTRI WIDTH 14.2 % (0-14.5)
[2025-07-03 06:52] LABS: MANUAL DIFF REFLEX YES
[2025-07-03 07:28] LABS: BUN 11 mg/dl (9-23)
[2025-07-03 07:45] LABS: PLATELET SUFFICIENCY NORMAL (NORMAL)
[2025-07-03 08:00] VITALS: BP 110/95
[2025-07-03] MEDS ORDERED: ATORVASTATIN CALCIUM 20 MG TAB PO SCH (10:00)
[2025-07-03] MEDS ORDERED: Clopidogrel Hydrogen Sulfate 75 MG TAB PO SCH (10:00)
[2025-07-03] MEDS ORDERED: FERROUS SULFATE 325 MG TAB PO SCH (10:00)
[2025-07-03] MEDS ORDERED: VERAPAMIL HYDROCHLORIDE 120 MG PO SCH (10:00)
[2025-07-03] MEDS ORDERED: Cholecalciferol 5,000 IU CAP (125 MCG) PO SCH (10:00)
[2025-07-03] MEDS ORDERED: SUCRALFATE 1 GM TAB PO SCH (10:00)
[2025-07-03] MEDS ORDERED: RIVAROXABAN 20 MG TAB PO SCH (10:00)
[2025-07-03] MEDS ORDERED: ESCITALOPRAM OXALATE 20 MG TAB PO SCH (10:00)
[2025-07-03] MEDS ORDERED: Propafenone Hydrochloride 150 MG TAB PO SCH (10:00)
[2025-07-03] MEDS ORDERED: GABAPENTIN 400 MG CAP PO SCH ×2 (10:00→14:00)
[2025-07-03] MEDS ORDERED: LINEZOLID 300 ML IV SCH (11:00)
[2025-07-03 12:00] VITALS: BP 122/64
[2025-07-03 16:00] VITALS: BP 106/58
[2025-07-03] MEDS ORDERED: LINEZOLID 600 MG TAB PO SCH (18:00)
[2025-07-03 20:00] VITALS: BP 124/69
[2025-07-04] VITALS: BP 116/57
[2025-07-04 08:00] VITALS: BP 102/65
[2025-07-04] MEDS ORDERED: CALCIUM (OSCAL) 500MG PO SCH (10:00)
[2025-07-04] MEDS ORDERED: HYDROCODONE-AC1 EAC1 PO (10:37)
[2025-07-04] MEDS ORDERED: LINEZOLID600 MG PO (10:37)
[2025-07-04 12:00] VITALS: BP 102/60
== END 2025-07-04 11:22 | disposition home or self-care (01) | DRG 872 ==
LOC: ED 16:55 → EDHOLD 19:44 → 5E 19:44
PROVIDERS: Nurse Practitioner Family; Student in an Organized Health Care Education/Training Program; ADMIT Internal Medicine; ATTEND Internal Medicine
DX: A41.9 Sepsis, unspecified organism (principal); N39.0 Urinary tract infection, site not specified; E87.20 Acidosis, unspecified; Z16.21 Resistance to vancomycin; N32.1 Vesicointestinal fistula; A49.1 Streptococcal infection, unspecified site; J44.9 Chronic obstructive pulmonary disease, unspecified; F32.A Depression, unspecified; K21.9 Gastro-esophageal reflux disease without esophagitis; M54.50 Low back pain, unspecified; E11.9 Type 2 diabetes mellitus without complications; F17.210 Nicotine dependence, cigarettes, uncomplicated; E66.9 Obesity, unspecified; I25.10 Atherosclerotic heart disease of native coronary artery without angina pectoris; F41.1 Generalized anxiety disorder; R65.20 Severe sepsis without septic shock; D75.89 Other specified diseases of blood and blood-forming organs; R33.9 Retention of urine, unspecified; I48.0 Paroxysmal atrial fibrillation; R31.21 Asymptomatic microscopic hematuria; I25.2 Old myocardial infarction; Z88.8 Allergy status to other drugs, medicaments and biological substances; Z91.09 Other allergy status, other than to drugs and biological substances; Z86.73 Personal history of transient ischemic attack (TIA), and cerebral infarction without residual deficits; Z82.49 Family history of ischemic heart disease and other diseases of the circulatory system; Z78.9 Other specified health status; Z82.5 Family history of asthma and other chronic lower respiratory diseases; Z82.0 Family history of epilepsy and other diseases of the nervous system; Z79.899 Other long term (current) drug therapy; Z68.38 Body mass index [BMI] 38.0-38.9, adult; Z71.6 Tobacco abuse counseling; Z79.01 Long term (current) use of anticoagulants; Z79.2 Long term (current) use of antibiotics

== ENCOUNTER 2025-07-22 17:25 | Emergency (ER) | payer OTHER ==
[~2025-07-22] VITALS: Ht 142.2 cm; Wt 63.5 kg
[~2025-07-22 17:25] MED LIST changes: +LINEZOLID600 MG PO
[2025-07-22 20:14] LABS: BASO # 0.1 10*3/uL (0.0-0.1); BASO % 1.0 % (0.0-1.0); EOS # 0.2 10*3/uL (0.0-0.4); EOS % 1.6 % (1.0-4.0); MEAN CELL VOLUME 101.6 fl (81.0-99.0); MEAN CORPUSCULAR HGB 33.5 pg (27.0-31.0); MEAN PLATELET VOLUME 8.4 fl (9.6-12.3); MONO # 1.1 10*3/uL (0.1-1.0); MONO % 10.8 % (3.0-9.0); NEUT # 5.6 10*3/uL (2.3-7.9); NEUT % 56.6 % (47.0-73.0); NUCLEATED RED BLOOD CELL 0.0 % (0.0-0.0); NUCLEATED RED BLOOD CELL 0.0 10*3/uL (0.0-0.0); PLATELET COUNT AUTOMATED 296 10*3/uL (130-400); RED CELL DISTRI WIDTH 13.1 % (0-14.5)
[2025-07-22] MEDS ORDERED: Ondansetron Hydrochloride 4 MG/2 ML VIAL IV ONE (20:15)
[2025-07-22] MEDS ORDERED: SODIUM CHLORIDE 0.9% 1,000 ML IV ONE (20:15)
[2025-07-22 20:44] LABS: BUN 12 mg/dl (9-23); SGPT/ALT 8 U/L (5-49)
[2025-07-22 21:49] LABS: BILIRUBIN Negative (Negative); BLOOD 1+ (Negative); CLARITY Clear (Clear); COLOR Yellow (Yellow); KETONE Trace (Negative); LEUKO ESTERASE 3+ (Negative); NITRITE Negative (Negative); PH 6.0 (4.5-8.0); SPECIFIC GRAVITY 1.025 (1.001-1.030); UROBILINOGEN 1.0 E.U./dl (0.0-1.0)
[2025-07-22 21:59] LABS: BACTERIA 1+
== END 2025-07-23 00:18 | disposition left against medical advice (07) ==
LOC: ED 17:25
PROVIDERS: Emergency Medicine
DX: R07.89 Other chest pain (principal); N39.0 Urinary tract infection, site not specified; R11.2 Nausea with vomiting, unspecified; R19.7 Diarrhea, unspecified; I48.91 Unspecified atrial fibrillation; I25.10 Atherosclerotic heart disease of native coronary artery without angina pectoris; J44.9 Chronic obstructive pulmonary disease, unspecified; F32.A Depression, unspecified; E11.9 Type 2 diabetes mellitus without complications; F41.1 Generalized anxiety disorder; K21.9 Gastro-esophageal reflux disease without esophagitis; E66.9 Obesity, unspecified; F17.210 Nicotine dependence, cigarettes, uncomplicated; Z68.30 Body mass index [BMI] 30.0-30.9, adult; Z88.6 Allergy status to analgesic agent; Z98.51 Tubal ligation status; Z98.890 Other specified postprocedural states; Z88.8 Allergy status to other drugs, medicaments and biological substances; Z86.73 Personal history of transient ischemic attack (TIA), and cerebral infarction without residual deficits; Z20.822 Contact with and (suspected) exposure to COVID-19

== ENCOUNTER 2025-07-29 16:00 | Emergency (ER) | payer OTHER ==
[~2025-07-29] VITALS: Ht 172.7 cm; Wt 68.0 kg
[2025-07-29] MEDS ORDERED: Ondansetron Hydrochloride 4 MG/2 ML VIAL IV ONE (16:45)
[2025-07-29] MEDS ORDERED: SODIUM CHLORIDE 0.9% 1,000 ML IV ONE (16:45)
[2025-07-29 17:22] LABS: BASO # 0.1 10*3/uL (0.0-0.1); BASO % 0.9 % (0.0-1.0); EOS # 0.1 10*3/uL (0.0-0.4); EOS % 1.1 % (1.0-4.0); MEAN CELL VOLUME 101.5 fl (81.0-99.0); MEAN CORPUSCULAR HGB 33.4 pg (27.0-31.0); MEAN PLATELET VOLUME 8.4 fl (9.6-12.3); MONO # 1.1 10*3/uL (0.1-1.0); MONO % 9.6 % (3.0-9.0); NEUT # 7.7 10*3/uL (2.3-7.9); NEUT % 64.7 % (47.0-73.0); NUCLEATED RED BLOOD CELL 0.0 % (0.0-0.0); NUCLEATED RED BLOOD CELL 0.0 10*3/uL (0.0-0.0); PLATELET COUNT AUTOMATED 285 10*3/uL (130-400); RED CELL DISTRI WIDTH 13.6 % (0-14.5)
[2025-07-29 17:41] LABS: BUN 7 mg/dl (9-23)
== END 2025-07-29 18:37 | disposition home or self-care (01) ==
LOC: ED 16:00
PROVIDERS: Emergency Medicine
DX: R07.89 Other chest pain (principal); J44.1 Chronic obstructive pulmonary disease with (acute) exacerbation; F41.9 Anxiety disorder, unspecified; F32.A Depression, unspecified; I10 Essential (primary) hypertension; I25.10 Atherosclerotic heart disease of native coronary artery without angina pectoris; E78.5 Hyperlipidemia, unspecified; F17.210 Nicotine dependence, cigarettes, uncomplicated; Z91.041 Radiographic dye allergy status; Z88.6 Allergy status to analgesic agent; Z88.8 Allergy status to other drugs, medicaments and biological substances; Z79.899 Other long term (current) drug therapy; Z79.84 Long term (current) use of oral hypoglycemic drugs

== ENCOUNTER 2025-08-01 15:58 | Emergency (ER) | payer OTHER ==
[~2025-08-01] VITALS: Ht 142.2 cm; Wt 70.3 kg
[2025-08-01 18:03] LABS: BILIRUBIN Negative (Negative); BLOOD 3+ (Negative); CLARITY Cloudy (Clear); COLOR Orange (Yellow); KETONE Negative (Negative); LEUKO ESTERASE 3+ (Negative); NITRITE Negative (Negative); PH 6.5 (4.5-8.0); SPECIFIC GRAVITY 1.010 (1.001-1.030); UROBILINOGEN 0.2 E.U./dl (0.0-1.0)
[2025-08-01 18:13] LABS: BACTERIA 3+; RBC 31-40 rbc/hpf (0-2); WBC 16-20 wbc/hpf (0-5)
[2025-08-01] MEDS ORDERED: KEFLEX 500 MG E2 CAP PO (18:26)
[2025-08-01] MEDS ORDERED: MACROBID100 M1 PO (18:29)
== END 2025-08-01 18:35 | disposition home or self-care (01) ==
LOC: ED 15:58
PROVIDERS: Student in an Organized Health Care Education/Training Program
DX: N39.0 Urinary tract infection, site not specified (principal); R05.9 Cough, unspecified; R33.9 Retention of urine, unspecified; J44.9 Chronic obstructive pulmonary disease, unspecified; F17.210 Nicotine dependence, cigarettes, uncomplicated; Z91.041 Radiographic dye allergy status; Z88.6 Allergy status to analgesic agent; Z79.899 Other long term (current) drug therapy; Z79.84 Long term (current) use of oral hypoglycemic drugs; Z98.890 Other specified postprocedural states

== ENCOUNTER 2025-08-02 13:47 | Emergency (ER) | payer OTHER ==
[~2025-08-02] VITALS: Ht 142.2 cm; Wt 63.5 kg
[~2025-08-02 13:47] MED LIST changes: +KEFLEX 500 MG E2 CAP PO
[2025-08-02 15:55] LABS: MEAN CELL VOLUME 101.4 fl (81.0-99.0); MEAN CORPUSCULAR HGB 33.8 pg (27.0-31.0); MEAN PLATELET VOLUME 8.6 fl (9.6-12.3); NUCLEATED RED BLOOD CELL 0.0 % (0.0-0.0); NUCLEATED RED BLOOD CELL 0.0 10*3/uL (0.0-0.0); PLATELET COUNT AUTOMATED 320 10*3/uL (130-400); RED CELL DISTRI WIDTH 13.7 % (0-14.5)
[2025-08-02 16:26] LABS: MANUAL DIFF REFLEX YES
[2025-08-02 16:27] LABS: BUN 10 mg/dl (9-23)
[2025-08-02 16:39] LABS: PLATELET SUFFICIENCY NORMAL (NORMAL)
== END 2025-08-02 16:52 | disposition home or self-care (01) ==
LOC: ED 13:47
PROVIDERS: Nurse Practitioner Family
DX: R33.9 Retention of urine, unspecified (principal); R05.9 Cough, unspecified; R09.81 Nasal congestion; I48.91 Unspecified atrial fibrillation; I25.10 Atherosclerotic heart disease of native coronary artery without angina pectoris; J44.9 Chronic obstructive pulmonary disease, unspecified; K21.9 Gastro-esophageal reflux disease without esophagitis; F41.9 Anxiety disorder, unspecified; F32.A Depression, unspecified; E11.9 Type 2 diabetes mellitus without complications; F17.210 Nicotine dependence, cigarettes, uncomplicated; Z91.041 Radiographic dye allergy status; Z88.6 Allergy status to analgesic agent; Z88.8 Allergy status to other drugs, medicaments and biological substances; Z79.899 Other long term (current) drug therapy; Z79.84 Long term (current) use of oral hypoglycemic drugs; Z86.73 Personal history of transient ischemic attack (TIA), and cerebral infarction without residual deficits; Z98.890 Other specified postprocedural states

== ENCOUNTER 2025-08-03 16:18 | Emergency (ER) | payer OTHER ==
[~2025-08-03] VITALS: Ht 142.2 cm; Wt 68.0 kg
== END 2025-08-03 19:20 | disposition home or self-care (01) ==
LOC: ED 16:18
DX: T83.038A Leakage of other urinary catheter, initial encounter (principal); R33.9 Retention of urine, unspecified; F41.9 Anxiety disorder, unspecified; F32.A Depression, unspecified; F17.210 Nicotine dependence, cigarettes, uncomplicated; Z91.041 Radiographic dye allergy status; Z88.6 Allergy status to analgesic agent; Z88.8 Allergy status to other drugs, medicaments and biological substances; Z79.899 Other long term (current) drug therapy; Z79.84 Long term (current) use of oral hypoglycemic drugs; Z98.890 Other specified postprocedural states; Y84.8 Other medical procedures as the cause of abnormal reaction of the patient, or of later complication, without mention of misadventure at the time of the procedure; Y92.89 Other specified places as the place of occurrence of the external cause

== ENCOUNTER 2025-08-04 16:33 | Emergency (ER) | payer OTHER ==
[~2025-08-04] VITALS: Ht 142.2 cm; Wt 63.5 kg
== END 2025-08-04 18:08 | disposition home or self-care (01) ==
LOC: ED 16:33
DX: N39.0 Urinary tract infection, site not specified (principal); R42 Dizziness and giddiness; Z96.0 Presence of urogenital implants; I48.91 Unspecified atrial fibrillation; I25.10 Atherosclerotic heart disease of native coronary artery without angina pectoris; F32.A Depression, unspecified; E11.9 Type 2 diabetes mellitus without complications; K21.9 Gastro-esophageal reflux disease without esophagitis; F17.210 Nicotine dependence, cigarettes, uncomplicated; Z91.041 Radiographic dye allergy status; Z88.6 Allergy status to analgesic agent; Z79.899 Other long term (current) drug therapy; Z86.73 Personal history of transient ischemic attack (TIA), and cerebral infarction without residual deficits; Z98.890 Other specified postprocedural states

== ENCOUNTER 2025-08-08 15:35 | Emergency (ER) | payer OTHER ==
[~2025-08-08] VITALS: Wt 68.0 kg
[2025-08-08 16:23] LABS: MEAN CELL VOLUME 102.9 fl (81.0-99.0); MEAN CORPUSCULAR HGB 34.2 pg (27.0-31.0); MEAN PLATELET VOLUME 8.5 fl (9.6-12.3); NUCLEATED RED BLOOD CELL 0.0 % (0.0-0.0); NUCLEATED RED BLOOD CELL 0.0 10*3/uL (0.0-0.0); PLATELET COUNT AUTOMATED 355 10*3/uL (130-400); RED CELL DISTRI WIDTH 13.9 % (0-14.5)
[2025-08-08 16:38] LABS: BUN 13 mg/dl (9-23); MANUAL DIFF REFLEX YES
[2025-08-08 16:55] LABS: PLATELET SUFFICIENCY NORMAL (NORMAL)
[2025-08-08 18:49] LABS: BILIRUBIN Negative (Negative); BLOOD Trace-Intact (Negative); CLARITY Clear (Clear); COLOR Yellow (Yellow); KETONE Negative (Negative); LEUKO ESTERASE 1+ (Negative); NITRITE Negative (Negative); PH 7.0 (4.5-8.0); SPECIFIC GRAVITY 1.010 (1.001-1.030); UROBILINOGEN 0.2 E.U./dl (0.0-1.0)
[2025-08-08 19:08] LABS: BACTERIA 1+
== END 2025-08-08 19:40 | disposition home or self-care (01) ==
LOC: ED 15:35
PROVIDERS: Emergency Medicine
DX: R07.89 Other chest pain (principal); F32.A Depression, unspecified; F41.9 Anxiety disorder, unspecified; K21.9 Gastro-esophageal reflux disease without esophagitis; J44.9 Chronic obstructive pulmonary disease, unspecified; F17.210 Nicotine dependence, cigarettes, uncomplicated; Z98.51 Tubal ligation status; Z98.890 Other specified postprocedural states; Z88.6 Allergy status to analgesic agent; Z88.1 Allergy status to other antibiotic agents; Z88.8 Allergy status to other drugs, medicaments and biological substances

== ENCOUNTER 2025-08-11 15:23 | Emergency (ER) | payer OTHER ==
[~2025-08-11] VITALS: Ht 142.2 cm; Wt 63.5 kg
[2025-08-11 16:16] LABS: MEAN CELL VOLUME 103.4 fl (81.0-99.0); MEAN CORPUSCULAR HGB 33.8 pg (27.0-31.0); MEAN PLATELET VOLUME 8.5 fl (9.6-12.3); NUCLEATED RED BLOOD CELL 0.0 % (0.0-0.0); NUCLEATED RED BLOOD CELL 0.0 10*3/uL (0.0-0.0); PLATELET COUNT AUTOMATED 335 10*3/uL (130-400); RED CELL DISTRI WIDTH 14.0 % (0-14.5)
[2025-08-11 16:35] LABS: MANUAL DIFF REFLEX YES
[2025-08-11 16:36] LABS: BUN 9 mg/dl (9-23); CPK 24 U/L (34-171)
[2025-08-11 16:51] LABS: ACT PARTIAL THROMBO TIME 28.6 SECONDS (20.0-32.1)
[2025-08-11 16:53] LABS: BASOPHILS 1 % (0-1); PLATELET SUFFICIENCY NORMAL (NORMAL)
[2025-08-11] MEDS ORDERED: SODIUM CHLORIDE 0.9% 1,000 ML IV ONE (17:15)
[2025-08-11] MEDS ORDERED: METHOCARBAMOL 750 MG TAB PO ONE (17:15)
[2025-08-11] MEDS ORDERED: LINEZOLID 300 ML IV ONE (17:30)
== END 2025-08-11 19:16 | disposition short-term general hospital (02) ==
LOC: ED 15:23
PROVIDERS: Emergency Medicine
DX: I63.9 Cerebral infarction, unspecified (principal); N39.0 Urinary tract infection, site not specified; J44.9 Chronic obstructive pulmonary disease, unspecified; F32.A Depression, unspecified; F17.200 Nicotine dependence, unspecified, uncomplicated; Z79.899 Other long term (current) drug therapy; Z16.21 Resistance to vancomycin; Z88.6 Allergy status to analgesic agent; Z91.041 Radiographic dye allergy status; Z90.89 Acquired absence of other organs; Z98.51 Tubal ligation status; Z98.890 Other specified postprocedural states

== ENCOUNTER 2025-08-20 17:03 | Emergency (ER) | payer OTHER ==
[~2025-08-20] VITALS: Ht 142.2 cm; Wt 63.5 kg
[2025-08-20] MEDS ORDERED: methylPREDNISolone sod succ 1,000 MG/16 ML VIAL IM ONE (17:45)
== END 2025-08-20 19:51 | disposition home or self-care (01) ==
LOC: ED 17:03
DX: J06.9 Acute upper respiratory infection, unspecified (principal); I25.10 Atherosclerotic heart disease of native coronary artery without angina pectoris; I10 Essential (primary) hypertension; E78.5 Hyperlipidemia, unspecified; K21.9 Gastro-esophageal reflux disease without esophagitis; F41.9 Anxiety disorder, unspecified; E11.9 Type 2 diabetes mellitus without complications; F17.210 Nicotine dependence, cigarettes, uncomplicated; Z91.041 Radiographic dye allergy status; Z88.6 Allergy status to analgesic agent; Z88.8 Allergy status to other drugs, medicaments and biological substances; Z79.899 Other long term (current) drug therapy; Z20.822 Contact with and (suspected) exposure to COVID-19

== ENCOUNTER 2025-08-27 19:39 | Observation (INO) | payer OTHER ==
[~2025-08-27] VITALS: Ht 142.2 cm; Wt 75.4 kg
[2025-08-27 19:58] VITALS: BP 112/66
[2025-08-27 20:07] LABS: BASO # 0.2 10*3/uL (0.0-0.1); BASO % 1.4 % (0.0-1.0); EOS # 0.4 10*3/uL (0.0-0.4); EOS % 3.3 % (1.0-4.0); MEAN CELL VOLUME 104.8 fl (81.0-99.0); MEAN CORPUSCULAR HGB 33.6 pg (27.0-31.0); MEAN PLATELET VOLUME 8.6 fl (9.6-12.3); MONO # 1.1 10*3/uL (0.1-1.0); MONO % 8.3 % (3.0-9.0); NEUT # 7.9 10*3/uL (2.3-7.9); NEUT % 59.7 % (47.0-73.0); NUCLEATED RED BLOOD CELL 0.0 % (0.0-0.0); NUCLEATED RED BLOOD CELL 0.0 10*3/uL (0.0-0.0); PLATELET COUNT AUTOMATED 330 10*3/uL (130-400); RED CELL DISTRI WIDTH 13.7 % (0-14.5)
[2025-08-27 20:32] LABS: ACT PARTIAL THROMBO TIME 34.7 SECONDS (20.0-32.1)
[2025-08-27 20:37] LABS: BUN 9 mg/dl (9-23); CPK 27 U/L (34-171)
[2025-08-27] MEDS ORDERED: ACETAMINOPHEN 650 MG SUPP R PRN (21:10)
[2025-08-27] MEDS ORDERED: BISACODYL 5 MG TAB PO PRN (21:10)
[2025-08-27] MEDS ORDERED: Ondansetron Hydrochloride 4 MG/2 ML VIAL IV PRN (21:10)
[2025-08-27] MEDS ORDERED: ACETAMINOPHEN 325 MG TAB PO PRN (21:10)
[2025-08-27] MEDS ORDERED: Acetaminophen/Hydrocodone 5 MG/325 MG TABLET PO PRN (21:10)
[2025-08-27] MEDS ORDERED: BISACODYL 10 MG SUPP R PRN (21:10)
[2025-08-27 23:12] VITALS: BP 123/69
[2025-08-27 23:30] VITALS: BP 110/64
[2025-08-28] MEDS ORDERED: ACETAMINOPHEN 60 ML IV ONE (00:05)
[2025-08-28] MEDS ORDERED: ACETAMINOPHEN 100 ML IV ONE ×2 (00:54→08:25)
[2025-08-28] MEDS ORDERED: DEXTROSE 50% 25 GM/50 ML VIAL IV PRN (01:50)
[2025-08-28 03:19] LABS: BASO # 0.1 10*3/uL (0.0-0.1); BASO % 1.1 % (0.0-1.0); EOS # 0.4 10*3/uL (0.0-0.4); EOS % 3.8 % (1.0-4.0); MEAN CELL VOLUME 103.1 fl (81.0-99.0); MEAN CORPUSCULAR HGB 34.0 pg (27.0-31.0); MEAN PLATELET VOLUME 8.5 fl (9.6-12.3); MONO # 1.0 10*3/uL (0.1-1.0); MONO % 10.3 % (3.0-9.0); NEUT # 5.4 10*3/uL (2.3-7.9); NEUT % 52.8 % (47.0-73.0); NUCLEATED RED BLOOD CELL 0.0 % (0.0-0.0); NUCLEATED RED BLOOD CELL 0.0 10*3/uL (0.0-0.0); PLATELET COUNT AUTOMATED 282 10*3/uL (130-400); RED CELL DISTRI WIDTH 13.8 % (0-14.5)
[2025-08-28 03:38] LABS: ACT PARTIAL THROMBO TIME 31.9 SECONDS (20.0-32.1)
[2025-08-28 03:40] LABS: BUN 9 mg/dl (9-23)
[2025-08-28 03:41] LABS: SGPT/ALT < 7 U/L (5-49)
[2025-08-28] MEDS ORDERED: INSULIN LISPRO 1 UNIT/0.01 ML SQ SCH (07:30)
[2025-08-28 08:00] VITALS: BP 120/75
[2025-08-28] MEDS ORDERED: SUCRALFATE 1 GM TAB PO SCH (10:00)
[2025-08-28] MEDS ORDERED: Clopidogrel Hydrogen Sulfate 75 MG TAB PO SCH (10:00)
[2025-08-28] MEDS ORDERED: LORazepam 0.5 MG TAB PO SCH (10:00)
[2025-08-28] MEDS ORDERED: VERAPAMIL HYDROCHLORIDE 120 MG PO SCH (10:00)
[2025-08-28] MEDS ORDERED: Propafenone Hydrochloride 150 MG TAB PO SCH (10:00)
[2025-08-28] MEDS ORDERED: LISINOPRIL 2.5 MG TAB PO SCH (10:00)
[2025-08-28] MEDS ORDERED: GABAPENTIN 400 MG CAP PO SCH (10:00)
[2025-08-28] MEDS ORDERED: RIVAROXABAN 20 MG TAB PO SCH (10:00)
[2025-08-28 12:35] VITALS: BP 111/58
[2025-08-28 13:55] LABS: BILIRUBIN Negative (Negative); BLOOD Negative (Negative); CLARITY Clear (Clear); COLOR Yellow (Yellow); KETONE Negative (Negative); LEUKO ESTERASE 1+ (Negative); NITRITE Negative (Negative); PH 7.0 (4.5-8.0); SPECIFIC GRAVITY 1.015 (1.001-1.030); UROBILINOGEN 0.2 E.U./dl (0.0-1.0)
[2025-08-28 14:01] LABS: BACTERIA 1+
[2025-08-28] MEDS ORDERED: ATORVASTATIN CALCIUM 20 MG TAB PO SCH (22:00)
== END 2025-08-28 17:11 | disposition home or self-care (01) ==
LOC: ED 19:39 → EDHOLD 20:40 → 5E 22:55
PROVIDERS: Emergency Medicine; Student in an Organized Health Care Education/Training Program; ADMIT Internal Medicine; ATTEND Internal Medicine
DX: R53.1 Weakness (principal); D72.829 Elevated white blood cell count, unspecified; E11.65 Type 2 diabetes mellitus with hyperglycemia; I25.10 Atherosclerotic heart disease of native coronary artery without angina pectoris; K21.9 Gastro-esophageal reflux disease without esophagitis; F41.1 Generalized anxiety disorder; E78.5 Hyperlipidemia, unspecified; I10 Essential (primary) hypertension; J44.9 Chronic obstructive pulmonary disease, unspecified; F32.A Depression, unspecified; I48.91 Unspecified atrial fibrillation; D75.89 Other specified diseases of blood and blood-forming organs; Z79.01 Long term (current) use of anticoagulants; Z79.82 Long term (current) use of aspirin; Z79.899 Other long term (current) drug therapy

== ENCOUNTER 2025-09-08 18:46 | Emergency (ER) | payer OTHER ==
[~2025-09-08] VITALS: Ht 142.2 cm; Wt 68.0 kg
[2025-09-08] MEDS ORDERED: Albuterol Sulf/Ipratropium 3 ML VIAL NEB ONE ×2 (18:55→19:32)
[2025-09-08 19:30] LABS: BASO # 0.1 10*3/uL (0.0-0.1); BASO % 0.9 % (0.0-1.0); EOS # 0.2 10*3/uL (0.0-0.4); EOS % 1.5 % (1.0-4.0); MEAN CELL VOLUME 104.3 fl (81.0-99.0); MEAN CORPUSCULAR HGB 33.5 pg (27.0-31.0); MEAN PLATELET VOLUME 8.6 fl (9.6-12.3); MONO # 1.0 10*3/uL (0.1-1.0); MONO % 9.3 % (3.0-9.0); NEUT # 6.2 10*3/uL (2.3-7.9); NEUT % 59.8 % (47.0-73.0); NUCLEATED RED BLOOD CELL 0.0 % (0.0-0.0); NUCLEATED RED BLOOD CELL 0.0 10*3/uL (0.0-0.0); PLATELET COUNT AUTOMATED 300 10*3/uL (130-400); RED CELL DISTRI WIDTH 13.9 % (0-14.5)
[2025-09-08 19:35] LABS: BUN < 5 mg/dl (9-23); SGPT/ALT < 7 U/L (5-49)
[2025-09-08] MEDS ORDERED: Cyclobenzaprine Hydrochlorid 10 MG TAB PO ONE (21:10)
[2025-09-08] MEDS ORDERED: Cyclobenzaprine Hydrochlorid 10 MG TAB ONE (21:46)
[2025-09-08] MEDS ORDERED: CYCLOBENZAPRINE10 MG PO (21:57)
[2025-09-09] MEDS ORDERED: CYCLOBENZAPRINE10 MG PO ×2 (11:27→13:02)
== END 2025-09-08 22:27 | disposition home or self-care (01) ==
LOC: ED 18:46
DX: R07.89 Other chest pain (principal); J44.9 Chronic obstructive pulmonary disease, unspecified; E66.9 Obesity, unspecified; I48.91 Unspecified atrial fibrillation; I25.10 Atherosclerotic heart disease of native coronary artery without angina pectoris; F32.A Depression, unspecified; F41.9 Anxiety disorder, unspecified; E11.9 Type 2 diabetes mellitus without complications; K21.9 Gastro-esophageal reflux disease without esophagitis; F17.210 Nicotine dependence, cigarettes, uncomplicated; Z91.041 Radiographic dye allergy status; Z88.6 Allergy status to analgesic agent; Z79.899 Other long term (current) drug therapy; Z68.30 Body mass index [BMI] 30.0-30.9, adult; Z86.73 Personal history of transient ischemic attack (TIA), and cerebral infarction without residual deficits

== ENCOUNTER 2025-09-17 16:22 | Emergency (ER) | payer OTHER ==
[2025-09-17] MEDS ORDERED: METHOCARBAMOL 750 MG TAB PO ONE (16:40)
[2025-09-17] MEDS ORDERED: Albuterol Sulf/Ipratropium 3 ML VIAL NEB ONE (16:40)
[2025-09-17] MEDS ORDERED: VENT7GM INH (17:09)
== END 2025-09-17 17:20 | disposition home or self-care (01) ==
LOC: ED 16:22
DX: R07.89 Other chest pain (principal); R06.2 Wheezing; G89.29 Other chronic pain; F41.9 Anxiety disorder, unspecified; F32.A Depression, unspecified; K21.9 Gastro-esophageal reflux disease without esophagitis; J44.9 Chronic obstructive pulmonary disease, unspecified; F17.210 Nicotine dependence, cigarettes, uncomplicated; Z98.51 Tubal ligation status; Z88.1 Allergy status to other antibiotic agents; Z88.6 Allergy status to analgesic agent; Z88.8 Allergy status to other drugs, medicaments and biological substances

== ENCOUNTER 2025-09-28 16:04 | Emergency (ER) | payer OTHER ==
[~2025-09-28] VITALS: Ht 142.2 cm; Wt 63.5 kg
[2025-09-28 16:29] LABS: BASO # 0.1 10*3/uL (0.0-0.1); BASO % 1.0 % (0.0-1.0); EOS # 0.3 10*3/uL (0.0-0.4); EOS % 2.1 % (1.0-4.0); MEAN CELL VOLUME 101.7 fl (81.0-99.0); MEAN CORPUSCULAR HGB 33.7 pg (27.0-31.0); MEAN PLATELET VOLUME 9.1 fl (9.6-12.3); MONO # 1.3 10*3/uL (0.1-1.0); MONO % 9.2 % (3.0-9.0); NEUT # 9.3 10*3/uL (2.3-7.9); NEUT % 68.3 % (47.0-73.0); NUCLEATED RED BLOOD CELL 0.0 % (0.0-0.0); NUCLEATED RED BLOOD CELL 0.0 10*3/uL (0.0-0.0); PLATELET COUNT AUTOMATED 305 10*3/uL (130-400); RED CELL DISTRI WIDTH 13.4 % (0-14.5)
[2025-09-28 16:48] LABS: BUN 14 mg/dl (9-23)
== END 2025-09-28 18:56 | disposition home or self-care (01) ==
LOC: ED 16:04
PROVIDERS: Internal Medicine
DX: R07.89 Other chest pain (principal); F41.9 Anxiety disorder, unspecified; F32.A Depression, unspecified; K21.9 Gastro-esophageal reflux disease without esophagitis; F17.210 Nicotine dependence, cigarettes, uncomplicated; Z91.041 Radiographic dye allergy status; Z88.6 Allergy status to analgesic agent; Z88.8 Allergy status to other drugs, medicaments and biological substances; Z79.899 Other long term (current) drug therapy; Z79.84 Long term (current) use of oral hypoglycemic drugs; Z98.890 Other specified postprocedural states

== ENCOUNTER 2025-10-01 13:11 | Emergency (ER) | payer OTHER ==
[~2025-10-01] VITALS: Wt 74.8 kg
[2025-10-01 13:50] LABS: BASO # 0.1 10*3/uL (0.0-0.1); BASO % 1.1 % (0.0-1.0); EOS # 0.2 10*3/uL (0.0-0.4); EOS % 2.0 % (1.0-4.0); MEAN CELL VOLUME 100.5 fl (81.0-99.0); MEAN CORPUSCULAR HGB 34.1 pg (27.0-31.0); MEAN PLATELET VOLUME 8.8 fl (9.6-12.3); MONO # 1.0 10*3/uL (0.1-1.0); MONO % 9.3 % (3.0-9.0); NEUT # 6.8 10*3/uL (2.3-7.9); NEUT % 63.1 % (47.0-73.0); NUCLEATED RED BLOOD CELL 0.0 % (0.0-0.0); NUCLEATED RED BLOOD CELL 0.0 10*3/uL (0.0-0.0); PLATELET COUNT AUTOMATED 312 10*3/uL (130-400); RED CELL DISTRI WIDTH 13.2 % (0-14.5)
[2025-10-01 14:11] LABS: BUN 12 mg/dl (9-23)
[2025-10-01 14:13] LABS: SGPT/ALT < 7 U/L (5-49)
[2025-10-01] MEDS ORDERED: LORazepam 1 MG TAB PO ONE (15:35)
== END 2025-10-01 16:15 | disposition home or self-care (01) ==
LOC: ED 13:11
PROVIDERS: Emergency Medicine
DX: R53.1 Weakness (principal); R07.89 Other chest pain; R20.2 Paresthesia of skin; R42 Dizziness and giddiness; R20.0 Anesthesia of skin; F17.210 Nicotine dependence, cigarettes, uncomplicated; Z91.041 Radiographic dye allergy status; Z88.6 Allergy status to analgesic agent; Z88.8 Allergy status to other drugs, medicaments and biological substances; Z79.899 Other long term (current) drug therapy; Z79.84 Long term (current) use of oral hypoglycemic drugs; Z98.890 Other specified postprocedural states

== ENCOUNTER 2025-10-04 18:04 | Emergency (ER) | payer OTHER ==
[~2025-10-04] VITALS: Ht 157.4 cm; Wt 74.8 kg
[2025-10-04 18:52] LABS: BASO # 0.2 10*3/uL (0.0-0.1); BASO % 1.5 % (0.0-1.0); EOS # 0.4 10*3/uL (0.0-0.4); EOS % 3.2 % (1.0-4.0); MEAN CELL VOLUME 104.1 fl (81.0-99.0); MEAN CORPUSCULAR HGB 33.8 pg (27.0-31.0); MEAN PLATELET VOLUME 8.9 fl (9.6-12.3); MONO # 1.1 10*3/uL (0.1-1.0); MONO % 9.4 % (3.0-9.0); NEUT # 6.8 10*3/uL (2.3-7.9); NEUT % 58.6 % (47.0-73.0); NUCLEATED RED BLOOD CELL 0.0 % (0.0-0.0); NUCLEATED RED BLOOD CELL 0.0 10*3/uL (0.0-0.0); PLATELET COUNT AUTOMATED 327 10*3/uL (130-400); RED CELL DISTRI WIDTH 13.2 % (0-14.5)
[2025-10-04 19:47] LABS: BUN 9 mg/dl (9-23)
== END 2025-10-04 21:55 | disposition home or self-care (01) ==
LOC: ED 18:04
PROVIDERS: Nurse Practitioner Family
DX: R07.89 Other chest pain (principal); F44.5 Conversion disorder with seizures or convulsions; F32.A Depression, unspecified; F41.9 Anxiety disorder, unspecified; K21.9 Gastro-esophageal reflux disease without esophagitis; J44.9 Chronic obstructive pulmonary disease, unspecified; F17.210 Nicotine dependence, cigarettes, uncomplicated; Z88.6 Allergy status to analgesic agent; Z88.8 Allergy status to other drugs, medicaments and biological substances

== ENCOUNTER 2025-10-11 18:11 | Emergency (ER) | payer OTHER ==
[~2025-10-11] VITALS: Wt 63.5 kg
[2025-10-11 19:13] LABS: BASO # 0.1 10*3/uL (0.0-0.1); BASO % 1.1 % (0.0-1.0); EOS # 0.3 10*3/uL (0.0-0.4); EOS % 2.3 % (1.0-4.0); MEAN CELL VOLUME 101.4 fl (81.0-99.0); MEAN CORPUSCULAR HGB 33.6 pg (27.0-31.0); MEAN PLATELET VOLUME 8.8 fl (9.6-12.3); MONO # 1.0 10*3/uL (0.1-1.0); MONO % 8.6 % (3.0-9.0); NEUT # 7.1 10*3/uL (2.3-7.9); NEUT % 61.9 % (47.0-73.0); NUCLEATED RED BLOOD CELL 0.0 % (0.0-0.0); NUCLEATED RED BLOOD CELL 0.0 10*3/uL (0.0-0.0); PLATELET COUNT AUTOMATED 315 10*3/uL (130-400); RED CELL DISTRI WIDTH 12.8 % (0-14.5)
[2025-10-11 19:32] LABS: BUN 14 mg/dl (9-23)
== END 2025-10-11 21:05 | disposition home or self-care (01) ==
LOC: ED 18:11
PROVIDERS: Nurse Practitioner Family
DX: R07.89 Other chest pain (principal); G89.29 Other chronic pain; E11.9 Type 2 diabetes mellitus without complications; F41.1 Generalized anxiety disorder; K21.9 Gastro-esophageal reflux disease without esophagitis; I48.91 Unspecified atrial fibrillation; I25.10 Atherosclerotic heart disease of native coronary artery without angina pectoris; J44.9 Chronic obstructive pulmonary disease, unspecified; F32.A Depression, unspecified; F17.210 Nicotine dependence, cigarettes, uncomplicated; Z98.51 Tubal ligation status; Z98.890 Other specified postprocedural states; Z86.73 Personal history of transient ischemic attack (TIA), and cerebral infarction without residual deficits; Z88.6 Allergy status to analgesic agent; Z88.8 Allergy status to other drugs, medicaments and biological substances